=== PATIENT | female | born 1950 | race Caucasian/White ===

== ENCOUNTER 2022-10-09 15:38 | Outpatient (OUT) | payer MEDICARE, OTHER, SELFPAY ==
[2022-10-09 16:06] LABS: Basophils Absolute Auto 0.1 10^3/uL (0.0-0.1); Basophils Percent Auto 1.1 % (0.2-2.0); Eosinophils Absolute Auto 0.2 10^3/uL (0.0-0.7); Eosinophils Percent Auto 3.6 % (0.9-7.0); Hematocrit 36.6 % (36.0-48.0); Hemoglobin 11.9 g/dL (12.0-16.0); Immature Granulocytes Abs Auto 0.01 10^3/uL (0.00-0.03); Immature Granulocytes Pct Auto 0.2 % (0.0-0.5); Lymphocytes Absolute Auto 2.5 10^3/uL (1.2-3.8); Mean Corpuscular HGB Conc 32.5 g/dL (29.9-35.2); Mean Corpuscular Hemoglobin 28.7 pg (26.7-34.0); Mean Corpuscular Volume 88.4 fL (81.0-99.0); Mean Platelet Volume 9.8 fL (9.5-13.5); Monocytes Absolute Auto 0.5 10^3/uL (0.3-0.8); Monocytes Percent Auto 7.5 % (1.7-12.0); Neutrophils Absolute Auto 3.1 10^3/uL (1.4-6.5); Neutrophils Percent Auto 48.6 % (43.0-75.0); Platelet Count 276 10^3/uL (150-450); Red Blood Count 4.14 10^6/uL (4.20-5.40); Red Cell Distribution Width 13.3 % (11.0-15.0); White Blood Count 6.4 10^3/uL (4.0-11.0)
[2022-10-09 16:26] LABS: Alanine Aminotransferase 27 U/L (14-59); Albumin Level 3.9 g/dL (3.4-5.0); Alkaline Phosphatase 78 U/L (46-116); Anion Gap 8.7; Aspartate Amino Transferase 21 U/L (15-37); BUN Creatinine Ratio 21.5; Bilirubin Total 1.1 mg/dL (0.2-1.0); Calcium 9.1 mg/dL (8.5-10.1); Carbon Dioxide 28.7 mmol/L (21.0-32.0); Chloride 102 mmol/L (98-107); Estimated GFR (African America >60 (>=60); Estimated GFR (Non-African Ame >60 (>=60); Globulin 3.8 g/dL; Glucose 86 mg/dL (74-106); Potassium 3.4 mmol/L (3.5-5.1); Sodium 136 mmol/L (136-145); Total Protein 7.7 g/dL (6.4-8.2)
== END 2022-10-09 15:39 | disposition home or self-care (01) ==
LOC: LAB 15:43
PROVIDERS: PCP Nurse Practitioner; Visit Provider Nurse Practitioner
DX: R53.83 Other fatigue (principal)
CPT/HCPCS: 36415; 80053; 85025

== ENCOUNTER 2023-01-04 07:02 | Emergency (ER) | payer MEDICARE, OTHER, SELFPAY ==
[2023-01-04 07:08] VITALS: BP 188/106; PULSE 72; RESP 16; TEMP 36.8; O2SAT 99; BMI 25.8
--- NOTE | 2023-01-04 07:16 | ED_ITS ---
HPI - General Adult General Chief complaint: Headache Stated complaint: HEADACHE Time Seen by Provider: 01/04/23 07:04 Source: patient Mode of arrival: Wheelchair Limitations: no limitations History of Present Illness HPI narrative: patient with long history of migraines presents with occipital headache that began 3 days ago. She typically gets 3-4 headaches per month but lately has been getting them more frequently. She takes maxalt and that usually resolves the episode but in this instance the maxalt hasn't made a difference. She had nasal symptoms about a week ago - none now. She has some nausea, mild p hotophobia and upper neck pain. No injury. No fever or chlls. No cough, chest pain or shortness of breath Related Data Previous Rx's Medication Instructions Recorded ondansetron 4 mg disintegrating 4 mg PO Q6H PRN migraine headache 01/04/23 tablet #20 tabs Allergies Allergy/AdvReac Type Severity Reaction Status Date / Time Penicillins Allergy Unknown Verified 01/04/23 07:08 PFSH PFS Social History Smoking status: Never smoker Exam Narrative Exam Narrative: Nurses notes and vital signs reviewed and patient is not hypoxic. afebrile General: Well-appearing and in no apparent distress. Skin: Warm, dry, no pallor noted. No rash. Head: Normocephalic, atraumatic. Neck: Supple, non-tender. no cervical lymphadenopathy. No meningismus. Eye: Pupils are equal, round and EOMI. No scleral icterus. Cardiovascular: Regular Rate and Rhythm without murmur, gallop or rub. Respiratory: No accessory muscle use or respiratory distress. Lungs are clear to auscultation, no wheezing, rales or rhonchi Musculoskeletal: normal ROM Neurological: A&O x4. No cranial nerve dysfunction observed. No truncal ataxia. Moves all extremities. Sensation intact. Psychiatric: Cooperative and interactive. Normal mood and affect. Constitutional Vital Signs, click to edit/add: Last Vital Signs Temp 98.2 F 01/04/23 07:08 Pulse 72 01/04/23 07:08 Resp 16 01/04/23 07:08 BP 176/93 H 01/04/23 08:29 Pulse Ox 99 01/04/23 07:08 O2 Del Method Room Air 01/04/23 07:08 Course Vital Signs Vital signs: Vital Signs Temperature 98.2 F 01/04/23 07:08 Pulse Rate 72 01/04/23 07:08 Respiratory Rate 16 01/04/23 07:08 Blood Pressure 188/106 H 01/04/23 07:08 Pulse Oximetry 99 01/04/23 07:08 Oxygen Delivery Method Room Air 01/04/23 07:08 Temperature 98.2 F 01/04/23 07:08 Pulse Rate 72 01/04/23 07:08 Respiratory Rate 16 01/04/23 07:08 Blood Pressure 176/93 H 01/04/23 08:29 Pulse Oximetry 99 01/04/23 07:08 Oxygen Delivery Method Room Air 01/04/23 07:08 Medical Decision Making MDM Narrative Medical decision making narrative: patient presents with occipital headache that is typical of her previous migraine with the exception that this one has not resolved with Maxalt use. She has me about meningitis, tumor, other concerning reason for her to have more frequent headaches recently. I reassured her that her exam is not consistent with meningitis nor is her history. I offered to sent for CT scanning of the brain, which she agreed to. Peripheral IV was established. The patient was ordered to receive normal saline IV fluid bolus, IV Toradol, IV Zofran and IV Benadryl. On recheck at 0800, she said that the meds took the edge off but she still rated her pain 8/10. She was ordered to receive IV Phenergan and Solumedrol. Head CT was unremarkable On recheck at 840am the patient's pain was 4/10 and she was able to be discharged home. She was informed of results and given reassurance. Imaging Data CT scan - head: My impression: NAD Radiologist's impression: Patient Name: OLINDA SINGH MRN: [id number] date: 1950 Sex: F Assigned Patient Location: ER Current Patient Location: ER Accession/Order Number: [id number] Exam Date: 01/04/2023 07:51 Report Date: 01/04/2023 08:10 At the request of: MATHEW ORDAZ Procedure: CT head/brain wo con EXAMINATION: CT head/brain wo con HISTORY: headache , nausea, vomiting, diarrhea COMPARISON: No relevant comparison available. TECHNIQUE: Axial CT images were obtained without IV contrast. Dose reduction techniques were achieved by using automated exposure control and/or adjustment of mA and/or kV according to patient size and/or use of iterative reconstruction technique. FINDINGS: BRAIN: No edema, hemorrhage, mass, acute infarction, or inappropriate atrophy. Incidental calcium deposition within the basal ganglia bilaterally. CSF SPACES: No hydrocephalus, subarachnoid hemorrhage, or mass. Appropriate for age. SKULL: No fracture, mass, or other significant visible lesion. SINUSES: No significant mucosal thickening or fluid on the limited views. ORBITS: No appreciable abnormality on the limited views. OTHER: Negative IMPRESSION: 1. No intracranial hemorrhage or appreciable acute abnormality. 2. Age consistent mild chronic changes. Electronically authenticated by: NAOMI FLORENCE Date: 01/04/2023 08:10 Discharge Plan Discharge Chief Complaint: Headache Clinical Impression: Migraine Patient Disposition: Home, Self-Care Time of Disposition Decision: 08:51 Prescriptions / Home Meds: New ondansetron 4 mg tablet,disintegrating 4 mg PO Q6H PRN (Reason: migraine headache) Qty: 20 0RF Instructions: Migraine Headache (ED) Stand Alone Forms: Portal Instructions Referrals: Vesna Geiger NP [Primary Care Provider] - 1 week
[2023-01-04] MEDS: KETOROLAC TROMETHAMINE 30 MG/ML VIAL IVP (07:38)
[2023-01-04] MEDS: DIPHENHYDRAMINE HCL 50 MG/ML (1ML) VIAL 25 MG IV (07:39)
[2023-01-04] MEDS: ONDANSETRON PF 4 MG/2 ML VIAL IV (07:39)
[2023-01-04] MEDS: 0.9 % SODIUM CHLORIDE 1,000 ML 999 ML IV (07:44)
[2023-01-04] MEDS: PROMETHAZINE HCL 25 MG/ML VIAL 12.5 MG IV (08:13)
[2023-01-04] MEDS: METHYLPREDNISOLONE SOD SUCC PF 125 MG/2 ML VIAL IVP (08:13)
[2023-01-04 08:29] VITALS: BP 176/93
== END 2023-01-04 09:00 | disposition home or self-care (01) ==
PROVIDERS: Emergency Provider Emergency Medicine; PCP Nurse Practitioner
DX: G43.909 Migraine, unspecified, not intractable, without status migrainosus (principal); Z79.899 Other long term (current) drug therapy
CPT/HCPCS: 70450; 96374; 96375; 99284; J2930

== ENCOUNTER 2023-01-25 09:13 | Outpatient (OUT) | payer MEDICARE, OTHER, SELFPAY ==
--- NOTE | 2023-01-25 09:18 | MM_ITS ---
Patient Name: OLINDA SINGH MR#: [id number] : 1950 Exam Date: 01/25/2023 Ordering Doctor: KASHIF Geiger CNP RADIOLOGY REPORT PROCEDURE: MM TOMOSYNTHESIS SCREENING BI COMPARISON: MG MAMM SCREEN 3D ESTEPHANIE CAD, 01/19/2021. MG MAMM SCREEN 3D ESTEPHANIE CAD, 01/20/2022. INDICATIONS: Screening Calculator Name NCI Breast Cancer Risk Assessment Tool 5 Year Breast Cancer Risk 2.20% Lifetime Breast Cancer Risk 6.00% Personal Breast Cancer No Personal Ovarian Cancer No Treatments None Family Cancers None LOCATION: [facility] BREAST COMPOSITION: Heterogeneously dense,which may obscure small masses. FINDINGS: DIAGNOSTIC CATEGORY 2--BENIGN FINDING. NO CHANGE FROM COMPARISON. Scattered benign-appearing nodules are present. Scattered benign-appearing calcifications are present. Scattered benign-appearing lymph nodes are present. RIGHT BREAST: No significant suspicious finding. LEFT BREAST: No significant suspicious finding. RECOMMENDATIONS: ROUTINE MAMMOGRAM AND CLINICAL EVALUATION IN 12 MONTHS. PLEASE NOTE: A NORMAL MAMMOGRAM DOES NOT EXCLUDE THE POSSIBILITY OF BREAST CANCER. A CLINICALLY SUSPICIOUS PALPABLE LUMP SHOULD BE BIOPSIED. Dictated by: Thuan Sheldon MD on 01/26/2023 at 08:02 Approved by: Thuan Sheldon MD on 01/26/2023 at 08:04
--- NOTE | 2023-01-25 09:18 | XR_ITS ---
[address] [address] Patient Name: OLINDA SINGH MRN: [id number] date: 1950 Sex: F Assigned Patient Location: [facility] Current Patient Location: [facility] Accession/Order Number: [id number] Exam Date: 01/25/2023 09:38 Report Date: 01/25/2023 11:03 At the request of: KHALIDA ISAACS Procedure: XR DEXA axial skeleton EXAMINATION: XR DEXA axial skeleton, 01/25/2023 9:38 AM EST HISTORY: Post Menopause Z78.0 COMPARISON: None. TECHNIQUE: Dual-energy X-ray absorptiometry (DEXA) bone density study performed for the axial skeleton. HISTORY: Post Menopause Z78.0 FINDINGS: Bone mineral density AP spine L1-L4 measures 1.217 g/sq cm. T score 0.3. WHO classification: Normal. Lowest bone mineral density left femoral neck measures 0.860 g/sq cm. T score -1.3. WHO classification: Osteopenia XR/XR DEXA axial skeleton IMPRESSION: Osteopenia. Moderate fracture risk Electronically authenticated by: LOUISE GALLAGHER Date: 01/25/2023 11:03
== END 2023-01-25 09:14 | disposition home or self-care (01) ==
LOC: MAMMO 09:13
PROVIDERS: PCP Nurse Practitioner; Visit Provider Nurse Practitioner
DX: Z12.31 Encounter for screening mammogram for malignant neoplasm of breast (principal); Z78.0 Asymptomatic menopausal state; M85.80 Other specified disorders of bone density and structure, unspecified site
CPT/HCPCS: 77063; 77067; 77080

== ENCOUNTER 2023-10-11 16:18 | Emergency (ER) | payer MEDICARE, OTHER, SELFPAY ==
[2023-10-11 16:23] VITALS: BP 178/99; PULSE 78; TEMP 36.6; O2SAT 97; BMI 28.2
--- OUTSIDE RECORDS SUMMARY | 2023-10-11 16:35 | XMS_ITS | CCD ---
Author Organization [facility] Care Team Providers Care Pay Per Click Strategist Name Role Phone Unavailable Primary Care Provider Unavailabl VESNA Lucero Referring Unavailable AICHHOLVESNA Barksdale Referring Unavailable AICHHOLZ, TABLET MAKING MACHINE OPERATOR VESNA Primary Care Unavailable NYDIA BOX Admitting Unavailable NYDIA BOX Attending Unavailable ELIAS, DR DAVEY Consulting Unavailable AICHHOLZ, TABLET MAKING MACHINE OPERATOR VESNA Admitting Unavailable AICHHOLZ, TABLET MAKING MACHINE OPERATOR VESNA Attending Unavailable AICHHOLZ, TABLET MAKING MACHINE OPERATOR VESNA Primary Care Unavailable DR LOUISE GALLAGHER V Consulting Unavailable AICHHOLZ, TABLET MAKING MACHINE OPERATOR VESNA Consulting Unavailable AICHHOLZ, TABLET MAKING MACHINE OPERATOR VESNA Primary Care Unavailable FRANCISCO JAVIER LANIER Consulting Unavailable DR LUCAS HOLDEN Admitting Unavailable NAVIN, DR LUCAS Palmer Attending Unavailable PETAR CUMMINGS Consulting Unavailable Allergies Allergy Classification Reported Allergen(s) Allergy Type Date of Onset Reaction(s) Facility (1 source) Gluten Drug allergy (disorder) [facility] Repository (1 source) Penicillin Drug Allergy [facility] (1 source) Sulfamethoxazole / Trimethoprim Drug Allergy [facility] (1 source) Sulfonamides (Antibiotic) Drug allergy (disorder) [facility] Problems Active Problems Problem Classification Problem Date Documented Da te Episodic/Chronic Menopausal disorders (1 source) Menopausal syndrome; Translations: [Menopausal state] Chronic Other screening for suspected conditions (not mental disorders or infectious disease) (4 sources) Encounter for screening mammogram for malignant neoplasm of breast; Translations: [ENC SCR MAMMO MALIG NEOPLASM BREAST] Onset: 01-20-2022 Episodic Unclassified (1 source) Patient encounter status; Translations: [Breast cancer screening by mammogram] Past or Other Problems Problem Classification Problem Date Documented Da te Episodic/Chronic Crushing injury or internal injury (1 source) Crushing injury of left thumb, initial encounter; Translations: [CRUSHING INJURY OF LT THUMB INITIAL] Onset: 06-09-2021 Episodic E Codes: Cut/pierceb (1 source) Contact with other sharp object(s), not elsewhere classified, initial encounter; Translations: [[facility] OTH SHRP OB NOT ELSW CLASS INI] Onset: 08-16-2021 Episodic E Codes: Struck by; against (1 source) Striking against or struck by other objects, initial encounter; Translations: [STRIKING AGNST/STRUCK OTH OBJ INIT] Onset: 06-09-2021 Episodic Open wounds of extremities (4 sources) Laceration without foreign body, right lower leg, initial encounter; Translations: [LACERATION W/O FB RT LOW LEG INIT] Onset: 08-14-2021 Episodic Other connective tissue disease (3 sources) Pain in left finger(s); Translations: [PAIN IN LEFT FINGERS] Onset: 06-08-2021 Episodic Sprains and strains (1 source) Unspecified sprain of left thumb, initial encounter; Translations: [UNSPECIFIED SPRAIN LT THUMB INITIAL] Onset: 06-09-2021 Episodic Results Test Name Value Interpretation Reference Range Facil ity MG MAMM SCREEN 3D ESTEPHANIE CADon 01-20-2022 MG MAMM SCREEN 3D ESTEPHANIE CAD Patient: OLINDA SINGH Exam Date: 01/20/2022 : 1950 Gender:F Ordering : KASHIF [facility] Admission #: [id number] Family : Order #: [id number] CLICK HERE TO VIEW EXAM RADIOLOGY REPORT PROCEDURE: MAMMOGRAM SCREENING 3D BILATERAL CAD COMPARISON: MG MAMM SCREEN ESTEPHANIE W CAD, 09/10/2019. MG MAMM SCREEN 3D ESTEPHANIE CAD, 01/19/2021. INDICATIONS: Screening mammography Calculator Name NCI Breast Cancer Risk Assessment Tool 5 Year Breast Cancer Risk 2.20% Lifetime Breast Cancer Risk 6.30% Personal Breast Cancer No Personal Ovarian Cancer No Treatments None Family Cancers None LOCATION: [facility] BREAST COMPOSITION: Heterogeneously dense,which may obscure small masses. FINDINGS: DIAGNOSTIC CATEGORY 1--NEGATIVE. NO CHANGE FROM COMPARISON ASSESSMENT. Scattered benign-appearing calcifications are present. Scattered benign-appearing lymph nodes are present. RIGHT BREAST: No significant suspicious finding. LEFT BREAST: No significant suspicious finding. RECOMMENDATIONS: ROUTINE MAMMOGRAM AND CLINICAL EVALUATION IN 12 MONTHS. PLEASE NOTE: A NORMAL MAMMOGRAM DOES NOT EXCLUDE THE POSSIBILITY OF BREAST CANCER. A CLINICALLY SUSPICIOUS PALPABLE LUMP SHOULD BE BIOPSIED. Dictated by: Louise Gallagher MD on 01/20/2022 at 11:08 Approved by: Louise Gallagher MD on 01/20/2022 at 11:12 Normal [facility] XR HAND LT MIN 3Von 06-09-19 XR HAND LT MIN 3V EXAM: XR HAND LT MIN 3V COMPARISON: None HISTORY: Pain FINDINGS: No acute or aggressive bony abnormality. Alignment appears normal. Joint spaces are maintained. Mild osteophytic degenerative changes in the first carpometacarpal joint. There is osseous demineralization. Peripheral soft tissues are unremarkable. IMPRESSION: No acute findings. Mild degenerative changes and generalized osseous demineralization.. Electronically authenticated by: PETAR ZOILA Date: 2021-06-08 20:17 Normal [facility] Ambulatory Clinical Summaryo n 01-31-2021 Ambulatory Clinical Summary {[id number] Normal [facility] Patient Educationon 02-01-20 21 Patient Education Obstetrics and Gynecology Urinary Tract Infection, Adult A urinary tract infection (UTI) is an infection of any part of the urinary tract. The urinary tract includes the kidneys, ureters, bladder, and urethra. These organs make, store, and get rid of urine in the body. Your health care provider may use other names to describe the infection. An upper UTI affects the ureters and kidneys (pyelonephritis). A lower UTI affects the bladder (cystitis) and urethra (urethritis). What are the causes? Most urinary tract infections are caused by bacteria in your genital area, around the entrance to your urinary tract (urethra). These bacteria grow and cause inflammation of your urinary tract. What increases the risk? You are more likely to develop this condition if: ? You have a urinary catheter that stays in place (indwelling). ? You are not able to control when you urinate or have a bowel movement (you have incontinence). ? You are female and you: ? Use a spermicide or diaphragm for control. ? Have low estrogen levels. ? Are . ? You have certain genes that increase your risk (genetics). ? You are sexually active. ? You take antibiotic medicines. ? You have a condition that causes your flow of urine to slow down, such as: ? An enlarged prostate, if you are male. ? Blockage in your urethra (stricture). ? A kidney stone. ? A nerve condition that affects your bladder control (neurogenic bladder). ? Not getting enough to drink, or not urinating often. ? You have certain medical conditions, such as: ? Diabetes. ? A weak disease-fighting system (immunesystem). ? Sickle cell disease. ? Gout. ? Spinal cord injury. What are the signs or symptoms? Symptoms of this condition include: ? Needing to urinate right away (urgently). ? Frequent urination or passing small amounts of urine frequently. ? Pain or burning with urination. ? Blood in the urine. ? Urine that smells bad or unusual. ? Trouble urinating. ? Cloudy urine. ? Vaginal discharge, if you are female. ? Pain in the abdomen or the lower back. You may also have: ? Vomiting or a decreased appetite. ? Confusion. ? Irritability or tiredness. ? A fever. ? Diarrhea. The first symptom in older adults may be confusion. In some cases, they may not have any symptoms until the infection has worsened. How is this diagnosed? This condition is diagnosed based on your medical history and a physical exam. You may also have other tests, including: ? Urine tests. ? Blood tests. ? Tests for sexually transmitted infections (STIs). If you have had more than one UTI, a cystoscopy or imaging studies may be done to determine the cause of the infections. How is this treated? Treatment for this condition includes: ? Antibiotic medicine. ? Rmpi-pys-atynafu medicines to treat discomfort. ? Drinking enough water to stay hydrated. If you have frequent infections or have other conditions such as a kidney stone, you may need to see a health care provider who specializes in the urinary tract (urologist). In rare cases, urinary tract infections can cause sepsis. Sepsis is a life-threatening condition that occurs when the body responds to an infection. Sepsis is treated in the hospital with IV antibiotics, fluids, and other medicines. Follow these instructions at home: Medicines ? Take poxb-zgy-qkdhrfu and prescription medicines only as told by your health care provider. ? If you were prescribed an antibiotic medicine, take it as told by your health care provider. Do not stop using the antibiotic even if you start to feel better. General instructions ? Make sure you: ? Empty your bladder often and completely. Do not hold urine for long periods of time. ? Empty your bladder after sex. ? Wipe from front to back after a bowel movement if you are female. Use each tissue one time when you wipe. ? Drink enough fluid to keep your urine pale yellow. ? Keep all follow-up visits as told by your health care provider. This is important. Contact a health care provider if: ? Your symptoms do not get better after 1?2 days. ? Your symptoms go away and then return. Get help right away if you have: ? Severe pain in your back or your lower abdomen. ? A fever. ? Nausea or vomiting. Summary ? A urinary tract infection (UTI) is an infection of any part of the urinary tract, which includes the kidneys, ureters, bladder, and urethra. ? Most urinary tract infections are caused by bacteria in your genital area, around the entrance to your urinary tract (urethra). ? Treatment for this condition often includes antibiotic medicines. ? If you were prescribed an antibiotic medicine, take it as told by your health care provider. Do not stop using the antibiotic even if you start to feel better. ? Keep all follow-up visits as told by your health care provider. This is important. This in (more content not included)... Normal [facility] Urology Office/Clinic Noteon 01-31-2021 Urology Office/Clinic Note Chief Complaint OV HPI Staff Pt is here due to Urethral caruncle returning? S/P Excision of urethral mass and Cysto done 12/12/2018. Pathology was negative for any malignancy. Dr. Vesna Orozco wanted her to get checked out due to a nodule that was seen during her wellness check up. Pt states she cant see anything and she is not having any pain. Urinary fernandez she is not having any issues or concerns at this time. Dysuria: no pain or burning Incomplete bladder emptying: emptying well Hematuria: denies any blood in urine Frequency: normal voiding every 2-3 hours Urgency: mild sx if none Nocturia: 1x if any Stream: strong and steady, no hesitation, no straining Post void dripping: none Wearing pads/ Depends: panty liners for her peace of mind Urge incontinence: none Stress incontinence: yes, this is only if she had a full bladder and she coughed or sneezed Incontinence without Sensory Awareness: none Abdominal pain: no pain or pressure History of Present Illness Reviewed UA and previous op report. There have been no associated fever, chills, flank pain or blood in the urine. Pt. denies any pain/burning with urination at this time. Review of Systems PHQ Score Initial Depression Screen Score: 0 ROS - Provider Constitutional: denies weight loss, denies hot flashes. Eyes: denies eye problems. Gastrointestinal: denies nausea, denies vomiting. Cardiovascular: denies chest pain or angina. Integumentary: no dryness Musculoskeletal: denies musculoskeletal symptoms. ENMT: denies otolaryngeal symptoms. Respiratory: no shortness of breath. Heme/Lymph: denies easy bleeding tendency, denies easy bruising tendency. Psychiatric: no confusion, no anxiety. Genitourinary: See HPI. Physical Exam Vitals & Measurements HR: 65(Peripheral) RR: 18 BP: 148/92 HT: 167 cm HT: 167.0 cm WT: 69 kg WT: 69.0 kg BMI: 24.74 General Appearance: alert , no acute distress, well nourished, well developed female. Genitourinary: bladder nonpalpable, no flank pain. urethra with minor prolapse noted. mod. a.v. Assessment/Plan 1. Urethral prolapse (N36.8: Other specified disorders of urethra) Minimal urethral prolapse from today's exam. Pt. denies having any urinary concerns at this time. UA shows no signs of blood nor infection. Pt. will follow-up prn. All questions/concerns were discussed. Pt. to call the office if sheencounters any issues prior. Pt. acknowledges understanding. 2. Urethral polyp (N36.2: Urethral caruncle) S/p cysto/excision of urethral mass done 12/2018 for benign disease. I have reviewed the previous health record information and history for this pt. from Dr. Nunez. Follow-up With When Contact Information ILAN LANDA, Ede Palmer, URL [address] [place] [address]- [phone] Additional Instructions: prn Patient Education Urinary Tract Infection, Adult I, Rose Mary Huerta , personally scribed for Dr. Nunez on 01/31/2021 14:33:00. . Documentation recorded by the scribe, Rose Mary Huerta, accurately reflects the services(s) I performed and decisions made by me. Authenticated by Dr. Nunez on 01/31/2021 14:34:55. Problem List/Past Medical History Ongoing Gross hematuria Hemorrhoids Microhematuria Urethral polyp Urethral prolapse Historical Hepatitis Migraine Procedure/Surgical History Biopsy of urethra (12/12/2018), Cystoscopy (12/03/2018). Medications Acidophilus Probiotic Blend, Oral, Daily Advil, Oral, q6hr aminocaproic acid, Not taking Maxalt 10 mg Tab, Oral, Daily rizatriptan 10 mg Dis Tab, See Instructions, Not taking Vitamin C, Daily Vitamin D and K oral tablet Allergies Glutens (Headache) Septra (Hives) penicillins (Hives, hives) sulfa drugs (Hives) Social History Alcohol - Low Risk, 10/07/2018 Tobacco Never (less than 100 in lifetime) Tobacco Use:., 01/31/2021 Never (less than 100 in lifetime) Tobacco Use:. Never Smokeless Tobacco Use:., 12/27/2018 Family History Alcoholism: Father. Hypertension: Mother. Liver disease: Father. Normal [facility] Comment on above: Result Comment: Elec tronically Signed By: Ede NUNEZ MD R\.br\Date and Time Signed: 01/31/21 14:34 EST\.br\Electronically Co-Signed By: Rose Mary Huerta MA\.br\Date and Time Co-Signed: 01/31/21 14:33 EST DEXA BONE DENSITY AXIAL [facility] 09-10-2019 DEXA BONE DENSITY AXIAL SKELETON EXAMINATION: OT left hip left wrist lumbar combination DEXA. BONE DENSITOMETRY 09/10/2019 10:47 am TECHNIQUE: DEXA evaluation of the patient's lumbar spin, left wrist e and left hip. COMPARISON: There are no prior studies for comparison. HISTORY: Osteoporosis screening. Postmenopausal patient. FINDINGS: Lumbar spine: Mean BMD measured from L1 through L2 is 1.135 grams/cm2, T-score -0.2, consistent with normal bone mass. Left hip: BMD of the entire left hip is 0.984 grams/cm2, consistent with T-score of -0.2 and representing normal bone mass. BMD of the left femoral neck is 0.885 grams/cm2, with young adult T-score of -1.1representing osteopenia. Left forearm: BMD left forearm distal 33% of radius is 0.790 grams/cm2, consistent with T-score of -1.1 and representing osteopenia. IMPRESSION: 1. The T-score in the lumbar spine is -0.2, consistent with normal bone mass. 2. Lowest T-score in the left hip is -1.1, consistent with osteopenia. 3. The T-score in the left forearm distal 33% of radius is -1.1, consistent with osteopenia. 4. Findings are consistent with osteopenia. 5. Fracture risk/FRAX: Major osteoporotic: 8.9%. Hip: 0.8 %. World Health Organization classification of bone mass: Normal: T-score Greater than -1. Osteopenia (low bone mass ): T-score between -1 and -2.5. Osteoporosis: T-score less than -2.5. FRAX calculator fracture probability submitted validated front treated postmenopausal women ages 40 years to 90 years and in men ages 50 years and older. The FRAX algorithm may overestimate fracture risk in premenopausal women, postmenopausal women less than 40 years of age, and women and men previously treated with FDA approved therapies for osteoporosis. The FRAX algorithm may underestimate the fracture risk in women and men older than the age of 90 years. DEXA scan for this exam: [employer] RECOMMENDATIONS: If not already instituted, suggest therapy to increase bone mass. Follow-up study in 2 years may be considered on a [employer] system. by WHO criteria. Interpreted by: Tiana Adair MD Signed by: Tiana Adair MD 09/10/19 Final result Normal [facility] 1. The T-score in th e lumbar spine is -0.2, consistent with normal bone mass. 2. Lowest T-score in the left hip is -1.1, consistent with osteopenia. 3. The T-score in the left forearm distal 33% of radius is -1.1, consistent with osteopenia. 4. Findings are consistent with osteopenia. 5. Fracture risk/FRAX: Major osteoporotic: 8.9%. Hip: 0.8 %. World Health Organization classification of bone mass: Normal: T-score Greater than -1. Osteopenia (low bone mass ): T-score between -1 and -2.5. Osteoporosis: T-score less than -2.5. FRAX calculator fracture probability submitted validated front treated postmenopausal women ages 40 years to 90 years and in men ages 50 years and older. The FRAX algorithm may overestimate fracture risk in premenopausal women, postmenopausal women less than 40 years of age, and women and men previously treated with FDA approved therapies for osteoporosis. The FRAX algorithm may underestimate the fracture risk in women and men older than the age of 90 years. DEXA scan for this exam: [employer] RECOMMENDATIONS: If not already instituted, suggest therapy to increase bone mass. Follow-up study in 2 years may be considered on a [employer] system. by WHO criteria. [facility] OT left hip left wrist lumbar combination DEXA. BONE DENSITOMETRY 09/10/2019 10:47 am TECHNIQUE: DEXA evaluation of the patient's lumbar spin, left wrist e and left hip. COMPARISON: There are no prior studies for comparison. HISTORY: Osteoporosis screening. Postmenopausal patient. FINDINGS: Lumbar spine: Mean BMD measured from L1 through L2 is 1.135 grams/cm2, T-score -0.2, consistent with normal bone mass. Left hip: BMD of the entire left hip is 0.984 grams/cm2, consistent with T-score of -0.2 and representing normal bone mass. BMD of the left femoral neck is 0.885 grams/cm2, with young adult T-score of -1.1representing osteopenia. Left forearm: BMD left forearm distal 33% of radius is 0.790 grams/cm2, consistent with T-score of -1.1 and representing osteopenia. [facility] Simon, Mhpn Incoming Radiant Results From [employer] - 09/10/2019 4:01 PM EDT EXAMINATION: OT left hip left wrist lumbar combination DEXA. BONE DENSITOMETRY 09/10/2019 10:47 am TECHNIQUE: DEXA evaluation of the patient's lumbar spin, left wrist e and left hip. COMPARISON: There are no prior studies for comparison. HISTORY: Osteoporosis screening. Postmenopausal patient. FINDINGS: Lumbar spine: Mean BMD measured from L1 through L2 is 1.135 grams/cm2, T-score -0.2, consistent with normal bone mass. Left hip: BMD of the entire left hip is 0.984 grams/cm2, consistent with T-score of -0.2 and representing normal bone mass. BMD of the left femoral neck is 0.885 grams/cm2, with young adult T-score of -1.1representing osteopenia. Left forearm: BMD left forearm distal 33% of radius is 0.790 grams/cm2, consistent with T-score of -1.1 and representing osteopenia. IMPRESSION: 1. The T-score in the lumbar spine is -0.2, consistent with normal bone mass. 2. Lowest T-score in the left hip is -1.1, consistent with osteopenia. 3. The T-score in the left forearm distal 33% of radius is -1.1, consistent with osteopenia. 4. Findings are consistent with osteopenia. 5. Fracture risk/FRAX: Major osteoporotic: 8.9%. Hip: 0.8 %. World Health Organization classification of bone mass: Normal: T-score Greater than -1. Osteopenia (low bone mass ): T-score between -1 and -2.5. Osteoporosis: T-score less than -2.5. FRAX calculator fracture probability submitted validated front treated postmenopausal women ages 40 years to 90 years and in men ages 50 years and older. The FRAX algorithm may overestimate fracture risk in premenopausal women, postmenopausal women less than 40 years of age, and women and men previously treated with FDA approved therapies for osteoporosis. The FRAX algorithm may underestimate the fracture risk in women and men older than the age of 90 years. DEXA scan for this exam: [employer] RECOMMENDATIONS: If not already instituted, suggest therapy to increase bone mass. Follow-up study in 2 years may be considered on a [employer] system. by WHO criteria. [facility], [place] LENO DIGITAL SCREEN W OR WO C AD BILATERALon 09-10-2019 LENO DIGITAL SCREEN W OR WO CAD BILATERAL EXAMINATION: SCREENING DIGITAL BILATERAL MAMMOGRAM WITH TOMOSYNTHESIS, 09/10/2019 TECHNIQUE: Screening mammography of the bilateral breasts was performed with tomosynthesis. 2D standard and 3D tomosynthesis combination imaging performed through both breasts in the MLO and CC projection. Computer aided detection was utilized in the interpretation of this exam. COMPARISON: 07/11/2018, 12/12/2016 HISTORY: Screening. FINDINGS: The breast tissue is heterogeneously dense. There is no suspicious mass, suspicious microcalcification, or area of architectural distortion. IMPRESSION: No mammographic evidence of malignancy. BI-RADS 1 BIRADS: BIRADS - CATEGORY 1 Negative, no evidence of malignancy. Normal interval follow-up is recommended in 12 months. OVERALL ASSESSMENT - NEGATIVE A letter of notification will be sent to the patient regarding the results. [employer] recommends annual mammograms for women 40 years and older. Interpreted by: Arnaldo Wadsworth MD Signed by: Arnaldo Wadsworth MD 09/10/19 Final result Normal [facility] No mammographic evidence of malignancy. BI-RADS 1 BIRADS: BIRADS - CATEGORY 1 Negative, no evidence of malignancy. Normal interval follow-up is recommended in 12 months. OVERALL ASSESSMENT - NEGATIVE A letter of notification will be sent to the patient regarding the results. [employer] recommends annual mammograms for women 40 years and older. [facility], [place] EXAMINATION: SCREENI NG DIGITAL BILATERAL MAMMOGRAM WITH TOMOSYNTHESIS, 09/10/2019 TECHNIQUE: Screening mammography of the bilateral breasts was performed with tomosynthesis. 2D standard and 3D tomosynthesis combination imaging performed through both breasts in the MLO and CC projection. Computer aided detection was utilized in the interpretation of this exam. COMPARISON: 07/11/2018, 12/12/2016 HISTORY: Screening. FINDINGS: The breast tissue is heterogeneously dense. There is no suspicious mass, suspicious microcalcification, or area of architectural distortion. [place], [place] Simon, pn Incoming Radiant Results From [employer] - 09/10/2019 12:38 PM EDT EXAMINATION: SCREENING DIGITAL BILATERAL MAMMOGRAM WITH TOMOSYNTHESIS, 09/10/2019 TECHNIQUE: Screening mammography of the bilateral breasts was performed with tomosynthesis. 2D standard and 3D tomosynthesis combination imaging performed through both breasts in the MLO and CC projection. Computer aided detection was utilized in the interpretation of this exam. COMPARISON: 07/11/2018, 12/12/2016 HISTORY: Screening. FINDINGS: The breast tissue is heterogeneously dense. There is no suspicious mass, suspicious microcalcification, or area of architectural distortion. IMPRESSION: No mammographic evidence of malignancy. BI-RADS 1 BIRADS: BIRADS - CATEGORY 1 Negative, no evidence of malignancy. Normal interval follow-up is recommended in 12 months. OVERALL ASSESSMENT - NEGATIVE A letter of notification will be sent to the patient regarding the results. [employer] recommends annual mammograms for women 40 years and older. [place], [place] Encounters Encounter Date Encounter Type Care Provider Facility Start: 01-20-2022 End: 01-21-2022 ambulatory KASHIF GEIGER Facility:[facility] Start: 08-14-2021 End: 08-14-2021 ambulatory KASHIF GEIGRE Facility:[facility] Start: 06-08-2021 End: 06-08-2021 ambulatory KASHIF GEIGER Facility:[facility] Start: 09-10-2019 End: 09-13-2019 Patient encounter procedure VESNA CumminsMinesh GEIGER [facility] Start: 09-10-2019 End: 09-12-2019 Subsequent hospital visit by physician Sandoval Gorman [facility] Mammography Comment on above: Menopausal state Breast cancer screen ing by mammogram Procedures Date Procedure Procedure Detail Performing Clinician Start: 09-10-2019 Screening mammograph y bi 2-view breast inc cad VESNA SHITAL Start: 09-10-2019 Dxa bone density shilpa dy 1/> sites axial skel VESNA SHITAL Start: 09-10-2019 Screening digital br east tomosynthesis bi Vesna CumminsMinesh Geiger Work Phone: Start: 09-10-2019 Dxa bone density shilpa dy 1/> sites axial andresel Vesna Nunez Alexkorinaadalbertohelene Work Phone: Plan of Treatment Date Care Activity Detail Author Start: 09-09-2021 Screening for malign ant neoplasm of breast Breast cancer screen [place], [place] Start: 11-11-2019 Influenza vaccination Flu vaccine (# 1) [place] Start: 09-01-2018 Annual Wellness Visi t (AWV) Annual Wellness Visit (AWV) [place] Start: 06-02-2016 Pneumococcal 65+ yea rs Vaccine (1 of 1 - PPSV23) Pneumococcal 65+ years Vaccine (1 of 1 - PPSV23) [place] Start: 06-02-2001 Screening for malign ant neoplasm of colon Colon cancer screen colonoscopy [place], [place] Start: 06-02-2001 Shingles Vaccine (1 of 2) Shingles V accine (1 of 2) [place] Start: 1991 Lipid panel Lipid screen [place], [place] Start: 06-02-1970 DTaP/Tdap/Td vaccine (1 - Tdap) DTaP/Tdap/Td vaccine (1 - Tdap) [place], [place] Start: 1951 Hepatitis C screening Hepatitis C sc reen [place], [place] Payers Date Payer Category Payer Medicare MEDICARE MEDICAR E PART A AND B xxxxxxxxxxx 2016-Present [phone] [address] [address] [place] [address] xxxxxxxxxxx [id number] 2016 Unknown [employer] MEDICARE SUPP xxxxxxxxxx 2016-Present [phone] [address] [address] [place] [address] xxxxxxxxxx [id number] 1959 Medicare [id number] 1959 Unknown [id number] 1951 Unknown [id number] 1951 Unknown [id number] 1951 Unknown [id number] 1951 Unknown [id number] 1950 Unknown [id number] Social History Date Type Detail Facility Tobacco smoking status NHIS Unknown if ev er smoked [place], [place] Sex Assigned At Not on file [place] Exposure to SARS-CoV-2 (event) Unable to assess [place] Reason for Referral Status Reason Specialty Diagnoses / Procedures Referre d By Contact Referred To Contact [facility] Diagnoses Menopausal state Procedures DEXA BONE DENSITY AXIAL SKELETON Vesna Geiger [address] [place] [address] Status Reason Specialty Diagnoses / Procedures Referred By Contact Referred To Contact Pending Review Radiology Diagnoses Breast cancer screening by mammogram Procedures LENO DIGITAL SCREEN W OR WO CAD BILATERAL Vesna Geiger [address] [place] [address] Assessments Diagnosis Menopausal state Symptomatic menopausal or female climacteric states Diagnosis Breast cancer screening by mammogram Advance Directives No Advanced Directives Records FoundDocuments on File Type Date Recorded 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 Advance Directives and Living Will 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 Summary Purpose Family History No Family History Records FoundNo Family History Records FoundNo Family History Records Found Additional Source Comments Reason for Visit (unrecogniz ed section and content) Status Reason Specialty Diagnoses / Procedures Referre d By Contact Referred To Contact [facility] Diagnoses Asymptomatic menopausal state Procedures HC DEXA AXIAL SKELETON Vesna Geiger [address] [place] [address] [address] Status Reason Specialty Diagnoses / Procedures Referre d By Contact Referred To Contact [facility] Diagnoses Encounter for screening mammogram for malignant neoplasm of breast Procedures HC MAMMOGRAM DIGITAL SCREEN BILAT Vesna Geiger [address] [place] [address] [address] INFORMATION SOURCE (unrecogn ized section and content) DATE CREATED AUTHOR 10/02/2019 Fany Mesa [facility] DATE CREATED AUTHOR AUTHOR'S ORGANIZ ATION 04/24/2021 [facility] DATE CREATED AUTHOR AUTHOR'S ORGANIZ ATION 01/23/2022 [employer] FOR RECORDS PERTAINING TO PATIENTS WHO ARE OR HAVE BEEN ENROLLED IN A CHEMICAL DEPENDENCY/SUBSTANCEABUSE PROGRAM, SOME INFORMATION MAY BE OMITTED. This clinical summary was aggregated from multiple sources. Caution should be exercised in using it in the provision of clinical care. This summary normalizes information from multiple sources, and as a consequence, information in this document may materially change the coding, format and clinical context of patient data. In addition, data may be omitted in some cases. CLINICAL DECISIONS SHOULD BE BASED ON THE PRIMARY CLINICAL RECORDS. [facility] [employer] [facility]. provides no warranty or guarantee of the accuracy or completeness of information in this document.
--- NOTE | 2023-10-11 16:39 | ED_ITS ---
HPI - Skin/Abscess/Foreign Bdy General Chief complaint: Skin/Abscess/Foreign Body Stated complaint: BOIL Time Seen by Provider: 10/11/23 16:22 Source: patient Mode of arrival: walk-in Limitations: no limitations History of Present Illness HPI narrative: Patient is a 73-year-old female who presents to the emergency department for small pimple-like area to her left posterior shoulder that she noticed today. She states she has a history of similar in the past and states that she developed large abscesses that are difficult to control so she wanted to be seen early. She has had no other associated focal medical complaints. No medications taken prior to arrival. Related Data Previous Rx's ?Medication ?Instructions ?Recorded ondansetron 4 mg disintegrating 4 mg PO Q6H PRN migraine headache 01/04/23 tablet #20 tabs clindamycin HCl 300 mg capsule 300 mg PO Q8H 7 days #21 caps 10/11/23 Allergies Allergy/AdvReac Type Severity Reaction Status Date / Time Penicillins Allergy Unknown Hives Verified 10/11/23 16:22 sulfamethoxazole Allergy Hives Verified 10/11/23 16:22 [From ] trimethoprim [From ] Allergy Hives Verified 10/11/23 16:22 Review of Systems ROS Constitutional Denies: fever or chills Ears, nose, mouth, and throat Denies: throat pain Respiratory Denies: shortness of breath Gastrointestinal Denies: nausea or vomiting Integumentary/Breast Denies: rash, skin pain or skin tenderness Hematologic/Lymphatic Denies: easy bruising or easy bleeding PFSH PFSH Social History Smoking status: Never smoker Exam Narrative Exam Narrative: Gen.: Awake, alert, in no distress Head: Normocephalic, atraumatic ENT: Moist mucous membranes Respiratory: No respiratory distress Extremities: Moves extremities equally Psych: Normal mood and affect Neuro: No focal neuro deficit Skin: Warm, dry, intact; 2 mm pustule noted to the left posterior shoulder with minimal surrounding induration. No large areas of abscess, fluctuance or red streaking Constitutional Vital Signs, click to edit/add: Last Vital Signs Temp 98 F 10/11/23 16:23 Pulse 78 10/11/23 16:23 Resp 14 10/11/23 16:23 BP 178/99 H 10/11/23 16:23 Pulse Ox 97 10/11/23 16:23 O2 Del Method Room Air 10/11/23 16:23 Course Vital Signs Vital signs: Vital Signs Temperature 98 F 10/11/23 16:23 Pulse Rate 78 10/11/23 16:23 Respiratory Rate 14 10/11/23 16:23 Blood Pressure 178/99 H 10/11/23 16:23 Pulse Oximetry 97 10/11/23 16:23 Oxygen Delivery Method Room Air 10/11/23 16:23 Temperature 98 F 10/11/23 16:23 Pulse Rate 78 10/11/23 16:23 Respiratory Rate 14 10/11/23 16:23 Blood Pressure 178/99 H 10/11/23 16:23 Pulse Oximetry 97 10/11/23 16:23 Oxygen Delivery Method Room Air 10/11/23 16:23 MDM - Skin/Abscess/Foreign Bdy MDM Narrative Medical decision making narrative: Patient is insistent she has had serious abscesses in the past and is concerned this will progress. Peroxide was applied to the skin and a 21-gauge needle was used to aspirate the white pustule, a small amount of purulent material was expressed and there is no persistent fluctuance or an indication for incision and drainage. Band-Aid applied and she remains neurovascularly intact. She is sent home with a short course of clindamycin as she is allergic to penicillin and Bactrim. Follow-up with PCP and return to the ER if symptoms change or worsen. Warm compresses as needed. SUPERVISED APC VISIT, PHYSICIAN ATTESTATION: Based on the medical record the care appears appropriate. ? Medical Records Attestation: I reviewed the patient's medical records. Discharge Plan Discharge Stand Alone Forms: Portal Instructions Chief Complaint: Skin/Abscess/Foreign Body Clinical Impression: Skin pustule Patient Disposition: Home, Self-Care Time of Disposition Decision: 16:37 Condition: Good Prescriptions / Home Meds: New clindamycin HCl 300 mg capsule 300 mg PO Q8H 7 Days Qty: 21 0RF No Action ondansetron 4 mg tablet,disintegrating 4 mg PO Q6H PRN (Reason: migraine headache) Qty: 20 0RF Print Language: Prydeinig Instructions: Acute Wounds (ED) Referrals: Vesna Geiger NP [Primary Care Provider] - 1 week
== END 2023-10-11 17:00 | disposition home or self-care (01) ==
PROVIDERS: Emergency Provider Student in an Organized Health Care Education/Training Program; PCP Nurse Practitioner
DX: L08.9 Local infection of the skin and subcutaneous tissue, unspecified (principal)
CPT/HCPCS: 10160; 99283

== ENCOUNTER 2024-01-28 11:37 | Outpatient (OUT) | payer MEDICARE, OTHER, SELFPAY ==
--- OUTSIDE RECORDS SUMMARY | 2024-01-28 11:45 | XMS_ITS | CCD ---
Author Organization [facility] Care Team Providers Care Flush Tester Name Role Phone Unavailable Primary Care Provider Unavailabl e VESNA GEIGER Referring Unavailable AICHKATHLEEN VESNA J. Referring Unavailable AICHHOLZ, PHOTOGRAPHER MODEL VESNA Primary Care Unavailable NYDIA BOX Admitting Unavailable NYDIA BOX Attending Unavailable ELIAS, DR DAVEY Consulting Unavailable AICHHOLZ, PHOTOGRAPHER MODEL VESNA Admitting Unavailable AICHHOLZ, PHOTOGRAPHER MODEL VESNA Attending Unavailable AICHHOLZ, PHOTOGRAPHER MODEL VESNA Primary Care Unavailable DR LOUISE GALLAGHER V Consulting Unavailable AICHHOLZ, PHOTOGRAPHER MODEL VESNA Consulting Unavailable AICHHOLZ, PHOTOGRAPHER MODEL VESNA Primary Care Unavailable FRANCISCO JAVIER LANIER Consulting Unavailable NAVIN, DR LUCAS Palmer Admitting Unavailable NAVIN, DR LUCAS Palmer Attending Unavailable PETAR CUMMINGS Consulting Unavailable Aichholz [employer]LE S[employer] CONSULTANT, Vesna Unavailable Nick Lane MD Primary Care Provider LOREN GARCIA Attending Unavailable NICK LANE Referring Unavailable LOREN GARCIA Referring Unavailable LOREN GARCIA Attending Unavailable Allergies Allergy Classification Reported Allergen(s) Allergy Type Date of Onset Reaction(s) Facility (1 source) Gluten Drug allergy (disorder) [facility] Repository (1 source) Penicillin Drug Allergy [facility] Repository (1 source) Sulfamethoxazole / Trimethoprim Drug Allergy [facility] Repository (1 source) Sulfonamides (Antibiotic) Drug allergy (disorder) [facility] Rep[facility] (7 sources) Penicillin G Drug Allergy 4 Hives [facility] Work Phone: (7 sources) Sulfamethoxazole / Trimethoprim [facility] Medications Current Medications Medication Drug Class(es) Dates Sig (Normalized) Sig (Original) rizatriptan 10 mg oral tablet (8 sources) Serotonin-1b and Serotonin-1d Receptor Agonist Start: 01-08-2024 rizatriptan (Maxalt) 10 MG tablet Indications: Migraine with aura and without status migrainosus, not intractable (CMS/HCC) May take 1 at onset of a migraine SZYMANSKI, repeat in 2 hours if needed. No more than 2 pills in 24 hours, no more than twice a week 9 tablet 1 01/08/2024 Active Start: 01-08-2024 rizatriptan (M axalt) 10 MG tablet Indications: Migraine with aura and without status migrainosus, not intractable (CMS/HCC) May take 1 at onset of a migraine SZYMANSKI, repeat in 2 hours if needed. No more than 2 pills in 24 hours, no more than twice a week 9 tablet 1 01/08/2024 Active Start: 01-08-2024 rizatriptan (M axalt) 10 MG tablet Indications: Migraine with aura and without status migrainosus, not intractable (CMS/HCC) May take 1 at onset of a migraine SZYMANSKI, repeat in 2 hours if needed. No more than 2 pills in 24 hours, no more than twice a week 9 tablet 1 01/08/2024 Active Start: 01-08-2024 rizatriptan (M axalt) 10 MG tablet Indications: Migraine with aura and without status migrainosus, not intractable (CMS/HCC) May take 1 at onset of a migraine SZYMANSKI, repeat in 2 hours if needed. No more than 2 pills in 24 hours, no more than twice a week 9 tablet 1 01/08/2024 Active Start: 05-01-2023 End: 01-07-2024 rizatriptan (Maxalt) 10 MG t ablet Indications: Migraine with aura and without status migrainosus, not intractable (CMS/HCC) May take 1 at onset of a migraine SZYMANSKI, repeat in 2 hours if needed. No more than 2 pills in 24 hours, no more than twice a week 9 tablet 1 05/01/2023 01/07/2024 Discontinued (Reorder) Problems Active Problems Problem Classification Problem Date Documented Date Episodic/Chronic Headache; including migraine (8 sources) Migraine with aura; Translations: [Migraine with aura, not intractable, without status migrainosus] Onset: 05-01-2023 05-01-2023 Chronic Menopausal disorders (1 source) Menopausal syndrome; Translations: [Menopausal state] Chronic Other connective tissue disease (4 sources) Plantar fasciitis; Translations: [Plantar fascial fibromatosis] 12-14-2023 Episodic Other connective tissue disease (4 sources) Deformity of lower limb; Translations: [Contracture of muscle, right lower leg] 12-14-2023 Episodic Other connective tissue disease (4 sources) Pain in right heel; Translations: [Pain in right foot] 12-14-2023 Episodic Other nervous system disorders (7 sources) Mortons neuroma of left foot; Translations: [Lesion of plantar nerve, left lower limb] Onset: 05-01-2023 05-01-2023 Chronic Other nervous system disorders (7 sources) Left foot neuritis; Translations: [Unspecified mononeuropathy of left lower limb] Onset: 05-01-2023 05-01-2023 Chronic Other screening for suspected conditions (not [...] object(s), not elsewhere classified, initial encounter; Translations: [CNTC OT SHRP OB NOT ELSW CLASS INI] Onset: 08-16-2021 Episodic E Codes: Struck by; against (1 source) Striking against or struck by other objects, initial encounter; Translations: [STRIKING AGNST/STRUCK OT OBJ INIT] Onset: 06-09-2021 Episodic Open wounds [...] Name Value Interpretation Reference Range Facil ity XR Calcaneus - right 2 Views on 12-14-2023 Imaging Result: Lateral and calcaneal axial views taken of right heel and show no fractures or dislocations. No lytic lesion with os calcis. Small plantar heel spurring present. Mild pes planus foot type, with decrease calcaneal pitch, and increase in talar declination angle. Mild joint space narrowing noted at 1st MTPJ with dorsal hypertrophy of bone at 1st met head. [facility] Sarenzacar e Radiology Study observation (narrative) [facility] IDInteract MG MAMM SCREEN 3D ESTEPHANIE CADon 01-20-2022 MG MAMM SCREEN 3D ESTEPHANIE CAD Patient: SHEILA SINGH Exam Date: 01/20/2022 : 1950 Gender:F Ordering : KASHIF GEIGER [facility] Admission #: [id number] Family : Order #: [id number] CLICK HERE TO VIEW EXAM RADIOLOGY REPORT [...] No Treatments None Family Cancers None LOCATION: [facility] BREAST COMPOSITION: Heterogeneously dense,which may obscure [...] Gallagher MD on 01/20/2022 at 11:12 Normal [facility] XR HAND LT MIN 3Von 06-09-19 [...] generalized osseous demineralization.. Electronically authenticated by: PETAR CUMMINGS Date: 2021-06-08 20:17 Normal [facility] Ambulatory Clinical Summaryo n 01-31-2021 Ambulatory Clinical Summary {[id number] Normal [facility] Patient Educationon 02-01-20 21 Patient Education Obstetrics [...] this condition includes: ? Antibiotic medicine. ? Tbxr-jde-fvmunvu medicines to treat discomfort. ? Drinking enough [...] these instructions at home: Medicines ? Take enoe-was-ocujiho and prescription medicines only as told by [...] This in (more content not included)... Normal [facility] Urology Office/Clinic Noteon 01-31-2021 Urology Office/Clinic Note [...] Information ILAN LANDA, Ede Palmer, URL [address] [place] [address] [place] [address]- [phone] Additional Instructions: prn Patient Education Urinary Tract [...] Father. Hypertension: Mother. Liver disease: Father. Normal [facility] Comment on above: Result Comment: Elec tronically Signed By: Ede NUNEZ MD\.br\Date and Time Signed: 01/31/21 14:34 EST\.br\Electronically Co-Signed By: Rose Mary Huerta MA\.br\Date and Time Co-Signed: 01/31/21 14:33 EST DEXA BONE DENSITY AXIAL SKEL ETONon 09-10-2019 DEXA BONE DENSITY AXIAL SKELETON EXAMINATION: [...] 90 years. DEXA scan for this exam: Calixar RECOMMENDATIONS: If not already instituted, suggest therapy to increase bone mass. Follow-up study in 2 years may be considered on a The Box system. by WHO criteria. Interpreted by: Tiana Adair MD Signed by: Tiana Adair MD 09/10/19 Final result Normal [facility] 1. The T-score in the lumbar spine [...] 90 years. DEXA scan for this exam: Calixar RECOMMENDATIONS: If not already instituted, suggest therapy to increase bone mass. Follow-up study in 2 years may be considered on a The Box system. by WHO criteria. [place], [place] EXAMINATION: OT left hip left wrist lumbar [...] with T-score of -1.1 and representing osteopenia. [place], [place] Simon, [facility] Incoming Radiant Results From KeyEffx/Datto - 09/10/2019 4:01 PM EDT EXAMINATION: OT [...] 90 years. DEXA scan for this exam: Calixar RECOMMENDATIONS: If not already instituted, suggest therapy to increase bone mass. Follow-up study in 2 years may be considered on a The Box system. by WHO criteria. [facility], [place] LENO DIGITAL SCREEN W OR WO C AD BILATERALon 09-10-2019 [facility] DIGITAL SCREEN W OR WO CAD BILATERAL [...] to the patient regarding the results. [employer] recommends annual mammograms for women 40 years and older. Interpreted by: Arnaldo Wadsworth MD Signed by: Arnaldo Wadsworth MD 09/10/19 Final result Normal [facility] No mammographic evidence of malignancy. BI-RADS 1 BIRADS: BIRADS - CATEGORY 1 Negative, no evidence of malignancy. Normal interval follow-up is recommended in 12 months. OVERALL ASSESSMENT - NEGATIVE A letter of notification will be sent to the patient regarding the results. [employer] recommends annual mammograms for women 40 years and older. [place] EXAMINATION: SCREENING DIGITAL BILATERAL MAMMOGRAM WITH TOMOSYNTHESIS, [...] suspicious microcalcification, or area of architectural distortion. [place], [place] Simon, [facility] Incoming Radiant Results From KeyEffx/BISciences - 09/10/2019 12:38 PM EDT EXAMINATION: SCREENING [...] to the patient regarding the results. [employer] recommends annual mammograms for women 40 years and older. [place], [place] Vital Signs Date Time Vital Sign Value Performing Clinician Faci lity 01-08-2024 [id number] Body height 167.6 cm Loren Garcia DPM Work Phone: [facility] 01-08-2024 11:04-0400 Body mass index (BMI) [Ratio] 29.7 kg/m2 Loren Garcia DPM Work Phone: [facility] 01-08-2024 11:04-0400 Body weight 83.46 kg Loren Garcia DPM Work Phone: [facility] 12-14-2023 08:47-0400 Body height 167.6 cm Loren Garcia DPM Work Phone: [facility] 12-14-2023 08:47-0400 Body mass index (BMI) [Ratio] 27.44 kg/m2 Loren Garcia DPM Work Phone: [facility] 12-14-2023 08:47-0400 Body weight 77.11 kg Loren Garcia DPM Work Phone: [facility] Healthcare Encounters Encounter Date Encounter Type Care Provider Facility Start: 01-08-2024 End: 01-08-2024 Bamboo flowsheet Loren Garcia DPM Work Phone: [facility] Start: 01-08-2024 End: 01-08-2024 Bamboo flowsheet Loren Garcia DPM Work Phone: [facility] Start: 01-08-2024 End: 01-08-2024 ambulatory LOREN GARCIA Not Available Start: 01-08-2024 End: 01-08-2024 Office outpatient visit 15 minutes Loren Garcia DPM Work Phone: [facility] Comment on above: Plantar fasciitis (P rimary Dx); Gastrocnemius equinus of right lower extremity; Pain of right heel Start: 01-07-2024 End: 01-08-2024 Refill Vesna Geiger ORACLE SCM CONSULTANT Work Phone: [facility] Comment on above: Migraine with aura a nd without status migrainosus, not intractable ([facility]) Start: 12-14-2023 End: 12-14-2023 Bamboo flowsheet Loren Garcia DPM Work Phone: [facility] Start: 12-14-2023 End: 12-14-2023 Bamboo flowsheet Loren Garcia DPM Work Phone: [facility] Start: 12-14-2023 End: 12-14-2023 Office outpatient new 30 minutes Loren Garcia DPM Work Phone: [facility] Comment on above: Plantar fasciitis (P rimary Dx); Gastrocnemius equinus of right lower extremity; Pain of right heel Start: 12-14-2023 End: 12-14-2023 ambulatory LOREN GARCIA Not Available Start: 01-20-2022 End: 01-21-2022 ambulatory [facility] VESNA SHITAL Facility:H1 Start: 08-14-2021 End: 08-14-2021 ambulatory [facility] VESNA SHITAL Facility:H1 Start: 06-08-2021 End: 06-08-2021 ambulatory [facility] VESNA SHITAL Facility:H1 Start: 09-10-2019 End: 09-13-2019 Patient encounter procedure VESNA GEIGER [facility] Start: 09-10-2019 End: 09-12-2019 Subsequent hospital visit by physician [facility] Comment on above: Menopausal state Breast cancer screen ing by mammogram Procedures Date Procedure Procedure Detail Performing Clinician Start: 12-14-2023 Radex calcaneus mini mum 2 views Loren Garcia DPM Work Phone: Start: 01-26-2023 Mammography Loren collado DPM Work Phone: Start: 09-10-2019 Screening mammograph y bi 2-view breast inc cad VESNA GEIGER Start: 09-10-2019 Dxa bone density shilpa dy 1/> sites axial skel VESNA GEIGER Start: 09-10-2019 Screening digital br east tomosynthesis bi Vesna JMinesh Geiger Work Phone: Start: 09-10-2019 Dxa bone density shilpa dy 1/> sites axial skel Vesna JMinesh Geiger Work Phone: Plan of Treatment Date Care Activity Detail Author Start: 12-19-2024 Screening for malign ant neoplasm of colon [facility] Start: 02-19-2024 End: 02-19-2024 Patient encounter procedure 02/19/2024 10:45 AM EST Office Visit [facility] [address] [facility] [phone] Loren Garcia, ALBARO [address] [place] [address] [facility] Start: 01-28-2024 End: 01-28-2024 Patient encounter procedure 01/28/2024 10:30 AM EST Procedure Visit [facility] [address] [address] Vesna Geiger, ORACLE SCM CONSULTANT [address] [place] [address] [facility] Start: 01-27-2024 Screening for malign ant neoplasm of breast Mammogram [facility] Start: 01-08-2024 End: 01-08-2024 Patient encounter procedure 01/08/2024 11:00 AM EDT Office Visit [facility] [address] [facility] [phone] Loren Garcia, DPM [address] [place], [place] [id number] [facility] Start: 12-14-2023 End: 12-14-2023 Patient encounter procedure 12/14/2023 9:00 AM EDT Office Visit [facility] [address] [place] [address] Loren Lynn, DPM [address] [place] [address] Arrived [facility] Comment on above: Arrived Start: 11-11-2023 Influenza vaccination Influenza Vacc ine (#1) [facility] Healthcare Start: 09-09-2021 Screening for malign ant neoplasm of breast Breast cancer screen [place], [place] Start: 11-11-2019 Influenza vaccination Flu vaccine (# 1) [place] Start: 09-01-2018 Annual Wellness Visi t (AWV) Annual Wellness Visit (AWV) [place] Start: 06-02-2016 Pneumococcal 65+ yea rs Vaccine (1 of 1 - PPSV23) Pneumococcal 65+ years Vaccine (1 of 1 - PPSV23) [place] Start: 06-02-2001 Screening for malign ant neoplasm of colon Colon cancer screen colonoscopy [place] Start: 06-02-2001 Shingles Vaccine (1 of 2) Shingles Vaccine (1 of 2) [place] Start: 1991 Lipid panel Lipid screen [place], [place] Start: 06-02-1970 DTaP/Tdap/Td vaccine (1 - Tdap) DTaP/Tdap/Td vaccine (1 - Tdap) [place] Start: 1950 Hepatitis C screening Hepatitis C sc reen [place] Start: 1950 Medicare Annual Wellness (AWV) Medicare Annual Wellness (AWV) [facility] Start: 1950 Screening for malign ant neoplasm of colon [facility] Immunizations Immunization Date Immunization Notes Care Provider Fa [facility] 12-29-2019 influenza virus vacc ine, unspecified formulation Loren Garcia DPM Work Phone: [facility] Healthcare Payers Date Payer Category Payer Private Health Insurance [id number] 2016 Medicare MEDICARE MEDICAR E PART A AND B xxxxxxxxxxx 2016-Present [phone] [address] [address] [place] [address] xxxxxxxxxxx [id number] 2016 Medicare [id number] 2016 Unknown [employer] MEDICARE SUPP xxxxxxxxxx 2016-Present [phone] [address] [address] [place] [address] xxxxxxxxxx [id number] 1959 Medicare [id number] 1959 Unknown [id number] 1950 Unknown [id number] 1950 Unknown [id number] 1950 Unknown [id number] 1950 Unknown [id number] 1950 Unknown [id number] 1950 Unknown [id number] .[id number] 1950 Unknown [id number] 1950 Unknown [id number] Social History Date Type Detail Facility [facility] [place] Start: 1950 Sex Assigned At Not on file M [place], [place] Exposure to SARS-CoV -2 (event) Unable to assess [facility] [place], [place] Start: 12-14-2023 Tobacco smoking stat [facility] Never smoked tobacco [facility] Start: 12-14-2023 Tobacco use and exposure Smokeless tobacco non-user [facility] Start: 12-14-2023 End: 01-08-2024 Alcoholic beverage intake Current drinker of alcohol (finding) [facility] Start: 12-14-2023 History of Social function [facility] Start: 12-14-2023 Tobacco use panel [facility] Start: 12-14-2023 Alcohol Comment rare [facility] Tobacco smoking stat [facility] Tobacco smoking consumption unknown [facility] History of Present illness Narrative 01-08-2024 Loren Garcia DPM - 01/08/2024 11:00 AM EDT Note Date & Type Note Facility 01-08-2024 History of Presen t illness Narrative Images from the original note were not included. Subjective Patient ID: Sheila Singh is a 73 y.o. female who presents for Follow-up (Pt returns today for FUV Plantar fasciitis Rt foot, she states still very sore by the end of the day. She is stretching and it does help a little, she purchased new shoes at [employer] /SS: 9.5W ). HPI Patient presents for follow up of right plantar fasciitis. She states since her last visit she has been wearing supportive shoe gear, power step inserts, stretching multiple times a day, icing in the evenings, continues to take Advil. She states she has noticed minor improvements. She states the pain is present less often. After long hours on her feet the pain becomes worse. She is still exercising daily and walking for exercise. She was also doing a significant amount of yard work. Review of Systems Medications Current Outpatient Medications: rizatriptan (Maxalt) 10 MG tablet, May take 1 at onset of a migraine SZYMANSKI, repeat in 2 hours if needed. No more than 2 pills in 24 hours, no more than twice a week, Disp: 9 tablet, Rfl: 1 Allergies Penicillin g and Sulfamethoxazole-trimethoprim Past Surgical History Past Surgical History: Procedure Laterality Date BUNIONECTOMY Bilateral Dr. Hendricks or Dr. Case Garcia Family History Family History Problem Relation Name Age of Onset Hypertension Mother Objective Physical Exam Constitutional: General: She is not in acute distress. HENT: Head: Atraumatic. Cardiovascular: Comments: Pedal pulses: DP pulses are 2/4, PT pulses are 2/4 Skin temp is warm to warm. Varicosities: present Hair growth: present Pulmonary: Effort: Pulmonary effort is normal. No respiratory distress. Musculoskeletal: Comments: ROM: AJ dorsiflexion is limited with knee extended and improves with knee flexed. STJ ROM WNL. MUSCLE STRENGTH: 5/5 for all quadrants without tenderness. PAIN: RIGHT: Pain at the insertion of the plantar fascia into the calcaneus. Mild discomfort with palpation of the weight bearing surface of the calcaneus. No pain with medial to lateral compression of the heel. No pain in the peroneals, Achilles or Posterior tibial tendon. DEFORMITIES: 1st met head is prominent medially with lateral deviation of the hallux on the right. Skin: General: Skin is warm. Capillary Refill: Capillary refill takes less than 2 seconds. Findings: No bruising or erythema. Comments: SKIN FINDINGS: Webspaces are clean and dry. Skin turgor and texture normal HYPERKERATOSIS: none Neurological: Mental Status: She is alert. Comments: No loss of protective sensation, gross sensation intact. Psychiatric: Mood and Affect: Mood normal. Behavior: Behavior normal. Assessment/Plan ICD-10-CM 1. Plantar fasciitis M72.2 2. Gastrocnemius equinus of right lower extremity M62.461 3. Pain of right heel M79.671 I reiterated the importance of wearing supportive shoe gear, avoiding bare feet, power step inserts, stretching, icing, NSAID. I gave adjunct treatment options of oral steroid versus steroid injection versus immobilization in the cam walker. Patient states she would like to avoid these options if possible. Therefore, I recommended she significantly modify her activity, discontinue walking for exercise while continuing to diligently adhere to the previously discussed conservative care measures. She will try this for a month and return here for follow up. This note was created with the assistance of a speech recognition program. While intending to generate a timely document that accurately reflects the content of the visit, no guarantee can be provided that every grammatical or spelling mistake has been or will be identified or corrected. Thank you for your understanding. Loren Garcia DPM documented in this encounter [facility] History of Present illness Narrative 12-14-2023 Loren Garcia DPM - 12/14/2023 9:00 AM EDT Note Date & Type Note Facility 12-14-2023 History of Presen t illness Narrative Images from the original note were not included. Subjective Patient ID: Sheila Singh is a 73 y.o. female who presents for Heel Pain (Pt prsentd today with Rt heel pain, has been painful for about 1mo, NKI. Feels like a nail stabbing. Most painful for her when she is up on her feet. Most bothersome first thing in the morning. /SS: 9.5Wide). HPI Presents complaining of right heel pain that has been present for 1 month. Denies injury. She describes the pain as sharp. It is worse 1st thing in the morning after long hours on her feet. It is also painful when standing after periods of rest. She states she is unable to wear her custom-molded orthotics as it feels to hard on her heel. She has tried Advil and changing shoes. She typically wears tennis shoes she has from [employer] Review of Systems Medications Current Outpatient Medications: rizatriptan (Maxalt) 10 MG tablet, May take 1 at onset of a migraine SZYMANSKI, repeat in 2 hours if needed. No more than 2 pills in 24 hours, no more than twice a week, Disp: 9 tablet, Rfl: 1 Allergies Penicillin g and Sulfamethoxazole-trimethoprim Past Surgical History Past Surgical History: Procedure Laterality Date BUNIONECTOMY Bilateral Dr. Hendricks or Dr. Case Garcia Family History Family History Problem Relation Name Age of Onset Hypertension Mother Objective Physical Exam Constitutional: General: She is not in acute distress. HENT: Head: Atraumatic. Cardiovascular: Comments: Pedal pulses: DP pulses are 2/4, PT pulses are 2/4 Skin temp is warm to warm. Varicosities: present Hair growth: present Pulmonary: Effort: Pulmonary effort is normal. No respiratory distress. Musculoskeletal: Comments: ROM: AJ dorsiflexion is limited with knee extended and improves with knee flexed. STJ ROM WNL. MUSCLE STRENGTH: 5/5 for all quadrants without tenderness. PAIN: RIGHT: Pain at the insertion of the plantar fascia into the calcaneus. Mild discomfort with palpation of the weight bearing surface of the calcaneus. No pain with medial to lateral compression of the heel. No pain in the peroneals, Achilles or Posterior tibial tendon. DEFORMITIES: 1st met head is prominent medially with lateral deviation of the hallux on the right. Skin: General: Skin is warm. Capillary Refill: Capillary refill takes less than 2 seconds. Findings: No bruising or erythema. Comments: SKIN FINDINGS: Webspaces are clean and dry. Skin turgor and texture normal HYPERKERATOSIS: none Neurological: Mental Status: She is alert. Comments: No loss of protective sensation, gross sensation intact. Psychiatric: Mood and Affect: Mood normal. Behavior: Behavior normal. Assessment/Plan ICD-10-CM 1. Plantar fasciitis M72.2 XR calcaneus 2 views right 2. Gastrocnemius equinus of right lower extremity M62.461 3. Pain of right heel M79.671 Patient was examined and evaluated. Radiographic and clinical findings discussed with the patient. Discuss with patient the stress/inflammation/ pain cycle of plantar fasciitis. Stress the importance of good supportive tie shoes. Advise no flip flops, slippers nor bare feet. Explain the anatomy of the plantar fascia, equinus, and heel spurs. Demonstrate stretching exercises and give handout for the same. Also advise icing therapy. Patient tried Powerstep orthotics and will take them; they felt comfortable. Reviewed break in period. Offered Rx of NSAID versus oral steroid taper. Patient states she would like to start with OTC Advil regularly for 2 weeks to see how she progresses along with the rest of the conservative measures mentioned above. Activity discussed and to minimize irritation to the heel area. RTO 3-4 weeks. This note was created with the assistance of a speech recognition program. While intending to generate a timely document that accurately reflects the content of the visit, no guarantee can be provided that every grammatical or spelling mistake has been or will be identified or corrected. Thank you for your understanding. Loren Garcia DPM documented in this encounter [facility] Evaluation note Note Date & Type Note Facility Evaluation note Diagnosis Plantar fasciitis- Primary Plantar fascial fibromatosis Gastrocnemius equinus of right lower extremity Pain of right heel documented in this encounter [facility] Evaluation note Note Date & Type Note Facility Evaluation note Diagnosis Migraine with aura and without status migrainosus, not intractable (CMS/HCC) documented in this encounter [facility] Reason for Referral Status Reason Specialty Diagnoses / Procedures Referre d By Contact Referred To Contact Open Radiology Diagnoses Menopausal state Procedures DEXA BONE DENSITY AXIAL SKELETON Vesna Geiger [address] [place] [address] Status Reason Specialty Diagnoses / Procedures Referred By Contact Referred To Contact Pending Review Radiology Diagnoses Breast cancer screening by mammogram Procedures LENO DIGITAL SCREEN W OR WO CAD BILATERAL Vesna Geiger [address] [place] [address] Assessments Diagnosis Menopausal state Symptomatic menopausal or female climacteric states Diagnosis Breast cancer screening by mammogram Advance Directives No Advanced Directives Records FoundDocuments on File Type Date Recorded 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 Advance Directives and Living Will 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 Summary Purpose Family History No Family History Records FoundNo Family History Records FoundNo Family History Records FoundNo Family History Records Found Additional Source Comments Reason for Visit (unrecogniz ed section and content) Status Reason Specialty Diagnoses / Procedures Referre d By Contact Referred To Contact Open Radiology Diagnoses Asymptomatic menopausal state Procedures HC DEXA AXIAL SKELETON Vesna Geiger [address] [place] [address] [address] Status Reason Specialty Diagnoses / Procedures Referre d By Contact Referred To Contact Open Radiology Diagnoses Encounter for screening mammogram for malignant neoplasm of breast Procedures HC MAMMOGRAM DIGITAL SCREEN BILAT Vesna Geiger [address] [facility] [place] [address] [address] Reason Comments Heel Pain Pt prsentd today wit h Rt heel pain, has been painful for about 1mo, NKI. Feels like a nail stabbing. Most painful for her when she is up on her feet. Most bothersome first thing in the morning. SS: 9.5Wide Reason Onset Date Comments Med Refill 01/07/2024 Reason Comments Follow-up Pt returns today for FUV Plantar fasciitis Rt foot, she states still very sore by the end of the day. She is stretching and it does help a little, she purchased new shoes at [employer] SS: 9.5W INFORMATION SOURCE (unrecogn ized section and content) DATE CREATED AUTHOR 10/02/2019 [facility] DATE CREATED AUTHOR AUTHOR'S ORGANIZ ATION 04/24/2021 [facility] DATE CREATED AUTHOR AUTHOR'S ORGANIZ ATION 01/23/2022 [facility] DATE CREATED AUTHOR AUTHOR'S ORGANIZ ATION 01/09/2024 [facility] PSYCHIATRIC Care Teams (unrecognized sec tion and content) Flush Tester Relationship Specialty Start Date End Date Nick Lane MD [address] [place] [address] PCP - General Family Medicine 12/14/23 Vesna Geiger NP [address] [place] [address] Referring Physician Nurse Practitioner 10/06/22 Flush Tester Relationship Specialty Start Date End Date Nick Lane MD [address] [place] [address] PCP - General Family Medicine 12/14/23 Vesna Geiger NP [address] [place] [address] Referring Physician Nurse Practitioner 10/06/22 Flush Tester Relationship Specialty Start Date End Date Nick Lane MD [address] [place] [address] PCP - General Family Medicine 12/14/23 Vesna Geiger NP [address] [place] [address] Referring Physician Nurse Practitioner 10/06/22 FOR RECORDS PERTAINING TO PATIENTS WHO ARE [...] BE BASED ON THE PRIMARY CLINICAL RECORDS. [facility]. provides no warranty or guarantee of the accuracy or completeness of information in this document.
[2024-01-28 12:00] LABS: Basophils Absolute Auto 0.1 10^3/uL (0.0-0.1); Basophils Percent Auto 0.9 % (0.2-2.0); Eosinophils Absolute Auto 0.2 10^3/uL (0.0-0.7); Eosinophils Percent Auto 3.3 % (0.9-7.0); Hemoglobin 12.1 g/dL (12.0-16.0); Immature Granulocytes Abs Auto 0.01 10^3/uL (0.00-0.03); Immature Granulocytes Pct Auto 0.2 % (0.0-0.5); Lymphocytes Absolute Auto 2.2 10^3/uL (1.2-3.8); Lymphocytes Percent Auto 37.7 % (20.5-60.0); Mean Corpuscular HGB Conc 32.7 g/dL (29.9-35.2); Mean Corpuscular Hemoglobin 29.2 pg (26.7-34.0); Mean Corpuscular Volume 89.4 fL (81.0-99.0); Mean Platelet Volume 9.8 fL (9.5-13.5); Monocytes Absolute Auto 0.4 10^3/uL (0.3-0.8); Monocytes Percent Auto 7.4 % (1.7-12.0); Neutrophils Percent Auto 50.5 % (43.0-75.0); Platelet Count 266 10^3/uL (150-450); Red Blood Count 4.14 10^6/uL (4.20-5.40); Red Cell Distribution Width 13.2 % (11.0-15.0); White Blood Count 5.8 10^3/uL (4.0-11.0)
[2024-01-28 12:23] LABS: Bilirubin Urine NEGATIVE (NEGATIVE); Blood Urine NEGATIVE (NEGATIVE); Clarity Urine CLEAR (CLEAR); Color Urine LT. YELLOW (YELLOW); Glucose Urine UA NEGATIVE (NEGATIVE); Ketones Urine NEGATIVE (NEGATIVE); Leukocyte Esterase Urine NEGATIVE (NEGATIVE); Nitrite Urine NEGATIVE (NEGATIVE); Protein Urine NEGATIVE (NEG/TRACE); Urobilinogen Urine 0.2 EU/dL (0.2-1.0)
[2024-01-28 12:30] LABS: Urine Microscopic Indicated NO
[2024-01-28 12:49] LABS: Alanine Aminotransferase 29 U/L (14-59); Albumin Globulin Ratio 1.1; Albumin Level 3.8 g/dL (3.4-5.0); Alkaline Phosphatase 78 U/L (46-116); Anion Gap 10.8; Aspartate Amino Transferase 25 U/L (15-37); BUN Creatinine Ratio 18.3; Calcium 9.1 mg/dL (8.5-10.1); Carbon Dioxide 29.9 mmol/L (21.0-32.0); Chloride 105 mmol/L (98-107); Estimated GFR (African America >60 (>=60 mL/min/1.73m^2); Estimated GFR (Non-African Ame >60 (>=60 mL/min/1.73m^2); Globulin 3.5 g/dL; Glucose 86 mg/dL (74-106); Potassium 3.7 mmol/L (3.5-5.1); Sodium 142 mmol/L (136-145); Total Protein 7.3 g/dL (6.4-8.2)
== END 2024-01-28 11:38 | disposition home or self-care (01) ==
LOC: LAB 11:39
PROVIDERS: PCP Nurse Practitioner; Visit Provider Nurse Practitioner
DX: K58.0 Irritable bowel syndrome with diarrhea (principal)
CPT/HCPCS: 36415; 80053; 81003; 85025

== ENCOUNTER 2024-02-05 13:51 | Outpatient (OUT) | payer MEDICARE, OTHER, SELFPAY ==
--- NOTE | 2024-02-05 13:53 | MM_ITS ---
Patient Name: OLINDA SINGH MR#: [id number] : 1950 Exam Date: 02/05/2024 Ordering Doctor: KASHIF Geiger CNP RADIOLOGY REPORT PROCEDURE: MM TOMOSYNTHESIS SCREENING BI COMPARISON: MM TOMOSYNTHESIS SCREENING BI, 01/25/2023. MG MAMM SCREEN 3D ESTEPHANIE CAD, 01/20/2022. MG MAMM SCREEN 3D ESTEPHANIE CAD, 01/19/2021. MG MAMM SCREEN ESTEPHANIE W CAD, 07/11/2018. INDICATIONS: Screening Calculator Name NCI Breast Cancer Risk Assessment Tool 5 Year Breast Cancer Risk 2.20% Lifetime Breast Cancer Risk 5.70% Personal Breast Cancer No Personal Ovarian Cancer No Treatments None Family Cancers None LOCATION: [facility] BREAST COMPOSITION: The breasts are heterogeneously dense,which may obscure small masses. FINDINGS: DIAGNOSTIC CATEGORY 1--NEGATIVE. RIGHT BREAST: No significant suspicious finding. No significant change has occurred. LEFT BREAST: No significant suspicious finding. No significant change has occurred. RECOMMENDATIONS: ROUTINE MAMMOGRAM AND CLINICAL EVALUATION IN 12 MONTHS. PLEASE NOTE: A NORMAL MAMMOGRAM DOES NOT EXCLUDE THE POSSIBILITY OF BREAST CANCER. A CLINICALLY SUSPICIOUS PALPABLE LUMP SHOULD BE BIOPSIED. Dictated by: Behzad Castle M.D. on 02/05/2024 at 15:35 Approved by: Behzad Castle M.D. on 02/05/2024 at 15:37
== END 2024-02-05 13:52 | disposition home or self-care (01) ==
LOC: MAMMO 13:52
PROVIDERS: PCP Nurse Practitioner; Visit Provider Nurse Practitioner
DX: Z12.31 Encounter for screening mammogram for malignant neoplasm of breast (principal)
CPT/HCPCS: 77063; 77067

== ENCOUNTER 2024-07-13 19:47 | Emergency (ER) | payer MEDICARE, OTHER, SELFPAY ==
[2024-07-13 19:54] VITALS: BP 183/88; PULSE 68; TEMP 36.5; O2SAT 98; BMI 28.2
--- NOTE | 2024-07-13 20:01 | PC.NURSE ---
right flank pain with nausea
[2024-07-13 20:37] LABS: Bilirubin Urine NEGATIVE (NEGATIVE); Blood Urine NEGATIVE (NEGATIVE); Clarity Urine CLEAR (CLEAR); Color Urine YELLOW (YELLOW); Glucose Urine UA NEGATIVE (NEGATIVE); Ketones Urine NEGATIVE (NEGATIVE); Leukocyte Esterase Urine TRACE (NEGATIVE); Nitrite Urine NEGATIVE (NEGATIVE); Protein Urine NEGATIVE (NEG/TRACE); Urobilinogen Urine 0.2 EU/dL (0.2-1.0)
[2024-07-13 20:46] LABS: Bacteria Urine NONE SEEN #/HPF (NONE SEEN); Mucus Urine NONE SEEN (NONE SEEN); RBC Urine NONE SEEN #/HPF (0-2); WBC Urine 0-2 #/HPF (NONE SEEN)
[2024-07-13 20:47] LABS: Cast Seen? NONE SEEN #/LPF (NONE SEEN); Crystals Seen? None Seen #/HPF (None Seen); Squamous Epithelial Cell Urine NONE SEEN #/LPF (NONE/RARE); Urine Culture Indicated NO
--- NOTE | 2024-07-13 20:53 | ED.BACK1 ---
HPI HPI - Back Pain/Injury General Chief Complaint: Back Pain/Injury Stated Complaint: KIDNEY PAIN, NAUSEA Time Seen by Provider: 07/13/24 20:47 Source: patient Mode of arrival: walk-in Limitations: no limitations History of Present Illness HPI Narrative: Patient is a 74-year-old female presenting to the emergency department with right sided flank pain. Pain began last night. Patient stated that it progressed into today. Pain is an 8 out of 10. Is dull and achy like in sensation. It begins in the right lumbar area and radiates around to her right mid axillary area. Nothing in particular makes it worse. Nothing makes it better. She has not taken anything for the pain. Pain was an 8 out of 10 at home. It is currently a 7 out of 10 without any treatment. Patient denies any loss of bowel or bladder. No urinary retention. No pain or weakness in her legs. Patient states that she is very nauseated but has not had any episodes of vomiting. 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 She denies any history of renal calculi. She denies any dysuria, hematuria, urgency or frequency. Related Data Previous Rx's ?Medication ?Instructions ?Recorded hydrocodone 5 mg-acetaminophen 325 1 tab PO Q6H PRN pain #14 tabs 07/13/24 mg tablet Allergies Allergy/AdvReac Type Severity Reaction Status Date / Time Penicillins Allergy Unknown Hives Verified 07/13/24 19:53 sulfamethoxazole (From Allergy Hives Verified 07/13/24 19:53 Septra) trimethoprim (From ) Allergy Hives Verified 07/13/24 19:53 Opioid HPI Opioid Management Most Recent Opioid Data: Last Pain Scale 2 07/13/24, 22:41 Last ED Pain Assessment 07/13/24, 22:41 Review of Systems ROS Status of ROS 10 or more systems reviewed and unremarkable except as noted in history and below PFSH PFSH Social History Smoking status: Never smoker Little interest or pleasure in doing things: not at all Feeling down, depressed, or hopeless: not at all Exam Narrative Exam Narrative: Prior to examining the patient, I have washed with hospital approved and provided Antiseptic Hand Right Of Way Agent and have also applied gloves.? Prior to touching the patient, I asked for consent to examine the patient.? General: Alert and oriented, well nourished, mild distress. Eye: PERRL, EOMI, normal conjunctiva. HENT: Normocephalic, normal hearing, moist oral mucosa, no scleral icterus, Lungs: Clear to auscultation and percussion, non-labored respiration. Heart: Normal rate, regular rhythm, no murmur, gallop or edema. Abdomen: Soft, non-tender, non-distended, normal bowel sounds, no masses. Musculoskeletal: Normal range of motion and strength, no swelling. No CVA tenderness. With the patient does have low lumbar tenderness that radiates to the mid axillary line. Skin: Skin is warm, dry and pink, no rashes or lesions. Neurologic: Awake, alert, and oriented X3, CN II-XII intact. Psychiatric: Cooperative, appropriate mood and affect.? Following the conclusion of the examination, I have washed my hands thoroughly after removing examination gloves. Constitutional Vital Signs, click to edit/add: Last Vital Signs Temp 98.6 F 07/13/24 22:40 Pulse 59 L 07/13/24 22:40 Resp 19 07/13/24 22:40 BP 135/83 07/13/24 22:40 Pulse Ox 98 07/13/24 22:40 O2 Del Method Room Air 07/13/24 19:54 Course Course Hospital Course: Patient is a 74-year-old female presenting to the emergency department with right flank/right lumbar pain. She is concerned that she has a kidney infection. This felt the same way as her previous kidney infection. Patient denies any dysuria, hematuria, urgency or frequency. Patient does not have a known history of kidney stones. Reevaluation(s) Reevaluation #1: Returned and indicated to the patient that her urine analysis was negative. Her CT scan revealed that she had nephrolithiasis on the left side with that was not causing her discomfort. Patient did have some findings on her CT scan that did need follow-up with give her copy of the the so that she could follow through with the. None of them being emergent but perhaps patient would need an RI in the future. As a dental the patient reports marked improvement in her pain from analgesic medication provided. Vital Signs Vital signs: Vital Signs Temperature 97.7 F 07/13/24 19:54 Pulse Rate 68 07/13/24 19:54 Respiratory Rate 18 07/13/24 19:54 Blood Pressure 183/88 H 07/13/24 19:54 Pulse Oximetry 98 07/13/24 19:54 Oxygen Delivery Method Room Air 07/13/24 19:54 Temperature 98.6 F 07/13/24 22:40 Pulse Rate 59 L 07/13/24 22:40 Respiratory Rate 19 07/13/24 22:40 Blood Pressure 135/83 07/13/24 22:40 Pulse Oximetry 98 07/13/24 22:40 Oxygen Delivery Method Room Air 07/13/24 19:54 MDM - Back Pain/Injury Differential Diagnosis Differential diagnosis: Likely lumbar radiculopathy, sciatica, strain of lumbar region, renal colic, pyelonephritis, thoracic back pain and AAA Medical Records Attestation: I reviewed the patient's medical records. Lab Data Attestation: I reviewed the patient's lab results. Labs: Lab Results 07/13/24 Range/Units 19:55 Urine Color Yellow (YELLOW) Urine Clarity Clear (CLEAR) Urine pH 6.0 (5.0-9.0) Ur Specific [place] 1.020 (1.005-1.025) Urine Protein Negative (NEG/TRACE) mg/dL Urine Glucose (UA) Negative (NEGATIVE) mg/dL Urine Ketones Negative (NEGATIVE) mg/dL Urine Occult Blood Negative (NEGATIVE) Urine Nitrite Negative (NEGATIVE) Urine Bilirubin Negative (NEGATIVE) Urine Urobilinogen 0.2 (0.2-1.0) EU/dL Ur Leukocyte Esterase Trace A (NEGATIVE) Urine RBC None seen (0-2) #/HPF Urine WBC 0-2 A (NONE SEEN) #/HPF Ur Squamous Epith Cells None seen (NONE/RARE) #/LPF Urine Crystals None seen (None Seen) #/HPF Urine Bacteria None seen (NONE SEEN) #/HPF Urine Casts None seen (NONE SEEN) #/LPF Urine Mucus None seen (NONE SEEN) Ur Culture Indicated? No Discharge Plan Discharge Chief Complaint: Back Pain/Injury Clinical Impression: Acute right flank pain, Abnormal CT of the abdomen Patient Disposition: Home, Self-Care Time of Disposition Decision: 23:45 Condition: Good Mode of Transportation: Private Vehicle Prescriptions / Home Meds: New hydrocodone-acetaminophen 5-325 mg tablet 1 tab PO Q6H PRN (Reason: pain) Qty: 14 0RF Print Language: Arabic Instructions: Flank Pain (ED), CT (Computed Tomography) Scan (ED) Additional Instructions: Thank you for trusting me with the care and treatment of your back today. I would love for you to take your CT report with you to your primary care doctor for further discussion. There is nothing in the scan that needs emergent intervention today but these are things that need to be addressed such as perhaps having a upper cutter out or general surgeon look at your bowel. You may need a colonoscopy or a small bowel follow-through study. In addition, you may need an MRI of your lumbar spine. These can be coordinated by your primary care physician. Please lay off the gardening for a few days. Take the pain medications as needed. Please do not drive or operate heavy machinery if you have to take the pain medication. Return if your symptoms worsen or change in quality or characteristic. Referrals: Vesna Geiger NP [Primary Care Provider, Family Practice] - 1 week Discharge Date/Time: 07/14/24 00:08
[2024-07-13] MEDS: ONDANSETRON 4 MG RAPDIS TABLET SL (21:07)
[2024-07-13] MEDS: KETOROLAC TROMETHAMINE 30 MG/ML VIAL 15 MG IM (21:08)
[2024-07-13] MEDS: ORPHENADRINE 60 MG/2 ML VIAL IM (21:08)
[2024-07-13 22:06] VITALS: BP 148/83; PULSE 54; O2SAT 98
[2024-07-13 22:40] VITALS: BP 135/83; PULSE 59; TEMP 37; O2SAT 98
--- NOTE | 2024-07-14 00:07 | PC.NURSE ---
i gave this patient verbal and written discharge orders along with 1 e-script and this patient voices yes to understanding these. at time of discharge this patient voices no concerns and shows no signs of distress
== END 2024-07-14 00:08 | disposition home or self-care (01) ==
PROVIDERS: Emergency Provider Emergency Medicine; PCP Nurse Practitioner
DX: R10.9 Unspecified abdominal pain (principal); R93.5 Abnormal findings on diagnostic imaging of other abdominal regions, including retroperitoneum
CPT/HCPCS: 74176; 81001; 96372; 99285; J1885; J2360; Q0162

== ENCOUNTER 2024-11-18 13:51 | Outpatient (OUT) | payer MEDICARE, OTHER, SELFPAY ==
--- OUTSIDE RECORDS SUMMARY | 2024-11-18 13:56 | XMS_ITS | Encounter Summary ---
Author Organization [facility] Address [address] [place] [address] Care Team Providers Care Improvement Analyst Name Role Phone Vesna Geiger DEMOLITION HAMMER OPERATOR Unavailable [phone] Nick Davison MD Primary Care Provider [phone] Vesna Geiger DEMOLITION HAMMER OPERATOR Unavailable [phone] Encounter Details Date Type Department Care Team (Late st Contact Info) Description 07/14/2024 Abstract [facility] [address] [place] [address] Vesna Geiger NP [address] [place] [address] Social History Tobacco Use Types Packs/Day Years Used Date Smoking Tobacco: Never Smokeless Tobacco: Never Alcohol Use Standard Drinks/Week Comments Yes 0 (1 standard drink = 0.6 oz pur e alcohol) rare PHQ-2 Answer Date Recorded Patient Health Questionnaire-2 Score 1 01/28/2024 Comments Unknown Sex and Gender Information Value Date Recorded Sex Assigned at Not on file Legal Sex Female 8:00 PM EDT Gender Identity Not on file Sexual Orientation Not on file documented as of this encounter Plan of Treatment Upcoming Encounters Date Type Department Care Team (Late st Contact Info) Description 07/09/2025 2:05 PM EDT Office Visit [facility] [place] [facility] [address] [place] [phone] Nanci Mendoza, PREPARER-MOUNTAIN BIKE GUIDE [address] [place] [address] documented as of this encounter Visit Diagnoses Not on filedocumented in this encounter Additional Health Concerns Assessment Noted Time PHQ-9 Depression Total Score: 4 01/28/20 24 10:35 AM EST documented as of this encounter Care Teams Improvement Analyst Relationship Specialty Start Date End Date Nick Davison MD PCP - General Family Medicine 12/14/23 Vesna Geiger NP [address] [place] [address] PCP - ACO Reach 04/18/24 11/12/24 Vesna Geiger NP Referring Physician Nurse Practitioner 10/06/22 documented as of this encounter
--- OUTSIDE RECORDS SUMMARY | 2024-11-18 13:56 | XMS_ITS | Encounter Summary ---
Author Organization [facility] Address [address] [place] [address] Care Team Providers Care Derrick Hand Name Role Phone Vesna Geiger JANITORIAL TECH Unavailable [phone] Nick Davison MD Primary Care Provider [phone] Vesna Geiger JANITORIAL TECH Unavailable [phone] Encounter Details Date Type Department Care Team (Late st Contact Info) Description 08/25/2024 External Result Encounter [facility] External Department Unsolicited Vesna Geiger, DIRK [address] [place] [address] Social History Tobacco Use Types Packs/Day Years [...] Description 07/09/2025 2:05 PM EDT Office Visit [facility] [address] [place] [address] Nanci Mendoza, DUST MILL OPERATOR-CAN CLEANER [address] [facility] [address] [place] [address] documented as of this encounter Procedures Procedure Name Priority Date/Time Associated Diagnosis Comments NM HEPATOBILIARY W CHOLECYSTOKININ 08/25/2024 10:28 AM EDT documented in this encounter Results * NM hepatobiliary w cholecystokinin (08/25/2024 10:28 AM EDT) Anatomical Region Laterality Modality Body Nuclear Medicine 08/25/2024 10:2 8 AM EDT Impressions 08/25/2024 10:31 AM EDT ABNORMAL GALLBLADDER EJECTION FRACTION SUSPICIOUS FOR BILIARY DYSKINESIA. Impression dictated by: Brian Ibarra Jr., D.O. 08/25/2024 10:29 AM Dictation Location: [place] [address] Transcribed By: [facility] 08/25/24 1029 Dictated By: Brian Ibarra Jr, DO 08/25/24 1028 Signed By: <Electronically signed by Brian Ibarra Jr, DO in OV> 08/25/24 1029 Narrative 08/25/2024 10:31 AM EDT [facility] [address] Nuclear Medicine Report Signed Patient: Sheila Spring MR#: [id number] : 1950 Acct:[id number] Age/Sex: 74 / F ADM Date: 08/25/24 Loc: [place] Room: Type: [facility] Attending Dr: Vesna Geiger Copies to: Brian Ibarra Jr, DO Lisa J Aichholz, NP-C Ordering Provider: DK Stafford Date of Service: 08/25/24 NM/NM hepatobiliary w pharm: RUQ PAIN HIDA SCAN WITH CCK CLINICAL HISTORY: Right upper quadrant pain for 2 years COMPARISON: Gallbladder ultrasound 07/18/2024 TECHNIQUE:Following the intravenous administration of 6 mCi of technetium 99m labeled Mebrofenin, anterior imaging of the abdomen was performed out to 60 minutes.The patient was subsequently infused with 1.6 mcg of CCK and imaging was performed an additional 30 minutes. FINDINGS: There is uniform distribution of radionuclide within the liver. Normal gallbladder activity is seen within the first 60 minutes. The gallbladder ejection fraction is 16%. Normal is greater than 40%. [place] hepatobiliary w pharm Procedure Note Brian Ibarra Jr., DO - 09/18/2024 [facility] [place] [address] Nuclear Medicine Report Signed Patient: Alba SpringR#: [id number] : 2Acct:[id number] Age/Sex: 74 / FADM Date: 08/25/24 Loc: [place] Room:Type: [facility] Attending Dr: Vesna Geiger Copies to: Brian Ibarra Jr, DO Lisa J Aichholz, NP-C Ordering Provider: DK Stafford Date of Service: 08/25/24 WA/WA hepatobiliary w pharm: RUQ PAIN HIDA SCAN WITH CCK CLINICAL HISTORY: Right upper quadrant pain for 2 years COMPARISON: Gallbladder ultrasound 07/18/2024 TECHNIQUE:Following the intravenous administration of 6 mCi of obkuxjwydj21t labeled Mebrofenin, anterior imaging of the abdomen was performed out to 60 minutes.Thepatient was subsequently infused with 1.6 mcg of CCK and imaging was performed an additional 30 minutes. FINDINGS: There is uniform distribution of radionuclide within the liver.Normal gallbladder activity is seen within the first 60 minutes. The gallbladder ejection fraction is 16%. Normal is greater than 40%. WA/WA hepatobiliary w pharm IMPRESSION: ABNORMAL GALLBLADDER EJECTION FRACTION SUSPICIOUS FOR BILIARY DYSKINESIA. Impression dictated by: Brian Ibarra Jr., D.OMinesh 08/25/2024 10:29 AM Dictation Location: [place] [address] Transcribed By: [facility] 08/25/24 1029 Dictated By: Brian Ibarra Jr, DO 08/25/24 1028 Signed By: <Electronically signed by Brian Ibarra Jr, DO inOV> 08/25/24 1029 Vesna Geiger NP [facility] PROCEDURES Edited Result - Final documented in this encounter Visit Diagnoses Not on filedocumented in this encounter Additional Health Concerns Assessment Noted Time PHQ-9 Depression Total Score: 4 01/28/20 24 10:35 AM EST documented as of this encounter Care Teams Derrick Hand Relationship Specialty Start Date End Date Nick Davison MD PCP - General Family Medicine 12/14/23 Vesna Geiger NP [address] [place] [address] PCP - ACO Reach 04/18/24 11/12/24 Vesna Geiger NP Referring Physician Nurse Practitioner 10/06/22 documented as of this encounter
--- OUTSIDE RECORDS SUMMARY | 2024-11-18 13:56 | XMS_ITS | Clinical Summary ---
Author Organization [facility] Address [address], [address] [place] [address] Care Team Providers Care Cupola Operator Name Role Phone Unavailable Primary Care Provider Unavailabl e Social History Tobacco Use Types Packs/Day Years Used Date Smoking Tobacco: Never Assessed Comments Unknown Sex and Gender Information Value Date Recorded Sex Assigned at Not on file Legal Sex Female 10:39 AM EDT Gender Identity Not on file Sexual Orientation Not on file Plan of Treatment Not on file Insurance [address] [place] [address] MEDICARE Member Subscriber Plan / Payer (Ef fective 2016-Present) Name:Amy Springn Relation to Subscriber:Self Name:Sheila Spring Payer ID:Not on file Group ID:Not on file Type:Not on file Address: [address]
--- OUTSIDE RECORDS SUMMARY | 2024-11-18 13:56 | XMS_ITS | Encounter Summary ---
Author Organization [facility] Address [address] [facility] [place] [address] Care Team Providers Care Precinct Captain Name Role Phone Vesna Geiger TELEMARKETING AGENT Unavailable [phone] Nick Davison MD Primary Care Provider Vesna Geiger TELEMARKETING AGENT Unavailable [phone] Encounter Details Date Type Department Care Team (Late st Contact Info) Description 08/07/2024 Orders Only [facility] [address] [facility] [place] [address] Vesna Geiger NP [address] [place] [address] Social History Tobacco Use Types Packs/Day Years [...] Description 07/09/2025 2:05 PM EDT [facility] [address] [place] [id number] Nanci Mendoza, SERVICE ATTENDANT-TRAVEL ASSISTANT [address] [place] [address] documented as of this encounter Procedures Procedure Name Priority Date/Time Associated Diagnosis Comments US GALLBLADDER Routine 08/07/2024 9:38 AM EDT documented in this encounter Results * US gallbladder (08/07/2024 9:38 AM EDT) Anatomical Region Laterality Modality Gall bladder Ultrasound us Vesna Geiger TELEMARKETING AGENT IMG US PROCEDURES Final Result documented in this encounter Visit Diagnoses Not on filedocumented in this encounter Additional Health Concerns Assessment Noted Time PHQ-9 Depression Total Score: 4 01/28/20 24 10:35 AM EST documented as of this encounter Care Teams Precinct Captain Relationship Specialty Start Date End Date Nick Davison MD PCP - General Family Medicine 12/14/23 Vesna Geiger NP [address] [place] [address] PCP - ACO Reach 04/18/24 11/12/24 Vesna Geiger NP Referring Physician Nurse Practitioner 10/06/22 documented as of this encounter
--- OUTSIDE RECORDS SUMMARY | 2024-11-18 13:56 | XMS_ITS | Encounter Summary ---
Author Organization [facility] Address [address] [place] [address] Care Team Providers Care Breakfast Bar Attendant Name Role Phone Vesna Geiger WHIP SAWYER Unavailable [phone] Nick Davison MD Primary Care Provider Vesna Geiger WHIP SAWYER Unavailable [phone] Encounter Details Date Type Department Care Team (Late st Contact Info) Description 08/07/2024 External Result Encounter [facility] External Department Unsolicited Vesna Geiger, DIRK [address] [place] [address] Social History Tobacco Use Types Packs/Day Years [...] Office Visit [facility] [address] [place] [address] Nanci Mendoza, FRUIT SPRAYER-ROCK CLIMBING TEAM MEMBER [address] [facility] [address] [place] [address] documented as of this encounter Procedures Procedure Name Priority Date/Time Associated Diagnosis Comments FL SMALL BOWEL SERIES 08/07/2024 10:35 AM EDT documented in this encounter Results * FL small bowel series (08/07/2024 10:35 AM EDT) Anatomical Region Laterality Modality Body Radiographic Lashawn ging 08/07/2024 10:3 5 AM EDT Impressions 08/07/2024 10:41 AM EDT No evidence of bowel obstruction or mucosal thickening. There is a normal appendix in the right lower quadrant. Oral contrast transit the small bowel reaching the cecum by 15 minutes. Impression dictated by: José Luis Moon M.D. 08/07/2024 10:38 AM Dictation Location: [place] [address] Transcribed By: [facility] 08/07/24 1038 Dictated By: José Luis Moon II, MD 08/07/24 1035 Signed By: <Electronically signed by José Luis Moon II, MD in OV> 08/07/24 1038 Narrative 08/07/2024 10:41 AM EDT [facility] [place] [address] [place] [address] Fluoroscopy Report Signed Patient: Sheila Spring MR#: [id number] : 1950 Acct:[id number] Age/Sex: 74 / F ADM Date: 08/07/24 Loc: Room: Type: [facility] Attending Dr: Vesna Geiger Copies to: DK Stafford Ordering Provider: DK Stafford Date of Service: 08/07/24 FL/FL small bowel follow through: K63.9 FL small bowel follow through 08/07/2024 7:47 AM SIGNS AND SYMPTOMS: Epigastric pain, possible internal hernia on recent abdomen pelvis CT. PROTOCOL: [employer] Repairer radiographs of the abdomen and pelvis were obtained. Radiographs of the abdomen and pelvis were obtained after oral barium based contrast administration. Images were obtained for 45 minutes. Fluoroscopic spot compressed images of the 4 quadrants of the abdomen were obtained. COMPARISON: Outside CT from 07/17/2024 FINDINGS: There is a nonobstructive bowel gas pattern. No radiographic evidence of free air. There is a moderate amount stool within the colon. Vascular calcifications are present in the pelvis. Oral contrast transit the small bowel reaching the colon by 15 minutes without evidence of bowel obstruction. No mucosal thickening. A normal appendix is identified with contrast in the lumen on fluoroscopy. The terminal ileum is within normal limits. Cumulative Air Kerma in mGy: 36.95 mGy FL/FL small bowel follow through Procedure Note José Luis Moon MD - 08/07/2024 [facility] [place] [address] [place] [address] Fluoroscopy Report Signed Patient: Stefanie Spring#: [id number] : 2Acct:[id number] Age/Sex: 74 / FADM Date: 08/07/24 Loc: Room:Type: [facility] Attending Dr: Vesna Geiger Copies to: DK Stafford Ordering Provider: DK Stafford Date of Service: 08/07/24 FL/FL small bowel follow through: K63.9 FL small bowel follow through 08/07/2024 7:47 AM SIGNS AND SYMPTOMS: Epigastric pain, possible internal hernia on recentabdomen pelvis CT. PROTOCOL: [employer] Repairer radiographs of the abdomen and pelvis were obtained.Radiographs of the abdomen and pelvis were obtained after oral barium based contrast administration.Images were obtained for 45 minutes. Fluoroscopic spot compressed images of the 4 quadrants of theabdomen were obtained. COMPARISON: Outside CT from 07/17/2024 FINDINGS: There is a nonobstructive bowel gas pattern. No radiographic evidence offree air. There is a moderate amount stool within the colon. Vascular calcifications arepresent in the pelvis. Oral contrast transit the small bowel reaching the colon by 15 minuteswithout evidence of bowel obstruction. No mucosal thickening. A normal appendix is identified withcontrast in the lumen on fluoroscopy. The terminal ileum is within normal limits. Cumulative Air Kerma in mGy: 36.95 mGy FL/FL small bowel follow through IMPRESSION: No evidence of bowel obstruction or mucosal thickening. There is a normal appendix in the right lower quadrant. Oral contrast transit the small bowel reaching the cecum by 15 minutes. Impression dictated by: José Luis Moon M.D. 08/07/2024 10:38 AM Dictation Location: [place] [address] Transcribed By: [facility] 08/07/24 1038 Dictated By: José Luis Moon II, MD 08/07/24 1035 Signed By: <Electronically signed by José Luis Moon II, MD inOV> 08/07/24 1038 us Vesna Geiger NP IMG FLUOROSCOPY PROCEDURES Harini l Result documented in this encounter Visit Diagnoses Not on filedocumented in this encounter Additional Health Concerns Assessment Noted Time PHQ-9 Depression Total Score: 4 01/28/20 24 10:35 AM EST documented as of this encounter Care Teams Breakfast Bar Attendant Relationship Specialty Start Date End Date Nick Davison MD PCP - General Family Medicine 12/14/23 Vesna Geiger NP [address] [place] [address] PCP - ACO Reach 04/18/24 11/12/24 Vesna Geiger NP Referring Physician Nurse Practitioner 10/06/22 documented as of this encounter
--- OUTSIDE RECORDS SUMMARY | 2024-11-18 13:56 | XMS_ITS | Encounter Summary ---
Author Organization [facility] Address [address] [place] [address] Care Team Providers Care Home Theater Specialist Name Role Phone Vesna Geiger PETROPHYSICIST Unavailable [phone] Nick Davison MD Primary Care Provider [phone] Vesna Geiger PETROPHYSICIST Unavailable [phone] Encounter Details Date Type Department Care Team (Late st Contact Info) Description 08/07/2024 External Result Encounter [facility] External Department Unsolicited Vesna Geiger, DIRK [address] [place] [address] Social History Tobacco Use Types Packs/Day Years [...] Office Visit [facility] [address] [place] [address] Nanci Mendoza, CONSTRUCTION DRIVER-REGISTRAR MUSEUM [address] [facility] [address] [place] [address] documented as of this encounter Procedures Procedure Name Priority Date/Time Associated Diagnosis Comments XR LUMBAR SPINE 4+ VIEWS WITH FLEXION EXTENSION 08/07/2024 10:03 AM EDT documented in this encounter Results * XR lumbar spine 4+ views w flexion extension (08/07/2024 10:03 AM EDT) Anatomical Region Laterality Modality Spine, L-spine Radiographic Lashawn ging 08/07/2024 10:0 3 AM EDT Impressions 08/07/2024 10:28 AM EDT DEGENERATIVE CHANGES LOWER LUMBAR SPONDYLOLISTHESIS, DESCRIBED. Impression dictated by: Loraine Rawls M.D. 08/07/2024 10:26 AM Dictation Location: [place] [address] Transcribed By: [facility] 08/07/24 1026 Dictated By: Loraine Rawls MD 08/07/24 1003 Signed By: <Electronically signed by MD Loraine Rawls in OV> 08/07/24 1026 Narrative 08/07/2024 10:28 AM EDT [facility] Main [place] [address] [place] [address] XRay Report Signed Patient: Sheila Spring MR#: [id number] : 1950 Acct:[id number] Age/Sex: 74 / F ADM Date: 08/07/24 Loc: Room: Type: [facility] Attending Dr: Vesna Geiger Copies to: DK Stafford Ordering Provider: DK Stafford Date of Service: 08/07/24 XR/XR lumbar spine AP/LAT/FLX/EXT: M43.16 LUMBAR SPINE WITH FLEXION-EXTENSION VIEWS - 4 views COMPARISON: None CLINICAL DATA: Bilateral hip pain, greater on the left AP as well as lateral views in neutral, flexion and extension were obtained. Assuming there are 12 sets of normal size ribs, there is anterolisthesis of L5 on S1 of approximately 13 mm. This does not change significantly with flexion or extension. No other displacement is identified. No acute fractures are seen. There is mild disc space narrowing from L3 - 4 down, greatest at the lumbosacral junction. There is minor endplate spurring. There is lower lumbar facet disease. The SI joints are intact. No paraspinal soft tissue abnormalities are noted. XR/XR lumbar spine AP/LAT/FLX/EXT Procedure Note Radiology, Radiologist, - 08/07/2024 [facility] Main [place] [address] [place] [address] XRay Report Signed Patient: Stefanie Spring#: [id number] : 2Acct:[id number] Age/Sex: 74 / FADM Date: 08/07/24 Loc: Room:Type: [facility] Attending Dr: Vesna Geiger Copies to: DK Stafford Ordering Provider: DK Stafford Date of Service: 08/07/24 XR/XR lumbar spine AP/LAT/FLX/EXT: M43.16 LUMBAR SPINE WITH FLEXION-EXTENSION VIEWS - 4 views COMPARISON: None CLINICAL DATA: Bilateral hip pain, greater on the left AP as well as lateral views in neutral, flexion and extension wereobtained. Assuming there are 12 sets of normal size ribs, there is anterolisthesis of L5 on S1 ofapproximately 13 mm. This does not change significantly with flexion or extension. No other displacementis identified. No acute fractures are seen. There is mild disc space narrowing from L3 - 4 down,greatest at the lumbosacral junction. There is minor endplate spurring. There is lowerlumbar facet disease. The SI joints are intact. No paraspinal soft tissue abnormalities are noted. XR/XR lumbar spine AP/LAT/FLX/EXT IMPRESSION: DEGENERATIVE CHANGES LOWER LUMBAR SPONDYLOLISTHESIS, DESCRIBED. Impression dictated by: Loraine Rawls M.D. 08/07/2024 10:26 AM Dictation Location: [place] [address] Transcribed By: [facility] 08/07/24 1026 Dictated By: Loraine Rawls MD 08/07/24 1003 Signed By: <Electronically signed by MD Loraine Rawls in OV> 08/07/24 1026 us Vesna Geiger PETROPHYSICIST IMG XR PROCEDURES Final Result documented in this encounter Visit Diagnoses Not on filedocumented in this encounter Additional Health Concerns Assessment Noted Time PHQ-9 Depression Total Score: 4 01/28/20 24 10:35 AM EST documented as of this encounter Care Teams Home Theater Specialist Relationship Specialty Start Date End Date Nick Davison MD PCP - General Family Medicine 12/14/23 Vesna Geiger NP [address] [place] [address] PCP - ACO Reach 04/18/24 11/12/24 Vesna Geiger NP Referring Physician Nurse Practitioner 10/06/22 documented as of this encounter
--- OUTSIDE RECORDS SUMMARY | 2024-11-18 13:56 | XMS_ITS | Clinical Summary ---
Author Organization [facility] Address [id number] [address] [place] [address] Care Team Providers Care Factory Representative Name Role Phone Lisa Jania Primary Care Provider Unavailabl e Allergies Active Allergy Reactions Criticality Noted Date Comments Penicillins 04/09/2020 Sulfa (Sulfonamide Antibiotics) 03/13 Medications rizatriptan (MAXALT) 5 mg tablet Take 5 mg by mouth once as needed for migraine. May repeat in 2 hours if unresolved. Do not exceed 30 mg in 24 hours. Active Immunizations Immunization Administration Dates Next Due Tdap 04/09/2020 Social History Tobacco Use Types Packs/Day Years Used Date Smoking Tobacco: Never Smokeless Tobacco: Never Alcohol Use Standard Drinks/Week Comments Yes 0 (1 standard drink = 0.6 oz pur e alcohol) Childcare Answer Date Recorded Childcare Unknown 04/09/2020 Employment Answer Date Recorded Employment Unknown 04/09/2020 Purpose - Life Answer Date Recorded Purpose and direction in life Unknown Comments Unknown Sex and Gender Information Value Date Recorded Sex Assigned at Not on file Legal Sex Female 11:26 AM EDT Gender Identity Not on file Sexual Orientation Not on file Last Filed Vital Signs Vital Sign Reading Time Taken Comments Blood Pressure 168/92 04/09/2020 9:58 AM EST Pulse 78 04/09/2020 9:58 AM EST Temperature 36.9 C (98.5 F) 04/09/2020 9:58 AM EST Respiratory Rate 20 04/09/2020 9:58 AM EST Oxygen Saturation 99% 04/09/2020 9:58 AM EST Inhaled Oxygen Concentration - - Weight 70.3 kg (155 lb) 04/09/2020 9:58 AM EST Height 167.6 cm (5' 6 ) 04/09/2020 9:58 AM EST Body Mass Index 25.02 04/09/2020 9:58 AM EST Plan of Treatment Health Maintenance Due Date Last Done Comments Depression Screening 1962 Tobacco Screening 1962 Adult BMI Screening 06/02/1969 Fall Risk Screening 06/02/2016 Influenza Vaccine 11/10/2024 12/29/2019 DTaP,Tdap and Td Vaccines (2 - Td or Tdap) 04/09/2030 04/09/2020 Zoster (Shingles) Vaccine Completed 03/08/2020, Medical Devices Not on file Insurance MEDICARE [id number] Care Teams Factory Representative Relationship Specialty Start Date End Date Jania Gonzalez PCP - General Physical Therapy 04/09/20
--- OUTSIDE RECORDS SUMMARY | 2024-11-18 13:56 | XMS_ITS | Encounter Summary ---
Author Organization [facility] Address [address] [facility] [place] [address] Care Team Providers Care Master Electrician Name Role Phone Vesna Geiger ALODIZE MACHINE OPERATOR Unavailable [phone] Nick Davison MD Primary Care Provider Vesna Geiger ALODIZE MACHINE OPERATOR Unavailable [phone] Encounter Details Date Type Department Care Team (Late st Contact Info) Description 10/07/2024 Orders Only [facility] [address] [facility] [place] [address] Vesna Geiger NP [address] [facility] [place] [address] Social History Tobacco Use Types Packs/Day Years [...] Office Visit [facility] [address] [facility] [address] [place] [address] Nanci Mendoza, SEARCH CONSULTANT-SAMPLE FINISHER [address] [place] [address] documented as of this encounter Procedures Procedure Name Priority Date/Time Associated Diagnosis Comments CT ABDOMEN PELVIS WO IV CONTRAST Routine 10/07/2024 8:02 AM EDT documented in this encounter Results * CT abdomen pelvis wo IV contrast (10/07/2024 8:02 AM EDT) Anatomical Region Laterality Modality Body, Pelvis, Abdomen Computed T omography us Vesna Geiger NP IMG CT PROCEDURES Final Result documented in this encounter Visit Diagnoses Not on filedocumented in this encounter Additional Health Concerns Assessment Noted Time PHQ-9 Depression Total Score: 4 01/28/20 24 10:35 AM EST documented as of this encounter Care Teams Master Electrician Relationship Specialty Start Date End Date Nick Davison MD PCP - General Family Medicine 12/14/23 Vesna Geiger NP [address] [place] [address] PCP - ACO Reach 04/18/24 11/12/24 Vesna Geiger NP Referring Physician Nurse Practitioner 10/06/22 documented as of this encounter
--- OUTSIDE RECORDS SUMMARY | 2024-11-18 13:56 | XMS_ITS | Encounter Summary ---
Author Organization [facility] Address [address] [place] [address] Care Team Providers Care Epic Analyst Name Role Phone Vesna Geiger SURFACE PLATE FINISHER Unavailable [phone] Nick Davison MD Primary Care Provider Vesna Geiger SURFACE PLATE FINISHER Unavailable [phone] Encounter Details Date Type Department Care Team (Late st Contact Info) Description 08/07/2024 External Result Encounter [facility] External Department Unsolicited Vesna Geiger, DIRK [address] [place] [address] Social History Tobacco Use Types Packs/Day Years [...] Office Visit [facility] [address] [place] [address] Nanci Mendoza, SAWMILL TALLY CLERK-PROJECT CONSTRUCTION MANAGER [address] [facility] [address] [place] [address] documented as of this encounter Procedures Procedure Name Priority Date/Time Associated Diagnosis Comments US GALLBLADDER 08/07/2024 8:59 AM EDT documented in this encounter Results * US gallbladder (08/07/2024 8:59 AM EDT) Anatomical Region Laterality Modality Gall bladder Ultrasound 08/07/2024 8:59 AM EDT Impressions 08/07/2024 9:02 AM EDT Mild hepatic steatosis. Unremarkable gallbladder Impression dictated by: Chava Soni M.D. 08/07/2024 9:00 AM Dictation Location: [place] [address] Tech: Tawanamalick Murillo Transcribed By: [facility] 08/07/24 09 Dictated By: Chava Soni DO 08/07/24 0859 Signed By: <Electronically signed by Chava Soni DO in OV> 08/07/24 09 Narrative 08/07/2024 9:02 AM EDT [facility] Main [place] [address] [place] [address] Ultrasound Report Signed Patient: Sheila Spring MR#: [id number] : 1950 Acct:[id number] Age/Sex: 74 / F ADM Date: 08/07/24 Loc: Room: Type: [facility] Attending Dr: Vesna Geiger Ordering Provider: DK Stafford Date of Service: 08/07/24 US/US gall bladder: R10.11 Copies to: DK Stafford Gallbladder ultrasound HISTORY: Right upper quadrant pain after eating COMPARISON: None Negative ultrasound James's sign reported. COMMON BILE DUCT: Normal caliber. No intraluminal abnormality. LIVER CONTOUR: Normal. LIVER PARENCHYMA: Hepatic steatosis HEPATIC LESION: A tiny hepatic cyst INTRAHEPATIC BILIARY DUCTAL DILATATION No ductal dilatation identified. GALLSTONES: No shadowing gallstones. GALLBLADDER SLUDGE: No gallbladder sludge. GALLBLADDER WALL: Normal thickness PERICHOLECYSTIC FLUID: None Pancreas: Visualized portions unremarkable. PORTAL VEIN: Normal blood flow. Liver size: Normal No RIGHT hydronephrosis identified. US/US gall bladder Procedure Note Radiology, Radiologist, - 08/07/2024 [facility] Main [place] [address] [place] [address] Ultrasound Report Signed Patient: Stefanie Spring#: [id number] : 2Acct:[id number] Age/Sex: 74 / FADM Date: 08/07/24 Loc: Room:Type: [facility] Attending Dr: Vesna Geiger Ordering Provider: DK Stafford Date of Service: 08/07/24 US/US gall bladder: R10.11 Copies to: DK Stafford Gallbladder ultrasound HISTORY: Right upper quadrant pain after eating COMPARISON: None Negative ultrasound James's sign reported. COMMON BILE DUCT: Normal caliber. No intraluminal abnormality. LIVER CONTOUR: Normal. LIVER PARENCHYMA: Hepatic steatosis HEPATIC LESION: A tiny hepatic cyst INTRAHEPATIC BILIARY DUCTAL DILATATION No ductal dilatation identified. GALLSTONES: No shadowing gallstones. GALLBLADDER SLUDGE: No gallbladder sludge. GALLBLADDER WALL: Normal thickness PERICHOLECYSTIC FLUID: None Pancreas: Visualized portions unremarkable. PORTAL VEIN: Normal blood flow. Liver size: Normal No RIGHT hydronephrosis identified. US/US gall bladder IMPRESSION: Mild hepatic steatosis. Unremarkable gallbladder Impression dictated by: Chava Soni M.D. 08/07/2024 9:00 AM Dictation Location: [place] [address] Tech: Tawana Murillo Transcribed By: [facility] 08/07/24 09 Dictated By: Chava Soni DO 08/07/24 0859 Signed By: <Electronically signed by Chava Soni DO in OV> 08/07/24 09 us Vesna Geiger NP IMG US PROCEDURES Final Result documented in this encounter Visit Diagnoses Not on filedocumented in this encounter Additional Health Concerns Assessment Noted Time PHQ-9 Depression Total Score: 4 01/28/20 24 10:35 AM EST documented as of this encounter Care Teams Epic Analyst Relationship Specialty Start Date End Date Nick Davison MD PCP - General Family Medicine 12/14/23 Vesna Geiger NP [address] [place] [address] PCP - ACO Reach 04/18/24 11/12/24 Vesna Geiger NP Referring Physician Nurse Practitioner 10/06/22 documented as of this encounter
--- OUTSIDE RECORDS SUMMARY | 2024-11-18 13:56 | XMS_ITS | Encounter Summary ---
Author Organization [facility] Address [address] [place] [address] Care Team Providers Care Experimental Assembler Name Role Phone Vesna Geiger EDGE STITCHER Unavailable [phone] Nick Davison MD Primary Care Provider Vesna Geiger EDGE STITCHER Unavailable [phone] Encounter Details Date Type Department Care Team (Late st Contact Info) Description 02/05/2024 Clinisync Result Encounter [facility] External Department Unsolicited Vesna Geiger, DIRK [address] [place] [id number] Social History Tobacco Use Types Packs/Day Years [...] Office Visit [facility] [address] [facility] [address] [address] [place] [phone] Nanci Mendoza, KNEE BOLTER-BLOW DOWN OPERATOR [address] [facility] [address] [place] [address] documented as of this encounter Procedures Procedure Name Priority Date/Time Associated Diagnosis Comments MM TOMOSYNTHESIS SCREENING BI 02/05/2024 3:37 PM EST documented in this encounter Results * MM TOMOSYNTHESIS SCREENING BI (02/05/2024 3:37 PM EST) Anatomical Region Laterality Modality Other 02/05/2024 3:37 PM EST Narrative 02/05/2024 3:38 [place] [address] Mammography Report Signed Patient: OLINDA SPRING MR#: [id number] : 1950 Acct:[id number] Age/Sex: 73 / F ADM Date: 02/05/24 Loc: MAMMO Attending Dr: Vesna Geiger NP Ordering Physician: Vesna Geiger NP Results: Date of Service: 02/05/24 Follow Up: Procedure(s): MM tomosynthesis screening BI Accession Number(s): [id number] cc: Vesna Geiger NP Patient Name: OLINDA SPRING MR#: [id number] : 1950 Exam Date: 02/05/2024 Ordering Doctor: KASHIF Geiger CNP RADIOLOGY REPORT PROCEDURE: MM TOMOSYNTHESIS SCREENING BI COMPARISON: MM TOMOSYNTHESIS SCREENING BI, 01/25/2023. MG MAMM SCREEN 3D ESTEPHANIE CAD, 01/20/2022. MG MAMM SCREEN 3D ESTEPHANIE CAD, 01/19/2021. MG MAMM SCREEN ESTEPHANIE W CAD, 07/11/2018. INDICATIONS: Screening Calculator Name NCI Breast Cancer Risk Assessment Tool 5 Year Breast Cancer Risk 2.20% Lifetime Breast Cancer Risk 5.70% Personal Breast Cancer No Personal Ovarian Cancer No Treatments None Family Cancers None LOCATION: [facility] BREAST COMPOSITION: The breasts are heterogeneously dense,which may obscure small masses. FINDINGS: DIAGNOSTIC CATEGORY 1--NEGATIVE. RIGHT BREAST: No significant suspicious finding. No significant change has occurred. LEFT BREAST: No significant suspicious finding. No significant change has occurred. RECOMMENDATIONS: ROUTINE MAMMOGRAM AND CLINICAL EVALUATION IN 12 MONTHS. PLEASE NOTE: A NORMAL MAMMOGRAM DOES NOT EXCLUDE THE POSSIBILITY OF BREAST CANCER. A CLINICALLY SUSPICIOUS PALPABLE LUMP SHOULD BE BIOPSIED. Dictated by: Behzad Castle M.D. on 02/05/2024 at 15:35 Approved by: Behzad Castle M.D. on 02/05/2024 at 15:37 Dictated By: Bhezad Castle M.D. Signed By: 02/05/24 1538 DD/ 1537 TD/TT: Violin Tutor: Procedure Note Radiology, Radiologist, MD - 02/05/2024 [place] [address] Mammography Report Signed Patient: OLINDA SPRING MMR#: [id number] : 1950cct:[id number] Age/Sex: 73 / FADM Date: 02/05/24 Loc: MAMMO Attending Dr: Vesna Geiger NP Ordering Physician: Vesna Geiger NPResults: Date of Service: 02/05/24Follow Up: Procedure(s): MM tomosynthesis screening BI Accession Number(s): [id number] cc: Vesna Geiger NP Patient Name: OLINDA SPRING MR#: [id number] : 1950 Exam Date: 02/05/2024 Ordering Doctor: KASHIF Geiger CNP RADIOLOGY REPORT PROCEDURE: MM TOMOSYNTHESIS SCREENING BI COMPARISON: MM TOMOSYNTHESIS SCREENING BI, 01/25/2023. MG MAMM [id number] ESTEPHANIE CAD, 01/20/2022. MG MAMM SCREEN 3D ESTEPHANIE CAD, 01/19/2021. MG MAMMSCREEN ESTEPHANIE W CAD, 07/11/2018. INDICATIONS: Screening Calculator Name NCI Breast Cancer Risk Assessment Tool 5 Year Breast Cancer Risk 2.20% Lifetime Breast Cancer Risk 5.70% Personal Breast Cancer No Personal Ovarian Cancer No Treatments None Family Cancers None LOCATION: [facility] BREAST COMPOSITION: The breasts are heterogeneously dense,which may obscure small masses. FINDINGS: DIAGNOSTIC CATEGORY 1--NEGATIVE. RIGHT BREAST: No significant suspicious finding. No significant changehas occurred. LEFT BREAST: No significant suspicious finding. No significant changehas occurred. RECOMMENDATIONS: ROUTINE MAMMOGRAM AND CLINICAL EVALUATION IN 12 MONTHS. PLEASE NOTE: A NORMAL MAMMOGRAM DOES NOT EXCLUDE THE POSSIBILITY OFBREAST CANCER. A CLINICALLY SUSPICIOUS PALPABLE LUMP SHOULD BE BIOPSIED. Dictated by: Behzad Castle M.D. on 02/05/2024 at 15:35 Approved by: Behzad Castle M.D. on 02/05/2024 at 15:37 Dictated By: Behzad Castle M.D. Signed By:02/05/24 1538 DD/ 1537 TD/TT: Violin Tutor: us Vesna Geiger NP [facility] Final Result documented in this encounter Visit Diagnoses Not on filedocumented in this encounter Additional Health Concerns Assessment Noted Time PHQ-9 Depression Total Score: 4 01/28/20 24 10:35 AM EST documented as of this encounter Care Teams Experimental Assembler Relationship Specialty Start Date End Date Nick Davison MD PCP - General Family Medicine 12/14/23 Vesna Gieger NP [address] [place] [address] PCP - ACO Reach 04/18/24 11/12/24 Vesna Geiger NP Referring Physician Nurse Practitioner 10/06/22 documented as of this encounter
--- OUTSIDE RECORDS SUMMARY | 2024-11-18 13:56 | XMS_ITS | Clinical Summary ---
Author Organization [facility] Address [address] [place] [address] Care Team Providers Care Zinc Chloride Operator Name Role Phone Vesna Geiger NP Unavailable [phone] Nick Davison MD Primary Care Provider [phone] Allergies Active Allergy Reactions Criticality Noted Date Comments Penicillin G Hives 05/01/2023 Sulfamethoxazole-Trimethoprim Hives 2023 Medications rizatriptan (Maxalt) 10 MG tabletIndication s:Migraine with aura and without status migrainosus, not intractable May take 1 at onset of a migraine SZYMANSKI, repeat in 2 hours if needed. No more than 2 pills in 24 hours, no more than twice a week 9 tablet 1 4 Active Additional Information Patient taking differently: 5 mg Once as needed, migraine, May take 1 at onset of a migraine SZYMANSKI, repeat in 2 hours if needed. No more than 2 pills in 24 hours, no more than twice a week, Reported on 01/28/2024 FLUoxetine (PROzac) 10 MG capsuleIndicatio ns:KI (generalized anxiety disorder),Curren t mild episode of major depressive disorder without prior episode Take 1 capsule (10 mg) by mouth Daily 30 capsule 1 5 Active Active Problems Problem Noted Date Diagnosed Date Current mild episode of charles r depressive disorder without prior episode 09/02/2024 Assessment & Plan (09/02/2024 3:31 PM EDT): Trial fluoxetine at 10mg daily Take medication only as directed. This medication will take approximately 4-6 weeks to become effective. If any suicidal thoughts, thoughts of hurting others, or hallucinations contact the office or proceed to the Emergency Room for mental health evaluation. Medication may cause dry mouth, dizziness, and in some cases worsening in depression symptoms. Please contact the office if these occur. Postprandial RUQ pain 07/28/2024 Assessment & Plan (09/02/2024 3:30 PM EDT): No stones on US HIDA EF 16% (6/25) Offered Gen Surgeon evaluation, pt declined at this time Will re visit in fall Recommend freq small meals, avoid spicy/fatty/greasy foods Assessment & Plan (07/28/2024 4:15 PM EDT): Will check US Spinal stenosis of lumbar re gion without neurogenic claudication 07/28/2024 Assessment & Plan (07/28/2024 4:16 PM EDT): Consider MRI lumbar spine Check lumbar spine xray Spondylolisthesis of lumbar region 07/28/2024 Assessment & Plan (09/02/2024 3:31 PM EDT): Noted on plain film xray 09/03 Reviewed plain films Will likely need neurosurgeon Wants to wait until fall Advised of red flag sxs to monitor for Assessment & Plan (07/28/2024 4:17 PM EDT): Check xray flex/ext Small bowel lesion 07/28/2024 Assessment & Plan (09/02/2024 6:50 AM EDT): See CT report from 07/13/24 Fu xray WNL Assessment & Plan (07/28/2024 4:45 PM EDT): See CT report from 07/13/24 Elevated blood pressure reading 06/24/2024 Assessment & Plan (09/02/2024 6:49 AM EDT): Home reads reviewed, average 130/80's Read today in office w home device accurate At this point I will hold on any meds May have some degree of elevation in office setting only Continue checking home reads Assessment & Plan (07/28/2024 4:15 PM EDT): Home reads reviewed, average 130/80's Read today in office w home device accurate At this point I will hold on any meds May have some degree of elevation in office setting only Continue checking home reads Assessment & Plan (06/24/2024 10:41 AM EDT): Please check blood pressure daily and record DASH diet Limit caffeine, NSAIDS and decongestants Fu in 4-6 weeks with log of BP and bring machine Has gained 15 pounds in last 6 months Neoplasm, uncertain whether benign or malignant 06/24/2024 Assessment & Plan (06/24/2024 10:41 AM EDT): Will refer to dermatology for evaluation Overweight (BMI 25.0-29.9) 06/24/2024 Assessment & Plan (06/24/2024 10:42 AM EDT): Has gained 15 pounds in the last 6 months Was working out, now not, and is eating salty foods Encounter for subsequent [facility] wellness visit (AWV) in Medicare patient 01/28/2024 Assessment & Plan (01/28/2024 6:54 AM EST): Reviewed Ht/Wt/BMI Recommend eye exam yearly Recommend dental exams twice a year Balance work/leisure activities Exercises is recommended most days of the week (appropriate as chronic conditions allow) Follow up yearly and prn Encounter for screening mamm ogram for malignant neoplasm of breast 01/28/2024 Assessment & Plan (01/28/2024 11:15 AM EST): Check mammogram wants TBH KI (generalized anxiety disorder) 01/28/2024 Assessment & Plan (09/02/2024 3:31 PM EDT): Will start fluoxetine Assessment & Plan (01/28/2024 11:15 AM EST): Feels she is doing better since is now placed in [facility] for Lewey Body Dementia Menopause 01/28/2024 Assessment & Plan (01/28/2024 11:16 AM EST): Check dexa Irritable bowel syndrome with diarrhea Assessment & Plan (01/28/2024 11:15 AM EST): Hoping with less stressors she will have improvement in her symptoms Does require a refill for hydrocortisone cream for when she has rectal irritation when she has flare ups of diarrhea Deep dyspareunia in female 01/28/2024 Vaginal polyp 01/28/2024 Migraine with aura and witho ut status migrainosus, not intractable 05/01/2023 Assessment & Plan (01/28/2024 11:16 AM EST): Cont triptan prn 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 05/01/2023 Peripheral neuritis of left foot 05/01/2023 Resolved Problems Problem Noted Date Diagnosed Date Resolved Date Irritable bowel syndrome wit h both constipation and diarrhea 01/28/2024 01/28/2024 Encounters Date Type Department Care Team Description 10/07/2024 Orders Only [facility] [address] [place] [address] Vesna Geiger NP 09/02/2024 1:40 PM EDT Office Visit [facility] [address] [place] [address] Vesna Geiger NP Current mild episode of major depressive disorder without prior episode (Primary Dx); Postprandial RUQ pain; Small bowel lesion; Spondylolisthesis of lumbar region; KI (generalized anxiety disorder) 09/02/2024 Bamboo flowsheet [facility] [address] [place] [address] Vesna Geiger NP 08/25/2024 External Result Encounter [facility] External Department Unsolicited Vesna Geiger NP from Last 3 Months Immunizations Immunization Administration Dates Next Due Influenza, injectable, quadrivalent, preservativ e free 12/29/2019 Tdap 04/09/2020 Zoster, Recombinant 03/08/2020,12/29/2019 Family History Medical History Relation Name Comments Hypertension Mother Relation Name Status Comments Mother Social History Tobacco Use Types Packs/Day Years Used Date Smoking Tobacco: Never Smokeless Tobacco: Never Tobacco Cessation:Counseling Given: Not Answered Alcohol Use Standard Drinks/Week Comments Yes 0 [...] Sign Reading Time Taken Comments Blood Pressure 132/88 09/02/2024 1:42 PM EDT Pulse 71 09/02/2024 1:42 PM EDT Temperature 36.7 C (98.1 F) 09/02/2024 1:42 PM EDT Respiratory Rate 18 09/02/2024 1:42 PM EDT Oxygen Saturation 98% 09/02/2024 1:42 PM EDT Inhaled Oxygen Concentration - - Weight 78.4 kg (172 lb 12.8 oz) 09/02/2024 1:42 PM EDT Height 167.6 cm (5' 6 ) 06/24/2024 10:1 9 AM EDT Body Mass Index 27.89 06/24/2024 10:19 AM EDT Plan of Treatment Upcoming Encounters Date Type Department Care Team (Late st Contact Info) Description 07/09/2025 2:05 PM EDT Office Visit [facility] [address] [place] [phone] Nanci Mendoza APRN-CYCLE COUNTER [address] [place] [address] Health Maintenance Due Date Last Done Comments CT Colonography 1950 Colonoscopy 1950 FIT 1950 FOBT 1950 Sigmoidoscopy 1950 Influenza Vaccine (#1) 2024 12/29/2019 Colorectal Cancer Screening 12/19/2024 FIT-DNA 12/19/2024 12/19/2021, 12/10, 02/25/2018, Additional history exists Medicare Annual Wellness (AWV) 01/27/2025 1 03/29/2023, 01/28/2024, 10/09/2022 Mammogram 02/05/2025 02/06/2024, 01/11, 01/26/2023, Additional history exists Pneumococcal Vaccine: 65+ Years Completed 7 Procedures Procedure Name Priority Date/Time Associated Diagnosis Comments CT ABDOMEN PELVIS WO IV CONTRAST Routine 10/07/2024 8:02 AM EDT NM HEPATOBILIARY W CHOLECYSTOKININ 08/25/2024 10:28 AM EDT BI MAMMOGRAM SCREENING TOMOSYNTHESIS BILATERAL Routine 02/06/2024 7:43 AM EST LAB COLOGUARD COLON CANCER SCREEN Routine 02/25/2018 from Last 3 Months or Most Recently Relevant to Health Maintenance Results * CT abdomen pelvis wo IV contrast (10/07/2024 8:02 AM EDT) Anatomical Region Laterality Modality Body, Pelvis, Abdomen Computed T omography us Vesna Geiger NP IMG CT PROCEDURES Final Result * NM hepatobiliary w cholecystokinin (08/25/2024 10:28 AM EDT) Anatomical Region Laterality Modality Body Nuclear Medicine 08/25/2024 10:2 8 AM EDT Impressions 08/25/2024 10:31 AM EDT ABNORMAL GALLBLADDER EJECTION FRACTION SUSPICIOUS FOR BILIARY DYSKINESIA. Impression dictated by: Brian Ibarra Jr., D.O. 08/25/2024 10:29 AM Dictation Location: [facility] Transcribed By: PWS 08/25/24 1029 Dictated By: Brian Ibarra Jr, DO 08/25/24 1028 Signed By: <Electronically signed by Brian Ibarra Jr, DO in OV> 08/25/24 1029 Narrative 08/25/2024 10:31 AM EDT [place] [id number] Nuclear Medicine Report Signed Patient: Sheila Spring MR#: [id number] : 1950 Acct:[id number] Age/Sex: 74 / F ADM Date: 08/25/24 Loc: NC Room: Type: [facility] Attending Dr: Vesna Geiger Copies to: Brian Ibarra Jr, DK Lin Ordering Provider: DK Stafford Date of Service: [...] is 16%. Normal is greater than 40%. NC/NC hepatobiliary w pharm Procedure Note Brian Ibarra Jr., - 09/18/2024 [place] [id number] Nuclear Medicine Report Signed Patient: Alba SpringR#: [id number] : 2Acct:[id number] Age/Sex: 74 / FADM Date: 08/25/24 Loc: NC Room:Type: [facility] Attending Dr: Vesna Geiger Copies to: Brian Ibarra Jr, DK Lin Ordering Provider: DK Stafford Date of Service: 08/25/24 NM/NM hepatobiliary w pharm: RUQ PAIN HIDA SCAN WITH CCK CLINICAL HISTORY: Right upper quadrant pain for 2 years COMPARISON: Gallbladder ultrasound 07/18/2024 TECHNIQUE:Following the intravenous administration of 6 mCi of [id number] labeled Mebrofenin, anterior imaging of the abdomen was performed out to 60 minutes.Thepatient was subsequently infused with 1.6 mcg of CCK and imaging was performed an additional 30 minutes. FINDINGS: There is uniform distribution of radionuclide within the liver.Normal gallbladder activity is seen within the first 60 minutes. The gallbladder ejection fraction is 16%. Normal is greater than 40%. NM/NC hepatobiliary w pharm IMPRESSION: ABNORMAL GALLBLADDER EJECTION FRACTION SUSPICIOUS FOR BILIARY DYSKINESIA. Impression dictated by: Brian Ibarra Jr., D.OMinesh 08/25/2024 10:29 AM Dictation Location: [facility]23 Transcribed By: [facility] 08/25/24 1029 Dictated By: Brian Ibarra Jr, DO 08/25/24 1028 Signed By: <Electronically signed by Brian Ibarra Jr, DO inOV> 08/25/24 1029 Vesna Geiger NP [facility] NM PROCEDURES Edited Result - Final * Bilateral screening mammogram with tomosynthesis (02/06/2024 7:43 AM EST) Anatomical Region Laterality Modality Breast Bilateral Mammography us Vesna Geiger NP [facility] BI PROCEDURES Final Result * Cologuard?? colon cancer screening (02/25/2018) COLOGUARD RESULT REPORTABLE Negative Not Applicable [facility] Comment: A negative result indicates a low likelihood that a colorectal cancer (CRC) or an advanced adenoma (adenomatous polyps with more advanced pre-malignant features) is present. The chance that a person with a negative Cologuard test has a colorectal cancer is less than 1 in 1500 (negative predictive value >99.9%) or has an advanced adenoma is less than 5.3% (negative predictive value 94.7%). These data are based on a prospective cross-sectional screening study of 10,000 individuals at average risk for colorectal cancer who were screened with both Cologuard and colonoscopy. (Sharon Barclay al, N Engl J Med 2014;370(14):5518-9420) COLOGUARD RE-SCREENING RECOMMENDATION: Periodic routine colorectal cancer screening is an important part of preventive healthcare for asymptomatic persons at average risk for colorectal cancer. Following a negative Cologuard result, the [place] Cancer Society and U.S. Multi-Society Task Force screening guidelines recommend a Cologuard re-screening interval of 3 years. References: [place] Cancer Society (ACS). Colorectal cancer prevention and early detection. [place], [place]: [place] Cancer Society; [updated 2015Jul 03]. https://www.cancer.org/cancer/qdddl-zavtzr-wgbjbq/gnizcbdds-mitfmayoi-nbdwgsw/ac s-rec ommendations.html. Accessed November 09, 2017; Ck DK, Elle CR, Christina CumminsK, Colorectal Cancer Screening: Recommendations for Physicians and Patients from the U.S. Multi-Society Task Force on Colorectal Cancer Screening, Am J Gastroenterology 2017; 112:8468-2265. Test Type: Composite algorithmic analysis of stool DNA-biomarkers with hemoglobin immunoassay. Quantitative values of individual biomarkers are not reportable and are not associated with individual biomarker result reference ranges. Precautions and Limitations: Cologuard is intended for colorectal cancer screening of adults of either sex, 50 years or older, who are at typical average-risk for colorectal cancer. A negative Cologuard test result does not guarantee the absence of colorectal cancer or advanced adenoma (pre-cancer). Patients with a negative Cologuard test result should be advised to continue participating in a colorectal cancer screening program. Cologuard may produce a positive result, even though a colonoscopy may not find colorectal cancer or precancerous polyps. The performance of Cologuard has been established in a cross sectional study (i.e., single point in time). Performance has not been evaluated in adults who have been previously tested with Cologuard or in patients less than 50 years of age. Cologuard has been approved for use by the U.S. FDA. Cologuard performance data in a 10,000 patient pivotal study using colonoscopy as the reference method can be accessed at the following location: www.[employer]/results. Additional description of the Cologuard test process, warnings and precautions can be found at www.cologuardtest.com. Rx Only. 02/25/2018 Jossy Melgoza MD LAB MOLECULAR DIAGNOSTICS OR DERABLES Final Result [facility] from Last 3 Months or Most Recently Relevant to Health Maintenance Insurance [employer] [id number] MEDICARE [facility] Care Teams Zinc Chloride Operator Relationship Specialty Start Date End Date Nick Davison MD PCP - General Family Medicine 12/14/23 Vesna Geiger NP Referring Physician Nurse Practitioner 10/06/22
--- OUTSIDE RECORDS SUMMARY | 2024-11-18 14:19 | XMS_ITS | CCD ---
Author Organization [facility] Care Team Providers Care Band Director Name Role Phone Unavailable Primary Care Provider Unavailabl e VESNA GEIGER J. Referring Unavailable AICHHOLZ, VESNA J. Referring Unavailable AICHHOLZ, RESIDENTIAL FEE APPRAISER VESNA Primary Care Unavailable NYDIA BOX Admitting Unavailable NYDIA BOX Attending Unavailable DR PETAR GRIFFIN Consulting Unavailable AICHHOLZ, RESIDENTIAL FEE APPRAISER VESNA Admitting Unavailable AICHHOLZ, RESIDENTIAL FEE APPRAISER VESNA Attending Unavailable AICHHOLZ, RESIDENTIAL FEE APPRAISER VESNA Primary Care Unavailable DR LOUISE GALLAGHER V Consulting Unavailable AICHHOLZ, RESIDENTIAL FEE APPRAISER VESNA Consulting Unavailable AICHHOLZ, RESIDENTIAL FEE APPRAISER VESNA Primary Care Unavailable FRANCISCO JAVIER LANIER Consulting Unavailable DR LUCAS HOLDEN Admitting Unavailable NAVIN, DR LUCAS Palmer Attending Unavailable PETAR CUMMINGS Consulting Unavailable Aichholz OYSTERMAN, Vesna Unavailable Nick Lane MD Primary Care Provider [phone] Aichlourdes OYSTERMAN, Vesna Unavailable Juanjo Vesna Maria G Primary Care Provider Vesna Geiger Attending Provider [phone] JUANJO VESNA Attending Unavailable DEREK MENDOZA Attending Unavailable AICHHOLZ, VESNA Referring Unavailable COBY GARCIA Attending Unavailable NICK LANE Referring Unavailable COBY GARCIA Referring Unavailable AICHHOLZ, VESNA Attending Unavailable ALEXHADALBERTOZ, VESNA Attending Unavailable COBY GARCIA Attending Unavailable AICHHOLZ, VESNA Attending Unavailable Alexhadalbertoz, Vesna J Attending Unavailable Alexhadalbertoz, Vesna J Admitting Unavailable Aichadalbertoz, Vesna J Primary Care Unavailable Juanjo, Vesna J Attending Unavailable Aichholz, Vesna J Admitting Unavailable Vesna Geiger Primary Care Unavailable Allergies Allergy Classification Reported Allergen(s) Allergy Type Date of Onset Reaction(s) Facility (1 source) Gluten Drug allergy (disorder) [facility] Repository (1 source) Penicillin Drug Allergy [facility] Repository (1 source) Sulfamethoxazole / Trimethoprim Drug Allergy [facility] Repository (1 source) Sulfonamides (Antibiotic) Drug allergy (disorder) [facility] Repository (20 sources) Penicillin G Drug Allergy 4 [facility] Work Phone: (20 sources) Sulfamethoxazole / Trimethoprim Drug Allergy 4 [facility] (1 source) Penicillin Drug Allergy 5 [facility] Repository (1 source) Sulfamethoxazole Drug Allergy 5 [facility] Repository (1 source) Trimethoprim Drug Allergy [address] [place] [address] Repository Medications Current Medications Medication Drug Class(es) Dates Sig (Normalized) Sig (Original) FLUoxetine 10 mg oral capsule (2 sources) Serotonin Reuptake Inhibitor Start: 09-02-2024 End: 10-02-2024 take 1 capsule by mouth once daily FLUoxetine (PROzac) 10 MG capsule Indications: KI (generalized anxiety disorder) , Current mild episode of major depressive disorder without prior episode Take 1 capsule (10 mg) by mouth Daily 30 capsule 1 09/02/2024 10/02/2024 Active hydrocortisone 25 mg/ml topical cream (5 sources) Corticosteroid Start: 01-28-2024 End: 02-11-2024 hydrocortisone 2.5 % cream Indications: Irritable bowel syndrome with diarrhea Apply 1 application topically 2 (two) times a day as needed for irritation for up to 14 days 30 g 01/28/2024 02/11/2024 Active rizatriptan 10 mg oral tablet (20 sources) Serotonin-1b and Serotonin-1d Receptor Agonist Start: 05-01-2023 End: 01-07-2024 rizatriptan (Maxalt) 10 MG tablet Indications: Migraine with aura and without status migrainosus, not intractable May take 1 at onset of a migraine SZYMANSKI, repeat in 2 hours if needed. No more than 2 pills in 24 hours, no more than twice a week 9 tablet 1 01/08/2024 Active Problems Active Problems Problem Classification Problem Date Documented Da te Episodic/Chronic Abdominal pain (13 sources) Right upper quadrant pain; Translations: [Right upper quadrant pain] Onset: 07-28-2024 07-28-2024 Episodic Anxiety disorders (20 sources) Generalized anxiety disorder; Translations: [Generalized anxiety disorder] Onset: 01-28-2024 01-28-2024 Chronic Headache; including migraine (20 sources) Migraine with aura; Translations: [Migraine with aura, not intractable, without status migrainosus] Onset: 05-01-2023 05-01-2023 Chronic Menopausal disorders (1 source) Menopausal syndrome; Translations: [Menopausal state] Chronic Mood disorders (4 sources) Mild major depression, single episode; Translations: [Major depressive disorder, single episode, mild] Onset: 09-02-2024 09-02-2024 Chronic Neoplasms of unspecified nature or uncertain behavior (16 sources) Neoplastic disease of uncertain behavior; Translations: [Neoplasm of uncertain behavior, unspecified] Onset: 06-24-2024 06-24-2024 Episodic Other acquired deformities (10 sources) Lumbar spondylolisthesis; Translations: [Spondylolisthesis, lumbar region] Onset: 07-28-2024 07-28-2024 Episodic Other and unspecified benign neoplasm (2 sources) Melanocytic nevus of trunk; Translations: [Melanocytic nevi of trunk] 07-08-2024 Episodic Other circulatory disease (16 sources) Elevated blood pressure; Translations: [Elevated blood-pressure reading, without diagnosis of hypertension] Onset: 06-24-2024 06-24-2024 Episodic Other connective tissue disease (4 sources) Plantar fasciitis; Translations: [Plantar fascial fibromatosis] 12-14-2023 Episodic Other connective tissue disease (4 sources) Deformity of lower limb; Translations: [Contracture of muscle, right lower leg] 12-14-2023 Episodic Other connective tissue disease (4 sources) Pain in right heel; Translations: [Pain in right foot] 12-14-2023 Episodic Other diseases of veins and lymphatics (2 sources) Disorder of vein of lower extremity; Translations: [Venous insufficiency (chronic) (peripheral)] 07-08-2024 Episodic Other female genital disorders (16 sources) Female deep pain on intercourse; Translations: [Deep dyspareunia] Onset: 01-28-2024 01-28-2024 Chronic Other gastrointestinal disorders (20 sources) Irritable bowel syndrome with diarrhea; Translations: [Irritable bowel syndrome with diarrhea] Onset: 01-28-2024 01-28-2024 Chronic Other gastrointestinal disorders (10 sources) Disorder of small intestine; Translations: [Disease of intestine, unspecified] Onset: 07-28-2024 07-28-2024 Episodic Other nervous system disorders (20 sources) Mortons neuroma of left foot; Translations: [Lesion of plantar nerve, left lower limb] Onset: 05-01-2023 05-01-2023 Chronic Other nervous system disorders (20 sources) Left foot neuritis; Translations: [Unspecified mononeuropathy of left lower limb] Onset: 05-01-2023 05-01-2023 Chronic Other nutritional; endocrine; and metabolic disorders (16 sources) Body mass index 25-29 - overweight; Translations: [Overweight] Onset: 06-24-2024 06-24-2024 Episodic Other skin disorders (2 sources) Seborrheic keratosis; Translations: [Other seborrheic keratosis] 07-08-2024 Episodic Spondylosis; intervertebral disc disorders; other back problems (8 sources) Spinal stenosis of lumbar region; Translations: [Spinal stenosis, lumbar region without neurogenic claudication] Onset: 07-28-2024 07-28-2024 Episodic Unclassified (1 source) Patient encounter status; Translations: [Breast cancer screening by mammogram] Viral infection (2 sources) Herpesviral vesicular dermatitis; Translations: [Herpesviral vesicular dermatitis] 07-08-2024 Episodic Past or Other Problems Problem Classification Problem Date Documented Da te Episodic/Chronic Crushing injury or internal injury (1 source) Crushing injury of left thumb, initial encounter; Translations: [CRUSHING INJURY OF LT THUMB INITIAL] Onset: 06-09-2021 Episodic E Codes: Cut/pierceb (1 source) Contact with other sharp object(s), not elsewhere classified, initial encounter; Translations: [[facility] SHRP OB NOT ELSW CLASS INI] Onset: 08-16-2021 Episodic E Codes: Struck by; against (1 source) Striking against or struck by other objects, initial encounter; Translations: [STRIKING AGN[facility] OBJ INIT] Onset: 06-09-2021 Episodic Mood disorders (16 sources) Mood disorders Onset: 01-28-2024 01-28-2024 Open wounds of extremities (4 sources) Laceration without foreign body, right lower leg, initial encounter; Translations: [LACERATION W/O FB RT LOW LEG INIT] Onset: 08-14-2021 Episodic Other connective tissue disease (3 sources) Pain in left finger(s); Translations: [PAIN IN LEFT FINGERS] Onset: 06-08-2021 Episodic Other female genital disorders (16 sources) Polyp of vagina; Translations: [Polyp of vagina] Onset: 01-28-2024 01-28-2024 Episodic Other gastrointestinal disorders (16 sources) Irritable bowel syndrome; Translations: [Mixed irritable bowel syndrome] Onset: 01-28-2024 Resolved: 01-28-2024 01-28-2024 Chronic Other screening for suspected conditions (not mental disorders or infectious disease) (20 sources) Encounter for screening mammogram for malignant neoplasm of breast; Translations: [Patient encounter status] Onset: 01-20-2022 Episodic Residual codes; unclassified (18 sources) Menopause present; Translations: [Asymptomatic menopausal state] Onset: 01-28-2024 01-28-2024 Episodic Sprains and strains (1 source) Unspecified sprain of left thumb, initial encounter; Translations: [UNSPECIFIED SPRAIN LT THUMB INITIAL] Onset: 06-09-2021 Episodic Results Test Name Value Interpretation Reference Range Facility NM hepatobiliary w pharmon 0 08-25-2024 HI hepatobiliary w pharm [facility] [place] [address] Nuclear Medicine Report Signed Patient: Olinda Singh MR#: [id number] : 1950 Acct:[id number] Age/Sex: 74 / F ADM Date: 08/25/24 Loc: NM Room: Type: [facility] Attending Dr: Vesna Geiger Copies to: [...] is 16%. Normal is greater than 40%. NM/NM hepatobiliary w pharm IMPRESSION: ABNORMAL GALLBLADDER EJECTION FRACTION SUSPICIOUS FOR BILIARY DYSKINESIA. Impression dictated by: Brian Ibarra Jr., D.OMinesh 08/25/2024 10:29 AM Dictation Location: [place] [address] Transcribed By: PREMA 08/25/24 1029 Dictated By: Brian Ibarar Jr, DO 08/25/24 1028 Signed By: 08/25/24 1029 Normal [facility] [place] small bowel follow [facility] 08-07-2024 [place] small bowel follow through [facility] [place] [address] Fluoroscopy Report Signed Patient: Olinda Singh MR#: [id number] : 1950 Acct:[id number] Age/Sex: 74 / F ADM Date: 08/07/24 Loc: Room: Type: [facility] Attending Dr: Vesna Geiger Copies to: DK Stafford Ordering Provider: KD Stafford Date of Service: 08/07/24 FL/FL small bowel follow through: K63.9 [place] small bowel follow through 08/07/2024 7:47 AM SIGNS AND SYMPTOMS: Epigastric pain, possible internal hernia on recent abdomen pelvis CT. PROTOCOL: Sheet Metal Insulator radiographs of the abdomen and pelvis were [...] cecum by 15 minutes. Impression dictated by: Lucas Moon M.D. 08/07/2024 10:38 AM Dictation Location: [place] [address] Transcribed By: [facility] 08/07/24 1038 Dictated By: Lucas Moon II, MD 08/07/24 1035 Signed By: 08/07/24 1038 Normal [facility] Fluoroscopy reportOrdered By : Lucas Moon on 08-07-2024 RF Unspecified body region Views [facility] [place] [address] Fluoroscopy Report Signed Patient: Olinda Singh MR#: [id number] 05 : 1950 Acct:[id number] Age/Sex: 74 / F ADM Date: 5 Loc: Room: Type: [facility] Attending Dr: Vesna Geiger Copies to: DK Stafford~ Ordering Provider: DK Stafford Date of Service: 08/07/24 FL/FL small bowel follow through: K63.9 [place] small bowel follow through 08/07/2024 7:47 AM SIGNS AND SYMPTOMS: Epigastric pain, possible internal hernia on recent abdomen pelvis CT. PROTOCOL: Sheet Metal Insulator radiographs of the abdomen and pelvis were [...] cecum by 15 minutes. Impression dictated by: Lucas Moon M.D. 08/07/2024 10:38 AM Dictation Location: [place] [address] Transcribed By: [facility] 08/07/24 1038 Dictated By: Lucas Moon II, MD 08/07/24 1035 Signed By: 08/07/24 1038 [facility] Work Phone: US gall bladderon 08-07-2024 US gall bladder [facility] [address] [place] [address] Ultrasound Report Signed Patient: Olinda Singh MR#: [id number] : 1950 Acct:[id number] Age/Sex: 74 / F ADM Date: 08/07/24 Loc: Room: Type: [facility] Attending Dr: Vesna Geiger Ordering Provider: [...] Soni M.D. 08/07/2024 9:00 AM Dictation Location: [place] [address] Tech: Tawana Murillo Transcribed By: PREMA 08/07/24 0900 Dictated By: Chava Soni DO 08/07/24 0859 Signed By: 08/07/24 09 Normal [facility] X-ray reportOrdered By: Gregoria Rawls on 08-07-2024 Study report [facility] [address] [place] [address] XRay Report Signed Patient: Olinda Singh MR#: [id number] 05 : 1950 Acct:[id number] Age/Sex: 74 / F ADM Date: 5 Loc: Room: Type: [facility] Attending Dr: Vesna Geiger Copies to: DK Stafford~ Ordering Provider: DK Stafford Date of Service: [...] Rawls M.D. 08/07/2024 10:26 AM Dictation Location: [place] [address] Transcribed By: [facility] 08/07/24 1026 Dictated By: Loraine Rawls MD 08/07/24 1003 Signed By: 08/07/24 1026 [facility] Work Phone: XR lumbar spine AP/LAT/FLX/E XTon 08-07-2024 XR lumbar spine AP/LAT/FLX/EXT [facility] [address] [place] [address] XRay Report Signed Patient: Olinda Singh MR#: [id number] : 1950 Acct:[id number] Age/Sex: 74 / F ADM Date: 08/07/24 Loc: Room: Type: [facility] Attending Dr: Vesna Geiger Copies to: DK [...] Rawls M.D. 08/07/2024 10:26 AM Dictation Location: [place] [address] Transcribed By: [facility] 08/07/24 1026 Dictated By: Loraine Rawls MD 08/07/24 1003 Signed By: 08/07/24 1026 Normal [facility] ALL CBC WITH AUTO DIFFon BASOPHILS ABSOLUTE AUTO 0.1 [facility] Basophils/100 WBC (Bld) 0.9 % 0.2 - 2.0 % [facility] Eosinophils/100 WBC (Bld) 3.3 % 0.9 - 7.0 % [facility] Erythrocyte distribution width (RBC) [Ratio] 13.2 % 11.0 - 15.0 % [facility] Hematocrit (Bld) [Volume fraction] 37 % 36.0 - 48.0 % [facility] Hemoglobin (Bld) [Mass/Vol] 12.1 g/dL 12.0 - 16.0 g/dL [facility] IMMATURE GRANULOCYTES ABS AUTO 0.01 [facility] Immature granulocytes/100 WBC (Bld) 0.2 % 0.0 - 0.5 % [facility] Interpretation and review of laboratory results Abnormal [facility] LYMPHOCYTES ABSOLUTE AUTO 2.2 [facility] Lymphocytes/100 WBC (Bld) 37.7 % 20.5 - 60.0 % [facility] MCH (RBC) [Entitic mass] 29.2 pg 26.7 - 34.0 pg [facility] MCHC (RBC) [Mass/Vol] 32.7 g/dL 29.9 - 35.2 g/dL [facility] MCV (RBC) [Entitic vol] 89.4 fL 81.0 - 99.0 fL [facility] MONOCYTES ABSOLUTE AUTO 0.4 [facility] Monocytes/100 WBC (Bld) 7.4 % 1.7 - 12.0 % [facility] NEUTROPHILS ABSOLUTE AUTO 3 [facility] Neutrophils/100 WBC (Bld) 50.5 % 43.0 - 75.0 % [facility] Platelet mean volume (Bld) [Entitic vol] 9.8 fL 9.5 - 13.5 fL [facility] # 0.2 [facility] TB PLT 266 [facility] TB RBC 4.14 Low [facility] TB WBC 5.8 [facility] CMP (CMP) (FOR REMOTE FH C USE)on 01-28-2024 Albumin [Mass/Vol] 3.8 g/dL 3.4 - 5.0 g/dL [facility] ALBUMIN GLOBULIN RATIO 1.1 [facility] ALP [Catalytic activity/Vol] 78 U/L 46 - 116 U/L [facility] ALT [Catalytic activity/Vol] 29 U/L 14 - 59 U/L [facility] Anion gap [Moles/Vol] 10.8 mmol/L [facility] AST [Catalytic activity/Vol] 25 U/L 15 - 37 U/L [facility] Bilirubin [Mass/Vol] 1 mg/dL 0.2 - 1 .0 mg/dL [facility] Calcium [Mass/Vol] 9.1 mg/dL 8.5 - 10. 1 mg/dL [facility] Chloride [Moles/Vol] 105 mmol/L 98 - 10 7 mmol/L [facility] CO2 [Moles/Vol] 29.9 mmol/L 21.0 - 32.0 mmol/L [facility] Creatinine [Mass/Vol] 0.82 mg/dL 0.55 - 1.02 mg/dL [facility] GFR/1.73 sq M.predicted CKD-EPI (S/P/Bld) [Vol rate/Area] >60 >=60 mL/min/1.73m 2 [facility] Globulin (S) [Mass/Vol] 3.5 g/dL [facility] Glucose [Mass/Vol] 86 mg/dL 74 - 106 mg/dL NO [facility] Potassium [Moles/Vol] 3.7 mmol/L 3.5 - 5.1 mmol/L [facility] Protein [Mass/Vol] 7.3 g/dL 6.4 - 8.2 g/dL NO [facility] Sodium [Moles/Vol] 142 mmol/L 136 - 145 mmol/L [facility] EGFR-NON AF [place] >60 >=60 mL/min/1.73m 2 [facility] Urea nitrogen [Mass/Vol] 15 mg/dL 7.0 - 18.0 mg/dL [facility] Urea nitrogen/Creatinine [Mass ratio] 18.3 mg/mg [facility] UA (CLEAN/CATCH) FIELD CLERK/IVELISSE RO IF IND.on 01-28-2024 BILIRUBIN URINE Negative NEGATIVE [facility] BLOOD URINE Negative NEGATIVE [facility] Clarity (U) CLEAR CLEAR [facility] Color (U) LT. YELLOW YELLOW [facility] GLUCOSE URINE UA Negative NEGATIVE mg/dL [facility] Ketones Ql (U) Negative NEGATIVE mg/dL [facility] Leukocyte esterase Test strip Ql (U) Negative NEGATIVE [facility] NITRITE URINE Negative NEGATIVE [facility] pH (U) 7.0 [pH] 5.0 - 9.0 [facility] PROTEIN URINE Negative NEG/TRACE mg/dL [facility] SPECIFIC GRAVITY URINE 1.010 1.005 - 1.025 [facility] URINE MICROSCOPIC INDICATED NO [facility] UROBILINOGEN URINE 0.2 EU/dL 0.2 - 1.0 EU/dL [facility] [employer] [facility] XR Calcaneus - right 2 Views on [...] hypertrophy of bone at 1st met head. [facility] Radiology Study observation (narrative) [facility] MG MAMM SCREEN 3D ESTEPHANIE CADon 01-20-2022 MG MAMM SCREEN 3D ESTEPHANIE CAD Patient: OLINDA SINGH Exam Date: 01/20/2022 : 1950 Gender:F Ordering : KASHIF GEIGER [facility] Admission #: [id number] Family : Order #: [id number] CLICK HERE TO VIEW EXAM RADIOLOGY REPORT [...] Treatments None Family Cancers None LOCATION: [facility] BREAST COMPOSITION: Heterogeneously dense,which may obscure [...] MD on 01/20/2022 at 11:12 Normal [facility] XR HAND LT MIN 3Von 06-09-19 [...] by: PETAR CUMMINGS Date: 2021-06-08 20:17 Normal [facility] Ambulatory Clinical Summaryo n 01-31-2021 Ambulatory Clinical Summary {[id number] Normal [facility] Patient Educationon 02-01-20 21 Patient Education Obstetrics [...] this condition includes: ? Antibiotic medicine. ? Quws-ust-mocaqxw medicines to treat discomfort. ? Drinking enough [...] these instructions at home: Medicines ? Take ixuv-xwp-sjsymja and prescription medicines only as told by [...] This in (more content not included)... Normal [facility] Urology Office/Clinic Noteon 01-31-2021 Urology Office/Clinic Note [...] Palmer, URL [address] [place] [address] [place] [address]- [phone] Additional Instructions: prn Patient Education Urinary Tract [...] Father. Hypertension: Mother. Liver disease: Father. Normal [facility] Comment on above: Result Comment: Elec tronically [...] 89 years. DEXA scan for this exam: Active-Semi RECOMMENDATIONS: If not already instituted, suggest therapy to increase bone mass. Follow-up study in 2 years may be considered on a [employer] system. by WHO criteria. Interpreted by: Tiana Adair MD Signed by: Tiana Adair MD 09/10/19 Final result Normal [facility] 1. The T-score in th e lumbar [...] 89 years. DEXA scan for this exam: Active-Semi RECOMMENDATIONS: If not already instituted, suggest therapy to increase bone mass. Follow-up study in 2 years may be considered on a [employer] system. by WHO criteria. [place] EXAMINATION: OT left hip left wrist [...] with T-score of -1.1 and representing osteopenia. [place], [place] Simon, pn Incoming Radiant Results From [facility] - 09/10/2019 4:01 PM EDT EXAMINATION: OT [...] 89 years. DEXA scan for this exam: Active-Semi RECOMMENDATIONS: If not already instituted, suggest therapy to increase bone mass. Follow-up study in 2 years may be considered on a [employer] system. by WHO criteria. [facility], [place] DIGITAL SCREEN W OR WO C AD BILATERALon 09-10-2019 [facility] DIGITAL SCREEN W OR WO [...] to the patient regarding the results. The [employer] recommends annual mammograms for women 40 years and older. Interpreted by: Arnaldo Wadsworth MD Signed by: Arnaldo Wadsworth MD 09/10/19 Final result Normal [facility] No mammographic evidence of malignancy. BI-RADS 1 BIRADS: BIRADS - CATEGORY 1 Negative, no evidence of malignancy. Normal interval follow-up is recommended in 12 months. OVERALL ASSESSMENT - NEGATIVE A letter of notification will be sent to the patient regarding the results. [employer] recommends annual mammograms for women 40 years and older. [facility] [place] EXAMINATION: SCREENING DIGITAL BILATERAL MAMMOGRAM WITH [...] suspicious microcalcification, or area of architectural distortion. [place], [place] Simon, pn Incoming Radiant Results From [facility] - 09/10/2019 12:38 PM EDT EXAMINATION: SCREENING [...] to the patient regarding the results. [employer] recommends annual mammograms for women 40 years and older. [facility] [place] Vital Signs Date Time Vital Sign Value Performing Clinician Lars lo 09-02-2024 13:42-0400 Body mass index (BMI) [Ratio] 27.89 kg/m2 Vesna Johnsonjesus OYSTERMAN Work Phone: [facility] 09-02-2024 13:42-0400 Body temperature 98.1 [degF] Vesna Johsnonjesus OYSTERMAN Work Phone: [facility] 09-02-2024 13:42-0400 Body weight 78.38 kg Vesna Castroz OYSTERMAN Work Phone: [facility] 09-02-2024 13:42-0400 Diastolic blood pressure 88 mm[Hg] Vesna Gloriaz OYSTERMAN Work Phone: [facility] 09-02-2024 13:42-0400 Heart rate 71 /min Vesna Gloriaz OYSTERMAN Work Phone: [facility] 09-02-2024 13:42-0400 Respiratory rate 18 /min Vesna Harrisadalbertoz OYSTERMAN Work Phone: [facility] 09-02-2024 13:42-0400 SaO2% (BldA) [Mass fraction] 98 % Vesna Harrisadalbertoz OYSTERMAN Work Phone: [facility] 09-02-2024 13:42-0400 Systolic blood pressure 132 mm[Hg] Vesna Juanjo OYSTERMAN Work Phone: [facility] 07-28-2024 13:03-0400 Body mass index (BMI) [Ratio] 28.54 kg/m2 Vesna Johnsonlatashaz OYSTERMAN Work Phone: [facility] 07-28-2024 13:03-0400 Body temperature 97.81 [degF] Vesna Gloriaz OYSTERMAN Work Phone: [facility] 07-28-2024 13:03-0400 Body weight 80.2 kg Vesna Gloriaz OYSTERMAN Work Phone: [facility] 07-28-2024 13:03-0400 Diastolic blood pressure 96 mm[Hg] Vesna Aichholz OYSTERMAN Work Phone: [facility] 07-28-2024 13:03-0400 Heart rate 70 /min Vesna Aichholz OYSTERMAN Work Phone: [facility] 07-28-2024 13:03-0400 Respiratory rate 20 /min Vesna Aichholz OYSTERMAN Work Phone: [facility] 07-28-2024 13:03-0400 SaO2% (BldA) [Mass fraction] 96 % Vesna Aichholz OYSTERMAN Work Phone: [facility] 07-28-2024 13:03-0400 Systolic blood pressure 152 mm[Hg] Vesna Aichholz OYSTERMAN Work Phone: [facility] 06-24-2024 10:19-0400 Body height 167.6 cm Vesna Aichholz OYSTERMAN Work Phone: [facility] 06-24-2024 10:19-0400 Body mass index (BMI) [Ratio] 29.86 kg/m2 Vesna Aichholz OYSTERMAN Work Phone: [facility] 06-24-2024 10:19-0400 Body temperature 97.81 [degF] Vesna Aichholz OYSTERMAN Work Phone: [facility] 06-24-2024 10:19-0400 Body weight 83.92 kg Vesna Aichholz OYSTERMAN Work Phone: [facility] 06-24-2024 10:19-0400 Diastolic blood pressure 90 mm[Hg] Vesna Aichholz OYSTERMAN Work Phone: [facility] 06-24-2024 10:19-0400 Heart rate 72 /min Vesna Aichholz OYSTERMAN Work Phone: [facility] 06-24-2024 10:19-0400 Respiratory rate 16 /min Vesna Aichholz OYSTERMAN Work Phone: [facility] 06-24-2024 10:19-0400 SaO2% (BldA) [Mass fraction] 96 % Vesna Kimberlyholz OYSTERMAN Work Phone: [facility] 06-24-2024 10:19-0400 Systolic blood pressure 154 mm[Hg] Vesna Aichholz OYSTERMAN Work Phone: [facility] 01-28-2024 10:31-0500 Body height 167.6 cm Vesna Aichholz OYSTERMAN Work Phone: [facility] 01-28-2024 10:31-0500 Body mass index (BMI) [Ratio] 29.28 kg/m2 Vesna Aichholz OYSTERMAN Work Phone: [facility] 01-28-2024 10:31-0500 Body temperature 97.81 [degF] Vesna Alexhholz OYSTERMAN Work Phone: [facility] 01-28-2024 10:31-0500 Body weight 82.28 kg Vesna Alexhholz OYSTERMAN Work Phone: [facility] 01-28-2024 10:31-0500 Diastolic blood pressure 82 mm[Hg] Vesna Aichholz OYSTERMAN Work Phone: [facility] 01-28-2024 10:31-0500 Heart rate 67 /min Vesna Aichholz OYSTERMAN Work Phone: [facility] 01-28-2024 10:31-0500 Respiratory rate 19 /min Vesna Aichholz OYSTERMAN Work Phone: [facility] 01-28-2024 10:31-0500 SaO2% (BldA) [Mass fraction] 99 % Vesna Aichholz OYSTERMAN Work Phone: [facility] 01-28-2024 10:31-0500 Systolic blood pressure 122 mm[Hg] Vesna Aichholz OYSTERMAN Work Phone: [facility] 01-08-2024 11:04-0400 Body height 167.6 cm Coby Garcia DPM Work Phone: [facility] 01-08-2024 11:04-0400 Body mass index (BMI) [Ratio] 29.7 kg/m2 Coby Garcia DPM Work Phone: [facility] 01-08-2024 11:04-0400 Body weight 83.46 kg Coby Garcia DPM Work Phone: [facility] 12-14-2023 08:47-0400 Body height 167.6 cm Coby Garcia DPM Work Phone: [facility] 12-14-2023 08:47-0400 Body mass index (BMI) [Ratio] 27.44 kg/m2 Coby Garcia DPM Work Phone: [facility] 12-14-2023 08:47-0400 Body weight 77.11 kg Coby Garcia DPM [facility] Phone: [facility] Encounters Encounter Date Encounter Type Care Provider Facility Start: 09-02-2024 End: 09-02-2024 Bamboo flowsheet Vesna Geiger OYSTERMAN Work Phone: [facility] Start: 09-02-2024 End: 09-02-2024 Bamboo flowsheet Vesna Geiger OYSTERMAN Work Phone: [facility] Start: 09-02-2024 End: 09-02-2024 Office outpatient visit 25 minutes Vesna Geiger OYSTERMAN Work Phone: [facility] Comment on above: Current mild episode of major depressive disorder without prior episode (Primary Dx); Postprandial RUQ pain; Small bowel lesion; Spondylolisthesis of lumbar region; KI (generalized anxiety disorder) Start: 09-02-2024 End: 09-02-2024 ambulatory VESNA GEIGER Not Available Start: 08-25-2024 End: 08-25-2024 ambulatory Vesna Geiger Facility:[facility] Start: 08-07-2024 End: 08-07-2024 Patient encounter procedure Vesna Geiger Work Phone: [facility] Work Phone: Start: 08-07-2024 End: 08-07-2024 Orders Only Vesna Juanjo OYSTERMAN Work Phone: [facility] Comment on above: Postprandial RUQ mary jo n (Primary Dx) Start: 07-28-2024 End: 07-28-2024 Bamboo flowsheet Vesna Juanjo OYSTERMAN Work Phone: [facility] Start: 07-28-2024 End: 07-28-2024 Bamboo flowsheet Evsna Juanoj OYSTERMAN Work Phone: [facility] Start: 07-28-2024 End: 07-28-2024 ambulatory VESNA JUANJO Not Available Start: 07-28-2024 End: 07-28-2024 Office outpatient visit 25 minutes Vesna Juanjo OYSTERMAN Work Phone: [facility] Comment on above: Postprandial RUQ mary jo n (Primary Dx); Elevated blood pressure reading; Overweight (BMI 25.0-29.9); Spinal stenosis of lumbar region without neurogenic claudication; Spondylolisthesis of lumbar region; Small bowel lesion Start: 07-08-2024 End: 07-08-2024 Office outpatient new 30 minutes Derek A Felter SNOUT PULLER-RESIDENTIAL FEE APPRAISER Work Phone: [facility] Comment on above: Seborrheic keratosis ; Melanocytic nevus of trunk; Stasis dermatitis of both legs; Herpesviral vesicular dermatitis Start: 07-08-2024 End: 07-08-2024 ambulatory DEREK A FELTER Not Available Start: 07-08-2024 End: 07-08-2024 Bamboo flowsheet Derek A Felter SNOUT PULLER-RESIDENTIAL FEE APPRAISER Work Phone: [facility] Start: 07-08-2024 End: 07-08-2024 Bamboo flowsheet Derek A Felter SNOUT PULLER-RESIDENTIAL FEE APPRAISER Work Phone: [facility] Start: 06-24-2024 End: 06-24-2024 Bamboo flowsheet Vesna Juanjo OYSTERMAN Work Phone: [facility] Start: 06-24-2024 End: 06-24-2024 Bamboo flowsheet Vesna Juanjo OYSTERMAN Work Phone: [facility] Start: 06-24-2024 End: 06-24-2024 Office outpatient visit 25 minutes Vesna Geiger OYSTERMAN Work Phone: [facility] Comment on above: Neoplasm, uncertain whether benign or malignant (Primary Dx); Elevated blood pressure reading; Overweight (BMI 25.0-29.9) Start: 06-24-2024 End: 06-24-2024 ambulatory VESNA JUANJO Not Available Start: 01-28-2024 End: 01-28-2024 Clinisync Result Encounter Vesna Juanjo OYSTERMAN Work Phone: [facility] External Department Unsolicited Start: 01-28-2024 End: 01-28-2024 Clinisync Result Encounter Vesna Juanjo OYSTERMAN Work Phone: [facility] External Department Unsolicited Start: 01-28-2024 End: 01-28-2024 Patient encounter procedure Vesna Juanjo OYSTERMAN Work Phone: [facility] Comment on above: Encounter for subseq uent annual wellness visit (AWV) in Medicare patient (Primary Dx); Migraine with aura and without status migrainosus, not intractable ([facility]); Encounter for screening mammogram for malignant neoplasm of breast; KI (generalized anxiety disorder) ([facility]); Menopause; Irritable bowel syndrome with diarrhea Start: 01-28-2024 End: 01-28-2024 ambulatory VESNA KIMBERLYHOLZ Not Available Start: 01-08-2024 End: 01-08-2024 Bamboo flowsheet Coby Garcia DPM Work Phone: [facility] Start: 01-08-2024 End: 01-08-2024 Bamboo flowsheet Coby Garcia DPM Work Phone: [facility] Start: 01-08-2024 End: 01-08-2024 ambulatory COBY GARCIA Not Available Start: 01-08-2024 End: 01-08-2024 Office outpatient visit 15 minutes Coby Garcia DPM Work Phone: [facility] Comment on above: Plantar fasciitis (P rimary Dx); Gastrocnemius equinus of right lower extremity; Pain of right heel Start: 01-07-2024 End: 01-08-2024 Refill Vesna Geiger OYSTERMAN Work Phone: [facility] Comment on above: Migraine with aura a nd without status migrainosus, not intractable ([facility]) Start: 12-14-2023 End: 12-14-2023 Bamboo flowsheet Coby Garcia DPM Work Phone: [facility] Start: 12-14-2023 End: 12-14-2023 Bamboo flowsheet Coby Garcia DPM Work Phone: [facility] Start: 12-14-2023 End: 12-14-2023 Office outpatient new 30 minutes Coby Garcia DPM Work Phone: [facility] Comment on above: Plantar fasciitis (P rimary Dx); Gastrocnemius equinus of right lower extremity; Pain of right heel Start: 12-14-2023 End: 12-14-2023 ambulatory COBY GARCIA Not Available Start: 01-20-2022 End: 01-21-2022 ambulatory KASHIF GAXIOLA JUANJO Facility:[facility] Start: 08-14-2021 End: 08-14-2021 ambulatory KASHIF GAXIOLA JUANJO Facility:[facility] Start: 06-08-2021 End: 06-08-2021 ambulatory KASHIF GAXIOLA JUANJO Facility:[facility] Start: 09-10-2019 End: 09-13-2019 Patient encounter procedure VESNA GEIGER [facility] Start: 09-10-2019 End: 09-12-2019 Subsequent hospital visit by physician Sandoval K[facility] Comment on above: Menopausal state Breast cancer screen ing by mammogram Procedures Date Procedure Procedure Detail Performing Clinician Start: 08-07-2024 US scan of gallbladder Vesna Harrislourdes Work Phone: Start: 08-07-2024 X-ray of lumbar spin e, four views Vesna Alexkorinalourdes Work Phone: Start: 02-06-2024 Mammography Vesna downinghelene OYSTERMAN Work Phone: Start: 01-28-2024 ALL CBC WITH AUTO DIFF Vesna Harrislourdes OYSTERMAN Work Phone: Start: 01-28-2024 [facility] CMP (CMP) (FOR [facility] USE) Vesna Alexkorinalourdes OYSTERMAN Work Phone: Start: 01-28-2024 [facility] UA (CLEAN/CATCH) FIELD CLERK/MICRO IF IND. Vesna Alexkorinalourdes OYSTERMAN Work Phone: Start: 12-14-2023 Radex calcaneus mini mum 2 views Coby Garcia DPM Work Phone: Start: 01-26-2023 Mammography Coby collado DPM Work Phone: Start: 09-10-2019 Screening mammograph y bi 2-view breast inc cad VESNA JUANJO Start: 09-10-2019 Dxa bone density shilpa dy 1/> sites axial skel VESNA GEIGER Start: 09-10-2019 Screening digital br east tomosynthesis bi Vesna Geiger Work Phone: Start: 09-10-2019 Dxa bone density shilpa dy 1/> sites axial skel Vesna CumminsMinesh Geiger Work Phone: Plan of Treatment Date Care Activity Detail Author Start: 07-09-2025 End: 07-09-2025 Patient encounter procedure 07/09/2025 2:05 PM EDT Office Visit [facility] [address] [place] [id number] Derek Mendoza, SNOUT PULLER-RESIDENTIAL FEE APPRAISER [address] [place] [address] [facility] Start: 02-05-2025 Screening for malignant neoplasm of breast Mammogram [facility] Start: 01-29-2025 End: 01-29-2025 Patient encounter procedure 01/29/2025 1:00 PM EST [facility] [address] [place] [phone] Vesna Geiger NP [address] [place] [phone] [facility] Start: 01-27-2025 Medicare Annual Wellness (AWV) Medicare Annual Wellness (AWV) [facility] Start: 12-19-2024 Screening for malignant neoplasm of colon [facility] Start: 11-10-2024 Influenza vaccination Influenza Vaccine (Season Ended) [facility] Start: 10-21-2024 End: 10-21-2024 Patient encounter procedure 10/21/2024 1:20 PM EDT Office Visit [facility] [address] [place] [address] Vesna Geiger NP [address] [place] [phone] [facility] Start: 09-02-2024 End: 09-02-2024 Patient encounter procedure [facility] Comment on above: Postprandial RUQ pain (Primary Dx); Small bowel lesion; Spondylolisthesis of lumbar region Start: 08-07-2024 End: 08-07-2025 NM Gallbladder Views W cholecystokinin and W radionuclide IV NM hepatobiliary w cholecystokinin Imaging Routine Postprandial RUQ pain Expected: 08/07/2024 (Approximate), Expires: 08/07/2025 [facility] Work Phone: Comment on above: Expected: 08/07/2024 (Approximate), Expi res: 08/07/2025 Start: 07-28-2024 End: 07-28-2025 RF Small bowel Views W contrast PO FL small bowel series Imaging Routine Small bowel lesion Expected: 07/28/2024, Expires: 07/28/2025 [facility] Comment on above: Expected: 07/28/2024, Expires: Start: 07-28-2024 End: 07-28-2025 US Gallbladder US gallbladder Imaging Routine Postprandial RUQ pain Expected: 07/28/2024, Expires: 07/28/2025 [facility] Comment on above: Expected: 07/28/2024, Expires: Start: 07-28-2024 End: 07-28-2025 XR Lumbar spine Views W flexion and W extension XR lumbar spine 4+ views w flexion extension Imaging Routine Spinal stenosis of lumbar region without neurogenic claudication Spondylolisthesis of lumbar region Expected: 07/28/2024 (Approximate), Expires: 07/28/2025 [facility] Work Phone: Comment on above: Expected: 07/28/2024 (Approximate), Expi res: 07/28/2025 Start: 07-28-2024 End: 07-28-2024 Patient encounter procedure 07/28/2024 1:00 PM EDT Office Visit [facility] [address] [place] [address] Vesna Geiger NP [address] [place] [address] [facility] Start: 07-08-2024 End: 07-08-2024 Patient encounter procedure 07/08/2024 3:35 PM EDT Office Visit [facility] [address] [place] [phone] Derek Mendoza, SNOUT PULLER-RESIDENTIAL FEE APPRAISER [address] [place] [address] Neoplasm, uncertain whether benign or malignant [facility] Comment on above: Neoplasm, uncertain whether benign or ma lignant Start: 06-24-2024 End: 06-24-2024 Patient encounter procedure 06/24/2024 10:30 AM EDT Office Visit [facility] [address] [place] [address] Vesna Geiger, OYSTERMAN [address] [place] [address] Arrived [facility] Comment on above: Arrived Start: 03-24-2024 Influenza vaccination Influenza Vaccine (#1) [facility] Comment on above: Postponed from 11/11/2023 (Patient Refus ed) Start: 02-28-2024 End: 02-28-2024 Patient encounter procedure 02/28/2024 4:15 PM EST Office Visit [facility] [address] [place] [phone] Coby Garcia, DPM [address] [place], [place] [phone] [facility] Start: 02-19-2024 End: 02-19-2024 Patient encounter procedure 02/19/2024 10:45 AM EST Office Visit [facility] [address] [place] [phone] Coby Garcia, DPM [address] [place] [address] [facility] Start: 01-28-2024 End: 01-27-2025 CBC W Auto Differential panel - Blood CBC and differential Lab Routine Irritable bowel syndrome with diarrhea Expected: 01/28/2024 (Approximate), Expires: 01/27/2025 [facility] Comment on above: Expected: 01/28/2024 (Approximate), Expi res: 01/27/2025 Start: 01-28-2024 End: 01-27-2025 Comprehensive metabolic 2000 panel - Serum or Plasma Comprehensive metabolic panel Lab Routine Irritable bowel syndrome with diarrhea Expected: 01/28/2024 (Approximate), Expires: 01/27/2025 [facility] Comment on above: Expected: 01/28/2024 (Approximate), Expi res: 01/27/2025 Start: 01-28-2024 End: 01-27-2025 DXA Skeletal system Views for bone density DEXA bone density Imaging Routine Menopause Expected: 01/28/2024 (Approximate), Expires: 01/27/2025 [facility] Comment on above: Expected: 01/28/2024 (Approximate), Expi res: 01/27/2025 Start: 01-28-2024 End: 03-29-2025 MG Breast - bilateral Screening Bilateral screening mammogram Imaging Routine Encounter for screening mammogram for malignant neoplasm of breast Expected: 01/28/2024 (Approximate), Expires: 03/29/2025 [facility] Work Phone: Comment on above: Expected: 01/28/2024 (Approximate), Expi res: 03/29/2025 Start: 01-28-2024 End: 01-27-2025 Urinalysis complete panel - Urine Urinalysis with reflex microscopic (clean catch) Lab Routine Irritable bowel syndrome with diarrhea Expected: 01/28/2024 (Approximate), Expires: 01/27/2025 [facility] Comment on above: Expected: 01/28/2024 (Approximate), Expi res: 01/27/2025 Start: 01-28-2024 End: 01-28-2024 Patient encounter procedure 01/28/2024 10:30 AM EST Procedure Visit [facility] [address] [place] [address] Vesna Geiger, DIRK [address] [place] [address] [facility] Start: 01-27-2024 Screening for malignant neoplasm of breast Mammogram [facility] Start: 01-08-2024 End: 01-08-2024 Patient encounter procedure 01/08/2024 11:00 AM EDT Office Visit [facility] [address] [place] [phone] Coby Garcia, DPM [address] [place], [place] [phone] [facility] Start: 12-14-2023 End: 12-14-2023 Patient encounter procedure 12/14/2023 9:00 AM EDT Office Visit [facility] [address] [place] [phone] Coby Garcia, DPM [address] [place], [place] [phone] Arrived [facility] Comment on above: Arrived Start: 11-11-2023 Influenza vaccination Influenza Vaccine (#1) [facility] Start: 09-09-2021 Screening for malignant neoplasm of breast Breast cancer screen [place], [place] Start: 11-11-2019 Influenza vaccination Flu vaccine (#1) [place] Start: 09-01-2018 Annual Wellness Visit (AWV) Annual Wellness Visit (AWV) [place] Start: 06-02-2016 Pneumococcal 65+ years Vaccine (1 of 1 - PPSV23) Pneumococcal 65+ years Vaccine (1 of 1 - PPSV23) [place] Start: 06-02-2001 Screening for malignant neoplasm of colon Colon cancer screen colonoscopy [place], [place] Start: 06-02-2001 Shingles Vaccine (1 of 2) Shingles Vaccine (1 of 2) [place], [place] Start: 1991 Lipid panel Lipid screen [place], [place] Start: 06-02-1970 DTaP/Tdap/Td vaccine (1 - Tdap) DTaP/Tdap/Td vaccine (1 - Tdap) [place], [place] Start: 1950 Hepatitis C screening Hepatitis C screen [place], [place] Start: 1950 Medicare Annual Wellness (AWV) Medicare Annual Wellness (AWV) [facility] Start: 1950 Screening for malignant neoplasm of colon [facility] Immunizations Immunization Date Immunization Notes Care Provider Fa cility 04-09-2020 tetanus toxoid, redu mark diphtheria toxoid, and acellular pertussis vaccine, adsorbed Vesna Geiger NP Work Phone: [facility] 03-08-2020 zoster vaccine recombinant Vesna Aichholz OYSTERMAN Work Phone: [facility] 12-29-2019 influenza, injectabl e, quadrivalent, preservative free Vesna Aichholz OYSTERMAN Work Phone: [facility] 12-29-2019 zoster vaccine recombinant Vesna Aichholz OYSTERMAN Work Phone: [facility] 12-29-2019 influenza virus vacc ine, unspecified formulation Coby Garcia DPM Work Phone: [facility] Payers Date Payer Category Payer Self-pay 2016 Medicaid [employer] MEDICARE A DVANTAGE [id number] 2016 Medicare MEDICARE MEDICAR E PART A AND B xxxxxxxxxxx 2016-Present [phone] [address] [address] [place] [address] xxxxxxxxxxx [id number] 2016 Medicare [id number] 2016 Private Health Insurance [id number] 2016 Unknown [facility] [employer] [employer] CIGNA MEDICARE SUPP xxxxxxxxxx 2016-Present [phone] [address] [address] [place] [address] xxxxxxxxxx [id number] 2016 Medicare [id number] 1959 Medicare [id number] 1959 Unknown [id number] 1951 Unknown [id number] .173 1951 Unknown [id number] [id number] .173 1951 Unknown [id number] [id number] .593 1951 Unknown [id number] 2.16.840.1.249449.3.579.2 .593 1951 Unknown [id number] 2.16.840.1.257683.3.579.2 .593 1951 Unknown [id number] 2.16.840.1.618766.3.579.2 .1259 1951 Unknown [id number] 2.16.840.1.059283.3.579.2 .1259 1951 Unknown [id number] 2.16.840.1.495762.3.579.2 .1259 1951 Unknown [id number] 2.16.840.1.374634.3.579.2 .1259 1951 Unknown [id number] 2.16.840.1.985765.3.579.2 .1259 1951 Unknown [id number] 2.16.840.1.893155.3.579.2 .1259 1951 Unknown [id number] 2.16.840.1.790791.3.579.2 .1259 1951 Unknown [id number] 2.16.840.1.788460.3.579.2 .1259 Medicare Medicare [id number] Unknown [id number] [id number] .531 Unknown [id number] [id number] .531 Social History Date Type Detail [facility] Start: 1950 Sex Assigned At Not on file [place] Exposure to SARS-CoV -2 (event) [facility] Start: 12-14-2023 [facility] Start: 12-14-2023 Tobacco use and exposure Smokeless tobacco non-user [facility] Start: 12-14-2023 End: 09-02-2024 Alcoholic beverage intake Current drinker of alcohol (finding) [facility] Start: 12-14-2023 End: 01-28-2024 History of Social function [facility] Start: 12-14-2023 End: 01-28-2024 Tobacco use panel [facility] Start: 12-14-2023 Alcohol Comment rare [facility] Start: 08-08-2024 Sex Female (finding) [facility] Start: 1950 Sex Assigned At Female F [facility] Clinical Notes 12-14-2023 to 09-02-2024 Vesna Geiger NP - 09/02/2024 3:31 PM Sallie Geiger NP - 09/02/2024 3:31 PM Sallie Geiger NP - 09/02/2024 1:40 PM Sallie Geiger NP - 09/02/2024 6:51 AM EDTPatient Instructions Note Date & Type Note Facility 09-02-2024 History of Present illness Narrative Associated Problem(s): KI (generalized anxiety disorder) Will start fluoxetine Associated Problem(s): Current mild episode of major depressive disorder without prior episode Trial fluoxetine at 10mg daily Take medication [...] Please contact the office if these occur. Images from the original note were not included. Olinda Singh is a 74 y.o. female presents with chief complaint of Follow-up HPI: Here to review lumbar xray as well as GBUS/HIDA Would also like to talk about depression : no SI/HI/hallucinations. in care home with dementia. Feels lonely, lack of interest or excitement in things. Would like to maybe take a low dose of something to help with her mood SUBJECTIVE: MEDICATIONS: Current Outpatient Medications Medication Instructions rizatriptan (Maxalt) 10 MG tablet May take 1 at onset of a migraine SZYMANSKI, repeat in 2 hours if needed. No more than 2 pills in 24 hours, no more than twice a week ALLERGIES: Allergies Allergen Reactions Penicillin G Hives Sulfamethoxazole-Trimethoprim Hives REVIEW OF SYMPTOMS: Review of Systems Constitutional: Negative for appetite change, chills and fever. HENT: Negative for congestion, ear pain and sore throat. Eyes: Negative for pain, discharge, redness and visual disturbance. Respiratory: Negative for cough, shortness of breath and wheezing. Cardiovascular: Negative for chest pain, palpitations and leg swelling. Gastrointestinal: Negative for abdominal pain, blood in stool, constipation, diarrhea, nausea and vomiting. Genitourinary: Negative for difficulty urinating, dysuria and frequency. Musculoskeletal: Positive for arthralgias. Negative for back pain, joint swelling and myalgias. Skin: Negative for rash and wound. Neurological: Negative for dizziness, tremors, seizures, syncope and headaches. Psychiatric/Behavioral: Negative for behavioral problems, self-injury and suicidal ideas. The patient is not nervous/anxious. Depression Hematological: Does not bruise/bleed easily. Endocrine: Negative for polydipsia, polyphagia and polyuria. Allergic/Immunologic: Negative for environmental allergies and food allergies. PAST MEDICAL HISTORY Past Medical History: Diagnosis Date Migraine Past Surgical History: Procedure Laterality Date BUNIONECTOMY Bilateral Dr. Hendricks or Dr. Case Garcia family history includes Hypertension in her mother. OBJECTIVE: Visit Vitals BP 132/88 (BP Location: Left arm, Patient Position: Sitting, BP Cuff Size: Adult long) Pulse 71 Temp 98.1 F (Temporal) Resp 18 Wt 172 lb 12.8 oz SpO2 98% BMI 27.89 kg/m Smoking Status Never BSA 1.91 m Physical Exam Vitals and nursing note reviewed. Constitutional: General: She is not in acute distress. Appearance: Normal appearance. HENT: Head: Normocephalic and atraumatic. Right Ear: External ear normal. Left Ear: External ear normal. Nose: Nose normal. Mouth/Throat: Mouth: Mucous membranes are moist. Eyes: Extraocular Movements: Extraocular movements intact. Conjunctiva/sclera: Conjunctivae normal. Pulmonary: Effort: Pulmonary effort is normal. Musculoskeletal: Cervical back: Normal range of motion and neck supple. Skin: General: Skin is warm and dry. Capillary Refill: Capillary refill takes 2 to 3 seconds. Findings: No rash. Neurological: General: No focal deficit present. Mental Status: She is alert and oriented to person, place, and time. Psychiatric: Mood and Affect: Mood normal. Behavior: Behavior normal. Thought Content: Thought content normal. Judgment: Judgment normal. ASSESSMENT AND PLAN: No follow-ups on file. Problem List Items Addressed This Visit KI (generalized anxiety disorder) Will start fluoxetine Relevant Medications FLUoxetine (PROzac) 10 MG capsule Postprandial RUQ pain No stones on US HIDA EF 16% (09/03) Offered Gen Surgeon evaluation, pt declined at this time Will re visit in fall Recommend freq small meals, avoid spicy/fatty/greasy foods Spondylolisthesis of lumbar region Noted on plain film xray 09/03 Reviewed plain films Will likely need neurosurgeon Wants to wait until fall Advised of red flag sxs to monitor for Small bowel lesion See CT report from 07/13/24 Fu xray WNL Current mild episode of major depressive disorder without prior episode - Primary Trial fluoxetine at 10mg daily Take medication [...] Please contact the office if these occur. Relevant Medications FLUoxetine (PROzac) 10 MG capsule Associated Problem(s): Spondylolisthesis of lumbar region Noted on plain film xray 09/03 Reviewed plain films Will likely need neurosurgeon Wants to wait until fall Advised of red flag sxs to monitor for Associated Problem(s): Small bowel lesion See CT report from 07/13/24 Fu xray WNL Associated Problem(s): Elevated blood pressure reading Home reads reviewed, average 130/80's Read today in office w home device accurate At this point I will hold on any meds May have some degree of elevation in office setting only Continue checking home reads Associated Problem(s): Postprandial RUQ pain No stones on US HIDA EF 16% (6/) Offered Gen Surgeon evaluation, pt declined at this time Will re visit in fall Recommend freq small meals, avoid spicy/fatty/greasy foods documented in this encounter [facility] 09-02-2024 Instructions Vesna Geiger NP - 09/02/2024 1:40 PM EDT Take medication only as directed. This medication will take approximately 4-6 weeks to become effective. If any suicidal thoughts, thoughts of hurting others, or hallucinations contact the office or proceed to the Emergency Room for mental health evaluation. Medication may cause dry mouth, dizziness, and in some cases worsening in depression symptoms. Please contact the office if these occur. documented in this encounter [facility] 08-07-2024 Radiology Diagnostic study note [facility] [place] [place] [address] Ultrasound Report Signed Patient: Olinda Singh MR#: [id number] 05 : 1950 Acct:[id number] Age/Sex: 74 / F ADM Date: 5 Loc: Room: Type: [facility] Attending Dr: Vesna Geiger Ordering Provider: DK Stafford Date of Service: 08/07/24 US/US gall bladder: R10.11 Copies to: DK Stafford~ Gallbladder ultrasound HISTORY: Right upper quadrant pain [...] Soni M.D. 08/07/2024 9:00 AM Dictation Location: [place] [address] Tech: Tawana Murillo Transcribed By: [facility] 08/07/24899 Dictated By: Chava Soni DO 08/07/24 0859 Signed By: 08/07/24 0900 [facility] 07-28-2024 History of Present illness Narrative Associated Problem(s): Small bowel lesion See CT report from 07/13/24 Associated Problem(s): Spondylolisthesis of lumbar region Check xray flex/ext Associated Problem(s): Spinal stenosis of lumbar region without neurogenic claudication Consider MRI lumbar spine Check lumbar spine xray Associated Problem(s): Postprandial RUQ pain Will check US Associated Problem(s): Elevated blood pressure reading Home reads reviewed, average 130/80's Read today in office w home device accurate At this point I will hold on any meds May have some degree of elevation in office setting only Continue checking home reads Pt brought in BP cuff device: Left arm 154/96 70 Images from the original note were not included. Olinda Singh is a 74 y.o. female presents with chief complaint of No chief complaint on file. HPI: Here for ER fu: seen at [facility] er on 07/13/24 for right flank pain see HPI from this visit CT scan : left non obstructing stone : no blood in urine Mass like apperance in left hemipelvis recommended small bowel follow through She does also report upper epigastric/RUQ pain after eating, feels bloated, hx of gallstone in the past that she passed No bloody stools no dysruia Blood pressure reads: see list [id number] SUBJECTIVE: MEDICATIONS: Current Outpatient Medications Medication Instructions rizatriptan (Maxalt) 10 MG tablet May take 1 at onset of a migraine SZYMANSKI, repeat in 2 hours if needed. No more than 2 pills in 24 hours, no more than twice a week ALLERGIES: Allergies Allergen Reactions Penicillin G Hives Sulfamethoxazole-Trimethoprim Hives REVIEW OF SYMPTOMS: Review of Systems Constitutional: Negative for appetite change, chills and fever. HENT: Negative for congestion, ear pain and sore throat. Eyes: Negative for pain, discharge, redness and visual disturbance. Respiratory: Negative for cough, shortness of breath and wheezing. Cardiovascular: Negative for chest pain, palpitations and leg swelling. Gastrointestinal: Positive for abdominal pain. Negative for blood in stool, constipation, diarrhea, nausea and vomiting. Genitourinary: Negative for difficulty urinating, dysuria and frequency. Musculoskeletal: Negative for arthralgias, back pain, joint swelling and myalgias. Skin: Negative for rash and wound. Neurological: Negative for dizziness, tremors, seizures, syncope and headaches. Psychiatric/Behavioral: Negative for behavioral problems, self-injury and suicidal ideas. The patient is not nervous/anxious. Hematological: Does not bruise/bleed easily. Endocrine: Negative for polydipsia, polyphagia and polyuria. Allergic/Immunologic: Negative for environmental allergies and food allergies. PAST MEDICAL HISTORY Past Medical History: Diagnosis Date Migraine Past Surgical History: Procedure Laterality Date BUNIONECTOMY Bilateral Dr. Hendricks or Dr. Case Garcia family history includes Hypertension in her mother. OBJECTIVE: Visit Vitals BP (!) 152/96 (BP Location: Left arm, Patient Position: Sitting, BP Cuff Size: Adult long) Pulse 70 Temp 97.8 F (Temporal) Resp 20 Wt 176 lb 12.8 oz SpO2 96% BMI 28.54 kg/m Smoking Status Never BSA 1.93 m Physical Exam Vitals and nursing note reviewed. Constitutional: General: She is not in acute distress. Appearance: Normal appearance. HENT: Head: Normocephalic and atraumatic. Right Ear: External ear normal. Left Ear: External ear normal. Nose: Nose normal. Mouth/Throat: Mouth: Mucous membranes are moist. Eyes: Extraocular Movements: Extraocular movements intact. Conjunctiva/sclera: Conjunctivae normal. Neck: Vascular: No carotid bruit. Cardiovascular: Rate and Rhythm: Normal rate and regular rhythm. Pulses: Normal pulses. Heart sounds: Normal heart sounds. Pulmonary: Effort: Pulmonary effort is normal. Breath sounds: Normal breath sounds. No wheezing or rhonchi. Abdominal: General: Bowel sounds are normal. There is no distension. Palpations: Abdomen is soft. There is no mass. Tenderness: There is no abdominal tenderness (mild epigastric/RUQ pain). Musculoskeletal: Cervical back: Normal range of motion and neck supple. Right lower leg: No edema. Left lower leg: No edema. Comments: No point tenderness lumbar -SLR X2, DTR's 2+ bilat patellar/achilles MMT 5/5 bilat LE Skin: General: Skin is warm and dry. Capillary Refill: Capillary refill takes 2 to 3 seconds. Findings: No rash. Neurological: General: No focal deficit present. Mental Status: She is alert and oriented to person, place, and time. Psychiatric: Mood and Affect: Mood normal. Behavior: Behavior normal. Thought Content: Thought content normal. Judgment: Judgment normal. ASSESSMENT AND PLAN: No follow-ups on file. Problem List Items Addressed This Visit Elevated blood pressure reading - Primary Home reads reviewed, average 130/80's Read today in office w home device accurate At this point I will hold on any meds May have some degree of elevation in office setting only Continue checking home reads Overweight (BMI 25.0-29.9) Postprandial RUQ pain Will check US Relevant Orders US gallbladder Spinal stenosis of lumbar region without neurogenic claudication Consider MRI lumbar spine Check lumbar spine xray Relevant Orders XR lumbar spine 4+ views w flexion extension Spondylolisthesis of lumbar region Check xray flex/ext Relevant Orders XR lumbar spine 4+ views w flexion extension Small bowel lesion See CT report from 07/13/24 Relevant Orders FL small bowel series documented in this encounter [facility] 07-28-2024 Instructions Vesna Geiger NP - 07/28/2024 1:00 PM EDT Back: will order the flexion/extension xray Then we will work on MRI lumbar spine Abd: we will order the xray to follow up from CT scan Gallbladder: will check US first, if that is normal will order HIDA scan to see how it is functioning Recommend freq small meals, avoid high fat meals documented in this encounter [facility] 07-08-2024 History of Present illness Narrative Skin Check Location: Patient requests a full body skin examination Dermatologic history: no history of skin cancer, no history of atypical moles Last visit: first skin check here Lesions: Location: Left posterior shoulder Duration: over 2 weeks Quality: itchy Modifying factors: rubs on clothing Associated symptoms: dried up Treatments: none Other Problem: Shingles Location: Gluteal crease Duration: years Current treatment: Helichrysum oil, helps shorten the duration of the outbreak All pertinent medical history, medications, and allergies were reviewed. General Exam: alert, oriented to person, place, and time, normal affect, well appearing Unaccompanied Scalp, Examined , exam limited by hair Right leg Examined Head, Face Examined exam limited by make up Left leg Examined Neck Examined Right foot Examined Chest Left foot Examined Back Examined Buttocks Examined Abdomen Examined Digits,nails: Examined Right arm Examined Left arm Examined Lymphatics: Not examined Hands Examined Skin Exam 1. SEBORRHEIC KERATOSIS Left Upper Back Stuck on verrucous, variably pigmented papule Patient was counseled regarding these benign growths. Removal is normally not necessary, but they may be removed if they are symptomatic or for cosmetic reasons. Literature provided. Related Procedures Ambulatory referral to Dermatology 2. MELANOCYTIC NEVUS OF TRUNK Generalized Scattered benign appearing, regular brown to light brown melanocytic papules and macules with similar morphology Counseled regarding these benign growths. Rarely, a nevus can develop into malignant melanoma, so any changing nevi should be promptly re-evaluated. Discussed ABCD's of melanoma, literature provided. 3. STASIS DERMATITIS OF BOTH LEGS Left Lower Leg - Anterior, Right Lower Leg - Anterior Berino patches in areas of edema The patient was informed that stasis dermatitis is a chronic rash on the lower legs due to swelling often caused by poor circulation. The patient was instructed to keep the legs elevated when seated, avoid standing for long periods of time, and to wear compression stockings. Literature provided. 4. HERPESVIRAL VESICULAR DERMATITIS Mid Back History of grouped vesicles and erosions on an erythematous base It was explained to the patient that herpes simplex is a common viral infection of the skin. It is contagious and can be easily spread by contact. It was explained that the infection is not curable and recurrence is common. The patient was informed that treatment with an anti-viral medication taken at the first sign of an outbreak can shorten the outbreak and relieve symptoms. If occurrences are frequent, an anti-viral medication taken daily may be beneficial. Patient declines oral treatment today Next Visit: 1 year documented in this encounter [facility] 06-24-2024 History of Present illness Narrative Associated Problem(s): Overweight (BMI 25.0-29.9) Has gained 15 pounds in the last 6 months Was working out, now not, and is eating salty foods Associated Problem(s): Neoplasm, uncertain whether benign or malignant Will refer to dermatology for evaluation Associated Problem(s): Elevated blood pressure reading Please check blood pressure daily and record DASH diet Limit caffeine, NSAIDS and decongestants Fu in 4-6 weeks with log of BP and bring machine Has gained 15 pounds in last 6 months Images from the original note were not included. Olinda Singh is a 74 y.o. female presents with chief complaint of No chief complaint on file. HPI: Mole: left shoulder blade, level of bra line, feels like it is growing in size, no personal hx of skin cancer, or family hx of, +sl itchy, no bleeding SUBJECTIVE: MEDICATIONS: Current Outpatient Medications Medication Instructions rizatriptan (Maxalt) 10 MG tablet May take 1 at onset of a migraine SZYMANSKI, repeat in 2 hours if needed. No more than 2 pills in 24 hours, no more than twice a week ALLERGIES: Allergies Allergen Reactions Penicillin G Hives Sulfamethoxazole-Trimethoprim Hives REVIEW OF SYMPTOMS: Review of Systems Constitutional: Negative for appetite change, chills and fever. HENT: Negative for congestion, ear pain and sore throat. Eyes: Negative for pain, discharge, redness and visual disturbance. Respiratory: Negative for cough, shortness of breath and wheezing. Cardiovascular: Negative for chest pain, palpitations and leg swelling. Gastrointestinal: Negative for abdominal pain, blood in stool, constipation, diarrhea, nausea and vomiting. Genitourinary: Negative for difficulty urinating, dysuria and frequency. Musculoskeletal: Negative for arthralgias, back pain, joint swelling and myalgias. Skin: Positive for color change. Negative for rash and wound. Neurological: Negative for dizziness, tremors, seizures, syncope and headaches. Psychiatric/Behavioral: Negative for behavioral problems, self-injury and suicidal ideas. The patient is not nervous/anxious. Hematological: Does not bruise/bleed easily. Endocrine: Negative for polydipsia, polyphagia and polyuria. Allergic/Immunologic: Negative for environmental allergies and food allergies. PAST MEDICAL HISTORY Past Medical History: Diagnosis Date Migraine Past Surgical History: Procedure Laterality Date BUNIONECTOMY Bilateral Dr. Hendricks or Dr. Case Garcia family history includes Hypertension in her mother. OBJECTIVE: Visit Vitals BP 154/90 Pulse 72 Temp 97.8 F Resp 16 Ht 5' 6 Wt 185 lb SpO2 96% BMI 29.86 kg/m Smoking Status Never BSA 1.98 m Physical Exam Vitals and nursing note reviewed. Constitutional: General: She is not in acute distress. Appearance: Normal appearance. She is not ill-appearing. HENT: Head: Normocephalic and atraumatic. Right Ear: Tympanic membrane, ear canal and external ear normal. Left Ear: Tympanic membrane, ear canal and external ear normal. Nose: Nose normal. No congestion or rhinorrhea. Mouth/Throat: Mouth: Mucous membranes are moist. Pharynx: No oropharyngeal exudate or posterior oropharyngeal erythema. Eyes: Extraocular Movements: Extraocular movements intact. Conjunctiva/sclera: Conjunctivae normal. Neck: Vascular: No carotid bruit. Cardiovascular: Rate and Rhythm: Normal rate and regular rhythm. Pulses: Normal pulses. Heart sounds: Normal heart sounds. No murmur heard. Pulmonary: Effort: Pulmonary effort is normal. Breath sounds: Normal breath sounds. No wheezing or rhonchi. Abdominal: General: Bowel sounds are normal. There is no distension. Palpations: Abdomen is soft. There is no mass. Tenderness: There is no abdominal tenderness. Musculoskeletal: General: Normal range of motion. Cervical back: Normal range of motion and neck supple. Right lower leg: No edema. Left lower leg: No edema. Lymphadenopathy: Cervical: No cervical adenopathy. Skin: General: Skin is warm and dry. Capillary Refill: Capillary refill takes 2 to 3 seconds. Findings: Lesion (lesion just below left shoulder blade, 4mm diameter, various brown colors, no ulcerations noted) present. No rash. Neurological: General: No focal deficit present. Mental Status: She is alert and oriented to person, place, and time. Psychiatric: Mood and Affect: Mood normal. Behavior: Behavior normal. Thought Content: Thought content normal. Judgment: Judgment normal. ASSESSMENT AND PLAN: Follow up in about 6 weeks (around 08/05/2024) for Recheck. Problem List Items Addressed This Visit Elevated blood pressure reading Please check blood pressure daily and record DASH diet Limit caffeine, NSAIDS and decongestants Fu in 4-6 weeks with log of BP and bring machine Has gained 15 pounds in last 6 months Neoplasm, uncertain whether benign or malignant - Primary Will refer to dermatology for evaluation Relevant Orders Ambulatory referral to Dermatology Overweight (BMI 25.0-29.9) Has gained 15 pounds in the last 6 months Was working out, now not, and is eating salty foods documented in this encounter [facility] 06-24-2024 Instructions Vesna Geiger NP - 06/24/2024 10:30 AM EDT Check blood pressures once a day and record DASH diet documented in this encounter [facility] 01-28-2024 History of Present illness Narrative Associated Problem(s): Migraine with aura and without status migrainosus, not intractable (CMS/HCC) Cont triptan prn Associated Problem(s): Menopause Check dexa Associated Problem(s): KI (generalized anxiety disorder) (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 Associated Problem(s): Encounter for screening mammogram for malignant neoplasm of breast Check mammogram wants [facility] Associated Problem(s): Irritable bowel syndrome with diarrhea Hoping with less stressors she will have improvement in her symptoms Does require a refill for hydrocortisone cream for when she has rectal irritation when she has flare ups of diarrhea Images from the original note were not included. Olinda Singh is a 73 y.o. female presents with chief complaint of No chief complaint on file. HPI: Diet: variety, dairy Activity: exercises 6 days per week Mental Health Concerns: doing well Falls in the last year: yes, clumsy Still driving: yes Do you pay your bills: yes Any hearing problems: no Any Vision problems: glasses, 1 year ago last eye exam Any Hospitalizations in the last year: no Specialist: Andrés Mart, dentist: dr Floyd, and sees a skin diver, Ortho Dr Trujillo if Kj HCPOA/Living Will: Yes Concerns: bilat hip pain, thinks that exercise and weight loss SUBJECTIVE: MEDICATIONS: Current Outpatient Medications Medication Instructions rizatriptan (Maxalt) 10 MG tablet May take 1 at onset of a migraine SZYMANSKI, repeat in 2 hours if needed. No more than 2 pills in 24 hours, no more than twice a week ALLERGIES: Allergies Allergen Reactions Penicillin G Hives Sulfamethoxazole-Trimethoprim Hives REVIEW OF SYMPTOMS: Review of Systems Constitutional: Negative for appetite change, chills and fever. HENT: Negative for congestion, ear pain and sore throat. Eyes: Negative for pain, discharge, redness and visual disturbance. Respiratory: Negative for cough, shortness of breath and wheezing. Cardiovascular: Negative for chest pain, palpitations and leg swelling. Gastrointestinal: Positive for diarrhea. Negative for abdominal pain, blood in stool, constipation, nausea and vomiting. Genitourinary: Negative for difficulty urinating, dysuria and frequency. Musculoskeletal: Negative for arthralgias, back pain, joint swelling and myalgias. Skin: Negative for rash and wound. Neurological: Positive for headaches. Negative for dizziness, tremors, seizures and syncope. Psychiatric/Behavioral: Negative for behavioral problems, self-injury and suicidal ideas. The patient is not nervous/anxious. Hematological: Does not bruise/bleed easily. Endocrine: Negative for polydipsia, polyphagia and polyuria. Allergic/Immunologic: Negative for environmental allergies and food allergies. PAST MEDICAL HISTORY Past Medical History: Diagnosis Date Migraine ([facility]) Past Surgical History: Procedure Laterality Date BUNIONECTOMY Bilateral Dr. Hendricks or Dr. Case Garcia family history includes Hypertension in her mother. OBJECTIVE: Visit Vitals Wt 181 lb 6.4 oz BMI 29.28 kg/m Smoking Status Never BSA 1.96 m Physical Exam Vitals and nursing note reviewed. Constitutional: General: She is not in acute distress. Appearance: Normal appearance. HENT: Head: Normocephalic and atraumatic. Right Ear: External ear normal. Left Ear: External ear normal. Nose: Nose normal. Mouth/Throat: Mouth: Mucous membranes are moist. Eyes: Extraocular Movements: Extraocular movements intact. Conjunctiva/sclera: Conjunctivae normal. Neck: Vascular: No carotid bruit. Cardiovascular: Rate and Rhythm: Normal rate and regular rhythm. Pulses: Normal pulses. Heart sounds: Gallop present. Pulmonary: Effort: Pulmonary effort is normal. No respiratory distress. Breath sounds: Normal breath sounds. No wheezing or rales. Abdominal: General: Bowel sounds are normal. There is no distension. Palpations: Abdomen is soft. There is no mass. Tenderness: There is no abdominal tenderness. Musculoskeletal: General: Normal range of motion. Cervical back: Normal range of motion and neck supple. Right lower leg: No edema. Left lower leg: No edema. Lymphadenopathy: Cervical: No cervical adenopathy. Skin: General: Skin is warm and dry. Capillary Refill: Capillary refill takes 2 to 3 seconds. Findings: No rash. Neurological: General: No focal deficit present. Mental Status: She is alert and oriented to person, place, and time. Psychiatric: Mood and Affect: Mood normal. Behavior: Behavior normal. Thought Content: Thought content normal. Judgment: Judgment normal. ASSESSMENT AND PLAN: No follow-ups on file. Problem List Items Addressed This Visit Migraine with aura and without status migrainosus, not intractable ([facility]) Cont triptan prn Encounter for subsequent annual wellness visit (AWV) in Medicare patient - Primary Reviewed Ht/Wt/BMI Recommend eye exam yearly Recommend dental exams twice a year Balance work/leisure activities Exercises is recommended most days of the week (appropriate as chronic conditions allow) Follow up yearly and prn Encounter for screening mammogram for malignant neoplasm of breast Check mammogram wants [facility] Relevant Orders Bilateral screening mammogram KI (generalized anxiety disorder) (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 Menopause Check dexa Relevant Orders DEXA bone density Irritable bowel syndrome with diarrhea Hoping with less stressors she will have improvement in her symptoms Does require a refill for hydrocortisone cream for when she has rectal irritation when she has flare ups of diarrhea Relevant Medications hydrocortisone 2.5 % cream Other Relevant Orders Comprehensive metabolic panel CBC and differential Urinalysis with reflex microscopic (clean catch) Associated Problem(s): Encounter for subsequent annual wellness visit (AWV) in Medicare patient Reviewed Ht/Wt/BMI Recommend eye exam yearly Recommend dental exams twice a year Balance work/leisure activities Exercises is recommended most days of the week (appropriate as chronic conditions allow) Follow up yearly and prn documented in this encounter [facility] 01-08-2024 History of Present illness Narrative Images from the original note were not included. Subjective Patient ID: Olinda Singh is a 73 y.o. female who presents for Follow-up (Pt returns today for FUV Plantar fasciitis Rt foot, she states still very sore by the end of the day. She is stretching and it does help a little, she purchased new shoes at [employer] /SS: 9.5W ). HPI Patient presents for [...] or corrected. Thank you for your understanding. Coby Garcia DPM documented in this encounter [facility] 12-14-2023 History of Present illness Narrative Images from the original note were not included. Subjective Patient ID: Olinda Singh is a 73 y.o. female who [...] typically wears tennis shoes she has from [employer] Review of Systems Medications Current Outpatient Medications: [...] or corrected. Thank you for your understanding. Coby Garcia DPM documented in this encounter [facility] Evaluation note Diagnosis Plantar fasciitis- Primary Plantar fascial fibromatosis Gastrocnemius equinus of right lower extremity Pain of right heel documented in this encounter [facility] Diagnosis Migraine with aura and without status migrainosus, not intractable ([facility]) documented [facility]* Diagnosis Encounter for subsequent annual wellness visit (AWV) in Medicare patient- Primary Migraine with aura and without status migrainosus, not intractable ([facility]) Encounter for screening mammogram for malignant neoplasm of breast KI (generalized anxiety disorder) ([facility]) Generalized anxiety disorder Menopause Symptomatic menopausal or female climacteric states Irritable bowel syndrome with diarrhea Irritable bowel syndrome documented in this encounter [facility]* Diagnosis Encounter for subsequent annual wellness visit (AWV) in Medicare patient- Primary Migraine with aura and without status migrainosus, not intractable ([facility]) Encounter for screening mammogram for malignant neoplasm of breast KI (generalized anxiety disorder) ([facility]) Generalized anxiety disorder Menopause Symptomatic menopausal or female climacteric states Irritable bowel syndrome with diarrhea Irritable bowel syndrome Neoplasm, uncertain whether benign or malignant- Primary Elevated blood pressure reading Elevated blood pressure reading without diagnosis of hypertension Overweight (BMI 25.0-29.9) Overweight [facility]* Diagnosis Encounter for subsequent annual wellness visit (AWV) in Medicare patient- Primary Migraine with aura and without status migrainosus, not intractable ([facility]) Encounter for screening mammogram for malignant neoplasm of breast KI (generalized anxiety disorder) ([facility]) Generalized anxiety disorder Menopause Symptomatic menopausal or female climacteric states Irritable bowel syndrome with diarrhea Irritable bowel syndrome Neoplasm, uncertain whether benign or malignant- Primary Elevated blood pressure reading Elevated blood pressure reading without diagnosis of hypertension Overweight (BMI 25.0-29.9) Overweight Seborrheic keratosis Melanocytic nevus of trunk Benign neoplasm of skin of trunk, except scrotum Stasis dermatitis of both legs Herpesviral vesicular dermatitis Dermatitis herpetiformis documented in this encounter [facility]* Diagnosis Encounter for subsequent annual wellness visit (AWV) in Medicare patient- Primary Migraine with aura and without status migrainosus, not intractable ([facility]) Encounter for screening mammogram for malignant neoplasm of breast KI (generalized anxiety disorder) ([facility]) Generalized anxiety disorder Menopause Symptomatic menopausal or female climacteric states Irritable bowel syndrome with diarrhea Irritable bowel syndrome Neoplasm, uncertain whether benign or malignant- Primary Elevated blood pressure reading Elevated blood pressure reading without diagnosis of hypertension Overweight (BMI 25.0-29.9) Overweight Postprandial RUQ pain- Primary Elevated blood pressure reading Elevated blood pressure reading without diagnosis of hypertension Overweight (BMI 25.0-29.9) Overweight Spinal stenosis of lumbar region without neurogenic claudication Spondylolisthesis of lumbar region Small bowel lesion documented in this encounter [facility]* Diagnosis Encounter for subsequent annual wellness visit (AWV) in Medicare patient- Primary Migraine with aura and without status migrainosus, not intractable ([facility]) Encounter for screening mammogram for malignant neoplasm of breast KI (generalized anxiety disorder) ([facility]) Generalized anxiety disorder Menopause Symptomatic menopausal or female climacteric states Irritable bowel syndrome with diarrhea Irritable bowel syndrome Neoplasm, uncertain whether benign or malignant- Primary Elevated blood pressure reading Elevated blood pressure reading without diagnosis of hypertension Overweight (BMI 25.0-29.9) Overweight Postprandial RUQ pain- Primary Elevated blood pressure reading Elevated blood pressure reading without diagnosis of hypertension Overweight (BMI 25.0-29.9) Overweight Spinal stenosis of lumbar region without neurogenic claudication Spondylolisthesis of lumbar region Small bowel lesion Postprandial RUQ pain- Primary documented in this encounter [facility] noteNo assessment information available[facility] Work Phone: Evaluation note* Diagnosis Encounter for subsequent annual wellness visit (AWV) in Medicare patient- Primary Migraine with aura and without status migrainosus, not intractable Encounter for screening mammogram for malignant neoplasm of breast KI (generalized anxiety disorder) Generalized anxiety disorder Menopause Symptomatic menopausal or female climacteric states Irritable bowel syndrome with diarrhea Irritable bowel syndrome Neoplasm, uncertain whether benign or malignant- Primary Elevated blood pressure reading Elevated blood pressure reading without diagnosis of hypertension Overweight (BMI 25.0-29.9) Overweight Postprandial RUQ pain- Primary Elevated blood pressure reading Elevated blood pressure reading without diagnosis of hypertension Overweight (BMI 25.0-29.9) Overweight Spinal stenosis of lumbar region without neurogenic claudication Spondylolisthesis of lumbar region Small bowel lesion Current mild episode of major depressive disorder without prior episode- Primary Postprandial RUQ pain Small bowel lesion Spondylolisthesis of lumbar region KI (generalized anxiety disorder) Generalized anxiety disorder documented in this encounter [facility] Reason for Referral Status Reason Specialty Diagnoses / Procedures Referre d By Contact Referred To Contact Open Radiology Diagnoses Menopausal state Procedures DEXA BONE DENSITY AXIAL SKELETON Vesna Geiger [address] [place] [address] Status Reason Specialty Diagnoses / Procedures Referred By Contact Referred To Contact Pending Review Radiology Diagnoses Breast cancer screening by mammogram Procedures LENO DIGITAL SCREEN W OR WO CAD BILATERAL Vesna Geiger [address] [place] [address] Assessments Diagnosis Menopausal state Symptomatic menopausal or female climacteric states Diagnosis Breast cancer screening by mammogram Advance Directives No Advanced Directives Records FoundDocuments on File Type Date Recorded 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 Advance Directives and Living Will Power of Soldering Inspector Summary Purpose Family History No Family History Records FoundNo Family History Records FoundNo Family History Records FoundNo Family History Records FoundNo Family History Records Found Chief Complaint and Reason for Visit Chief Complaint Admit Date K63.9 R10.11 M48.061 M43.16 August 07 7:37am Additional Source Comments Reason for Visit (unrecogniz ed section and content) Status Reason Specialty Diagnoses / Procedures Referre d By Contact Referred To Contact Open Radiology Diagnoses Asymptomatic menopausal state Procedures HC DEXA AXIAL SKELETON Vesna Geiger [address] [place] [address] [place] [address] Status Reason Specialty Diagnoses / Procedures Referre d By Contact Referred To Contact Open Radiology Diagnoses Encounter for screening mammogram for malignant neoplasm of breast Procedures HC MAMMOGRAM DIGITAL SCREEN BILAT Vesna Geiger [address] [facility] [place] [address] [place] [address] Reason Comments Heel Pain Pt prsentd today [...] a little, she purchased new shoes at [employer] SS: 9.5W Reason Comments Medicare Annual Wellness Visit Initial Reason Comments Skin Check Suspicious Skin Lesion Specialty Diagnoses / Procedures Referred By Elana jain Referred To Contact Dermatology Diagnoses Neoplasm, uncertain whether benign or malignant Procedures NM OFFICE/OUTPATIENT NEW HIGH MDM 60 MINUTES Vesna Geiger, DIRK [address] [place] [address] Phone: tel: fax: Deerk Mendoza, SNOUT PULLER-RESIDENTIAL FEE APPRAISER [address] [place] [address] Phone: tel: fax: Referral ID Status Reason Start Date Expiration Date V isits Requested Visits Authorized [id number] Closed Specialty Services Required 06/24/2024 12/21/2024 1 1 Reason Comments Follow-up INFORMATION SOURCE (unrecogn ized section and content) DATE CREATED AUTHOR 10/02/2019 [facility] DATE CREATED AUTHOR AUTHOR'S ORGANIZ ATION 04/24/[address] [facility] DATE CREATED AUTHOR AUTHOR'S ORGANIZ ATION 01/23/2022 [facility] DATE CREATED AUTHOR AUTHOR'S ORGANIZ ATION 09/03/2024 [facility] EPIC DATE CREATED AUTHOR AUTHOR'S ORGANIZ ATION 09/22/2024 [facility] y[facility] Group Care Teams (unrecognized sec tion and content) Band Director Relationship Specialty Start Date End Date Nick Lane MD [address] [place] [phone] PCP - General Family Medicine 12/14/23 Vesna Geiger NP [address] [place] [address] Referring Physician Nurse Practitioner 10/06/22 Band Director Relationship Specialty Start Date End Date Ncik Lane MD [address] [place] [address] PCP - General Family Medicine 12/14/23 Vesna Geiger NP [address] [place] [address] Referring Physician Nurse Practitioner 10/06/22 Band Director Relationship Specialty Start Date End Date Nick Lane MD [address] [place] [address] PCP - General Family Medicine 12/14/23 Vesna Geiger NP [address] [place] [address] Referring Physician Nurse Practitioner 10/06/22 Band Director Relationship Specialty Start Date End Date Nick Lane MD [address] [place] [address] PCP - General Family Medicine 12/14/23 Vesna Geiger NP [address] [place] [address] Referring Physician Nurse Practitioner 10/06/22 Band Director Relationship Specialty Start Date End Date Nick Lane MD [address] [place] [address] PCP - General Family Medicine 12/14/23 Vesna Geiger NP [address] [place] [address] Referring Physician Nurse Practitioner 10/06/22 Band Director Relationship Specialty Start Date End Date Nick Lane MD [address] [place] [address] PCP - General Family Medicine 12/14/23 Vesna Geiger NP [address] [place] [address] PCP - ACO Reach 04/18/24 Vesna Geiger NP [address] [place] [address] Referring Physician Nurse Practitioner 10/06/22 Band Director Relationship Specialty Start Date End Date Nick Lane MD [address] [place] [address] PCP - General Family Medicine 12/14/23 Vesna Geiger NP [address] [place] [address] PCP - ACO Reach 04/18/24 Vesna Geiger NP [address] [place] [address] Referring Physician Nurse Practitioner 10/06/22 Band Director Relationship Specialty Start Date End Date Nick Lane MD [address] [place] [address] PCP - General Family Medicine 12/14/23 Vesna Geiger NP [address] [place] [address] PCP - ACO Reach 04/18/24 Vesna Geiger NP [address] [place] [address] Referring Physician Nurse Practitioner 10/06/22 Band Director Relationship Specialty Start Date End Date Nick Lane MD [address] [place] [address] PCP - General Family Medicine 12/14/23 Vesna Geiger NP [address] [place] [address] PCP - ACO Reach 04/18/24 Vsena Geiger NP [address] [place] [address] Referring Physician Nurse Practitioner 10/06/22 Band Director Relationship Specialty Start Date End Date Nick Lane MD [address] [place] [address] PCP - General Family Medicine 12/14/23 Vesna Geiger NP [address] [place] [address] PCP - ACO Reach 04/18/24 Vesna Geiger NP [address] [place] [address] Referring Physician Nurse Practitioner 10/06/22 Band Director Relationship Specialty Start Date End Date Nick Lane MD [address] [place] [address] PCP - General Family Medicine 12/14/23 Vesna Geiger NP [address] [place] [address] PCP - ACO Reach 04/18/24 Vesna Geiger NP [address] [place] [address] Referring Physician Nurse Practitioner 10/06/22 Band Director Relationship Specialty Start Date End Date Nick Lane MD [address] [place] [address] PCP - General Family Medicine 12/14/23 Vesna Geiger NP [address] [place] [address] PCP - ACO Reach 04/18/24 Vesna Geiger NP [address] [place] [address] Referring Physician Nurse Practitioner 10/06/22 Team Status: Active Member Role Status Dates Vesna Geiger Primary Care Provider Active Team Status: Inactive Member Role Status Dates Vesna Geiger Primary Care Provide r, Attending Provider Active Start: August 07, 2024 End: August 07, 2024 Band Director Relationship Specialty Start Date End Date Nick Lane MD [address] [place] [address] PCP - General Family Medicine 12/14/23 Vesna Geiger NP [address] [place] [address] PCP - ACO Reach 04/18/24 Vesna Geiger NP [address] [place] [address] Referring Physician Nurse Practitioner 10/06/22 Band Director Relationship Specialty Start Date End Date Nick Lane MD [address] [place] [address] PCP - General Family Medicine 12/14/23 Vesna Geiger NP [address] [place] [address] PCP - ACO Reach 04/18/24 Vesna Geiger NP [address] [place] [address] Referring Physician Nurse Practitioner 10/06/22 Goals (unrecognized section and content) Goals may be documented in a n alternate section FOR RECORDS PERTAINING TO PATIENTS WHO ARE [...] BE BASED ON THE PRIMARY CLINICAL RECORDS. [employer] provides no warranty or guarantee of the accuracy or completeness of information in this document.
[2024-11-18 14:21] LABS: Hematocrit 35.6 % (36.0-48.0); Hemoglobin 11.7 g/dL (12.0-16.0); Immature Granulocytes Abs Auto 0.01 10^3/uL (0.00-0.03); Immature Granulocytes Pct Auto 0.2 % (0.0-0.5); Lymphocytes Absolute Auto 2.4 10^3/uL (1.2-3.8); Mean Corpuscular HGB Conc 32.9 g/dL (29.9-35.2); Mean Corpuscular Hemoglobin 29.3 pg (26.7-34.0); Mean Corpuscular Volume 89.0 fL (81.0-99.0); Platelet Count 297 10^3/uL (150-450); Red Blood Count 4.00 10^6/uL (4.20-5.40); White Blood Count 6.7 10^3/uL (4.0-11.0)
[2024-11-18 14:41] LABS: Alanine Aminotransferase 35 U/L (14-59); Albumin Globulin Ratio 1.0; Albumin Level 3.8 g/dL (3.4-5.0); Alkaline Phosphatase 70 U/L (46-116); Anion Gap 11.9; Aspartate Amino Transferase 24 U/L (15-37); Blood Urea Nitrogen 14.0 mg/dL (7.0-18.0); Calcium 8.9 mg/dL (8.5-10.1); Carbon Dioxide 26.6 mmol/L (21.0-32.0); Chloride 106 mmol/L (98-107); Estimated GFR (African America >60 (>=60 mL/min/1.73m^2); Estimated GFR (Non-African Ame >60 (>=60 mL/min/1.73m^2); Globulin 3.8 g/dL; Glucose 81 mg/dL (74-106); Potassium 3.5 mmol/L (3.5-5.1); Sodium 141 mmol/L (136-145); Total Protein 7.6 g/dL (6.4-8.2)
== END 2024-11-18 13:52 | disposition home or self-care (01) ==
LOC: LAB 13:53
PROVIDERS: PCP Nurse Practitioner; Visit Provider Nurse Practitioner
DX: G43.109 Migraine with aura, not intractable, without status migrainosus (principal); K58.0 Irritable bowel syndrome with diarrhea; F41.1 Generalized anxiety disorder; F32.0 Major depressive disorder, single episode, mild
CPT/HCPCS: 36415; 80053; 85025

== ENCOUNTER 2024-11-26 11:46 | Outpatient (OUT) | payer MEDICARE, OTHER, SELFPAY ==
--- OUTSIDE RECORDS SUMMARY | 2024-11-26 12:06 | XMS_ITS | CCD ---
Author Organization [facility] Care Team Providers Care Poultry Service Technician Name Role Phone Unavailable Primary Care Provider Unavailabl e JUANJO VESNA J. Referring Unavailable AICHHOLZ, VESNA J. Referring Unavailable AICHHOLZ, DISTRICT WIRE CHIEF VESNA Primary Care Unavailable NYDIA BOX Admitting Unavailable NYDIA BOX Attending Unavailable ELIAS, DR DAVEY Consulting Unavailable AICHHOLZ, DISTRICT WIRE CHIEF VESNA Admitting Unavailable AICHHOLZ, DISTRICT WIRE CHIEF VESNA Attending Unavailable AICHHOLZ, DISTRICT WIRE CHIEF VESNA Primary Care Unavailable DR LOUISE GALLAGHER V Consulting Unavailable AICHHOLZ, DISTRICT WIRE CHIEF VESNA Consulting Unavailable AICHHOLZ, DISTRICT WIRE CHIEF VESNA Primary Care Unavailable FRANCISCO JAVIER LANIER Consulting Unavailable DR LUCAS HOLDEN Admitting Unavailable NAVIN, DR LUCAS Palmer Attending Unavailable PETAR CUMMINGS Consulting Unavailable Aichholz LABORATORY CUREMAN, Vesna Unavailable Nick Lane MD Primary Care Provider Aichlourdes LABORATORY CUREMAN, Vesna Unavailable Juanjo Vesna Maria G Primary Care Provider Vesna Geiger Attending Provider [phone] JUANJO VESNA Attending Unavailable DEREK MENDOZA Attending Unavailable AICHHOLZ, VESNA Referring Unavailable COBY GARCIA Attending Unavailable NICK LANE Referring Unavailable COBY GARCIA Referring Unavailable AICHHOLZ, VESNA Attending Unavailable ALEXHADALBERTOZ, VESNA Attending Unavailable COBY GARCIA Attending Unavailable ALEXHHOLZ, VESNA Attending Unavailable Aichholz, Vesna J Attending Unavailable Aichholz, Vesna J Admitting Unavailable Aichholz, Vesna J Primary Care Unavailable Aicjesus, Vesna J Attending Unavailable Alexhadalbertoz, Vesna J Admitting Unavailable Aichholz, Vesna J Primary Care Unavailable Aichholz, Vesna J Primary Care Provider [phone] Vesna Geiger Attending Provider Allergies Allergy Classification Reported Allergen(s) Allergy Type Date of Onset Reaction(s) Facility (1 source) Gluten Drug allergy (disorder) [facility] Repository (1 source) Penicillin Drug Allergy [facility] (1 source) Sulfamethoxazole / Trimethoprim Drug Allergy [facility] (1 source) Sulfonamides (Antibiotic) Drug allergy (disorder) [facility] Rep[facility] (20 sources) Penicillin G Drug Allergy 4 [facility] Work Phone: (20 sources) Sulfamethoxazole / Trimethoprim Drug Allergy 4 [facility] (1 source) Penicillin Drug Allergy 5 [facility] Repository (2 sources) Sulfamethoxazole Drug Allergy 5 [facility] Repository (2 sources) Trimethoprim Drug Allergy 5 [facility] Repository Medications Current Medications Medication Drug Class(es) Dates Sig (Normalized) Sig (Original) FLUoxetine 10 mg oral capsule (3 sources) Serotonin Reuptake Inhibitor Start: 11-18-2024 take 1 capsule by mouth once daily Fluoxetine 10 mg capsule Active 10 MG PO Daily November 18, 2024 12:00am Complies with drug therapy Start: 09-02-2024 End: 10-02-2024 take 1 capsule [...] sources) Serotonin-1b and Serotonin-1d Receptor Agonist Start: 11-18-2024 Rizatriptan 10 mg tablet Active 10 MG PO Every 2 hours as needed November 18, 2024 12:00am take 1 at onset of migraine SZYMANSKI, may repeat in 2 hours if needed. no more than 2 pills in 24 hours, no more than twice a week Complies with drug therapy Start: 05-01-2023 End: 01-07-2024 rizatriptan (Maxalt) 10 [...] Date Documented Da te Episodic/Chronic Abdominal pain (14 sources) Right upper quadrant pain; Translations: [Right upper quadrant pain] Onset: 07-28-2024 07-28-2024 Episodic Anxiety disorders (20 sources) Generalized anxiety disorder; Translations: [Generalized anxiety disorder] Onset: 01-28-2024 01-28-2024 Chronic Headache; including migraine (20 sources) Migraine with aura; Translations: [Migraine with aura, not intractable, without status migrainosus] Onset: 05-01-2023 05-01-2023 Chronic Menopausal disorders (1 source) Menopausal syndrome; Translations: [Menopausal state] Chronic Mood disorders (6 sources) Mild major depression, single episode; Translations: [Major depressive disorder, single episode, mild] Onset: 09-02-2024 09-02-2024 Chronic Neoplasms of unspecified nature or uncertain behavior (16 sources) Neoplastic disease of uncertain behavior; Translations: [Neoplasm of uncertain behavior, unspecified] Onset: 06-24-2024 06-24-2024 Episodic Other acquired deformities (11 sources) Lumbar spondylolisthesis; Translations: [Spondylolisthesis, lumbar region] [...] [Deep dyspareunia] Onset: 01-28-2024 01-28-2024 Chronic Other female genital disorders (1 source) Pain in female genitalia on intercourse; Translations: [Unspecified dyspareunia] 11-18-2024 Chronic Other female genital disorders (17 sources) Polyp of vagina; Translations: [Polyp of vagina] Onset: 01-28-2024 01-28-2024 Episodic Other gastrointestinal disorders (20 sources) Irritable bowel syndrome with diarrhea; Translations: [Irritable bowel syndrome with diarrhea] Onset: 01-28-2024 01-28-2024 Chronic Other gastrointestinal disorders (11 sources) Disorder of small intestine; Translations: [Disease [...] Translations: [Overweight] Onset: 06-24-2024 06-24-2024 Episodic Other screening for suspected conditions (not mental disorders or infectious disease) (20 sources) Encounter for screening mammogram for malignant neoplasm of breast; Translations: [Patient encounter status] Onset: 01-20-2022 Episodic Other skin disorders (2 sources) Seborrheic keratosis; Translations: [Other seborrheic keratosis] 07-08-2024 Episodic Residual codes; unclassified (19 sources) Menopause present; Translations: [Asymptomatic menopausal state] Onset: 01-28-2024 01-28-2024 Episodic Spondylosis; intervertebral disc disorders; other back problems (9 sources) Spinal stenosis of lumbar region; Translations: [...] object(s), not elsewhere classified, initial encounter; Translations: [COX BRANSON OT SHRP OB NOT ELSW CLASS INI] Onset: 08-16-2021 Episodic E Codes: Struck by; against (1 source) Striking against or struck by other objects, initial encounter; Translations: [STRIKING AGNST/STRUCK OT OBJ INIT] Onset: 06-09-2021 Episodic Mood disorders (16 sources) Mood disorders Onset: 01-28-2024 01-28-2024 Open wounds of extremities (4 sources) Laceration without foreign body, right lower leg, initial encounter; Translations: [LACERATION W/O FB RT LOW LEG INIT] Onset: 08-14-2021 Episodic Other connective tissue disease (3 sources) Pain in left finger(s); Translations: [PAIN IN LEFT FINGERS] Onset: 06-08-2021 Episodic Other gastrointestinal disorders (16 sources) Irritable bowel syndrome; Translations: [Mixed irritable bowel syndrome] Onset: 01-28-2024 Resolved: 01-28-2024 01-28-2024 Chronic Sprains and strains (1 source) Unspecified sprain of left thumb, initial encounter; Translations: [UNSPECIFIED SPRAIN LT THUMB INITIAL] Onset: 06-09-2021 Episodic Results Test Name Value Interpretation Reference Range Facility [place] hepatobiliary w pharmon 0 08-25-2024 [place] hepatobiliary w pharm [facility] Main [place] [id number] Nuclear Medicine Report Signed Patient: Olinda Singh MR#: [id number] : 1950 Acct:[id number] Age/Sex: 74 / F ADM Date: 08/25/24 Loc: NM Room: [facility]: [facility] Attending Dr: Vesna Geiger Copies to: Brian [...] is 16%. Normal is greater than 40%. [place] hepatobiliary w pharm IMPRESSION: ABNORMAL GALLBLADDER EJECTION FRACTION SUSPICIOUS FOR BILIARY DYSKINESIA. Impression dictated by: Brian Ibarra Jr., Janey 08/25/2024 10:29 AM Dictation Location: [place] [address] Transcribed By: [facility] 08/25/24 1029 Dictated By: Brian Ibarra Jr, DO 08/25/24 1028 Signed By: 08/25/24 1029 Normal [facility] [place] small bowel follow [facility] 08-07-2024 [place] small bowel follow through [facility] Main [place] [id number] Fluoroscopy Report Signed Patient: Olinda Singh MR#: [id number] : 1950 Acct:[id number] Age/Sex: 74 / F ADM Date: 08/07/24 Loc: Room: Type: [facility] CLI Attending Dr: Vesna Geiger Copies to: DK Stafford Ordering Provider: DK Stafford Date of Service: 08/07/24 FL/FL small bowel follow through: K63.9 [place] small bowel follow through 08/07/2024 7:47 AM SIGNS AND SYMPTOMS: Epigastric pain, possible internal hernia on recent abdomen pelvis CT. PROTOCOL: Strike Operations Officer radiographs of the abdomen and pelvis were [...] Moon M.D. 08/07/2024 10:38 AM Dictation Location: [place] [address] Transcribed By: [facility] 08/07/24 1038 Dictated By: Lucas Moon II, MD 08/07/24 1035 Signed By: 08/07/24 1038 Normal [facility] Fluoroscopy reportOrdered By : Lucas Moon on 08-07-2024 RF Unspecified body region Views [facility] [place] [address] Fluoroscopy Report Signed Patient: Olinda Singh MR#: [id number] 05 : 1950 Acct:[id number] Age/Sex: 74 / F ADM Date: 5 Loc: Room: Type: [facility] Attending Dr: Vesna Geiger Copies to: DK Stafford~ Ordering Provider: DK Stafford Date of Service: 08/07/24 FL/FL small bowel follow through: K63.9 [place] small bowel follow through 08/07/2024 7:47 AM SIGNS AND SYMPTOMS: Epigastric pain, possible internal hernia on recent abdomen pelvis CT. PROTOCOL: Strike Operations Officer radiographs of the abdomen and pelvis were [...] Moon M.D. 08/07/2024 10:38 AM Dictation Location: [place] [address] Transcribed By: [facility] 08/07/24 1038 Dictated By: Lucas Moon II, MD 08/07/24 1035 Signed By: 08/07/[address] [place] [address] Work Phone: gall bladderon 08-07-2024 US gall bladder [facility] [place] [address] Ultrasound Report Signed Patient: Olinda Singh MR#: [id number] : 1950 Acct:[id number] Age/Sex: 74 / F ADM Date: 08/07/24 Loc: Room: Type: [facility] Attending Dr: Vesna Geiger Ordering Provider: [...] Soni M.D. 08/07/2024 9:00 AM Dictation Location: [place] [address] Tech: Tawana Murillo Transcribed By: [facility] 08/07/24 0900 Dictated By: Chava Soni DO 08/07/24 0859 Signed By: 08/07/24 0900 Normal [facility] X-ray reportOrdered By: Gregoria Rawls on 08-07-2024 Study report [facility] [place] [address] [place] [address] XRay Report Signed Patient: Olinda Singh MR#: [id number] 05 : 1950 Acct:[id number] Age/Sex: 74 / F ADM Date: 5 Loc: Room: Type: [facility] Attending Dr: Vesna Geiger Copies to: [...] Rawls M.D. 08/07/2024 10:26 AM Dictation Location: [place] [address] Transcribed By: [facility] 08/07/24 102 Dictated By: Loraine Rawls MD 08/07/24 1003 Signed By: 08/07/24 [facility] Work Phone: XR lumbar spine AP/LAT/FLX/E XTon 08-07-2024 XR lumbar spine AP/LAT/FLX/EXT [facility] [place] [address] XRay Report Signed Patient: Olinda Singh MR#: [id number] : 1950 Acct:[id number] Age/Sex: 74 / F ADM Date: 08/07/24 Loc: Room: Type: [facility] Attending Dr: Vesna Geiger Copies to: [...] Rawls M.D. 08/07/2024 10:26 AM Dictation Location: [place] [address] Transcribed By: [facility] 08/07/24 1026 Dictated By: Loraine Rawls MD 08/07/24 1003 Signed By: 08/07/24 1026 Normal [facility] ALL CBC WITH AUTO DIFFon BASOPHILS ABSOLUTE AUTO 0.1 [facility] Basophils/100 WBC (Bld) 0.9 % 0.2 - 2.0 % [facility] Eosinophils/100 WBC (Bld) 3.3 % 0.9 - 7.0 % [facility] Erythrocyte distribution width (RBC) [Ratio] 13.2 % 11.0 - 15.0 % [facility] Hematocrit (Bld) [Volume fraction] 37 % 36.0 - 48.0 % [facility] Hemoglobin (Bld) [Mass/Vol] 12.1 g/dL 12.0 - 16.0 g/dL [facility] IMMATURE GRANULOCYTES ABS AUTO 0.01 [facility] Immature granulocytes/100 WBC (Bld) 0.2 % 0.0 - 0.5 % [facility] Interpretation and review of laboratory results Abnormal [facility] LYMPHOCYTES ABSOLUTE AUTO 2.2 [facility] Lymphocytes/100 WBC (Bld) 37.7 % 20.5 - 60.0 % [facility] MCH (RBC) [Entitic mass] 29.2 pg 26.7 - 34.0 pg [facility] MCHC (RBC) [Mass/Vol] 32.7 g/dL 29.9 - 35.2 g/dL [facility] MCV (RBC) [Entitic vol] 89.4 fL 81.0 - 99.0 fL [facility] MONOCYTES ABSOLUTE AUTO 0.4 [facility] Monocytes/100 WBC (Bld) 7.4 % 1.7 - 12.0 % [facility] NEUTROPHILS ABSOLUTE AUTO 3 [facility] Neutrophils/100 WBC (Bld) 50.5 % 43.0 - 75.0 % [facility] Platelet mean volume (Bld) [Entitic vol] 9.8 fL 9.5 - 13.5 fL [facility] EO # 0.2 [facility] PLT 266 [facility] RBC 4.14 Low [facility] WBC 5.8 [facility] CMP (CMP) (FOR REMOTE FH C USE)on 01-28-2024 Albumin [Mass/Vol] 3.8 g/dL 3.4 - 5.0 g/dL NO [facility] ALBUMIN GLOBULIN RATIO 1.1 [facility] ALP [Catalytic activity/Vol] 78 U/L 46 - 116 U/L [facility] ALT [Catalytic activity/Vol] 29 U/L 14 - 59 U/L [facility] Anion gap [Moles/Vol] 10.8 mmol/L [facility] AST [Catalytic activity/Vol] 25 U/L 15 - 37 U/L [facility] Bilirubin [Mass/Vol] 1 mg/dL 0.2 - 1 .0 mg/dL [facility] Calcium [Mass/Vol] 9.1 mg/dL 8.5 - 10. 1 mg/dL [facility] Chloride [Moles/Vol] 105 mmol/L 98 - 10 7 mmol/L [facility] CO2 [Moles/Vol] 29.9 mmol/L 21.0 - 32.0 mmol/L [facility] Creatinine [Mass/Vol] 0.82 mg/dL 0.55 - 1.02 mg/dL [facility] GFR/1.73 sq M.predicted CKD-EPI (S/P/Bld) [Vol rate/Area] >60 >=60 mL/min/1.73m 2 [facility] Globulin (S) [Mass/Vol] 3.5 g/dL [facility] Glucose [Mass/Vol] 86 mg/dL 74 - 106 mg/dL NO [facility] Potassium [Moles/Vol] 3.7 mmol/L 3.5 - 5.1 mmol/L [facility] Protein [Mass/Vol] 7.3 g/dL 6.4 - 8.2 g/dL NO [facility] Sodium [Moles/Vol] 142 mmol/L 136 - 145 mmol/L [facility] TB EGFR-NON AF HUNGARIAN >60 >=60 mL/min/1.73m 2 [facility] Urea nitrogen [Mass/Vol] 15 mg/dL 7.0 - 18.0 mg/dL [facility] Urea nitrogen/Creatinine [Mass ratio] 18.3 mg/mg [facility] Healthcar e TBH UA (CLEAN/CATCH) 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 YELLOW YELLOW [facility] Healthcar e GLUCOSE URINE UA Negative NEGATIVE mg/dL [facility] Ketones Ql (U) Negative NEGATIVE mg/dL [facility] ealthcare Leukocyte esterase Test strip Ql (U) Negative NEGATIVE [facility] Healthcar e NITRITE URINE Negative NEGATIVE [facility] care pH (U) 7.0 [pH] 5.0 - 9.0 [facility] e PROTEIN URINE Negative NEG/TRACE mg/dL [facility] SPECIFIC GRAVITY URINE 1.010 1.005 - 1.025 [facility] URINE MICROSCOPIC INDICATED NO [facility] UROBILINOGEN URINE 0.2 EU/dL 0.2 - 1.0 EU/dL [facility] Health[facility] e XR Calcaneus - right 2 Views [...] hypertrophy of bone at 1st met head. [facility] Study observation (narrative) [facility] MG MAMM SCREEN 3D ESTEPHANIE CADon 01-20-2022 MG MAMM SCREEN 3D ESTEPHANIE CAD Patient: OLINDA SINGH Exam Date: 01/20/2022 : 1950 Gender:F Ordering : KASHIF GEIGER CNP Admission #: [id number] Family : Order #: [id number] CLICK HERE TO VIEW EXAM RADIOLOGY REPORT [...] No Treatments None Family Cancers None LOCATION: [facility] BREAST COMPOSITION: Heterogeneously dense,which may obscure small [...] Gallagher MD on 01/20/2022 at 11:12 Normal [facility] XR HAND LT MIN 3Von 06-09-19 XR [...] by: PETAR CUMMINGS Date: 2021-06-08 20:17 Normal [facility] Ambulatory Clinical Summaryo n 01-31-2021 Ambulatory Clinical Summary {[id number] Normal [facility] Patient Educationon 02-01-20 21 Patient Education [...] this condition includes: ? Antibiotic medicine. ? Rnye-ltr-lkubfoz medicines to treat discomfort. ? Drinking enough [...] these instructions at home: Medicines ? Take sfin-rqf-swwbnjw and prescription medicines only as told by [...] (more content not included)... Normal [facility] Urology Office/Clinic Noteon 01-31-2021 Urology Office/Clinic [...] Dr. Nunez. Follow-up With When Contact Information Ede NUNEZ MD, URL [address] [place] [address] [place] [address] [phone] Additional Instructions: prn Patient Education Urinary Tract [...] Mother. Liver disease: Father. Normal [facility] Comment on above: Result Comment: Elec [...] 89 years. DEXA scan for this exam: [place] RECOMMENDATIONS: If not already instituted, suggest therapy to increase bone mass. Follow-up study in 2 years may be considered on a [facility] system. by WHO criteria. Interpreted by: Tiana Adair MD Signed by: Tiana Adair MD 09/10/19 Final result Normal [facility] 1. The T-score in th [...] 90 years. DEXA scan for this exam: [place] RECOMMENDATIONS: If not already instituted, suggest therapy to increase bone mass. Follow-up study in 2 years may be considered on a [facility]. by WHO criteria. [facility] OT left hip left wrist lumbar [...] with T-score of -1.1 and representing osteopenia. [facility] Simon, Mhpn Incoming Radiant Results From [facility] - 09/10/2019 4:01 PM EDT EXAMINATION: OT [...] 89 years. DEXA scan for this exam: [place] RECOMMENDATIONS: If not already instituted, suggest therapy to increase bone mass. Follow-up study in 2 years may be considered on a [employer] system. by WHO criteria. [facility] DIGITAL SCREEN W OR WO C AD [...] to the patient regarding the results. [employer] recommends annual mammograms for women 40 years and older. Interpreted by: Arnaldo Wadsworth MD Signed by: Arnaldo Wadsworth MD 09/10/19 Final result Normal [facility] No mammographic evidence of malignancy. BI-RADS 1 BIRADS: BIRADS - CATEGORY 1 Negative, no evidence of malignancy. Normal interval follow-up is recommended in 12 months. OVERALL ASSESSMENT - NEGATIVE A letter of notification will be sent to the patient regarding the results. [employer] recommends annual mammograms for women 40 years and older. [place], [place] EXAMINATION: SCREENING DIGITAL BILATERAL MAMMOGRAM WITH [...] suspicious microcalcification, or area of architectural distortion. [place], [place] Simon, Mhpn Incoming Radiant Results From [facility] - 09/10/2019 12:38 PM EDT EXAMINATION: SCREENING [...] to the patient regarding the results. [employer] recommends annual mammograms for women 40 years and older. [place] Vital Signs Date Time Vital Sign Value Performing Clinician Facility 11-18-2024 13:120400 Body height 167.64 cm Vesna [employer] Work Phone: [facility] 11-18-2024 13:12-0400 Body mass index (BMI) [Ratio] 28.1 kg/m2 Vesna [employer] Work Phone: [facility] 11-18-2024 13:12-0400 Body temperature 98.1 [degF] Vesna [employer] Work Phone: [facility] 11-18-2024 13:12-0400 Body weight 79.03 kg Vesna [employer] Work Phone: [facility] 11-18-2024 13:12-0400 Diastolic blood pressure 90 mm[Hg] Vesna [employer] Work Phone: [facility] 11-18-2024 13:12-0400 Heart rate 70 /min Vesna [employer] Work Phone: [facility] 11-18-2024 13:12-0400 Respiratory rate 18 /min Vesna [employer] Work Phone: [facility] 11-18-2024 13:12-0400 SaO2% (BldA) [Mass fraction] 97 % Vesna Alexhholz Work Phone: [facility] 11-18-2024 13:12-0400 Systolic blood pressure 146 mm[Hg] Vesna Aichholz Work Phone: [facility] 09-02-2024 13:42-0400 Body mass index (BMI) [Ratio] 27.89 kg/m2 Vesna Aichholz LABORATORY CUREMAN Work Phone: [facility] 09-02-2024 13:42-0400 Body temperature 98.1 [degF] Vesna Aichholz LABORATORY CUREMAN Work Phone: [facility] 09-02-2024 13:42-0400 Body weight 78.38 kg Vesna Alexhholz LABORATORY CUREMAN Work Phone: [facility] 09-02-2024 13:42-0400 Diastolic blood pressure 88 mm[Hg] Vesna Aichholz LABORATORY CUREMAN Work Phone: [facility] 09-02-2024 13:42-0400 Heart rate 71 /min Vesna Aichholz LABORATORY CUREMAN Work Phone: [facility] 09-02-2024 13:42-0400 Respiratory rate 18 /min Vesna Aichholz LABORATORY CUREMAN Work Phone: [facility] 09-02-2024 13:42-0400 SaO2% (BldA) [Mass fraction] 98 % Vesna Aichholz LABORATORY CUREMAN Work Phone: [facility] 09-02-2024 13:42-0400 Systolic blood pressure 132 mm[Hg] Vesna Aichholz LABORATORY CUREMAN Work Phone: [facility] 08-25-2024 07:53-0400 Body height 167.64 cm Vesna Aichholz Work Phone: [facility] 08-25-2024 07:53-0400 Body weight 79.83 kg Vesna Alexhholz Work Phone: [facility] 07-28-2024 13:03-0400 Body mass index (BMI) [Ratio] 28.54 kg/m2 Vesna Castroz LABORATORY CUREMAN Work Phone: [facility] 07-28-2024 13:03-0400 Body temperature 97.81 [degF] Vesna Johnsonlatashaz LABORATORY CUREMAN Work Phone: [facility] 07-28-2024 13:03-0400 Body weight 80.2 kg Vesnacaleb Harrisholz LABORATORY CUREMAN Work Phone: [facility] 07-28-2024 13:03-0400 Diastolic blood pressure 96 mm[Hg] Vesna Alexkorinaholz LABORATORY CUREMAN Work Phone: [facility] 07-28-2024 13:03-0400 Heart rate 70 /min Vesna Johnsonlatashaz LABORATORY CUREMAN Work Phone: [facility] 07-28-2024 13:03-0400 Respiratory rate 20 /min Vesna Kimberlyadalbertoz LABORATORY CUREMAN Work Phone: [facility] 07-28-2024 13:03-0400 SaO2% (BldA) [Mass fraction] 96 % Vesna Alexlatashaz LABORATORY CUREMAN Work Phone: [facility] 07-28-2024 13:03-0400 Systolic blood pressure 152 mm[Hg] Vesna Harrisadalbertoz LABORATORY CUREMAN Work Phone: [facility] 06-24-2024 10:19-0400 Body height 167.6 cm Vesnacaleb Johnsonlatashaz LABORATORY CUREMAN Work Phone: [facility] 06-24-2024 10:19-0400 Body mass index (BMI) [Ratio] 29.86 kg/m2 Vesna Alexkorinaholz LABORATORY CUREMAN Work Phone: [facility] 06-24-2024 10:19-0400 Body temperature 97.81 [degF] Vesna Johnsonlatashaz LABORATORY CUREMAN Work Phone: [facility] 06-24-2024 10:19-0400 Body weight 83.92 kg Vesna Alexkorinaholz LABORATORY CUREMAN Work Phone: [facility] 06-24-2024 10:19-0400 Diastolic blood pressure 90 mm[Hg] Vensa Aichholz LABORATORY CUREMAN Work Phone: [facility] 06-24-2024 10:19-0400 Heart rate 72 /min Vesna Aichholz LABORATORY CUREMAN Work Phone: [facility] 06-24-2024 10:19-0400 Respiratory rate 16 /min Vesna Aichholz LABORATORY CUREMAN Work Phone: [facility] 06-24-2024 10:19-0400 SaO2% (BldA) [Mass fraction] 96 % Vesna Aichholz LABORATORY CUREMAN Work Phone: [facility] 06-24-2024 10:19-0400 Systolic blood pressure 154 mm[Hg] Vesna Aichholz LABORATORY CUREMAN Work Phone: [facility] 01-28-2024 10:31-0500 Body height 167.6 cm Vesna Aichholz LABORATORY CUREMAN Work Phone: [facility] 01-28-2024 10:31-0500 Body mass index (BMI) [Ratio] 29.28 kg/m2 Vesna Aichholz LABORATORY CUREMAN Work Phone: [facility] 01-28-2024 10:31-0500 Body temperature 97.81 [degF] Vesna Aichholz LABORATORY CUREMAN Work Phone: [facility] 01-28-2024 10:31-0500 Body weight 82.28 kg Vesna Aichholz LABORATORY CUREMAN Work Phone: [facility] 01-28-2024 10:31-0500 Diastolic blood pressure 82 mm[Hg] Vesna Aichholz LABORATORY CUREMAN Work Phone: [facility] 01-28-2024 10:31-0500 Heart rate 67 /min Vesna Aichholz LABORATORY CUREMAN Work Phone: [facility] 01-28-2024 10:31-0500 Respiratory rate 19 /min Vesna Aichholz LABORATORY CUREMAN Work Phone: [facility] 01-28-2024 10:31-0500 SaO2% (BldA) [Mass fraction] 99 % Vesna Geiger LABORATORY CUREMAN Work Phone: [facility] 01-28-2024 10:31-0500 Systolic blood pressure 122 mm[Hg] Vesna Geiger LABORATORY CUREMAN Work Phone: [facility] 01-08-2024 11:04-0400 Body height 167.6 cm Coby Garcia DPM Work Phone: [facility] 01-08-2024 11:04-0400 Body mass index (BMI) [Ratio] 29.7 kg/m2 Coby Garcia DPM Work Phone: [facility] 01-08-2024 11:04-0400 Body weight 83.46 kg Coby Garcia DPM Work Phone: [facility] 12-14-2023 08:47-0400 Body height 167.6 cm Coby Garcia DPM Work Phone: [facility] 12-14-2023 08:47-0400 Body mass index (BMI) [Ratio] 27.44 kg/m2 Coby Garcia DPM Work Phone: [facility] 12-14-2023 08:47-0400 Body weight 77.11 kg Coby Garcia DPM Work Phone: [facility] Encounters Encounter Date Encounter Type Care Provider Facility Start: 11-18-2024 End: 11-18-2024 ambulatory Vesna Geiger Work Phone: [facility] Work Phone: Start: 11-18-2024 End: 11-18-2024 Patient encounter procedure Vesna Geiger LABORATORY CUREMAN-C -[facility] Work Phone: Start: 11-18-2024 Patient encounter procedure Vesna Geiger Work Phone: [facility] Start: 09-02-2024 End: 09-02-2024 Bamboo flowsheet Vesna Geiger LABORATORY CUREMAN Work Phone: [facility] Start: 09-02-2024 End: 09-02-2024 Bamboo flowsheet Vesna Geiger LABORATORY CUREMAN Work Phone: [facility] Start: 09-02-2024 End: 09-02-2024 Office outpatient visit 25 minutes Vesna Geiger LABORATORY CUREMAN Work Phone: [facility] Comment on above: Current mild episode of major depressive disorder without prior episode (Primary Dx); Postprandial RUQ pain; Small bowel lesion; Spondylolisthesis of lumbar region; KI (generalized anxiety disorder) Start: 09-02-2024 End: 09-02-2024 ambulatory VESNA GEIGER Not Available Start: 08-25-2024 End: 08-25-2024 Patient encounter procedure Vesna Geiger LABORATORY CUREMAN-C -[facility] [place] Work Phone: Start: 08-25-2024 End: 08-25-2024 ambulatory Vesna Geiger Facility:[facility] Start: 08-07-2024 End: 08-07-2024 Patient encounter procedure Vesna Geiger Work Phone: [facility] [place] Work Phone: Start: 08-07-2024 End: 08-07-2024 Orders Only Vesna Geiger LABORATORY CUREMAN Work Phone: [facility] Comment on above: Postprandial RUQ mary jo n (Primary Dx) Start: 07-28-2024 End: 07-28-2024 Bamboo flowsheet Vesna Geiger LABORATORY CUREMAN Work Phone: [facility] Start: 07-28-2024 End: 07-28-2024 Bamboo flowsheet Vesna Geiger LABORATORY CUREMAN Work Phone: [facility] Start: 07-28-2024 End: 07-28-2024 ambulatory VESNA GEIGER Not Available Start: 07-28-2024 End: 07-28-2024 Office outpatient visit 25 minutes Vesna Geiger LABORATORY CUREMAN Work Phone: [facility] Comment on above: Postprandial RUQ mary jo n (Primary Dx); Elevated blood pressure reading; Overweight (BMI 25.0-29.9); Spinal stenosis of lumbar region without neurogenic claudication; Spondylolisthesis of lumbar region; Small bowel lesion Start: 07-08-2024 End: 07-08-2024 Office outpatient new 30 minutes Derek Ruiz Felter C[employer] RUNNER-[employer]RICT W[employer] CHIEF Work Phone: [facility] Comment on above: Seborrheic keratosis ; Melanocytic nevus of trunk; Stasis dermatitis of both legs; Herpesviral vesicular dermatitis Start: 07-08-2024 End: 07-08-2024 ambulatory DEREK BLOCKER Not Available Start: 07-08-2024 End: 07-08-2024 Bamboo flowsheet Derek Ruiz Felter [employer] CHIEF Work Phone: [facility] Start: 07-08-2024 End: 07-08-2024 Bamboo flowsheet Derek A Felter [employer]NER[employer] CHIEF Work Phone: [facility] Start: 06-24-2024 End: 06-24-2024 Bamboo flowsheet Vesna Geiger LABORATORY CUREMAN Work Phone: [facility] Start: 06-24-2024 End: 06-24-2024 Bamboo flowsheet Vesna Geiger LABORATORY CUREMAN Work Phone: [facility] Start: 06-24-2024 End: 06-24-2024 Office outpatient visit 25 minutes Vesna Geiger LABORATORY CUREMAN Work Phone: [facility] Comment on above: Neoplasm, uncertain whether benign or malignant (Primary Dx); Elevated blood pressure reading; Overweight (BMI 25.0-29.9) Start: 06-24-2024 End: 06-24-2024 ambulatory VESNA GEIGER Not Available Start: 01-28-2024 End: 01-28-2024 Clinisync Result Encounter Vesna Geiger LABORATORY CUREMAN Work Phone: [facility] External Department Unsolicited Start: 01-28-2024 End: 01-28-2024 Clinisync Result Encounter Vesna Harrislourdes LABORATORY CUREMAN Work Phone: [facility] External Department Unsolicited Start: 01-28-2024 End: 01-28-2024 Patient encounter procedure Vesna Juanjo CAVAZOS Work Phone: [facility] Comment on above: Encounter for subseq uent annual wellness visit (AWV) in Medicare patient (Primary Dx); Migraine with aura and without status migrainosus, not intractable (CMS/HCC); Encounter for screening mammogram for malignant neoplasm of breast; KI (generalized anxiety disorder) ([facility]); Menopause; Irritable bowel syndrome with diarrhea Start: 01-28-2024 End: 01-28-2024 ambulatory VESNA JUANJO Not Available Start: 01-08-2024 End: 01-08-2024 Bamboo flowsheet Coby Garcia DPM Work Phone: [facility] Start: 01-08-2024 End: 01-08-2024 Bamboo flowsheet Coby Garcia DPM Work Phone: [facility] Start: 01-08-2024 End: 01-08-2024 ambulatory COBY GARCIA Not Available Start: 01-08-2024 End: 01-08-2024 Office outpatient visit 15 minutes Coby Garcia DPM Work Phone: [facility] Comment on above: Plantar fasciitis (P rimary Dx); Gastrocnemius equinus of right lower extremity; Pain of right heel Start: 01-07-2024 End: 01-08-2024 Refill Vesna Geiger LABORATORY CUREMAN Work Phone: [facility] Comment on above: Migraine with aura a nd without status migrainosus, not intractable (CMS/HCC) Start: 12-14-2023 End: 12-14-2023 Bamboo flowsheet Coby Garcia DPM Work Phone: [facility] Start: 12-14-2023 End: 12-14-2023 Bamboo flowsheet Coby Garcia DPM Work Phone: [facility] Start: 12-14-2023 End: 12-14-2023 Office outpatient new 30 minutes Coby Garcia DPM Work Phone: [facility] Comment on above: Plantar fasciitis (P rimary Dx); Gastrocnemius equinus of right lower extremity; Pain of right heel Start: 12-14-2023 End: 12-14-2023 ambulatory COBY GARCIA Not Available Start: 01-20-2022 End: 01-21-2022 ambulatory KASHIF GEIGER Facility:[facility] Start: 08-14-2021 End: 08-14-2021 ambulatory KASHIF GEIGER Facility:[facility] Start: 06-08-2021 End: 06-08-2021 ambulatory KASHIF GEIGER Facility:[facility] Start: 09-10-2019 End: 09-13-2019 Patient encounter procedure VESNA GEIGER [facility] Start: 09-10-2019 End: 09-12-2019 Subsequent hospital visit by physician Sandoval Kern [facility] M[facility] Comment on above: Menopausal state Breast cancer screen ing by mammogram Procedures Date Procedure Procedure Detail Performing Clinician Start: 08-25-2024 Radionuclide study o f abdomen Vesna Geiger Work Phone: Start: 08-07-2024 US scan of gallbladder Vesna Geiger Work Phone: Start: 08-07-2024 X-ray of lumbar spin e, four views Vesna Geiger Work Phone: Start: 02-06-2024 Mammography Vensa staley LABORATORY CUREMAN Work Phone: Start: 01-28-2024 ALL CBC WITH AUTO DIFF Vesna Geiger LABORATORY CUREMAN Work Phone: Start: 01-28-2024 [facility] CMP (CMP) (FOR R [facility] USE) Vesan Geiger LABORATORY CUREMAN Work Phone: Start: 01-28-2024 TBH UA (CLEAN/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 Vesna Geiger LABORATORY CUREMAN Work Phone: Start: 12-14-2023 Radex calcaneus mini mum 2 views Coby Nik Grimese DPM Work Phone: Start: 01-26-2023 Mammography Coby Evans lucíajarred DPM Work Phone: Start: 09-10-2019 Screening mammograph y bi 2-view breast inc cad VESNA GEIGER Start: 09-10-2019 Dxa bone density shilpa dy 1/> sites axial skel VESNA GEIGER Start: 09-10-2019 Screening digital br east tomosynthesis bi Vesna Geiger Work Phone: Start: 09-10-2019 Dxa bone density shilpa dy 1/> sites axial skel Vesna Geiger Work Phone: Plan of Treatment Date Care Activity Detail Author Start: 07-09-2025 End: 07-09-2025 Patient encounter procedure 07/09/2025 2:05 PM EDT Office Visit [facility] [address] [place] [address] Derek Mendoza, C[employer]NER[employer] CHIEF [address] [place] [address] [facility] Start: 02-05-2025 Screening for malignant neoplasm of breast Mammogram [facility] Start: 01-29-2025 End: 01-29-2025 Patient encounter procedure 01/29/2025 1:00 PM EST Office Visit [facility] [address] [place] [address] Vesna Geiger NP [address] [place] [address] [facility] Start: 01-27-2025 Medicare Annual Wellness (AWV) Medicare Annual Wellness (AWV) [facility] Start: 12-19-2024 Screening for malignant neoplasm of colon [facility] Start: 11-10-2024 Influenza vaccination Influenza Vaccine (Season Ended) [facility] Start: 10-21-2024 End: 10-21-2024 Patient encounter procedure 10/21/2024 1:20 PM EDT Office Visit [facility] [address] [place] [address] Vesna Geiger, LABORATORY CUREMAN [address] [place] [address] [facility] Start: 09-02-2024 End: 09-02-[address] [facility] Comment on above: Postprandial RUQ pain (Primary Dx); Small bowel lesion; Spondylolisthesis of lumbar region Start: 08-07-2024 End: 08-07-2025 NM Gallbladder Views W cholecystokinin and W radionuclide IV NM hepatobiliary w cholecystokinin Imaging Routine Postprandial RUQ pain Expected: 08/07/2024 (Approximate), Expires: 08/07/2025 [facility] Work Phone: Comment on above: Expected: 08/07/2024 (Approximate), Expi res: 08/07/2025 Start: 07-28-2024 End: 07-28-2025 RF Small bowel Views W contrast PO FL small bowel series Imaging Routine Small bowel lesion Expected: 07/28/2024, Expires: 07/28/2025 [facility] Comment on above: Expected: 07/28/2024, Expires: Start: 07-28-2024 End: 07-28-2025 US Gallbladder US gallbladder Imaging Routine Postprandial RUQ pain Expected: 07/28/2024, Expires: 07/28/2025 [facility] Comment on above: Expected: 07/28/2024, Expires: Start: 07-28-2024 End: 07-28-2025 XR Lumbar spine Views W flexion and W extension XR lumbar spine 4+ views w flexion extension Imaging Routine Spinal stenosis of lumbar region without neurogenic claudication Spondylolisthesis of lumbar region Expected: 07/28/2024 (Approximate), Expires: 07/28/2025 [facility] Work Phone: Comment on above: Expected: 07/28/2024 (Approximate), Expi res: 07/28/2025 Start: 07-28-2024 End: 07-28-2024 Patient encounter procedure 07/28/2024 1:00 PM EDT Office Visit [facility] [address] [place] [address] Vesna Geiger, DIRK [address] [place] [phone] [facility] [facility] Start: 07-08-2024 End: 07-08-2024 Patient encounter procedure 07/08/2024 3:35 PM EDT Office Visit [facility] [address] [place] [phone] Derek Mendoza, C[employer]NER[employer] W[employer] CHIEF [address] [place], [place] [id number] Neoplasm, uncertain whether benign or malignant [facility] Comment on above: Neoplasm, uncertain whether benign or ma lignant Start: 06-24-2024 End: 06-24-2024 Patient encounter procedure 06/24/2024 10:30 AM EDT Office Visit [facility] [address] [place] [phone] Vesna Geiger, LABORATORY CUREMAN [address] [place] [phone] [facility] Comment on above: Arrived Start: 03-24-2024 Influenza vaccination Influenza Vaccine (#1) [facility] Comment on above: Postponed from 11/11/2023 (Patient Refus ed) Start: 02-28-2024 End: 02-28-2024 Patient encounter procedure 02/28/2024 4:15 PM EST Office Visit [facility] [address] [place] [phone] Coby Garcia, DPM [address] [place], [place] [phone] [facility] Start: 02-19-2024 End: 02-19-2024 Patient encounter procedure 02/19/2024 10:45 AM EST Office Visit [facility] [address] [place] [phone] Coby Garcia, DPM [address] [place], [place] [phone] [facility] Start: 01-28-2024 End: 01-27-2025 CBC W Auto Differential panel - Blood CBC and differential Lab Routine Irritable bowel syndrome with diarrhea Expected: 01/28/2024 (Approximate), Expires: 01/27/2025 [facility] Comment on above: Expected: 01/28/2024 (Approximate), Expi res: 01/27/2025 Start: 01-28-2024 End: 01-27-2025 Comprehensive metabolic 2000 panel - Serum or Plasma Comprehensive metabolic panel Lab Routine Irritable bowel syndrome with diarrhea Expected: 01/28/2024 (Approximate), Expires: 01/27/2025 [facility] Comment on above: Expected: 01/28/2024 (Approximate), Expi res: 01/27/2025 Start: 01-28-2024 End: 01-27-2025 DXA Skeletal system Views for bone density DEXA bone density Imaging Routine Menopause Expected: 01/28/2024 (Approximate), Expires: 01/27/2025 [facility] Comment on above: Expected: 01/28/2024 (Approximate), Expi res: 01/27/2025 Start: 01-28-2024 End: 03-29-2025 MG Breast - bilateral Screening Bilateral screening mammogram Imaging Routine Encounter for screening mammogram for malignant neoplasm of breast Expected: 01/28/2024 (Approximate), Expires: 03/29/2025 [facility] Work Phone: Comment on above: Expected: 01/28/2024 (Approximate), Expi res: 03/29/2025 Start: 01-28-2024 End: 01-27-2025 Urinalysis complete panel - Urine Urinalysis with reflex microscopic (clean catch) Lab Routine Irritable bowel syndrome with diarrhea Expected: 01/28/2024 (Approximate), Expires: 01/27/2025 [facility] Comment on above: Expected: 01/28/2024 (Approximate), Expi res: 01/27/2025 Start: 01-28-2024 End: 01-28-2024 Patient encounter procedure 01/28/2024 10:30 AM EST Procedure Visit [facility] [address] [place] [phone] Vesna Geiger, LABORATORY CUREMAN [address] [place] [address] [facility] Start: 01-27-2024 Screening for malignant neoplasm of breast Mammogram [facility] Start: 01-08-2024 End: 01-08-2024 Patient encounter procedure 01/08/2024 11:00 AM EDT Office Visit [facility] [address] [place] [address] Coby Garcia, DPM [address] [place] [address] [facility] Start: 12-14-2023 End: 12-14-2023 Patient encounter procedure 12/14/2023 9:00 AM EDT Office Visit [facility] [address] [place] [phone] Coby Garcia, DPM [address], [place] [phone] Arrived [facility] Comment on above: Arrived Start: 11-11-2023 Influenza vaccination Influenza Vaccine (#1) [facility] Start: 09-09-2021 Screening for malignant neoplasm of breast Breast cancer screen [place], [place] Start: 11-11-2019 Influenza vaccination Flu vaccine (#1) [place] Start: 09-01-2018 Annual Wellness Visit (AWV) Annual Wellness Visit (AWV) [place] Start: 06-02-2016 Pneumococcal 65+ years Vaccine (1 of 1 - PPSV23) Pneumococcal 65+ years Vaccine (1 of 1 - PPSV23) [place] Start: 06-02-2001 Screening for malignant neoplasm of colon Colon cancer screen colonoscopy [place] Start: 06-02-2001 Shingles Vaccine (1 of 2) Shingles Vaccine (1 of 2) [place] Start: 1991 Lipid panel Lipid screen [place] Start: 06-02-1970 DTaP/Tdap/Td vaccine (1 - Tdap) DTaP/Tdap/Td vaccine (1 - Tdap) [place] Start: 1950 Hepatitis C screening Hepatitis C screen [place], [place] Start: 1950 Medicare Annual Wellness (AWV) Medicare Annual Wellness (AWV) [facility] Start: 1950 Screening for malignant neoplasm of colon [facility] Comprehensive metabo lic 2000 panel - Serum or Plasma [facility] Immunizations Immunization Date Immunization Notes Care Provider Fa cility 04-09-2020 tetanus toxoid, redu mark diphtheria toxoid, and acellular pertussis vaccine, adsorbed Vesna Aichholz LABORATORY CUREMAN Work Phone: [facility] 03-08-2020 zoster vaccine recombinant Vesna Aichholz LABORATORY CUREMAN Work Phone: [facility] 12-29-2019 influenza, injectabl e, quadrivalent, preservative free Vesna Aichholz LABORATORY CUREMAN Work Phone: [facility] 12-29-2019 zoster vaccine recombinant Vesna Aichholz LABORATORY CUREMAN Work Phone: [facility] 12-29-2019 influenza virus vacc ine, unspecified formulation Coby Garcia DPM Work Phone: [facility] Payers Date Payer Category Payer Self-pay 2016 Medicaid [employer] MEDICARE A DVANTAGE [id number] 2016 Medicare MEDICARE MEDICAR E PART A AND B xxxxxxxxxxx 2016-Present [phone] [address] [address] [place] [address] xxxxxxxxxxx [id number] 2016 Medicare [id number] 2016 Private Health Insurance [id number] 2016 Unknown [employer] CIGNA MEDICARE SUPP xxxxxxxxxx 2016-Present [phone] [address] [address] [place] [address] xxxxxxxxxx [id number] 2016 Medicare [id number] 1959 Medicare [id number] 1959 Unknown [id number] 1951 Unknown [id number] [id number] .173 1951 Unknown [id number] 2.16.840.1.959845.3.579.2 .173 1951 Unknown [id number] 2.16.840.1.788950.3.579.2 .593 1951 Unknown [id number] 2.16.840.1.996791.3.579.2 .593 1951 Unknown [id number] 2.16.840.1.819833.3.579.2 .593 1951 Unknown [id number] 2.16.840.1.336643.3.579.2 .1259 1951 Unknown [id number] 2.16.840.1.860603.3.579.2 .1259 1951 Unknown [id number] 2.16840.1.853391.3.579.2 .1259 1951 Unknown [id number] 2.16840.1.367116.3.579.2 .1259 1951 Unknown [id number] 2.16840.1.136529.3.579.2 .1259 1951 Unknown [id number] 2.16.840.1.285010.3.579.2 .1259 1951 Unknown [id number] 2.16840.1.185566.3.579.2 .1259 1951 Unknown [id number] 2.16840.1.690056.3.579.2 .1259 Medicare Medicare [id number] Unknown [id number] [id number] .531 Unknown [id number] [id number] .531 Social History Date Type Detail Facility Tobacco smoking stat [facility] Unknown if ever smoked [place] Start: 1950 [facility] to SARS-CoV -2 (event) Unable to assess [facility] Start: 12-14-2023 Tobacco smoking stat RUSTIS Never smoked tobacco [facility] Start: 12-14-2023 Tobacco use and exposure Smokeless tobacco non-user [facility] Start: 12-14-2023 End: 09-02-2024 Alcoholic beverage intake Current drinker of alcohol (finding) [facility] Start: 12-14-2023 End: 01-28-2024 History of Social function [facility] Start: 12-14-2023 End: 01-28-2024 Tobacco use panel [facility] Start: 12-14-2023 Alcohol Comment rare [facility] Tobacco smoking stat [facility] Tobacco smoking consumption unknown [facility] Start: 08-08-2024 Sex Female (finding) [facility] Start: 1950 Sex Assigned At Female F [facility] Clinical Notes 12-14-2023 to 09-02-2024 Vesna [...] talk about depression : no SI/HI/hallucinations. in skilled nursing with dementia. Feels lonely, lack of interest [...] No stones on US HIDA EF 16% (/) Offered Gen Surgeon evaluation, pt declined at this time Will re visit in fall Recommend freq small meals, avoid spicy/fatty/greasy foods documented in this encounter [facility] 09-02-2024 Instructions Vesna Geiger NP - [...] if these occur. documented in this encounter [facility] 08-07-2024 Radiology Diagnostic study note [facility] [place] [address] [place] [address] Ultrasound Report Signed Patient: Olinda Singh MR#: [id number] 05 : 1950 Acct:[id number] Age/Sex: 74 / F ADM Date: 5 Loc: Room: Type: [facility] Attending Dr: Vesna Geiger Ordering Provider: [...] Soni M.D. 08/07/2024 9:00 AM Dictation Location: [place] [address] Tech: Tawana Murillo Transcribed By: PREMA 08/07/24 0900 Dictated By: Chava Soni DO 08/07/24 0859 Signed By: 08/07/24 0900 [facility] 07-28-2024 History of Present illness Narrative Associated [...] HPI: Here for ER fu: seen at [facility] er on 07/13/24 for right flank pain [...] no dysruia Blood pressure reads: see list [id number] SUBJECTIVE: MEDICATIONS: Current Outpatient Medications Medication Instructions [...] small bowel series documented in this encounter [facility] 07-28-2024 Instructions Vesna Geiger NP - [...] high fat meals documented in this encounter [facility] 07-08-2024 History of Present illness Narrative [...] - Anterior, Right Lower Leg - Anterior [place] patches in areas of edema The patient [...] Visit: 1 year documented in this encounter [facility] 06-24-2024 History of Present illness Narrative [...] eating salty foods documented in this encounter [facility] 06-24-2024 Instructions Vesna Geiger NP - 06/24/2024 10:30 AM EDT Check blood pressures once a day and record DASH diet documented in this encounter [facility] 01-28-2024 History of Present illness Narrative Associated Problem(s): Migraine with aura and without status migrainosus, not intractable (CMS/HCC) Cont triptan prn Associated Problem(s): Menopause Check dexa Associated Problem(s): KI (generalized anxiety disorder) ([facility]) Feels she is doing better since is now placed in skilled nursing for [facility] Dementia Associated Problem(s): Encounter [...] in the last year: no Specialist: Andrés aMrt, dentist: dr Floyd, and sees a set up mechanic, Ortho Dr Trujillo if [place] HCPOA/Living Will: Yes Concerns: bilat hip pain, [...] HISTORY Past Medical History: Diagnosis Date Migraine (CMS/HCC) Past Surgical History: Procedure Laterality Date BUNIONECTOMY [...] aura and without status migrainosus, not intractable ([facility]) Cont triptan prn Encounter for subsequent annual wellness visit (AWV) in Medicare patient - Primary Reviewed Ht/Wt/BMI Recommend eye exam yearly Recommend dental exams twice a year Balance work/leisure activities Exercises is recommended most days of the week (appropriate as chronic conditions allow) Follow up yearly and prn Encounter for screening mammogram for malignant neoplasm of breast Check mammogram wants [facility] Relevant Orders Bilateral screening mammogram KI (generalized anxiety disorder) ([facility]) Feels she is doing better since is now placed in skilled nursing for Lewey Body Dementia Menopause Check dexa [...] yearly and prn documented in this encounter [facility] 01-08-2024 History of Present illness Narrative [...] Coby Garcia DPM documented in this encounter [facility] 12-14-2023 History of Present illness Narrative [...] typically wears tennis shoes she has from [employer] running Review of Systems Medications Current Outpatient Medications: [...] Coby Garcia DPM documented in this encounter [facility] Evaluation note Diagnosis Plantar fasciitis- Primary Plantar fascial fibromatosis Gastrocnemius equinus of right lower extremity Pain of right heel documented in this encounter [facility] Diagnosis Migraine with aura and without status migrainosus, not intractable ([facility]) documented in [facility] encounter [facility] Diagnosis Encounter for subsequent annual wellness visit (AWV) in Medicare patient- Primary Migraine with aura and without status migrainosus, not intractable ([facility]) Encounter for screening mammogram for malignant neoplasm of breast KI (generalized anxiety disorder) ([facility]) Generalized anxiety disorder Menopause Symptomatic menopausal or female climacteric states Irritable bowel syndrome with diarrhea Irritable bowel syndrome documented in [facility] Diagnosis Encounter for subsequent annual wellness visit (AWV) in Medicare patient- Primary Migraine with aura and without status migrainosus, not intractable ([facility]) Encounter for screening mammogram for malignant neoplasm of breast KI (generalized anxiety disorder) ([facility]) Generalized anxiety disorder Menopause Symptomatic menopausal or female climacteric states Irritable bowel syndrome with diarrhea Irritable bowel syndrome Neoplasm, uncertain whether benign or malignant- Primary Elevated blood pressure reading Elevated blood pressure reading without diagnosis of hypertension Overweight (BMI 25.0-29.9) Overweight [facility] in [facility] encounter [facility] Diagnosis Encounter for subsequent annual wellness visit (AWV) in Medicare patient- Primary Migraine with aura and without status migrainosus, not intractable ([facility]) Encounter for screening mammogram for malignant neoplasm of breast KI (generalized anxiety disorder) ([facility]) Generalized anxiety disorder Menopause Symptomatic menopausal or [...] dermatitis Dermatitis herpetiformis documented in this encounter [facility] HealthcareEvaluation note* Diagnosis Encounter for subsequent annual wellness visit (AWV) in Medicare patient- Primary Migraine with aura and without status migrainosus, not intractable ([facility]) Encounter for screening mammogram for malignant neoplasm of breast KI (generalized anxiety disorder) ([facility]) Generalized anxiety disorder Menopause Symptomatic [...] Small bowel lesion documented in this encounter [facility] HealthcareEvaluation note* Diagnosis Encounter for subsequent annual wellness visit (AWV) in Medicare patient- Primary Migraine with aura and without status migrainosus, not intractable ([facility]) Encounter for screening mammogram for malignant neoplasm of breast IK (generalized anxiety disorder) ([facility]) Generalized anxiety disorder Menopause Symptomatic [...] RUQ pain- Primary documented in this encounter [facility] HealthcareEvaluation noteNo assessment information availableL[facility] Work Phone: Evaluation note* Diagnosis Encounter for [...] anxiety disorder documented in this encounter [facility]* Diagnosis Onset Date Resolution Status Admit Date Colon cancer screening acute Se pt2024 1:02pm Current mild episode of charles r depressive disorder acute November 1:02pm KI (generalized anxiety disorder) acute November 18 1:02pm Migraine with aura and without status migrainosus, not intractable acute November 18 1:02pm [facility] Work Phone: Reason for referral (narrative)No reason for referral information availableUk [facility] Work Phone: Reason for Referral Status Reason Specialty Diagnoses / Procedures Referre d By Contact Referred To Contact Open Radiology Diagnoses Menopausal state Procedures DEXA BONE DENSITY AXIAL SKELETON Vesna Geiger [address] [place] [address] Status Reason Specialty Diagnoses / Procedures Referred By Contact Referred To Contact Pending Review Radiology Diagnoses Breast cancer screening by mammogram Procedures LENO DIGITAL SCREEN W OR WO CAD BILATERAL Vesna Geiger [address] [place] [address] Assessments Diagnosis Menopausal state Symptomatic menopausal or female climacteric states Diagnosis Breast cancer screening by mammogram Advance Directives Documents on File Type Date Recorded 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 Advance Directives and Living Will Power of Continuous Miner Advance Directive Response Recorded Date/ Time Advance Directives u August 19 10:50am Summary Purpose Family History No Family History Records FoundNo Family History Records FoundNo Family History Records FoundNo Family History Records FoundNo Family History Records Found Chief Complaint and Reason for Visit Chief Complaint Admit Date K63.9 R10.11 M48.061 M43.16 August 07 7:37am Chief Complaint Admit Date R10.11 August 25, 2024 6:54 am ESTABLISHED PATIENT November 18, 2024 1:02pm Reason for Visit Admit Date Colon cancer screening November 18 1:02pm Current mild episode of major depressive disorder November 18, 2024 1:02pm KI (generalized anxiety disorder) Tamiko zurita 2024 1:02pm Migraine with aura and witho ut status migrainosus, not intractable November 18, 2024 1:02pm Additional Source Comments Reason for Visit (unrecogniz ed section and content) Status Reason Specialty Diagnoses / Procedures Referre d By Contact Referred To Contact Open Radiology Diagnoses Asymptomatic menopausal state Procedures HC DEXA AXIAL SKELETON Vesna Geiger [address] [place] [address] [place] [address] Status Reason Specialty Diagnoses / Procedures Referre d By Contact Referred To Contact Open Radiology Diagnoses Encounter for screening mammogram for malignant neoplasm of breast Procedures HC MAMMOGRAM DIGITAL SCREEN BILAT Vesna Geiger [address] [place] [address] [place] [address] Reason Comments Heel Pain Pt prsentd today [...] little, she purchased new shoes at [employer] SS: 9.5W Reason Comments Medicare Annual Wellness Visit Initial Reason Comments Skin Check Suspicious Skin Lesion Specialty Diagnoses / Procedures Referred By Elana jain Referred To Contact Dermatology Diagnoses Neoplasm, uncertain whether benign or malignant Procedures UT OFFICE/OUTPATIENT NEW HIGH MDM 60 MINUTES Vesna Geiger, DIRK [address] [place] [address] Phone: tel: fax: Derek Mendoza, CARD RUNNER-DISTRICT WIRE CHIEF [address] [place] [address] Phone: tel: fax: Referral ID Status Reason Start Date Expiration Date V isits Requested Visits Authorized [id number] Closed Specialty Services Required 06/24/2024 12/21/2024 1 1 Reason Comments Follow-up INFORMATION SOURCE (unrecogn ized section and content) DATE CREATED AUTHOR 10/02/2019 [facility] DATE CREATED AUTHOR AUTHOR'S ORGANIZ ATION 04/24/2021 [facility] DATE CREATED AUTHOR AUTHOR'S ORGANIZ ATION 01/23/2022 [facility] DATE CREATED AUTHOR AUTHOR'S ORGANIZ ATION 09/03/2024 [facility] DATE CREATED AUTHOR AUTHOR'S ORGANIZ ATION 09/22/2024 [facility] ysician Group Care Teams (unrecognized sec tion and content) Poultry Service Technician Relationship Specialty Start Date End Date Nick Lane MD [address] [place] [address] PCP - General Family Medicine 12/14/23 Vesna Geiger NP [address] [place] [address] Referring Physician Nurse Practitioner 10/06/22 Poultry Service Technician Relationship Specialty Start Date End Date Nick Lane MD [address] [place] [address] PCP - General Family Medicine 12/14/23 Vesna Geiger NP [address] [place] [address] Referring Physician Nurse Practitioner 10/06/22 Poultry Service Technician Relationship Specialty Start Date End Date Nick Lane MD [address] [place] [address] PCP - General Family Medicine 12/14/23 Vesna Geiger NP [address] [place] [address] Referring Physician Nurse Practitioner 10/06/22 Poultry Service Technician Relationship Specialty Start Date End Date Nick Lane MD [address] [place] [address] PCP - General Family Medicine 12/14/23 Vesna Geiger NP [address] [place] [address] Referring Physician Nurse Practitioner 10/06/22 Poultry Service Technician Relationship Specialty Start Date End Date Nick Lane MD [address] [place] [address] PCP - General Family Medicine 12/14/23 Vesna Geiger NP [address] [place] [address] Referring Physician Nurse Practitioner 10/06/22 Poultry Service Technician Relationship Specialty Start Date End Date Nick Lane MD [address] [place] [address] PCP - General Family Medicine 12/14/23 Vesna Geiger NP [address] [place] [address] PCP - ACO Reach 04/18/24 Vesna Geiger NP [address] [place] [address] Referring Physician Nurse Practitioner 10/06/22 Poultry Service Technician Relationship Specialty Start Date End Date Nick Lane MD [address] [place] [address] PCP - General Family Medicine 12/14/23 Vesna Geiger NP [address] [place] [address] PCP - ACO Reach 04/18/24 Vesna Geiger NP [address] [place] [address] Referring Physician Nurse Practitioner 10/06/22 Poultry Service Technician Relationship Specialty Start Date End Date Nick Lane MD [address] [place] [address] PCP - General Family Medicine 12/14/23 Vesna Geiger NP [address] [place] [address] PCP - ACO Reach 04/18/24 Vesna Geiger NP [address] [place] [address] Referring Physician Nurse Practitioner 10/06/22 Poultry Service Technician Relationship Specialty Start Date End Date Nick Lane MD [address] [place] [address] PCP - General Family Medicine 12/14/23 Vesna Geiger NP [address] [place] [address] PCP - ACO Reach 04/18/24 Vesna Geiger NP [address] [place] [address] Referring Physician Nurse Practitioner 10/06/22 Poultry Service Technician Relationship Specialty Start Date End Date Nick Lane MD [address] [place] [address] PCP - General Family Medicine 12/14/23 Vesna Geiger NP [address] [place] [address] PCP - ACO Reach 04/18/24 Vesna Geiger NP [address] [place] [address] Referring Physician Nurse Practitioner 10/06/22 Poultry Service Technician Relationship Specialty Start Date End Date Nick Lane MD [address] [place] [address] PCP - General Family Medicine 12/14/23 Vesna Geiger NP [address] [place] [address] PCP - ACO Reach 04/18/24 Vesna Geiger NP [address] [place] [address] Referring Physician Nurse Practitioner 10/06/22 Poultry Service Technician Relationship Specialty Start Date End Date Nick Lane MD [address] [place] [address] PCP - General Family Medicine 12/14/23 Vsena Geiger NP [address] [place] [address] PCP - ACO Reach 04/18/24 Vesna Geiger NP [address] [place] [address] Referring Physician Nurse Practitioner 10/06/22 Team Status: Active Member Role Status Dates Vesna Geiger Primary Care Provider Active Team Status: Inactive Member Role Status Dates Vesna Geiger Primary Care Provide r, Attending Provider Active Start: August 07, 2024 End: August 07, 2024 Poultry Service Technician Relationship Specialty Start Date End Date Nick Lane MD [address] [place] [address] PCP - General Family Medicine 12/14/23 Vesna Geiger NP [address] [place] [address] PCP - ACO Reach 04/18/24 Vesna Geiger NP [address] [place] [address] Referring Physician Nurse Practitioner 10/06/22 Poultry Service Technician Relationship Specialty Start Date End Date Nick Lane MD [address] [place] [address] PCP - General Family Medicine 12/14/23 Vesna Geiger NP [address] [place] [address] PCP - ACO Reach 04/18/24 Vesna Geiger NP [address] [place] [address] Referring Physician Nurse Practitioner 10/06/22 Team Status: Inactive Member Role Status Dates Vesna Geiger Primary Care Provider Active Sta rt: August 25, 2024 End: August 25, 2024 Vesna Geiegr Attending Provider Active Start: August 25, 2024 End: August 25, 2024 Team Status: Inactive Member Role Status Dates Vesna Geiger Primary Care Provider Active Sta rt: November 18, 2024 End: November 18, 2024 Vesna Geiger Attending Provider Active Start: November 18, 2024 End: November 18, 2024 Goals (unrecognized section and content) Goals may be documented in a n alternate sectionGoals may be documented in an alternate section FOR RECORDS PERTAINING TO PATIENTS [...] BE BASED ON THE PRIMARY CLINICAL RECORDS. [facility]. provides no warranty or guarantee of the accuracy or completeness of information in this document.
[2024-11-26 12:16] LABS: Hematocrit 37.0 % (36.0-48.0); Hemoglobin 12.2 g/dL (12.0-16.0); Immature Granulocytes Abs Auto 0.07 10^3/uL (0.00-0.03); Immature Granulocytes Pct Auto 1.1 % (0.0-0.5); Lymphocytes Absolute Auto 1.8 10^3/uL (1.2-3.8); Mean Corpuscular HGB Conc 33.0 g/dL (29.9-35.2); Mean Corpuscular Hemoglobin 29.3 pg (26.7-34.0); Mean Corpuscular Volume 88.9 fL (81.0-99.0); Platelet Count 292 10^3/uL (150-450); Red Blood Count 4.16 10^6/uL (4.20-5.40); White Blood Count 6.6 10^3/uL (4.0-11.0)
[2024-11-26 12:58] LABS: Iron 71.0 ug/dL (50.0-170.0); Percent Iron Saturation 21.0 %; Total Iron Binding Capacity 338.0 ug/dL (250.0-450.0)
[2024-11-26 13:21] LABS: Ferritin 60.0 ng/mL (8.0-252.0)
[2024-11-27 04:07] LABS: Vitamin B12 666 pg/mL (232-1245)
[2024-11-27 21:04] LABS: Transferrin 287 mg/dL (192-364)
== END 2024-11-26 11:47 | disposition home or self-care (01) ==
LOC: LAB 11:48
PROVIDERS: PCP Nurse Practitioner; Visit Provider Nurse Practitioner
DX: D50.9 Iron deficiency anemia, unspecified (principal)
CPT/HCPCS: 36415; 82607; 82728; 83540; 83550; 84466; 85025

== ENCOUNTER 2025-02-19 13:21 | Outpatient (OUT) | payer MEDICARE, OTHER, SELFPAY ==
--- OUTSIDE RECORDS SUMMARY | 2025-02-19 13:26 | XMS_ITS | CCD ---
Author Organization [facility] Care Team Providers Care Cms Expert Name Role Phone Unavailable Primary Care Provider Unavailabl e JUANJO VESNA J. Referring Unavailable AICHHOLZ, VESNA J. Referring Unavailable AICHHOLZ, LABEL PINKER VESNA Primary Care Unavailable NYDIA BOX Admitting Unavailable NYDIA BOX Attending Unavailable ELIAS, DR DAVEY Consulting Unavailable AICHHOLZ, LABEL PINKER VESNA Admitting Unavailable AICHHOLZ, LABEL PINKER VESNA Attending Unavailable AICHHOLZ, LABEL PINKER VESNA Primary Care Unavailable DR LOUISE GALLAGHER V Consulting Unavailable AICHHOLZ, LABEL PINKER VESNA Consulting Unavailable AICHHOLZ, LABEL PINKER VESNA Primary Care Unavailable FRANCISCO JAVIER LANIER Consulting Unavailable DR LUCAS HOLDEN Admitting Unavailable NAVIN, DR LUCAS Palmer Attending Unavailable PETAR CUMMINGS Consulting Unavailable Aichholz SPORTS INFORMATION DIRECTOR, Vesna Unavailable Nick Lane MD Primary Care Provider Aichkathleen SPORTS INFORMATION DIRECTOR, Vesna Unavailable Juanjo Vesna Maria G Primary Care Provider Vesna Geiger Attending Provider [phone] JUANJO VESNA Attending Unavailable DEREK MENDOZA Attending Unavailable AICHHOLZ, VESNA Referring Unavailable COBY GARCIA Attending Unavailable NICK LANE Referring Unavailable COBY GARCIA Referring Unavailable AICHHOLZ, VESNA Attending Unavailable GLORAIZ, VESNA Attending Unavailable COBY GARCIA Attending Unavailable ALEXHHOLZ, VESNA Attending Unavailable Aichholz, Vesna J Attending Unavailable Aichholz, Vesna J Admitting Unavailable Aichholz, Vesna J Primary Care Unavailable Aicjesus, Vesna J Attending Unavailable Alexhadalbertoz, Vesna J Admitting Unavailable Aichholz, Vesna J Primary Care Unavailable Aichholz, Vesna J Primary Care Provider [phone] Vesna Geiger Attending Provider Juanjo CAVAZOS, Vesna Unavailable Nick Lane MD Primary Care Provider Juanjo CAVAZOS, Vesna Unavailable Allergies Allergy ClassificationReported Allergen(s)Allergy TypeDate of OnsetReaction(s) Facility (1 source)GlutenDrug allergy (disorder)[facility] Repository (1 source)PenicillinDrug AllergyThe [facility]ository (1 source)Sulfamethoxazole / TrimethoprimDrug AllergyThe [facility] (1 source)Sulfonamides (Antibiotic)Drug allergy (disorder)[facility] Repository (20 sources)Penicillin GDrug Ybbxlif51-22-0013TonzlCUFE Healthcare Work Phone: (20 sources)Sulfamethoxazole / TrimethoprimDrug Wscvipa78-59-9060YmzmaGVAT Healthcare (1 source)PenicillinDrug Ydaeuuc17-73-3763PynoqkjwtOhiohealth Van [facility]ert Hospital Repository (2 sources)SulfamethoxazoleDrug Mjiigma03-93-9541BoqzuOchcdfmggWhite Hospital Repository (2 sources)TrimethoprimDrug Wvkcfic27-80-8776NexzaWceueedpaWhite Hospital Repository Medications Current Medications MedicationDrug Class(es)DatesSig (Normalized)Sig (Original)FLUoxetine 10 mg oral capsule (3 sources)Serotonin Reuptake InhibitorStart: 88-99-5854lyek 1 capsule by mouth once dailyFluoxetine 10 mg capsule Active 10 MG PO Daily November 18, 2024 12:00am Complies with drug therapyStart: 09-02-2024 End: 14-38-6922qnpn 1 capsule by mouth once dailyFLUoxetine (PROzac) 10 MG capsule Indications: KI (generalized anxiety disorder) , Current mild episode of major depressive disorder without prior episode Take 1 capsule (10 mg) by mouth Daily 30 capsule 1 09/02/2024 10/02/2024 Activehydrocortisone 25 mg/ml topical cream (5 sources)CorticosteroidStart: 01-28-2024 End: 83-79-1444zccidkhyvtbhoy 2.5 % cream Indications: Irritable bowel syndrome with diarrhea Apply 1 application topically 2 (two) times a day as needed for irritation for up to 14 days 30 g 01/28/2024 02/11/2024 Activerizatriptan 10 mg oral tablet (20 sources)Serotonin-1b and Serotonin-1d Receptor AgonistStart: 05-01-2023 End: 53-41-9862Sqkdwcaxpsw 10 mg tablet Active 10 MG PO Every 2 hours as needed November 18, 2024 12:00am take 1at onset of migraine SZYMANSKI, may repeat in 2 hours if needed. no more than 2 pills in 24 hours, no morethan twice a week Complies with drug therapy Problems Active Problems Problem ClassificationProblemDateDocumented DateEpisodic/ChronicAnxiety disorders (20 sources)Generalized anxiety disorder; Translations: [Generalized anxiety disorder]Onset: 918755-19-0726SswofmmJscngpce; including migraine (20 sources)Migraine with aura; Translations: [Migraine with aura, not intractable, without status migrainosus]Onset: 018765-50-5943Hepqguh Menopausal disorders (1 source)Menopausal syndrome; Translations: [Menopausal state]ChronicMood disorders (7 sources)Mild major depression, single episode; Translations: [Major depressive disorder, single episode, mild]Onset: hronic Other and unspecified benign neoplasm (2 sources)Melanocytic nevus of trunk; Translations: [Melanocytic nevi of trunk] 57-59-7682NzotgclzJaaoq connective tissue disease (4 sources)Plantar fasciitis; Translations: [Plantar fascial fibromatosis] 25-52-7222MvhwiijwWytff connective tissue disease (4 sources)Deformity of lower limb; Translations: [Contracture of muscle, right lower leg]02-02-5217HhqubnszAqbzl connective tissue disease (4 sources)Pain in right heel; Translations: [Pain in right foot]12-14-2023 EpisodicOther diseases of veins and lymphatics (2 sources)Disorder of vein of lower extremity; Translations: [Venous insufficiency (chronic) (peripheral)]17-14-6049HclcsdjiIluum female genital disorders (17 sources)Female deep pain on intercourse; Translations: [Deep dyspareunia] Onset: 547521-47-1847BexndtuTmyhr female genital disorders (1 source)Pain in female genitalia on intercourse; Translations: [Unspecified dyspareunia]89-81-0550JyhpmazPptdu gastrointestinal disorders (20 sources)Irritable bowel syndrome with diarrhea; Translations: [Irritable bowel syndrome with diarrhea]Onset: 337091-78-3286FnyzaebRyhyw nervous system disorders (20 sources)Mortons neuroma of left foot; Translations: [Lesion of plantar nerve, left lower limb]Onset: 525984-05-8629KdxdtsaVctxw nervous system disorders (20 sources)Left foot neuritis; Translations: [Unspecified mononeuropathy of left lower limb]Onset: 286717-89-6124SnxjahtYfaoj skin disorders (2 sources)Seborrheic keratosis; Translations: [Other seborrheic keratosis] 66-65-1537RqegkevxAnyhtikccpkq (1 source)Patient encounter status; Translations: [Breast cancer screening by mammogram]Viral infection (2 sources)Herpesviral vesicular dermatitis; Translations: [Herpesviral vesicular dermatitis]86-97-5712Nxppigsz Past or Other Problems Problem ClassificationProblemDateDocumented DateEpisodic/ChronicAbdominal pain (15 sources)Right upper quadrant pain; Translations: [Right upper quadrant pain] Onset: 477636-48-8591VppmjlexRqrjkqgu injury or internal injury (1 source)Crushing injury of left thumb, initial encounter; Translations: [CRUSHING INJURY OF LT THUMB INITIAL]Onset: 20-57-5788GieqzbogX Codes: Cut/pierceb (1 source)Contact with other sharp object(s), not elsewhere classified, initial encounter; Translations: [[facility] OT SHRP OB NOT ELSW CLASS INI]Onset: 08-16-2021 EpisodicE Codes: Struck by; against (1 source)Striking against or struck by other objects, initial encounter; Translations: [STRIKING AGNST/STRUCK OT OBJ INIT]Onset: 94-20-0859LtswkyepBjni disorders (17 sources)Mood disordersOnset: 863568-14-8969Pkatilezo of unspecified nature or uncertain behavior (17 sources)Neoplastic disease of uncertain behavior; Translations: [Neoplasm of uncertain behavior, unspecified]Onset: 281984-26-7205OxfxziipMtne wounds of extremities (4 sources)Laceration without foreign body, right lower leg, initial encounter; Translations: [LACERATION W/O FB RT LOW LEG INIT]Onset: 15-74-5625WoagwrfuPlucu acquired deformities (12 sources)Lumbar spondylolisthesis; Translations: [Spondylolisthesis, lumbar region]Onset: 513983-46-0514WzyvmtwuHgdsj circulatory disease (17 sources)Elevated blood pressure; Translations: [Elevated blood-pressure reading, without diagnosis of hypertension]Onset: 793681-45-7620Jpjpdqwp Other connective tissue disease (3 sources)Pain in left finger(s); Translations: [PAIN IN LEFT FINGERS]Onset: 71-54-3038SnaodclrAvnqg female genital disorders (18 sources)Polyp of vagina; Translations: [Polyp of vagina]Onset: 01-28-2024 30-59-6390YzmgvjlyVvyor gastrointestinal disorders (17 sources)Irritable bowel syndrome; Translations: [Mixed irritable bowel syndrome]Onset: 01-28-2024 Resolved: 423449-35-5654LrsdtqqDiosl gastrointestinal disorders (12 sources)Disorder of small intestine; Translations: [Disease of intestine, unspecified]Onset: 128921-60-3040GjfcfmesYswlt nutritional; endocrine; and metabolic disorders (17 sources)Body mass index 25-29 - overweight; Translations: [Overweight]Onset: 064101-73-8440XcixgpotDsrkk screening for suspected conditions (not mental disorders or infectious disease) (20 sources)Encounter for screening mammogram for malignant neoplasm of breast; Translations: [Patient encounter status]Onset: 59-40-0816EuimiduyUrvupjfr codes; unclassified (20 sources)Menopause present; Translations: [Asymptomatic menopausal state] Onset: 136596-69-4086CwotyqmdQhjsyzqubpk; intervertebral disc disorders; other back problems (10 sources)Spinal stenosis of lumbar region; Translations: [Spinal stenosis, lumbar region without neurogenic claudication]Onset: EpisodicSprains and strains (1 source)Unspecified sprain of left thumb, initial encounter; Translations: [UNSPECIFIED SPRAIN LT THUMB INITIAL]Onset: 48-92-8421Bnvvnqkh Results Test NameValueInterpretationReference RangeFacilityKS hepatobiliary w pharmon 31-94-5808RC hepatobiliary w pharmOHIO VALLEY [place] [address] Nuclear Medicine Report Signed Patient: Olinda Singh MR#: [id number] : 1950 Acct:[id number] Age/Sex: 74 / F ADM Date: 08/25/24 Loc: [place] Room: Type: [facility] Attending Dr: Vesna Geiger Copies to: Brian Ibarra Jr, DO Lisa J Aichholz, NP-C Ordering Provider: DK Stafford Date of Service: 08/25/24 KS/KS hepatobiliary w pharm: RUQ PAIN HIDA SCAN [...] is 16%. Normal is greater than 40%. KS/KS hepatobiliary w pharm IMPRESSION: ABNORMAL GALLBLADDER EJECTION FRACTION SUSPICIOUS FOR BILIARY DYSKINESIA. Impression dictated by: Brian Ibarra Jr., D.O. 08/25/2024 10:29 AM Dictation Location: [place] [address] Transcribed By: [facility] 08/25/24 1029 Dictated By: Brian Ibarra Jr, DO 08/25/24 1028 Signed By: 08/25/24 1029[facility] CenterFL small bowel follow throughon 35-27-9915MO small bowel follow throughOH[facility] Main [place] [address] [place] [address] Fluoroscopy Report Signed Patient: Olinda Singh MR#: [id number] : 1950 Acct:[id number] Age/Sex: 74 / F ADM Date: 08/07/24 Loc: Room: Type: [facility] Attending Dr: Vesna Geiger Copies to: DK Stafford Ordering Provider: DK Stafford Date of Service: 08/07/24 FL/FL small bowel follow through: K63.9 [place] small bowel follow through 08/07/2024 7:47 AM SIGNS AND SYMPTOMS: Epigastric pain, possible internal hernia on recent abdomen pelvis CT. PROTOCOL: Process Safety Engineering Technologist radiographs of the abdomen and pelvis were [...] Moon M.D. 08/07/2024 10:38 AM Dictation Location: [place] [address] Transcribed By: [facility] 08/07/24 1038 Dictated By: Lucas Moon II, MD 08/07/24 1035 Signed By: 08/07/24 1038[facility] Physician GroupFluoroscopy reportOrdered By: Lucas Moon on 25-32-7181QA Unspecified body region [facility] Main [address] [address] Fluoroscopy Report Signed Patient: Olinda Singh MR#: [id number] 05 : 1950 Acct:[id number] Age/Sex: 74 / F ADM Date: Loc: Room: Type: [facility] Attending Dr: Vesna Geiger Copies to: DK Stafford~ Ordering Provider: DK Stafford Date of Service: 08/07/24 FL/FL small bowel follow through: K63.9 [place] small bowel follow through 08/07/2024 7:47 AM SIGNS AND SYMPTOMS: Epigastric pain, possible internal hernia on recent abdomen pelvis CT. PROTOCOL: Process Safety Engineering Technologist radiographs of the abdomen and pelvis were obtained. Radiographs of the abdomen andpelvis were obtained after oral barium based contrast [...] Moon M.D. 08/07/2024 10:38 AM Dictation Location: [place] [address] Transcribed By: [facility] 08/07/24 1038 Dictated By: Lucas Moon II, MD 08/07/24 1035 Signed By: 08/07/24 1038 [facility] Work Phone: us gall bladderon 56-81-2526OS gall bladderOHIO VALLEY SURGICAL [facility]OSPITAL Main [address] [address] Ultrasound Report Signed Patient: Olinda Singh MR#: [id number] : 1950 Acct:[id number] Age/Sex: 74 / F ADM Date: 08/07/24 Loc: UL Room: Type: [facility] CLI Attending Dr: Vesna Geiger Ordering Provider: DK [...] Soni M.D. 08/07/2024 9:00 AM Dictation Location: [place] [address] Tech: Tawana Murillo Transcribed By: PREMA 08/07/24 0900 Dictated By: Chava Soni DO 08/07/24 0859 Signed By: 08/07/24 0900[facility] Physician GroupX-ray reportOrdered By: Loraine Rawls on 15-54-0880Cspzg reportOHIO VALLEY SURGICAL HOSPITAL Main [place] [address] [place] [address] XRay Report Signed Patient: Olinda Singh MR#: [id number] 05 : 1950 Acct:[id number] Age/Sex: 74 / F ADM Date: 5 Loc: Room: Type: [facility] CLI Attending Dr: Vesna Geiger Copies to: [...] S1 of approximately 13 mm. This does notchange significantly with flexion or extension. No other [...] LUMBAR SPONDYLOLISTHESIS, DESCRIBED. Impression dictated by: Loraine Rawsl M.D. 08/07/2024 10:26 AM Dictation Location: [place] [address] Transcribed By: [facility] 08/07/24 1026 Dictated By: Loraine Rawls MD 08/07/24 1003 Signed By: 08/07/24 [facility]6 [facility] Work Phone: XR lumbar spine AP/LAT/FLX/EXTon 01-07-2267YV lumbar spine AP/LAT/FLX/EXTOHIO VALLEY [place] [address] XRay Report Signed Patient: Olinda Singh MR#: [id number] : 1950 Acct:[id number] Age/Sex: 74 / F ADM Date: 08/07/24 Loc: Room: Type: [facility] Attending Dr: Vesna Geiger Copies to: DK [...] Rawls M.D. 08/07/2024 10:26 AM Dictation Location: [place] [address] Transcribed By: [facility] 08/07/24 1026 Dictated By: Loraine Rawls MD 08/07/24 1003 Signed By: 08/07/24 [facility] TOMOSYNTHESIS SCREENING [facility] [id number], [place] [address] Mammography Report Signed Patient: OLINDA SINGH MR#: [id number] : 1950 Acct:[id number] Age/Sex: 73 / F ADM Date: 02/05/24 Loc: MAMMO Attending Dr: Vesna Geiger NP Ordering Physician: Vesna Geiger NP Results: Date of Service: 02/05/24 Follow Up: Procedure(s): MM tomosynthesis screening BI Accession Number(s): [id number] cc: Vesna Geiger NP Patient Name: OLINDA SINGH MR#: [id number] : 1950 Exam Date: 02/05/2024 Ordering Doctor: KASHIF Geiger CNP RADIOLOGY REPORT PROCEDURE: MM TOMOSYNTHESIS SCREENING BI COMPARISON: MM TOMOSYNTHESIS SCREENING BI, 01/25/2023. MG MAMM SCREEN 3D ERICK CAD, 01/20/2022. MG MAMM SCREEN 3D ERICK CAD, 01/19/2021. MG MAMM SCREEN ERICK W CAD, 07/11/2018. INDICATIONS: Screening Calculator Name NCI Breast Cancer Risk Assessment Tool 5 Year Breast Cancer Risk 2.20% Lifetime Breast Cancer Risk 5.70% Personal Breast Cancer No Personal Ovarian Cancer No Treatments None Family Cancers None LOCATION: [facility] BREAST COMPOSITION: The breasts are heterogeneously dense,which [...] 15:37 Dictated By: Behzad Castle M.D. Signed By: 02/05/24 1538 DD/ 1537 TD/TT: Land Leases And Rentals Manager:TBHRadiology, Radiologist, MD - 02/05/2024 [place] [address] Mammography Report Signed Patient: OLINDA SINGH MR#: [id number] : 1950 Acct:[id number] Age/Sex: 73 / F ADM Date: 02/05/24 Loc: MAMMO Attending Dr: Vesna Geiger NP Ordering Physician: Vesna Geiger NP Results: Date of Service: 02/05/24 Follow Up: Procedure(s): MM tomosynthesis screening BI Accession Number(s): [id number] cc: Vesna Geiger NP Patient Name: OLINDA SINGH MR#: [id number] : 1950 Exam Date: 02/05/2024 Ordering Doctor: KASHIF Geiger CNP RADIOLOGY REPORT PROCEDURE: MM TOMOSYNTHESIS SCREENING BI COMPARISON: MM TOMOSYNTHESIS SCREENING BI, 01/25/2023. MG MAMM SCREEN 3D ERICK CAD, 01/20/2022. MG MAMM SCREEN 3D ERICK CAD, 01/19/2021. MG MAMM SCREEN ERICK W CAD, 07/11/2018. INDICATIONS: Screening Calculator Name NCI Breast Cancer Risk Assessment Tool 5 Year Breast Cancer Risk 2.20% Lifetime Breast Cancer Risk 5.70% Personal Breast Cancer No Personal Ovarian Cancer No Treatments None Family Cancers None LOCATION: [facility] BREAST COMPOSITION: The breasts are heterogeneously dense,which [...] 15:37 Dictated By: Behzad Castle M.D. Signed By: 02/05/24 1538 DD/ 1537 TD/TT: Land Leases And Rentals Manager: [facility] RoadRadiology Study observation (narrative)[facility] TOMOSYNTHESIS SCREENING BIOrdered By: Radiologist Radiology on 28-32-6125GQWESaint Luke's [facility]ry [facility] Work Phone: aLL CBC WITH AUTO DIFFon 93-75-7085TIPLJJLAP ABSOLUTE AUTO0.1NOMS HealthcareBasophils/100 WBC (Bld)0.9 %0.2 - 2.0 %[facility] Eosinophils/100 WBC (Bld)3.3 %0.9 - 7.0 %[facility] RoadErythrocyte distribution width (RBC) [Ratio]13.2 %11.0 - 15.0 %[facility] RoadHematocrit (Bld) [Volume fraction]37 %36.0 - 48.0 %[facility] RoadHemoglobin (Bld) [Mass/Vol]12.1 g/dL 12.0 - 16.0 g/dLSaint Luke's North Hospital–Barry RoadIMMATURE GRANULOCYTES ABS AUTO0.01NOChildren's [facility] Hospital Immature granulocytes/100 WBC (Bld)0.2 %0.0 - 0.5 %[facility]Barry RoadInterpretation and review of laboratory resultsAbnormalNOChildren's Mercy HospitalLYMPHOCYTES ABSOLUTE AUTO2.2NOMS HealthcareLymphocytes/100 WBC (Bld)37.7 %20.5 - 60.0 %[facility] CenterH (RBC) [Entitic mass]29.2 pg26.7 - 34.0 pgNOChildren's Mercy HospitalMCHC (RBC) [Mass/Vol]32.7 g/dL29.9 - 35.2 g/dLNOChildren's Mercy HospitalMCV (RBC) [Entitic vol]89.4 fL 81.0 - 99.0 fLNOChildren's Mercy HospitalMONOCYTES ABSOLUTE AUTO0.4NOChildren[facility] Hospital Monocytes/100 WBC (Bld)7.4 %1.7 - 12.0 %NOMGolden Valley Memorial HospitalNEUTROPHILS ABSOLUTE AUTO 3NOMS [facility] Citizens HospitalNeutrophils/100 WBC (Bld)50.5 %43.0 - 75.0 %[facility] Platelet mean volume (Bld) [Entitic vol]9.8 fL9.5 - 13.5 fLSaint Luke's North Hospital–Barry RoadTB EO #0.2NOMS [facility] HospitalTB [id number]'s Mercy HospitalTB RBC4.14LowNOChildren's Mercy HospitalTB WBC 5.8NOChildren's Mercy HospitalCLINISYNCNMadison Medical CenterCCF CMP (CMP) (FOR REMOTE [facility] USE)on 53-73-3035Ncxwpag [Mass/Vol]3.8 g/dL3.4 - 5.0 g/dLSaint Luke's North Hospital–Barry RoadALBUMIN GLOBULIN RATIO1.1NOMS HealthcareALP [Catalytic activity/Vol]78 U/L46 - 116 U/L [facility] HealthcareALT [Catalytic activity/Vol]29 U/L14 - 59 U/LNOMS HealthcareAnion gap [Moles/Vol]10.8 mmol/LNOMS HealthcareAST [Catalytic activity/Vol]25 U/L15 - 37 U/LNOMS HealthcareBilirubin [Mass/Vol]1 mg/dL0.2 - 1.0 mg/dLNOChildren's [facility]cy Hospital Calcium [Mass/Vol]9.1 mg/dL8.5 - 10.1 mg/dLNOSC HealthcareChloride [Moles/Vol] 105 mmol/L98 - 107 mmol/LNOMS HealthcareCO2 [Moles/Vol]29.9 mmol/L21.0 - 32.0 mmol/LNOMS HealthcareCreatinine [Mass/Vol]0.82 mg/dL0.55 - 1.02 mg/dLNOMS HealthcareGFR/1.73 sq M.predicted CKD-EPI (S/P/Bld) [Vol rate/Area]>60>=60 mL/min/1.73m 2NOMS HealthcareGlobulin (S) [Mass/Vol]3.5 g/dLNOMS Healthcare Glucose [Mass/Vol]86 mg/dL74 - 106 mg/dLNOMS HealthcarePotassium [Moles/Vol]3.7 mmol/L3.5 - 5.1 mmol/LNOMS HealthcareProtein [Mass/Vol]7.3 g/dL6.4 - 8.2 g/dL NOMS HealthcareSodium [Moles/Vol]142 mmol/L136 - 145 mmol/LNOMS HealthcareTBH EGFR-NON AF URUGUAYAN>60>=60 mL/min/1.73m 2NOMS HealthcareUrea nitrogen [Mass/Vol]15 mg/dL7.0 - 18.0 mg/dLNOSC HealthcareUrea nitrogen/Creatinine [Mass ratio]18.3 mg/mgNOSC HealthcareCLINISYNMUSC Health Columbia Medical Center DowntownTB UA (CLEAN/CATCH) TEACHER COUNSELOR/MICRO IF IND.on 54-65-0368YFOELPJIH URINENegativeNEGATIVENOChildren's Mercy Hospital BLOOD URINENegativeNEGATIVENOSC HealthcareClarity (U)CLEARCLEARNOMS Healthcare Color (U)LT. YELLOWYELLOWNOSC HealthcareGLUCOSE URINE UANegativeNEGATIVE mg/dL [facility] HealthcareKetones Ql (U)NegativeNEGATIVE mg/dLNOSC HealthcareLeukocyte esterase Test strip Ql (U)NegativeNEGATIVENOSC HealthcareNITRITE URINENegative NEGATIVENOSC HealthcarepH (U)7.0 [pH]5.0 - 9.0NOSC HealthcarePROTEIN URINE NegativeNEG/TRACE mg/dLNOSC HealthcareSPECIFIC GRAVITY URINE1.0101.005 - 1.025 [facility] HealthcareURINE MICROSCOPIC INDICATEDNONOMS HealthcareUROBILINOGEN URINE0.2 EU/dL0.2 - 1.0 EU/dLNOSC HealthcareCLINISYNCNMadison Medical CenterXR Calcaneus - right 2 Viewson 44-12-9680Jcspang Result: Lateral and calcaneal axial views taken of right heel and show no fractures or dislocations. No lytic lesion with os calcis. Small plantar heel spurring present. Mild pes planus foot type, with decrease calcaneal pitch, and increase in talar declination angle. Mild joint space narrowing noted at 1st MTPJ with dorsal hypertrophy of bone at 1st met head.[facility] Medical CenterRadiology Study observation (narrative)[facility] MG MAMM SCREEN 3D ERICK CADon [id number] MAMM SCREEN 3D ERICK CADPatient: OLINDA SINGH Exam Date: 01/20/2022 : 1950 Gender:F Ordering : KASHIF VESNA GEIGER [facility] Admission #: [id number] Family : Order #: [id number] CLICK HERE TO VIEW EXAM RADIOLOGY REPORT PROCEDURE: MAMMOGRAM SCREENING 3D BILATERAL CAD COMPARISON: MG MAMM SCREEN ERICK W CAD, 09/10/2019. MG MAMM SCREEN 3D ERICK CAD, 01/19/2021. INDICATIONS: Screening mammography Calculator Name NCI Breast Cancer Risk Assessment Tool 5 Year Breast Cancer Risk 2.20% Lifetime Breast Cancer Risk 6.30% Personal Breast Cancer No Personal Ovarian Cancer No Treatments None Family Cancers None LOCATION: [facility] BREAST COMPOSITION: Heterogeneously dense,which may [...] by: Louise Gallagher MD on 01/20/2022 at 11:12[facility] CampusXR HAND LT MIN 3Von 33-97-1152HD HAND LT MIN 3VEXAM: XR HAND LT MIN 3V COMPARISON: None HISTORY: Pain FINDINGS: No acute or aggressive bony abnormality. Alignment appears normal. Joint spaces are maintained. Mild osteophytic degenerative changes in the first carpometacarpal joint. There is osseous demineralization. Peripheral soft tissues are unremarkable. IMPRESSION: No acute findings. Mild degenerative changes and generalized osseous demineralization.. Electronically authenticated by: PETAR CUMMINGS Date: 2021-06-08 20:17[facility] CampusAmbulatory Clinical Summaryon 58-16-9156Tdydlighte Clinical Summary{5h-tc-15-1f-02-7w-17-2p-9a-6k-6a-a4-37-80-60-2d}CD:[id number] [facility] Educationon 74-88-0500Ysjrcvo EducationObstetrics and Gynecology Urinary Tract Infection, Adult A urinary tract infection (UTI) is an infection of any part of the urinary tract. The urinary tractincludes the kidneys, ureters, bladder, and urethra. These organs make, store, and get rid of urinein the body. Your health care provider may [...] this condition includes: ? Antibiotic medicine. ? Wskq-smp-rfavsdp medicines to treat discomfort. ? Drinking enough water to stay hydrated. If you have frequent infections or have other conditions such as a kidney stone, you may need to see a health care provider who specializes in the urinary tract (urologist). In rare cases, urinary tract infections can cause sepsis. Sepsis is a life- threatening condition that occurs when the body responds to an infection. Sepsis is treated in the hospital with IV antibiotics, fluids, and other medicines. Follow these instructions at home: Medicines ? Take qdcx-oao-pjrjgdc and prescription medicines only as told by [...] in your genital area, around the entrance toyour urinary tract (urethra). ? Treatment for this condition often includes antibiotic medicines. ? If you were prescribed an antibiotic medicine, take it as told by your health care provider. Do not stop using the antibiotic even if you start to feel better. ? Keep all follow-up visits as told by your health care provider. This is important. This in (more content not included)...[facility]on 09-18-1135Cncmsuw Office/Clinic NoteChief Complaint OV HPI Staff Pt is here due to Urethral caruncle returning? S/P Excision of urethral mass and Cysto done 12/12/2018. Pathology was negative for any malignancy. Dr. Vesna Orozco wanted her to get checked out due toa nodule that was seen during her wellness check up. Pt states she cant see anything and she is nothaving any pain. Urinary fernandez she is not [...] Ede Palmer, URL [address] [place] [phone] Additional Instructions: prn Patient Education Urinary Tract Infection, Adult I, Rose Mary Huerta , personally scribed for Dr. Nunez on 01/31/2021 14:33:00. Electronically signedby scribe Rose Mary Huerta on 01/31/2021 14:33:00. Documentation recorded by the scribe, Rose Mary [...] History Alcoholism: Father. Hypertension: Mother. Liver disease: Father.[facility] HospitalComment on above:Result Comment: Electronically Signed By: Eed NUNEZ MD R\.br\Date and Time Signed: 01/31/21 14:34 EST\.br\Electronically Co-Signed By: Rose Mary Huerta MA\.br\Date and Time Co-Signed: 01/31/2114:33 ESTDEXA BONE DENSITY AXIAL SKELETON on 10-02-4434DYYT BONE DENSITY AXIAL SKELETONEXAMINATION: OT left hip left wrist lumbar combination [...] 89 years. DEXA scan for this exam: Settle RECOMMENDATIONS: If not already instituted, suggest therapy to increase bone mass. Follow-up study in 2 years may be considered on a Veoh system. by WHO criteria. Interpreted by: Tiana Adair MD Signed by: Tiana Adair MD 09/10/19 Final resultNoOhioHealth Southeastern Medical Center1. The T-score in the lumbar spine is - 0.2, consistent with normal bone mass. 2. Lowest T-score in the left hip is - 1.1, consistent with osteopenia. 3. The T-score in the left forearm distal 33% of radius is -1.1, consistent with osteopenia. 4. Findings are consistent with osteopenia. 5. Fracture risk/FRAX: Major osteoporotic: 8.9%. Hip: 0.8 %. World Health Organization classification of bone mass: Normal: T-score Greater than - 1. Osteopenia (low bone mass ): T-score between -1 and -2.5. Osteoporosis: T- score less than -2.5. FRAX calculator fracture probability [...] 89 years. DEXA scan for this exam: Guestmobar RECOMMENDATIONS: If not already instituted, suggest therapy to increasebone mass. Follow-up study in 2 years may be considered on a Veoh system. by WHO criteria.[facility], KYEXAMINATION: OT left hip left wrist lumbar combination DEXA. BONE DENSITOMETRY 09/10/2019 10:47 am TECHNIQUE: DEXA evaluation of the patient's lumbar spin, left wrist e and left hip. COMPARISON: There are no prior studies for comparison. HISTORY: Osteoporosis screening. Postmenopausal patient. FINDING S: Lumbar spine: Mean BMD measured from L1 through L2 is 1.135 grams/cm2, T- score -0.2, consistent with normal bone mass. Left hip: BMD of the entire left hip is 0.984 grams/cm2, consistent with T-score of -0.2 and representing normal bone mass. BMD of the left femoral neck is 0.885 grams/cm2, withyoung adult T- score of -1.1representing osteopenia. Left forearm: BMD left forearm distal 33% of radius is 0.790 grams/cm2, consistent with T-score of -1.1 and representing osteopenia.[facility]- [place], Aiden, Kristan Incoming Radiant Results From [employer] - 09/10/2019 4:01 PM EDT EXAMINATION: OT [...] 89 years. DEXA scan for this exam: Settle RECOMMENDATIONS: If not already instituted, suggest therapy to increase bone mass. Follow-up study in 2 years may be considered on a Veoh system. by WHO criteria. [facility], [facility] DIGITAL SCREEN W OR WO CAD BILATERALon 68-68-5293AWD DIGITAL SCREEN W OR WO CAD BILATERALEXAMINATION: SCREENING DIGITAL BILATERAL MAMMOGRAM WITH TOMOSYNTHESIS, 09/10/2019 [...] to the patient regarding the results. [employer] recommends annual mammograms for women 40 years and older. Interpreted by: Arnaldo Wadsworth MD Signed by: Arnaldo Wadsworth MD 09/10/19 Final resultNormalMercy Greenwich Hospital mammographic evidence of malignancy. BI-RADS 1 BIRADS: BIRADS - CATEGORY 1 Negative, no evidenceof malignancy. Normal interval follow-up is recommended in 12 months. OVERALL ASSESSMENT - NEGATIVEA letter of notification will be sent to the patient regarding the results. [employer] recommends annual mammograms for women 40 years and older.[facility] HospitalVINIEXAMINATION: SCREENING DIGITAL BILATERAL MAMMOGRAM WITH TOMOSYNTHESIS, 09/10/2019 [...] mass, suspicious microcalcification, or area of architectural distortion.[facility] HospitalAiden Mhpn Incoming Radiant Results From [employer] - 09/10/2019 12:38 PM EDT EXAMINATION: SCREENING [...] to the patient regarding the results. [employer] recommends annual mammograms for women 40 years and older. [facility] VINI Vital Signs Date TimeVital SignValuePerforming YntaqrngpVolarlnv87-62-0470 13:12-0400Body nkhnvi320.64 Jemal Johnsonemauniversity hospitals lake west medical centerhelene Work Phone: [facility]09-09-2025 13:12-0400 Body mass index (BMI) [Ratio]28.1 kg/m2Vesna Johnsonkathleen Work Phone: [facility]09-09-2025 13:12-0400 Body ykwvqldhlfy70.1 [degF]Vesna Aichholz Work Phone: [phone] [place], [place] 4272209-09-2025 13:12-0400 Body nqayvn44.03 kgLisa Aichholz Work Phone: 1([phone])713-[address] [place], [place] 4272209-09-2025 13:12-0400 Diastolic blood uxgnilol33 mm[Hg]Vesna Aichholz Work Phone: 1(595)509-[address] [place], [place] 4272209-09-2025 13:12-0400 Heart rate70 /minLisa Aichholz Work Phone: [phone]09-09-2025 13:12-0400 Respiratory rate18 /minLisa Aichholz Work Phone: [phone] [address]09-09-2025 13:12-0400 SaO2% (BldA) [Mass fraction]97 %Vesna Aichholz Work Phone: [phone]09-09-2025 13:12-0400 Systolic blood nimhpybp050 mm[Hg]Vesna Aichholz Work Phone: [phone] [address]06-24-2025 13:42-0400 Body mass index (BMI) [Ratio]27.89 kg/m2Lisa Aichholz SPORTS INFORMATION DIRECTOR Work Phone: [facility] RoadFoyrgllypb92-58-2394 13:42-0400Body temperature 98.1 [degF]Vesna Aichholz SPORTS INFORMATION DIRECTOR Work Phone: [facility] RoadNjozlnyuqx38-10-1116 13:42-0400Body tiwykt92.38 kgLisa Aichholz SPORTS INFORMATION DIRECTOR Work Phone: [facility] RoadVzfhsdmfpg32-95-3445 13:42-0400Diastolic blood aknkllgl69 mm[Hg]Vesna Aichholz SPORTS INFORMATION DIRECTOR Work Phone: [facility] RoadXwdywbtkrz11-37-4989 13:42-0400Heart rate71 /min Vesna Aichholz SPORTS INFORMATION DIRECTOR Work Phone: [facility] RoadJmvllsdcjs24-60-9404 13:42-0400Respiratory rate18 /minVesna Geiger SPORTS INFORMATION DIRECTOR Work Phone: [facility] RoadXsdoxuqzxy09-20-5956 13:42-8799OuO7% (BldA) [Mass fraction]98 %Vesna Geiger SPORTS INFORMATION DIRECTOR Work Phone: [facility] RoadVlvkxncvhn03-08-4123 13:42-0400Systolic blood aoqmizct758 mm[Hg]Vesna Geiger SPORTS INFORMATION DIRECTOR Work Phone: [phone] [place], [place] [address]Lhjvajkore38-46-8004 07:53-0400Body vhvevd523.64 Jemal Villedaz Work Phone: [phone])[address]06-16-2025 07:53-0400 Body ficezy45.83 kgDomoniquesa Gloriaz Work Phone: 1([phone])[address]05-19-2025 13:03-0400 Body mass index (BMI) [Ratio]28.54 kg/m2Vesna Geiger SPORTS INFORMATION DIRECTOR Work Phone: 1(172)652-[address] [place], [place] [address]Jfwxquaied38-85-9593 13:03-0400Body temperature 97.81 [degF]Vesna Geiger SPORTS INFORMATION DIRECTOR Work Phone: [facility] RoadEoezffocfs23-43-9600 13:03-0400Body .2 kg Vesna Geiger SPORTS INFORMATION DIRECTOR Work Phone: 1(171)488-[address] [place], [place] [address]Dsbccthkme65-70-0107 13:03-0400Diastolic blood rupsnqrb45 mm[Hg]Vesna Villedahelene SPORTS INFORMATION DIRECTOR Work Phone: [phone] [place], [place] [address]Kimaegkkqz28-52-2017 13:03-0400Heart rate70 /min Vesnacaleb Villedahelene SPORTS INFORMATION DIRECTOR Work Phone: [facility] RoadOljqvydker69-65-8477 13:03-0400Respiratory rate20 /minLisa Villedahelene SPORTS INFORMATION DIRECTOR Work Phone: [facility] RoadCwsmoizdvi70-96-2828 13:03-7649WjR5% (BldA) [Mass fraction]96 %Vesna Kimberlyholz SPORTS INFORMATION DIRECTOR Work Phone: [facility] RoadOajqpowbzi47-08-2780 13:03-0400Systolic blood rlemagdn195 mm[Hg]Vesna Alexhholz SPORTS INFORMATION DIRECTOR Work Phone: [facility] RoadSsxxhureca80-31-7791 10:19-0400Body ozumjh253.6 Priscillaisa Kimberlyholz SPORTS INFORMATION DIRECTOR Work Phone: [facility] RoadZeriusgbyy62-73-1698 10:19-0400Body mass index (BMI) [Ratio]29.86 kg/m2Lisa Kimberlyholz SPORTS INFORMATION DIRECTOR Work Phone: [place] [address]Kodpextowz19-46-0384 10:190400Body temperature 97.81 [degF]Vesna Kimberlyholz SPORTS INFORMATION DIRECTOR Work Phone: [facility] RoadKdzmyeuozh29-34-6052 10:040Body ecqfac71.92 kgLisa Kimberlyholz SPORTS INFORMATION DIRECTOR Work Phone: [facility] RoadHtxldysijj30-56-2714 10:19-0400Diastolic blood mm[Hg]Vesna Kimberlyholz SPORTS INFORMATION DIRECTOR Work Phone: 1(575)699-[address] [place], [place] [address]Aifgojstvo36-70-2854 10:19-0400Heart rate72 /min Vesna Kimberlyholz SPORTS INFORMATION DIRECTOR Work Phone: [facility] RoadCfrmtxqceo81-53-0531 10:0400Respiratory rate16 /minLisa Kimberlyholz SPORTS INFORMATION DIRECTOR Work Phone: [facility] RoadSpziodilhx19-90-9026 10:19-8298OsJ9% (BldA) [Mass fraction]96 %Vesna Alexhholz SPORTS INFORMATION DIRECTOR Work Phone: [place] [address]Pivmuxxxvo40-76-2872 10:19-0400Systolic blood ltpgoiot317 mm[Hg]Vsena Alexhholz SPORTS INFORMATION DIRECTOR Work Phone: [facility] RoadQdrbrzzddt68-57-8437 10:31-0500Body yihtye977.6 Priscillaisa Alexhholz SPORTS INFORMATION DIRECTOR Work Phone: 1(106)855-[address] [place], [place] [address]Udclijricj14-08-7826 10:31-0500Body mass index (BMI) [Ratio]29.28 kg/m2Vesna Geiger SPORTS INFORMATION DIRECTOR Work Phone: 1(814)004-[address] [place], [place] [address]Auauezqfei59-57-3336 10:31-0500Body temperature 97.81 [degF]Vesna Geiger SPORTS INFORMATION DIRECTOR Work Phone: 1(886)161-[address] [place], [place] [address]Zhaccfujyw07-49-6712 10:31-0500Body zyqvok17.28 kgVesna Geiger SPORTS INFORMATION DIRECTOR Work Phone: 1(806)745-[address] [place], [place] [address]Gioblfoimz46-19-9737 10:31-0500Diastolic blood oxqdzsdw26 mm[Hg]Vesna Villedaz SPORTS INFORMATION DIRECTOR Work Phone: 1(680)056-[address] [place], [place] [address]Kckouvvmlg30-71-5693 10:31-0500Heart rate67 /min Vesna Geiger SPORTS INFORMATION DIRECTOR Work Phone: 1(875)039-[address] [place], [place] [address]Ycyvvzohmj78-19-4323 10:31-0500Respiratory rate19 /minLisa Geiger SPORTS INFORMATION DIRECTOR Work Phone: 1([phone] [place], [place] [address]Jvcrxhzrsq47-01-7584 10:31-3312XrP5% (BldA) [Mass fraction]99 %Vesna Geiger SPORTS INFORMATION DIRECTOR Work Phone: [place] [address]Heqtzncbyy00-94-1068 10:31-0500Systolic blood fxcabjky345 mm[Hg]Vesna Geiger SPORTS INFORMATION DIRECTOR Work Phone: [place] [address]Imqyhhiqqw78-36-3925 11:04-0400Body agzect219.6 cmCoby Garcia DPM Work Phone: [place] [address]Rlvlkbyjaj97-98-2271 11:04-0400Body mass index (BMI) [Ratio]29.7 kg/n5CsgdtorCoby Gracia DPM Work Phone: [place] [address]Pjfsysahyb96-94-0854 11:04-0400Body kieovl77.46 kgCoby Grimese DPM Work Phone: [place] [address]Dxhpclsljo24-79-5250 08:47-0400Body zwrpoz012.6 cmCoby Garcia DPM Work Phone: [facility] HospitalKmyhvvzmsn72-25-9707 08:47-0400Body mass index (BMI) [Ratio]27.44 kg/j6PqeyegpCoby Garcia DPM Work Phone: NOChildren[facility] HospitalFfwiqqqsjs67-77-7550 08:47-0400Body uetlzx65.11 kgCoby Garcia DPM Work Phone: noMS Healthcare Encounters Encounter DateEncounter TypeCare ProviderFacilityStart: 11-18-2024 End: 15-46-8220xcoaryraovHouw J Aichholz Work Phone: [facility] Work Phone: Start: 11-18-2024 End: 42-69-7559Jbqrcdn encounter procedureVesna Geiger SPORTS INFORMATION DIRECTOR-C-FPG [facility] Work Phone: Start: 77-33-1061Kcwhdsj encounter procedureLisa Geiger Work Phone: [facility]: 09-02-2024 End: 64-80-1766Dvpcde flowsheetVesna Villedaz SPORTS INFORMATION DIRECTOR Work Phone: noms CWM FMStart: 09-02-2024 End: 27-21-6425Qdsfzv flowsheetLisa Geiger SPORTS INFORMATION DIRECTOR Work Phone: noms CWM FMStart: 09-02-2024 End: 97-50-4886Frofui outpatient visit 25 minutesLisa Juanjo SPORTS INFORMATION DIRECTOR Work Phone: noms CWM FMComment on above:Current mild episode of major depressive disorder without prior episode (Primary Dx); Postprandial RUQ pain; Small bowel lesion; Spondylolisthesis of lumbar region; KI (generalized anxiety disorder)Start: 09-02-2024 End: 82-85-6219dtibmzsgwtZWDW AICHHOLZNot AvailableStart: 08-25-2024 End: 54-38-4501Gblelde encounter procedureVesna Geiger SPORTS INFORMATION DIRECTOR-C-[facility] [place] Work Phone: Start: 08-25-2024 End: 52-21-3790cmkjvjvqrsFlcg J AichholzFacility:[facility] Hospitaltart: 08-07-2024 End: 50-63-1164Eglgwgr encounter procedureVesna Harriskathleen Work Phone: [facility] [place] Work Phone: Start: 08-07-2024 End: 26-88-9175Rihbpg OnlyVesna Geiger SPORTS INFORMATION DIRECTOR Work Phone: noms CWM FMComment on above:Postprandial RUQ pain (Primary Dx)Start: 07-28-2024 End: 76-42-0559Zcilfw flowsLoulou Harriskathleen SPORTS INFORMATION DIRECTOR Work Phone: noms CWM FMStart: 07-28-2024 End: 01-97-5927Jsmvfg flowsLoulou Villedahelene SPORTS INFORMATION DIRECTOR Work Phone: noms CWM FMStart: 07-28-2024 End: 24-07-1428yxyokdedxzPOAR ALEXEmaLARISAot AvailableStart: 07-28-2024 End: 30-77-3786Mhuqyj outpatient visit 25 minutesVesna Harriskathleen SPORTS INFORMATION DIRECTOR Work Phone: noms CWM FMComment on above:Postprandial RUQ pain (Primary Dx); Elevated blood pressure reading; Overweight (BMI 25.0-29.9); Spinal stenosis of lumbar region without neurogenic claudication; Spondylolisthesis of lumbar region; Small bowel lesionStart: 07-08-2024 End: 55-14-1978Zkbufn outpatient new 30 minutesNatalie A Felter PRINT DECORATOR-LABEL PINKER Work Phone: NOWD SWS DERMComment on above:Seborrheic keratosis; Melanocytic nevus of trunk; Stasis dermatitis of both legs; Herpesviral vesicular dermatitisStart: 07-08-2024 End: 47-04-8691aaothutptxBZHLGTZ A FELTERNot AvailableStart: 07-08-2024 End: 87-06-7470Ccosjx flowsheetNatalie A Felter PRINT DECORATOR-LABEL PINKER Work Phone: noms SWS DERMStart: 07-08-2024 End: 01-01-3380Nelohs flowsheetNatalie A Felter PRINT DECORATOR-LABEL PINKER Work Phone: noms SWS DERMStart: 06-24-2024 End: 04-09-7599Gxibsv flowsheetLisa Aichholz SPORTS INFORMATION DIRECTOR Work Phone: NOGC CWM FMStart: 06-24-2024 End: 55-86-9351Aalwnf flowsheetLisa Aichholz SPORTS INFORMATION DIRECTOR Work Phone: NOLG CWM FMStart: 06-24-2024 End: 95-83-0554Bpsdzm outpatient visit 25 minutesLisa Aichholz SPORTS INFORMATION DIRECTOR Work Phone: noms CWM FMComment on above:Neoplasm, uncertain whether benign or malignant (Primary Dx); Elevated blood pressure reading; Overweight (BMI 25.0-29.9)Start: 06-24-2024 End: 63-79-2134ugumsbcytaGHLV AICHHOLZNot AvailableStart: 02-05-2024 End: 79-77-5259Tylohbvzz Result EncounterLisa Aichholz SPORTS INFORMATION DIRECTOR Work Phone: noms External Department UnsolicitedStart: 02-05-2024 End: 05-40-8913Kvksndcmd Result EncounterLisa Aichholz SPORTS INFORMATION DIRECTOR Work Phone: noms External Department UnsolicitedStart: 01-28-2024 End: 09-26-9225Wxvkobhev Result EncounterLisa Aichholz SPORTS INFORMATION DIRECTOR Work Phone: noms External Department UnsolicitedStart: 01-28-2024 End: 02-63-4290Xfuiacimd Result EncounterLisa Aichholz SPORTS INFORMATION DIRECTOR Work Phone: noms External Department UnsolicitedStart: 01-28-2024 End: 48-38-5300Bcotrgx encounter procedureLisa Aichholz SPORTS INFORMATION DIRECTOR Work Phone: NOMS CWM FMComment on above:Encounter for subsequent annual wellness visit (AWV) in Medicare patient (Primary Dx); Migraine with aura and without status migrainosus, not intractable ([facility]); Encounter for screening mammogram for malignant neoplasm of breast; KI (generalized anxiety disorder) ([facility]); Menopause; Irritable bowel syndrome with diarrheaStart: 01-28-2024 End: 12-65-2222ankpyyqbrqJXGT [facility] HOSPITALAMANDAot AvailableStart: 01-08-2024 End: 85-56-7048Bazrzz flowsVenu Garcia DPM Work Phone: NOLC PODIATRYStart: 01-08-2024 End: 91-43-7949Bjzwjb flowsheetCoby Garcia DPM Work Phone: NODN PODIATRYStart: 01-08-2024 End: 27-56-0932ekpdepvcobUVHESGR W CLARKENot AvailableStart: 01-08-2024 End: 02-39-4192Xvxeou outpatient visit 15 minutesCoby Garcia DPM Work Phone: noms PODIATRYComment on above:Plantar fasciitis (Primary Dx); Gastrocnemius equinus of right lower extremity; Pain of right heelStart: 01-07-2024 End: 16-30-5267CioiijNgbl Alexkathleen SPORTS INFORMATION DIRECTOR Work Phone: NOHF CWM FMComment on above:Migraine with aura and without status migrainosus, not intractable ([facility])Start: 12-14-2023 End: 41-52-0239Nujhhz flowsVenu Garcia DPM Work Phone: NOKC PODIATRYStart: 12-14-2023 End: 82-85-6818Fbgjsi flowsheetJessvipul Garcia DPM Work Phone: NOMS PODIATRYStart: 12-14-2023 End: 16-03-6184Fuhsdo outpatient new 30 minutesSherifssvpiul Garcia DPM Work Phone: NOMS PODIATRYComment on above:Plantar fasciitis (Primary Dx); Gastrocnemius equinus of right lower extremity; Pain of right heelStart: 12-14-2023 End: 92-69-2614xayycecoglNSDNIZC Nik Jang AvailableStart: 01-20-2022 End: 34-16-3085tthdtypmngMMU VESNA GEIGERFacility:Q8Mavrt: 08-14-2021 End: 69-90-9346rxipbvnpkzYHM VESNA JUANJOFacility:Y0Padbs: 06-08-2021 End: 86-70-6161wghvkxyzkoNLY VESNA JUANJOFacility:Z4Usyvw: 09-10-2019 End: 47-75-0248Nkcshgx [facility] Start: 09-10-2019 End: 53-08-0250Mzjkhnvkqj hospital visit by physicianC[facility] MammographyComment on above:Menopausal stateBreast cancer screening by mammogram Procedures DateProcedureProcedure DetailPerforming ClinicianStart: 94-20-8374Bigjwpnhcsxw study of abdomenLisa Geiger Work Phone: Start: 66-60-4073BF scan of gallbladderLisa Juanjo Work Phone: Start: 42-44-9164K-ray of lumbar spine, four viewsVesna Geiger Work Phone: Start: 11-13-5954VzrlrvmzswxUaeg Juanjo SPORTS INFORMATION DIRECTOR Work Phone: Start: 60-83-6683BV TOMOSYNTHESIS SCREENING BILisa Juanjo SPORTS INFORMATION DIRECTOR Work Phone: Start: 04-73-6019QPH CBC WITH AUTO DIFFLisa Juanjo SPORTS INFORMATION DIRECTOR Work Phone: Start: 30-08-5268YPX CMP (CMP) (FOR REMOTE [facility] USE) Vesna Geiger SPORTS INFORMATION DIRECTOR Work Phone: Start: 82-27-4661CRW UA (CLEAN/CATCH) TEACHER COUNSELOR/MICRO IF IND.Vesna Geiger NP Work Phone: Start: 07-39-5109Dyrfo calcaneus minimum 2 views Coby Garcia DPM Work Phone: Start: 41-82-8410HpisvzwjljxPajjclr Clarke DPM Work Phone: Start: 91-39-8216Ticuybqfb mammography bi 2-view breast inc cadLISA ELMIRA PSYCHIATRIC CENTERKATHLEENStart: 23-14-5711Mam bone density study 1/> sites axial skelLISA ELMIRA PSYCHIATRIC CENTERKATHLEENStart: 53-35-2066Vbjptjnmx digital breast tomosynthesis Erickxavi CumminsMinesh Geiger Work Phone: Start: 08-54-6263Jkn bone density study 1/> sites axial Josie Nunez Juanjo Work Phone: Plan of Treatment DateCare ActivityDetailAuthorStart: 07-09-2025 End: 78-19-2769Chqyoib encounter procedureNOMS SWS DERMStart: 03-16-2025 End: 08-99-6749Qwugdvo encounter tusyibhsl66/05/2026 1:40 PM EST [facility] [address] [place] [phone] Derek Mendoza, ELIE-LABEL PINKER [address] [place] [address] [facility]ermatologyStart: 26-61-3122Ngnvsmidh for malignant neoplasm of breastMammogramNOSC Healthcare Start: 01-29-2025 End: 42-12-2474Uwkorqz encounter zgmkobakv41/20/2025 1:00 PM EST Office Visit [facility] [address] [place] [phone] Vesna Geiger, DIRK [address] [place] [address] NOMS CWM FMStart: 11-18-2025Medicare Annual Wellness (AWV) Medicare Annual Wellness (AWV)[facility] HealthcareStart: 81-74-8068Zufoibjjg for malignant neoplasm of colonNOMS HealthcareStart: 92-45-8231HWRAM-19 Vaccine ( season)COVID-19 Vaccine ( season)[facility] HealthcareStart: 76-91-0812Ifabcookw vaccinationNOMS HealthcareStart: 10-21-2024 End: 84-82-6007Yrgbtwg encounter yrudtckib14/12/2025 1:20 PM EDT Office Visit [facility] [address] [place] [address] Vesna Geiger NP [address] [place] [address] NOMS CW FMStart: 09-02-2024 End: 55-55-6440Davuqld encounter procedureNOMS [facility] FMComment on above: Postprandial RUQ pain (Primary Dx); Small bowel lesion; Spondylolisthesis of lumbar regionStart: 08-07-2024 End: 47-10-9748CU Gallbladder Views W cholecystokinin and W radionuclide IVNM hepatobiliary w cholecystokinin Imaging Routine Postprandial RUQ pain Expected: 08/07/2024 (Approximate), Expires: 08/07/2025[facility] Work Phone: Comment on above:Expected: 08/07/2024 (Approximate), Expires: 08/07/2025Start: 07-28-2024 End: 56-99-6076VN Small bowel Views W contrast POFL small bowel series Imaging Routine Small bowel lesion Expected: 07/28/2024, Expires: 07/28/2025[facility] HealthcareComment on above:Expected: 07/28/2024, Expires: 07/28/2025Start: 07-28-2024 End: 81-77-4904IT GallbladderUS gallbladder Imaging Routine Postprandial RUQ pain Expected: 07/28/2024, Expires: 07/28/2025[facility] HealthcareComment on above: Expected: 07/28/2024, Expires: 07/28/2025Start: 07-28-2024 End: 82-23-8584YV Lumbar spine Views W flexion and W extensionXR lumbar spine 4+ views w flexion extension Imaging Routine Spinal stenosis of lumbar region without neurogenic claudication Spondylolisthesis of lumbar region Expected: 07/28/2024 (Approximate), Expires: 07/28/2025[facility] Work Phone: Comment on above:Expected: 07/28/2024 (Approximate), Expires: 07/28/2025Start: 07-28-2024 End: 67-06-7315Tsdsxqt encounter qdwezyfaz39/19/2025 1:00 PM EDT Office Visit [facility] [address] [place] [phone] Vesna Geiger, DIRK [address] [place] [address] NOM[facility] CWM FMStart: 07-08-2024 End: 28-16-6045Cgeyxdw encounter rwedpfncd42/29/2025 3:35 PM EDT Office Visit [facility] [address] [place] [phone] Derek Mendoza, PRINT DECORATOR-LABEL PINKER [address] [place] [address] Neoplasm, uncertain whether benign or malignantNOMS SWS DERMComment on above:Neoplasm, uncertain whether benign or malignantStart: 06-24-2024 End: 30-22-4244Zsyvytr encounter yjnaoscjt75/15/2025 10:30 AM EDT Office Visit [facility] [address] [place] [address] Vesna Geiger, SPORTS INFORMATION DIRECTOR [address] [place] [phone] [facility] FMComment on above:ArrivedStart: 03-24-2024 Influenza vaccinationInfluenza Vaccine (#1)[facility] HealthcareComment on above: Postponed from 11/11/2023 (Patient Refused)Start: 02-28-2024 End: 14-87-6551Niyjahl encounter cgwvuowjt92/19/2024 4:15 PM EST Office Visit [facility] [address] [place] [phone] Coby Garcia, DPM [address] [place] [address] [facility]: 02-19-2024 End: 09-28-1560Iieglre encounter puznjdbwt24/10/2024 10:45 AM EST Office Visit [facility] [address] [place] [phone] Coby Garcia, DPM [address] [place] [address] [facility]: 01-28-2024 End: 75-25-0037CDV W Auto Differential panel - BloodCBC and differential Lab Routine Irritable bowel syndrome with diarrhea Expected: 01/28/2024 (Approx imate), Expires: 01/27/2025N[facility] HealthcareComment on above:Expected: 01/28/2024 (Approximate), Expires: 01/27/2025Start: 01-28-2024 End: 15-11-3552Fpmzjtkysdicy metabolic 2000 panel - Serum or PlasmaComprehensive metabolic panel Lab Routine Irritable bowel syndrome with diarrhea Expected: 01/28/2024 (Approximate), Expires: 01/27/2025[facility] HealthcareComment on above: Expected: 01/28/2024 (Approximate), Expires: 01/27/2025Start: 01-28-2024 End: 66-03-3295TOF Skeletal system Views for bone densityDEXA bone density Imaging Routine Menopause Expected: 01/28/2024 (Approximate), Expires: 01/27/2025[facility] HealthcareComment on above:Expected: 01/28/2024 (Approximate), Expires: 01/27/2025Start: 01-28-2024 End: 22-51-8914UE Breast - bilateral ScreeningBilateral screening mammogram Imaging Routine Encounter for screening mammogram for malignant neoplasm of breast Expected: 01/28/2024 (Approximate), Expires: 03/29/2025[facility] Work Phone: Comment on above:Expected: 01/28/2024 (Approximate), Expires: 03/29/2025Start: 01-28-2024 End: 20-42-0218Buimimbnfv complete panel - UrineUrinalysis with reflex microscopic (clean catch) Lab Routine Irritable bowel syndrome with diarrhea Expected: 01/28/2024 (Approximate), Expires: 01/27/2025[facility] HealthcareComment on above:Expected: 01/28/2024 (Approximate), Expires: 01/27/2025Start: 01-28-2024 End: 36-79-4533Drwzotf encounter bakbpgiht68/18/2024 10:30 AM EST Procedure Visit [facility] [address] [place] [address] Vesna Geiger, SPORTS INFORMATION DIRECTOR [address] [place] [address] [facility] FMStart: 77-36-6878Lieabsgaz for malignant neoplasm of breastMammogramNOSC HealthcareStart: 01-08-2024 End: 72-39-8422Ifsigpt encounter jeojflnrx44/29/2024 11:00 AM EDT Office Visit [facility] [address] [place] [phone] Coby Garcia, DPM [address] [place] [id number] [facility] PODIATRYStart: 12-14-2023 End: 46-22-2949Uhfzmqg encounter qplxkogds97/04/2024 9:00 AM EDT Office Visit [facility] [address] [place] [phone] Coby Garcia, DPM [address] [place] [address] ArrivedNORAY [facility] PODIATRYComment on above:ArrivedStart: 14-49-7736Bmirextpd vaccinationInfluenza Vaccine (#1)[facility] HealthcareStart: 12-33-5224Krohphqpp for malignant neoplasm of breastBreast cancer screenKettering Health [facility]: 50-62-8579JIgC/Tdap/Td Vaccines (2 - Td or Tdap)DTaP/Tdap/Td Vaccines (2 - Td or Tdap)[facility] HealthcareStart: 47-37-6894Xrvgdpehr vaccinationFlu vaccine (#1)[facility]: 55-25-4030Dcciis Wellness Visit (AWV)Annual Wellness Visit (AWV)[facility]: 71-07-6371Hwicwineylka 65+ years Vaccine (1 of 1 - PPSV23)Pneumococcal 65+ years Vaccine (1 of 1 - PPSV23)[place], [place] Start: 95-75-0727Bfokyqyng for malignant neoplasm of colonColon cancer screen colonoscopyK[facility]tering Health [facility]: 06-25-0485Leidowfi Vaccine (1 of 2) Shingles Vaccine (1 of 2)[facility]: 22-90-6900Tfxeb panelLipid [facility]: 23-71-5926SIjO/Tdap/Td vaccine (1 - Tdap) DTaP/Tdap/Td vaccine (1 - Tdap)[facility]: 50-00-9191Kumlglxxj C screeningHepatitis C [facility]: 03-24-1951Medicare Annual Wellness (AWV)Medicare Annual Wellness (AWV)[facility]: 1950 Screening for malignant neoplasm of colonNOMS HealthcareComprehensive metabolic 2000 panel - Serum or PlasmaBaptist Medical Center [facility] Immunizations Immunization DateImmunizationNotesCare YqwqdenoEmwbsocq46-61-5923vivbpjd toxoid, reduced diphtheria toxoid, and acellular pertussis vaccine, adsorbedLisa Aichholz SPORTS INFORMATION DIRECTOR Work Phone: NOChildren's Mercy HospitalHcuauojyyr78-14-2181phbknc vaccine recombinant Vesna Aichholz SPORTS INFORMATION DIRECTOR Work Phone: NODU Cvccefpgxu15-05-6285cylktdsfk, injectable, quadrivalent, preservative freeLisa Aichholz SPORTS INFORMATION DIRECTOR Work Phone: NOYT Onulyciotz76-58-7794jmbirf vaccine recombinant Vesna Aichholz SPORTS INFORMATION DIRECTOR Work Phone: noMS Ahqdcuqmac29-57-0924iengkajtx virus vaccine, unspecified formulationCoby Garcia DPM Work Phone: noms [facility] Payers DatePayer CategoryPayerPoly [id number]-pay2017MedicaidCIGNA MEDICARE ADVANTAGE [id number] 2017MedicareMEDICARE MEDICARE PART A AND B xxxxxxxxxxx 2016-Present [phone] [address] [address] [place], [id number]. [id number]2-2990Gupoxey Health Insurance1.2.840.877261.1.13.693.2.7.3.322359.87180-00-7031JgrnuytVGOKUVXM LONGTERM LIFE CIGNA MEDICARE SUPP xxxxxxxxxx 2016-Present [phone] [address] [address] [place], [place] [address]cmxjrfsjvt [id number] [id number] [id number] [id number] [id number] 2.16.840.1.186394.3.57[id number] 2.840.1.084736.3.57[id number] 2.16.840.1.879084.3.57[id number] 2.16.840.1.421162.3.57[id number] 2.16.840.1.078210.3.57[id number] 2.16.840.1.259919.3.57[id number] 2.16.840.1.488822.3.57[id number] 2.16.840.1.820804.3.57[id number] 2.16.840.1.571358.3.57[id number] 2.16840.1.904920.3.57[id number] 2..0.1.313018.3.57[id number] 2.16.840.1.034583.3.57[id number] 2.16.840.1.769682.3.57[id number] 2.16.840.1.8[id number] 2.16.840.1.965441.3.579.2.531 Social History DateTypeDetailFacilityTobacco smoking status NHISUnknown if ever smokedMooreland, [place]Start: 91-14-1488Uur Assigned At BirthNot on fileMooreland, KYExposure to SARS-CoV-2 (event)Unable to assessMooreland, KYStart: 91-83-4062Okekfik smoking status NHISNever smoked tobaccoNOMS HealthcareStart: 20-21-3182Gnbnkuw use and exposureSmokeless tobacco non-userNOMS Healthcare Start: 12-14-2023 End: 99-55-5585Jzwxhluax beverage intakeCurrent drinker of alcohol (finding)[facility] HealthcareStart: 12-14-2023 End: 40-46-7767Ebltqpk of Social functionNOMS HealthcareStart: 12-14-2023 End: 12-12-9437Jnebnqz use panelNOMS HealthcareStart: 21-26-3561Yuxuars Comment rareNOMS HealthcareTobacco smoking status NHISTobacco smoking consumption unknownNOMS HealthcareStart: 10-89-4551QjbIgzbaq (finding)[facility] Hospitaltart: 94-58-2585Ifh Assigned At BirthMetroHealth Main Campus Medical Centertart: 66-45-2559WvdOxwgyoPJSM Healthcare Clinical Notes 10-04-2024 to 09-02-2024 Note Date & AfrnZmunQdstwilm41-45-8321 History of Present illness Narrative* Vesna Geiger NP - 09/02/2024 3:31 PM EDTAssociated Problem(s): KI (generalized anxiety disorder) Will start fluoxetine * Vesna Geiger NP - 09/02/2024 3:31 PM EDTAssociated Problem(s): Current mild episode of major depressive [...] Please contact the office if these occur. * Vesna Geiger NP - 09/02/2024 1:40 PM EDT Images from the original note were not included. Olinda Singh is a 74 y.o. female presents with chief complaint of Follow-up HPI: Here to review lumbar xray as well as GBUS/HIDA Would also like to talk about depression : no SI/HI/hallucinations[place] [facility]. Feels lonely, lack of interest [...] No stones on US HIDA EF 16% (6) Offered Gen Surgeon evaluation, pt declined at [...] Relevant Medications FLUoxetine (PROzac) 10 MG capsule * Vesna Geiger NP - 09/02/2024 6:51 AM EDTAssociated Problem(s): Spondylolisthesis of lumbar region Noted on plain film xray 09/03 Reviewed plain films Will likely need neurosurgeon Wants to wait until fall Advised of red flag sxs to monitor for * Vesna Geiger NP - 09/02/2024 6:50 AM EDTAssociated Problem(s): Small bowel lesion See CT report from 07/13/24 Fu xray WNL * Vesna Geiger NP - 09/02/2024 6:49 AM EDTAssociated Problem(s): Elevated blood pressure reading Home reads reviewed, average 130/80's Read today in office w home device accurate At this point I will hold on any meds May have some degree of elevation in office setting only Continue checking home reads * Vesna Geiger NP - 09/02/2024 6:49 AM EDTAssociated Problem(s): Postprandial RUQ pain No stones on US HIDA EF 16% (6/) Offered Gen Surgeon evaluation, pt declined at this time Will re visit in fall Recommend freq small meals, avoid spicy/fatty/greasy foods documented in this [facility]06-24-2025 Instructions* Patient Instructions* Vesna Geiger NP - 09/02/2024 1:40 PM [...] office if these occur. documented in this [facility]05-29-2025 Radiology Diagnostic study [facility] [address] [place] [address] Ultrasound Report Signed Patient: Olinda Singh MR#: [id number] 05 : 1950 Acct:[id number] Age/Sex: 74 / F ADM Date: 5 Loc: Room: Type: [facility] Attending Dr: Vesna Geiger Ordering Provider: DK [...] Soni M.D. 08/07/2024 9:00 AM Dictation Location: [place] [address] Tech: Tawana Murillo Transcribed By: [facility] 08/07/24 0900 Dictated By: Chava Soni DO 08/07/24 0859 Signed By: 08/07/24 0900 [facility]05-19-2025 History of Present illness Narrative * Vesna Geiger NP - 07/28/2024 4:45 PM EDTAssociated Problem(s): Small bowel lesion See CT report from 07/13/24 * Vesna Geiger NP - 07/28/2024 4:17 PM EDTAssociated Problem(s): Spondylolisthesis of lumbar region Check xray flex/ext * Vesna Geiger NP - 07/28/2024 4:16 PM EDTAssociated Problem(s): Spinal stenosis of lumbar region without neurogenic claudication Consider MRI lumbar spine Check lumbar spine xray * Vesna Geiger NP - 07/28/2024 4:15 PM EDTAssociated Problem(s): Postprandial RUQ pain Will check US * Vesna Geiger NP - 07/28/2024 4:15 PM EDTAssociated Problem(s): Elevated blood pressure reading Home reads reviewed, average 130/80's Read today in office w home device accurate At this point I will hold on any meds May have some degree of elevation in office setting only Continue checking home reads * AHSAN MELÉNDEZ - 07/28/2024 1:00 PM EDT Pt brought in BP cuff device: Left arm 154/96 70 * Vesna Geiger NP - 07/28/2024 1:00 PM EDT Images from the original note were not included. Olinda Singh is a 74 y.o. female presents with chief complaint of No chief complaint on file. HPI: Here for ER fu: seen at [facility] er on 07/13/24 for right flank [...] no dysruia Blood pressure reads: see list domxdbv463/80's SUBJECTIVE: MEDICATIONS: Current Outpatient Medications Medication Instructions [...] pain. Negative for blood in stool, constipation, diarrhea,nausea and vomiting. Genitourinary: Negative for difficulty urinating, [...] [place] small bowel series documented in this encounterSaint [facility] [id number] Instructions* Patient Instructions* Vesna Geiger NP - 07/28/2024 1:00 PM [...] avoid high fat meals documented in this encounterSaint [facility]Barry [id number] History of Present illness Narrative* Derek Mendoza, ELIE-KASHIF - 07/08/2024 3:35 PM EDT Skin Check Location: Patient requests a full [...] - Anterior, Right Lower Leg - Anterior Rock patches in areas of edema The patient was informed that stasis dermatitis is a chronic rash on the lower legs due to swellingoften caused by poor circulation. The patient was instructed to keep the legs elevated when seated,avoid standing for long periods of time, and [...] informed that treatment with an anti-viral medication takenat the first sign of an outbreak can shorten the outbreak and relieve symptoms. If occurrences are frequent, an anti-viral medication taken daily may be beneficial. Patient declines oral treatment today Next Visit: 1 year documented in this encounterSaint Luke's [facility] Hospital[facility]Barry RoadOwzanpoigr04-88-3936 History of Present illness Narrative* Vesna Geiger NP - 06/24/2024 10:42 AM EDTAssociated Problem(s): Overweight (BMI 25.0-29.9) Has gained 15 pounds in the last 6 months Was working out, now not, and is eating salty foods * Vesna Geiger NP - 06/24/2024 10:41 AM EDTAssociated Problem(s): Neoplasm, uncertain whether benign or malignant Will refer to dermatology for evaluation * Vesna Geiger NP - 06/24/2024 10:41 AM EDTAssociated Problem(s): Elevated blood pressure reading Please check blood pressure daily and record DASH diet Limit caffeine, NSAIDS and decongestants Fu in 4-6 weeks with log of BP and bring machine Has gained 15 pounds in last 6 months * Vesna Geiger NP - 06/24/2024 10:30 AM EDT Images from the original note were not [...] is eating salty foods documented in this encounterSaint Luke's [facility] Hospital[facility]Barry [id number] Instructions* Patient Instructions* Vesna Geiger NP - 06/24/2024 10:30 AM EDT Check blood pressures once a day and record DASH diet documented in this [facility]11-18-2024 History of Present illness Narrative* Vesna Geiger NP - 01/28/2024 11:16 AM ESTAssociated Problem(s): Migraine with aura and without status migrainosus, not intractable ([facility]) Cont triptan prn * Vesna Geiger NP - 01/28/2024 11:16 AM ESTAssociated Problem(s): Menopause Check dexa * Vesna Geiger NP - 01/28/2024 11:15 AM ESTAssociated Problem(s): KI (generalized anxiety disorder) ([facility]) Feels she is doing better since [place] now [place] [facility] [place] for [place] Dementia * Vesna Geiger NP - 01/28/2024 11:15 AM ESTAssociated Problem(s): Encounter for screening mammogram for malignant neoplasm of breast Check mammogram wants [facility] * Vesna Geiger NP - 01/28/2024 11:13 AM ESTAssociated Problem(s): Irritable bowel syndrome with diarrhea Hoping with less stressors she will have improvement in her symptoms Does require a refill for hydrocortisone cream for when she has rectal irritation when she has flare ups of diarrhea * Vesna Geiger NP - 01/28/2024 10:30 AM EST Images from the original note were not [...] [place], dentist: dr Floyd, and sees a mental health social worker, Ortho Dr Trujillo if Kj HCPOA/Living Will: [...] Negative for abdominal pain, blood in stool, constipation,nausea and vomiting. Genitourinary: Negative for difficulty urinating, [...] without status migrainosus, not intractable ([facility]) Cont triptan prn Encounter for subsequent annual wellness visit (AWV) in Medicare patient - Primary Reviewed Ht/Wt/BMI Recommend eye exam yearly Recommend dental exams twice a year Balance work/leisure activities Exercises is recommended most days of the week (appropriate as chronic conditions allow) Follow up yearly and prn Encounter for screening mammogram for malignant neoplasm of breast Check mammogram wants [facility] Relevant Orders Bilateral screening mammogram KI (generalized anxiety disorder) ([facility]) Feels she is doing better since is now [place] [facility] [place] for [place] Dementia Menopause Check dexa [...] differential Urinalysis with reflex microscopic (clean catch) * Vesna Geiger NP - 01/28/2024 6:54 AM ESTAssociated Problem(s): Encounter for subsequent annual wellness visit (AWV) in Medicare patient Reviewed Ht/Wt/BMI Recommend eye exam yearly Recommend dental exams twice a year Balance work/leisure activities Exercises is recommended most days of the week (appropriate as chronic conditions allow) Follow up yearly and prn documented in this encounterSaint Luke's North Hospital–Barry [id number] History of Present illness Narrative* Coby Garcia DPM - 01/08/2024 11:00 AM EDT Images from the original note were not included. Subjective Patient ID: Olinda Singh is a 73 y.o. female who presents for Follow-up (Pt returns today for FUV Plantar fasciitis Rt foot, she states still very sore by the end of the day. She is stretching and itdoes help a little, she purchased new shoes at [employer] /SS: 9.5W ). HPI Patient presents for follow up of right plantar fasciitis. She states since her last visit she has been wearing supportive shoe gear, power step inserts, stretching multiple times a day, icing in theevenings, continues to take Advil. She states she [...] extended and improves with knee flexed. STJ ROMWNL. MUSCLE STRENGTH: 5/5 for all quadrants without [...] understanding. Coby Garcia DPM documented in this encounterSaint Luke's North Hospital–Barry [id number] History of Present illness Narrative* oCby Garcia DPM - 12/14/2023 9:00 AM EDT Images from the original note were not included. Subjective Patient ID: Olinda Singh is a 73 y.o. female who presents for Heel Pain (Pt prsentd today with Rt heel pain, has been painful for about 1mo, NKI. Feels like a nail stabbing. Most painful for her whenshe is up on her feet. Most bothersome [...] tried Advil and changing shoes. She typically wearstennis shoes she has from [employer]s running Review of Systems Medications Current Outpatient [...] extended and improves with knee flexed. STJ ROMWNL. MUSCLE STRENGTH: 5/5 for all quadrants without [...] pain cycle of plantar fasciitis. Stress the importanceof good supportive tie shoes. Advise no flip flops, slippers nor bare feet. Explain the anatomy of the plantar fascia, equinus, and heel spurs. Demonstrate stretching exercises and give handout for the same. Also advise icing therapy. Patient tried Powerstep orthotics and will take them; they felt comfortable. Reviewed break in period. Offered Rx of NSAID versus oral steroid taper. Patient statesshe would like to start with OTC Advil [...] understanding. Coby Garcia DPM documented in this encounterJ[facility] HealthcareEvaluation note* Diagnosis Plantar fasciitis- Primary Plantar fascial fibromatosis Gastrocnemius equinus of right lower extremity Pain of right heel [facility]Evaluation [facility]* Diagnosis Migraine with aura and without status migrainosus, not intractable ([facility]) documented in this encounter [facility] HealthcareEvaluation note* Diagnosis Encounter for subsequent annual wellness visit (AWV) in Medicare patient- Primary Migraine with aura and without status migrainosus, not intractable ([facility]) Encounter for screening mammogram for malignant neoplasm of breast KI (generalized anxiety disorder) ([facility]) Generalized anxiety disorder Menopause Symptomatic menopausal or female climacteric states Irritable bowel syndrome with diarrhea Irritable bowel syndrome documented in this encounter [facility] HealthcareEvaluation note* Diagnosis Encounter for subsequent annual wellness visit (AWV) in Medicare patient- Primary Migraine with aura and without status migrainosus, not intractable ([facility]) Encounter for screening mammogram for malignant neoplasm of breast KI (generalized anxiety disorder) ([facility]) Generalized anxiety disorder Menopause Symptomatic menopausal or female climacteric states Irritable bowel syndrome with diarrhea Irritable bowel syndrome Neoplasm, uncertain whether benign or malignant- Primary Elevated blood pressure reading Elevated blood pressure reading without diagnosis of hypertension Overweight (BMI 25.0-29.9) Overweight documented in this encounter [facility] HealthcareEvaluation note* Diagnosis Encounter for subsequent annual wellness visit (AWV) in Medicare patient- Primary Migraine with aura and without status migrainosus, not intractable ([facility]) Encounter for screening mammogram for malignant neoplasm of breast KI (generalized anxiety disorder) ([facility]) Generalized anxiety disorder Menopause Symptomatic menopausal or [...] dermatitis Dermatitis herpetiformis documented in this encounter [facility] HealthcareEvaluation note* Diagnosis Encounter for subsequent annual wellness visit (AWV) in Medicare patient- Primary Migraine with aura and without status migrainosus, not intractable ([facility]) Encounter for screening mammogram for malignant neoplasm of breast KI (generalized anxiety disorder) ([facility]) Generalized anxiety disorder Menopause Symptomatic menopausal or [...] Small bowel lesion documented in this encounter [facility] HealthcareEvaluation note* Diagnosis Encounter for subsequent annual wellness visit (AWV) in Medicare patient- Primary Migraine with aura and without status migrainosus, not intractable ([facility]) Encounter for screening mammogram for malignant neoplasm of breast KI (generalized anxiety disorder) ([facility]) Generalized anxiety disorder Menopause Symptomatic menopausal or [...] RUQ pain- Primary documented in this encounter [facility] HealthcareEvaluation noteNo assessment information availableAvita Health System [facility] Work Phone: Evaluation note* Diagnosis Encounter [...] Resolution Status Admit Date Colon cancer screening acuteSept2024 1:02pmCurrent mild episode of major depressive disorder acuteSept2024 1:02pmGAD (generalized anxiety disorder)acuteSept2024 1:02pmMigraine with aura and without status migrainosus, not intractableacuteSept2024 1:02pm [facility] Work Phone: Reason for referral (narrative)No reason for referral information availableBrown Memorial Hospital Work Phone: Reason for Referral StatusReasonSpecialtyDiagnoses / ProceduresReferred By ContactReferred To ContactOpenRadiology Diagnoses Menopausal state Procedures DEXA BONE DENSITY AXIAL SKELETON Vesna Geiger [address] [place] [address] StatusReasonSpecialtyDiagnoses / ProceduresReferred By ContactReferred To ContactPending ReviewRadiology Diagnoses Breast cancer screening by mammogram Procedures LENO DIGITAL SCREEN W OR WO CAD BILATERAL Vesna Geiger [address] [place] [address] Assessments Diagnosis Menopausal state Symptomatic menopausal or female climacteric states Diagnosis Breast cancer screening by mammogram Advance Directives TypeDate RecordedPatient RepresentativeExplanationAdvance Directives and Living WillPower of Medical Office Representative Advance Directive Response Recorded Date/ Time Advance [...] 2024 1:02pm KI (generalized anxiety disorder) Tamiko portilloobed 2024 1:02pm Migraine with aura and witho ut status migrainosus, not intractable November 18, 2024 1:02pm Additional Source Comments Reason for Visit (unrecogniz ed section and content) StatusReasonSpecialtyDiagnoses / ProceduresReferred By ContactReferred To ContactOpenRadiology Diagnoses Asymptomatic menopausal state Procedures HC DEXA AXIAL SKELETON Vesna Geiger [address] [place] [address] [address] StatusReasonSpecialtyDiagnoses / ProceduresReferred By ContactReferred To ContactOpenRadiology Diagnoses Encounter for screening mammogram for malignant neoplasm of breast Procedures HC MAMMOGRAM DIGITAL SCREEN BILAT Vesna Geiger [address] [facility] [place] [address] [address] ReasonCommentsHeel PainPt prsentd today with Rt heel pain, has been painful for about 1mo, NKI. Feels like a nail stabbing. Most painful for her when she is up on her feet. Most bothersome first thing in the morning. SS: 9.5WideReasonOnset DateCommentsMed Lndwan034ReasonCommentsFollow-upPt returns today for FUV Plantar fasciitis Rt foot, she states still very sore by the end of the day. She is stretching and it does help a little, she purchased new shoes at [employer] SS: 9.5WReasonCommentsMedicare Annual Wellness Visit InitialReasonCommentsSkin Check Suspicious Skin LesionSpecialtyDiagnoses / ProceduresReferred By ContactReferred To ContactDermatology Diagnoses Neoplasm, uncertain whether benign or malignant Procedures AL OFFICE/OUTPATIENT NEW HIGH MDM 60 MINUTES Vesna Geiger NP [address] [place] [address] Phone: tel: fax: Derek Mendoza, PRINT DECORATOR-LABEL PINKER [address] [place] [address] Phone: tel: fax: Referral IDStatusReasonStart DateExpiration DateVisits RequestedVisits [id number] Required [id number]-nr INFORMATION SOURCE (unrecogn ized section and content) DATE CREATED AUTHOR 10/02/2019 [facility] DATE CREATED AUTHOR AUTHOR'S ORGANIZ ATION 04/24/2021 [facility] DATE CREATED AUTHOR AUTHOR'S ORGANIZ ATION 01/23/2022 [facility] DATE CREATED AUTHOR AUTHOR'S ORGANIZ ATION 09/03/2024 [facility] DATE CREATED AUTHOR AUTHOR'S ORGANIZ ATION 09/22/2024 [facility] Care Teams (unrecognized sec tion and content) Team MemberRelationshipSpecialtyStart DateEnd Date Nick Lane MD [address] [place] [address] PCP - GeneralFamily Lfstwchm15/4/24 Vesna Geiger NP [address] [place] [address] Referring PhysicianNurse Practitioner10/06/22Team MemberRelationshipSpecialty Start DateEnd Date Nick Lane MD [address] [place] [address] PCP - GeneralFamily Cvjpmref57/4/24 Vesna Geiger NP [address] [place] [address] Referring PhysicianNurse Practitioner10/06/22am MemberRelationshipSpecialty Start DateEnd Date Nick Lane MD [address] [place] [address] PCP - GeneralFamily Oevrnxam27/4/24 Vesna Geiger NP [address] [place] [address] Referring PhysicianNurse Practitioner10/06/22 MemberRelationshipSpecialty Start DateEnd Date Nick Lane MD [address] [place] [address] [facility] - [facility] Yzvlxtsq44/4/24 Vesna Geiger, DIKR [address] [place] [address] Referring PhysicianNurse Practitioner10/06/22 MemberRelationshipSpecialty Start DateEnd Date Nick Lane MD [address] [place] [address] PCP - GeneralFamily Pyzsxvvb43/4/24 Vesna Geiger NP [address] [place] [address] Referring PhysicianNurse Practitioner10/06/22am MemberRelationshipSpecialty Start DateEnd Date Nick Lane MD [address] [place] [address] PCP - GeneralFamily Ibdbbals02/4/24 Vesna Geiger NP [address] [place] [address] PCP - [facility] Reach04/18/24 Vesna Geiger NP [address] [place] [address] Referring PhysicianNurse Practitioner10/06/22Team MemberRelationshipSpecialty Start DateEnd Date Nick Lane MD [address] [place] [address] PCP - Generalmily Cjvnkqim63/4/24 Vesna Geiger NP [address] [place] [address] PCP - [facility] Reach04/18/24 Vesna Geiger NP [address] [place] [address] Referring PhysicianNurse Practitioner10/06/22Team MemberRelationshipSpecialty Start DateEnd Date Nick Lane MD [address] [place] [address] PCP - GeneralFami Ljzgkwiu69/4/24 Vesna Geiger NP [address] [place] [address] PCP - [facility] Reach04/18/24 Vesna Geiger NP [address] [place] [address] Referring PhysicianNurse Practitioner10/06/22Team MemberRelationshipSpecialty Start DateEnd Date Nick Lane MD [address] [place] [address] [facility] - [facility] Sqjkbumg42/4/24 Vesna Geiger NP [address] [place] [address] PCP - [facility] Reach04/18/24 Vesna Geiger NP [address] [place] [address] Referring PhysicianNurse Practitioner10/06/22Team MemberRelationshipSpecialty Start DateEnd Date Nick Lane MD [address] [place] [address] [facility] - [facility] Pghjtzuv84/4/24 Vesna Geiger NP [address] [place] [address] PCP - [facility] Reach04/18/24 Vesna Geiger NP [address] [place] [address] Referring PhysicianNurse Practitioner10/06/22Team MemberRelationshipSpecialty Start DateEnd Date Nick Lane MD [address] [place] [address] PCP - [facility] Zfvruthn01/4/24 Vesna Geiger NP [address] [place] [address] PCP - [facility] Reach04/18/24 Vesna Geiger NP [address] [place] [address] Referring PhysicianNurse Practitioner10/06/22Team MemberRelationshipSpecialty Start DateEnd Date Nick Lane MD [address] [place] [address] PCP - [facility]12/14/23 Vesna Geiger NP [address] [place] [address] [facility]04/18/24 Vesna Geiger NP [address] [place] [address] Referring PhysicianNurse Practitioner10/06/22 Team Status: Active Member Role Status Dates Vesna Geiger Primary Care Provider Active Team Status: Inactive Member Role Status Dates Vesna Geiger Primary Care Provide r, Attending Provider Active Start: August 07, 2024 End: August 07, 2024Team MemberRelationshipSpecialtyStart DateEnd Date Nick Lane MD [address] [place] [address] [facility] - [facility] Zdosdiak15/4/24 Vesna Geiger NP [address] [place] [address] PCP - [facility] Reach04/18/24 Vesna Geiger NP [address] [place] [address] Referring PhysicianNurse Practitioner10/06/22Team MemberRelationshipSpecialty Start DateEnd Date Nick Lane MD [address] [place] [address] PCP - [facility] Nhtqasls53/4/24 Vesna Geiger NP [address] [place] [address] PCP - [facility] Re[facility]04/18/24 Vesna Geiger NP [address] [place] [address] Referring PhysicianNurse Practitioner10/06/22 Team Status: Inactive Member Role Status Dates Vesna Geiger Primary Care Provider Active Sta rt: August 25, 2024 End: August 25, 2024Vesna Gonzalez ProviderActiveStart: August 25, 2024 End: August 25, 2024 Team Status: Inactive Member Role Status Dates Vesna Geiger Primary Care Provider Active Sta rt: November 18, 2024 End: November 18, 2024Vesna Gonzalez ProviderActiveStart: November 18, 2024 End: November 18, 2024Team MemberRelationshipSpecialtyStart DateEnd Date Nick Lane MD PCP - GeneralFamily Cafphttm97/4/24 Vesna Geiger NP [address] [place] [address] PCP - [facility] Reach Vesna Geiger NP Referring PhysicianNurse Practitioner10/06/22 Goals (unrecognized section and content) Goals may [...] BE BASED ON THE PRIMARY CLINICAL RECORDS. [employer] provides no warranty or guarantee of the accuracy or completeness of information in this document.
--- NOTE | 2025-02-19 13:39 | MM_ITS ---
Patient Name: OLINDA SINGH MR#: [id number] : 1950 Exam Date: 02/19/2025 Ordering Doctor: KASHIF ISAACS CNP RADIOLOGY REPORT PROCEDURE: MM TOMOSYNTHESIS SCREENING BI COMPARISON: MM TOMOSYNTHESIS SCREENING BI, 02/05/2024. MM TOMOSYNTHESIS SCREENING BI, 01/25/2023. MG MAMM SCREEN 3D ESTEPHANIE CAD, 01/20/2022. MG MAMM SCREEN ESTEPHANIE W CAD, 07/11/2018. INDICATIONS: Screening Calculator Name NCI Breast Cancer Risk Assessment Tool 5 Year Breast Cancer Risk 2.20% Lifetime Breast Cancer Risk 5.40% Personal Breast Cancer No Personal Ovarian Cancer No Treatments None Family Cancers None LOCATION: [facility] BREAST COMPOSITION: The breasts are heterogeneously dense, which may obscure small masses. FINDINGS: RIGHT BREAST: No significant suspicious finding. LEFT BREAST: Focal asymmetry in the central portion of the left breast. DIAGNOSTIC CATEGORY 0--INCOMPLETE: NEED ADDITIONAL IMAGING EVALUATION. RECOMMENDATIONS: ADDITIONAL MAMMOGRAPHIC VIEWS REQUIRED: LEFT BREAST -spot compression imaging ULTRASOUND: LEFT BREAST Dictated by: Chava Soni DO on 02/19/2025 at 15:06 Approved by: Chava Soni DO on 02/19/2025 at 15:13
[2025-02-19 13:46] LABS: Hematocrit 37.3 % (36.0-48.0); Hemoglobin 12.2 g/dL (12.0-16.0); Immature Granulocytes Abs Auto 0.02 10^3/uL (0.00-0.03); Immature Granulocytes Pct Auto 0.3 % (0.0-0.5); Lymphocytes Absolute Auto 2.1 10^3/uL (1.2-3.8); Mean Corpuscular HGB Conc 32.7 g/dL (29.9-35.2); Mean Corpuscular Hemoglobin 29.3 pg (26.7-34.0); Mean Corpuscular Volume 89.7 fL (81.0-99.0); Platelet Count 295 10^3/uL (150-450); Red Blood Count 4.16 10^6/uL (4.20-5.40); White Blood Count 7.1 10^3/uL (4.0-11.0)
[2025-02-19 14:13] LABS: Glucose Urine UA NEGATIVE (NEGATIVE)
[2025-02-19 14:29] LABS: Cast Seen? NONE SEEN #/LPF (NONE SEEN); Crystals Seen? None Seen #/HPF (None Seen); Urine Culture Indicated NO
[2025-02-19 15:32] LABS: Alanine Aminotransferase 32 U/L (14-59); Albumin Globulin Ratio 1.0; Albumin Level 3.9 g/dL (3.4-5.0); Alkaline Phosphatase 78 U/L (46-116); Anion Gap 9.3; Aspartate Amino Transferase 24 U/L (15-37); Blood Urea Nitrogen 16.0 mg/dL (7.0-18.0); Calcium 9.3 mg/dL (8.5-10.1); Carbon Dioxide 31.3 mmol/L (21.0-32.0); Chloride 102 mmol/L (98-107); Estimated GFR (African America >60 (>=60 mL/min/1.73m^2); Estimated GFR (Non-African Ame >60 (>=60 mL/min/1.73m^2); Globulin 3.9 g/dL; Glucose 99 mg/dL (74-106); Potassium 3.6 mmol/L (3.5-5.1); Sodium 139 mmol/L (136-145); Thyroid Stimulating Hormone 2.189 uIU/mL (0.358-3.740); Total Protein 7.8 g/dL (6.4-8.2)
[2025-02-19 15:45] LABS: Iron 64.0 ug/dL (50.0-170.0); Percent Iron Saturation 16.8 %; Total Iron Binding Capacity 380.0 ug/dL (250.0-450.0)
[2025-02-19 15:57] LABS: Ferritin 46.0 ng/mL (8.0-252.0)
[2025-02-20 04:07] LABS: Vitamin B12 544 pg/mL (232-1245)
[2025-02-20 08:09] LABS: Transferrin 306 mg/dL (192-364)
== END 2025-02-19 13:22 | disposition home or self-care (01) ==
LOC: MAMMO 13:22
PROVIDERS: PCP Nurse Practitioner; Visit Provider Nurse Practitioner
DX: Z12.31 Encounter for screening mammogram for malignant neoplasm of breast (principal); Z78.0 Asymptomatic menopausal state; D50.9 Iron deficiency anemia, unspecified; K58.0 Irritable bowel syndrome with diarrhea; F41.1 Generalized anxiety disorder; F32.0 Major depressive disorder, single episode, mild; R92.8 Other abnormal and inconclusive findings on diagnostic imaging of breast
CPT/HCPCS: 36415; 77063; 77067; 77080; 80053; 81001; 82607; 82728; 83540; 83550; 84443; 84466; 85025

== ENCOUNTER 2025-03-10 13:12 | Outpatient (OUT) | payer MEDICARE, OTHER, SELFPAY ==
--- OUTSIDE RECORDS SUMMARY | 2025-03-10 13:15 | XMS_ITS | Clinical Summary ---
Author Organization [facility] Address [id number] [address] [place] [address] Care Team Providers Care Aerobics Teacher Name Role Phone Lisa, Jania Primary Care Provider Unavailabl e Allergies Active AllergyReactionsCriticalityNoted FpwnZvudyedgHyvgmoohkgq98/29/2021ulfa (Sulfonamide Antibiotics)04/09/2020 Medications MedicationSigDispense QuantityRefillsLast FilledStart DateEnd DateStatus rizatriptan (MAXALT) 5 mg tablet Take 5 mg by mouth once as needed for migraine. May repeat in 2 hours if unresolved. Do not exceed 30 mg in 24 hours.Active Immunizations ImmunizationAdministration DatesNext KxhNpok5204/09/2020 Social History Tobacco UseTypesPacks/DayYears UsedDateSmoking Tobacco: NeverSmokeless Tobacco: NeverAlcohol UseStandard Drinks/WeekCommentsYes0 (1 standard drink = 0.6 oz pure alcohol)ChildcareAnswerDate CruwangjIjjjzerotKkiugeh22/29/2021EmploymentAnswer Date PeljdctdTznwcylxlbXauhsdi79/29/2021Purpose - LifeAnswerDate RecordedPurpose and direction in jdhcLvdbtft09/29/2021CommentsUnknownSex and Gender InformationValueDate RecordedSex Assigned at BirthNot on fileLegal SexFemale 10/15/2014 11:26 AM EDTGender IdentityNot on fileSexual OrientationNot on file Last Filed Vital Signs Vital SignReadingTime TakenCommentsBlood Zxnajyim718/9204/09/2020 9:58 AM EST Pgqpa751104/09/2020 9:58 AM POAXgibjjrihzc67.9 ??C (98.5 ??F)04/09/2020 9:58 AM ESTRespiratory Vasp017604/09/2020 9:58 AM ESTOxygen Rhuaiewuaq22%04/09/2020 9:58 AM ESTInhaled Oxygen Concentration--Hduacj03.3 kg (155 lb)04/09/2020 9:58 AM EST Kwwwoj575.6 cm (5' 6 )04/09/2020 9:58 AM ESTBody Mass Index25.02004/09/2020 9:58 AM EST Plan of Treatment Health MaintenanceDue DateLast DoneCommentsDepression Uroccbnpg51/24/1964Tobacco Unphzscsw18/24/1964Adult BMI Ywkehlgbc69/24/1970Fall Risk Sapfdrdsq95/24/2017 Influenza Tbpikij31RSV ( or age 60+ yrs) (1 - 1-dose 75+ series)06/02/2026DTaP,Tdap and Td Vaccines (2 - Td or Tdap)04/09/2030 04/09/2020Zoster (Shingles) ItvwyxsTxwpgimeo48/28/2020, 12/29/2019 Medical Devices Not on file Insurance [place] [id number] Care Teams Team MemberRelationshipSpecialtyStart DateEnd Date Jania Gonzalez PCP - GeneralPhysical Therapy04/09/20
--- OUTSIDE RECORDS SUMMARY | 2025-03-10 13:15 | XMS_ITS | Clinical Summary ---
Author Organization [facility] Address [address] [place] [address] Care Team Providers Care Office Mover Name Role Phone Vesna Geiger NP Unavailable [phone] Nick Davison MD Primary Care Provider [phone] Allergies Active AllergyReactionsCriticalityNoted DateCommentsPenicillin SEhpou9405/01/2023 Sulfamethoxazole-FjpxbqvlfkzeMupih57/20/2024 Medications MedicationSigDispense QuantityRefillsLast FilledStart DateEnd DateStatus rizatriptan (Maxalt) 10 MG tablet Indications:Migraine with aura and without status migrainosus, not intractable May take 1 at onset of a migraine SZYMANSKI, repeat in 2 hours if needed. No more than 2 pills in 24 hours, no more than twice a week 9 tablet 4Active Additional Information Patient taking differently: 5 mg Once as needed, migraine, May take 1 at onset of a migraine SZYMANSKI, repeat in 2 hours if needed. No more than 2 pills in 24 hours, no more than twice a week, Reported on 01/28/2024 FLUoxetine (PROzac) 10 MG capsule Indications:KI (generalized anxiety disorder),Current mild episode of major depressive disorder without prior episodeTake 1 capsule (10 mg) by mouth Daily 30 capsule 5Active Active Problems ProblemNoted DateDiagnosed DateCurrent mild episode of major depressive disorder without prior sdihymo0109/02/2024 Assessment & Plan (09/02/2024 3:31 PM EDT): [...] the office if these occur. Postprandial RUQ pain07/28/2024 Assessment & Plan (09/02/2024 3:30 PM EDT): No stones on US HIDA EF 16% (6/25) Offered Gen Surgeon evaluation, pt declined at this time Will re visit in fall Recommend freq small meals, avoid spicy/fatty/greasy foods Assessment & Plan (07/28/2024 4:15 PM EDT): Will check US Spinal stenosis of lumbar region without neurogenic gjpogyhssoxv49/19/2025 Assessment & Plan (07/28/2024 4:16 PM EDT): Consider MRI lumbar spine Check lumbar spine xray Spondylolisthesis of lumbar khjbdg4107/28/2024 Assessment & Plan (09/02/2024 3:31 PM EDT): Noted on plain film xray 09/03 Reviewed plain films Will likely need neurosurgeon Wants to wait until fall Advised of red flag sxs to monitor for Assessment & Plan (07/28/2024 4:17 PM EDT): Check xray flex/ext Small bowel abuqjw3907/28/2024 Assessment & Plan (09/02/2024 6:50 AM EDT): See CT report from 07/13/24 Fu xray WNL Assessment & Plan (07/28/2024 4:45 PM EDT): See CT report from 07/13/24 Elevated blood pressure wzwokee6706/24/2024 Assessment & Plan (09/02/2024 6:49 AM EDT): [...] 6 months Neoplasm, uncertain whether benign or dlqgjlggi80/15/2025 Assessment & Plan (06/24/2024 10:41 AM EDT): Will refer to dermatology for evaluation Overweight (BMI 25.0-29.9)06/24/2024 Assessment & Plan (06/24/2024 10:42 AM EDT): Has gained 15 pounds in the last 6 months Was working out, now not, and is eating salty foods Encounter for subsequent annual wellness visit (AWV) in Medicare patient 01/28/2024 Assessment & Plan (01/28/2024 6:54 AM EST): Reviewed Ht/Wt/BMI Recommend eye exam yearly Recommend dental exams twice a year Balance work/leisure activities Exercises is recommended most days of the week (appropriate as chronic conditions allow) Follow up yearly and prn Encounter for screening mammogram for malignant neoplasm of kqezkp9501/28/2024 Assessment & Plan (01/28/2024 11:15 AM EST): Check mammogram wants TB[facility] KI (generalized anxiety disorder)01/28/2024 Assessment & Plan (09/02/2024 3:31 PM EDT): Will start fluoxetine Assessment & Plan (01/28/2024 11:15 AM EST): Feels she is doing better since is now placed in residential for Lewey Body Dementia Jhrlkwwix97/18/2024 Assessment & Plan (01/28/2024 11:16 AM EST): Check dexa Irritable bowel syndrome with imywvleh86/18/2024 Assessment & Plan (01/28/2024 11:15 AM EST): Hoping with less stressors she will have improvement in her symptoms Does require a refill for hydrocortisone cream for when she has rectal irritation when she has flare ups of diarrhea Deep dyspareunia in bzcmng9001/28/2024Vaginal polyp01/28/2024Migraine with aura and without status migrainosus, not dpissesmfth26/20/2024 Assessment & Plan (01/28/2024 11:16 AM EST): Cont triptan prn Park's neuroma of second interspace of left foot05/01/2023eripheral neuritis of left foot05/01/2023 Resolved Problems ProblemNoted DateDiagnosed DateResolved DateIrritable bowel syndrome with both constipation and jaqatdcg05 Immunizations ImmunizationAdministration DatesNext DueInfluenza, injectable, quadrivalent, preservative free12/29/2019Tdap04/09/2020Zoster, Cubrledkavn31/28/2020, 12/29/2019 Family History Medical HistoryRelationNameCommentsHypertensionMotherRelationNameStatusComments Mother Social History Tobacco UseTypesPacks/DayYears UsedDateSmoking Tobacco: NeverSmokeless Tobacco: Never Tobacco Cessation:Counseling Given: Not Answered Alcohol UseStandard Drinks/WeekCommentsYes0 (1 standard drink = 0.6 oz pure alcohol)rarePHQ-2AnswerDate RecordedPatient Health Questionnaire-2 Score1 4CommentsUnknownSex and Gender InformationValueDate RecordedSex Assigned at BirthNot on fileLegal YmxPhutrn10/15/2023 8:00 PM EDTGender Identity Not on fileSexual OrientationNot on file Last Filed Vital Signs Vital SignReadingTime TakenCommentsBlood Melwmcxy562/8806/ 1:42 PM EDT Dzckl009809/02/2024 1:42 PM JGUMutpozarjyq98.7 ??C (98.1 ??F)09/02/2024 1:42 PM EDTRespiratory Qzho561609/02/2024 1:42 PM EDTOxygen Hztrwjyrlp09%09/02/2024 1:42 PM EDTInhaled Oxygen Concentration--Lqdlca77.4 kg (172 lb 12.8 oz)09/02/2024 1:42 PM SGUZpunwm287.6 cm (5' 6 )06/24/2024 10:19 AM EDTBody Mass Index27.89 06/24/2024 10:19 AM EDT Plan of Treatment DateTypeDepartmentCare Team (Latest Contact Info)Nthfdyodvqq14/05/2026 1:40 PM ESTOffice Visit [facility] [address] [place] [address] Nanci Mendoza STAY CUTTER-SPINDLE FRAME CARVER [address] [place] [address] 07/09/2025 2:05 PM EDTOffice Visit [facility] [address] [place] [address] Nanci Mendoza, STAY CUTTER[employer]SPINDLE FRAME CARVER [address] [place] [address] Health MaintenanceDue DateLast DoneCommentsCT Schyidcyyzzm00/24/1951Colonoscopy 1950FIT1950FOBT1950 6449Bbqgfbuyzexlb33/24/1951Influenza Vaccine (#1)51Colorectal Cancer Exhdjgvkx54/10/2025FIT-DNA12/19/2024 12/19/2021, 12/19/2021, 02/25/2018, Additional history lajfuaVsszaikfx30/27/2025 02/06/2024, 02/05/2024, 01/26/2023, Additional history existsPneumococcal Vaccine: 65+ OqmuyQwlzlhzce14/01/2017 Procedures Procedure NamePriorityDate/TimeAssociated DiagnosisCommentsBI MAMMOGRAM SCREENING TOMOSYNTHESIS MYXEYJOSWXusdoxk08/27/2024 7:43 AM ESTLAB COLOGUARD?? COLON CANCER VXIEMNPaopqly57/17/2018 from Last 3 Months or Most Recently Relevant to Health Maintenance Results * Bilateral screening mammogram with tomosynthesis (02/06/2024 7:43 AM EST) Anatomical RegionLateralityModalityBreastBilateralMammography Narrative Authorizing ProviderResult TypeResult StatusLisa Aicnew [facility] NPIMG BI PROCEDURES Final Result * Cologuard?? colon cancer screening (02/25/2018)ComponentValueRef RangeTest MethodAnalysis TimePerformed AtPathologist SignatureCOLOGUARD RESULT REPORTABLENegativeNot ApplicableNOMS LEGACY EXTERNAL LABComment: A negative result indicates a low likelihood [...] (Sharon Barclay al, N Engl J Med 2014;370(14):0000-7584) ?? COLOGUARD RE-SCREENING RECOMMENDATION: Periodic routine colorectal cancer screening is an important part of preventive healthcare for asymptomatic persons at average risk for colorectal cancer. ??Following a negative Cologuard result, the [place] Cancer Society and U.S. Multi-Society Task Force screening guidelines recommend a Cologuard re-screening interval of 3 years. ??References: [place] [employer] Society (ACS). Colorectal cancer prevention and early detection. [place], [place]: [place] [employer] Society; [updated 2015Jul 03]. https://www.cancer.org/cancer/co bsl-ofjelp-yujghg/ybmudimiu-uzcngjycb-kuphsbb/acs-recommendations.html. Accessed November 09, 2017; Ck DK, Elle CR, Christina CumminsK, Colorectal Cancer Screening: Recommendations for Physicians and Patients from the U.S. Multi-Society Task Force on Colorectal Cancer Screening, Am J Gastroenterology 2017; 112:0518-2767. Test Type: Composite algorithmic analysis of stool DNA-biomarkers with hemoglobin immunoassay. ?? Quantitative values of individual biomarkers are not [...] can be accessed at the following location: www.[facility]/results. ??Additional description of the Cologuard test process, warnings and precautions can be found at www.cologuardtest.com. Rx Only. Specimen (Source)Anatomical Location / LateralityCollection Method / Volume Collection TimeReceived Time02/25/2018 Narrative Authorizing ProviderResult TypeResult StatusHeather Joseph [facility] ORDERABLESFinal ResultPerforming OrganizationAddressCity/State/ZIP CodePhone Number [facility] from Last 3 Months or Most Recently Relevant to Health Maintenance Insurance Care Teams Team MemberRelationshipSpecialtyStart DateEnd Nick Davison MD PCP - GeneralFamily Bzkzrwmp30/4/24 Vesna Geiger NP Referring PhysicianNurse Practitioner10/06/22
--- OUTSIDE RECORDS SUMMARY | 2025-03-10 13:15 | XMS_ITS | Clinical Summary ---
Author Organization [facility] Address [address], [address] [place] [address] Care Team Providers Care Stone Cleaner Name Role Phone Unavailable Primary Care Provider Unavailabl e Social History Tobacco UseTypesPacks/DayYears UsedDateSmoking Tobacco: Never Assessed CommentsUnknownSex and Gender InformationValueDate RecordedSex Assigned at Not on fileLegal MmbShzguu09/10/2017 10:39 AM EDTGender IdentityNot on file Sexual OrientationNot on file Plan of Treatment Not on file Insurance [address] [place] [address]
--- NOTE | 2025-03-10 13:16 | MM_ITS ---
Patient Name: OLINDA SINGH MR#: [id number] : 1950 Exam Date: 03/10/2025 Ordering Doctor: KASHIF ISAACS CNP RADIOLOGY REPORT PROCEDURE: MM TOMOSYNTHESIS DIAGNOSTIC LT, 03/10/2025, 13:25 US BREAST LT LIMITED, 03/10/2025, 14:30 COMPARISON: MM TOMOSYNTHESIS SCREENING BI, 02/19/2025. MM TOMOSYNTHESIS SCREENING BI, 02/05/2024. MM TOMOSYNTHESIS SCREENING BI, 01/25/2023. MG MAMM SCREEN 3D ESTEPHANIE CAD, 01/20/2022. INDICATIONS: Abnormality Of Left Breast Mammogram Calculator Name NCI Breast Cancer Risk Assessment Tool 5 Year Breast Cancer Risk 2.20% Lifetime Breast Cancer Risk 5.40% Personal Breast Cancer No Personal Ovarian Cancer No Treatments None Family Cancers None LOCATION: [facility] BREAST COMPOSITION: The breasts are heterogeneously dense, which may obscure small masses. FINDINGS: Spot compression imaging demonstrates residual density without discrete nodule. Ultrasound of the left breast obtained in the retro areolar region. No nodule identified. Numerous dilated ducts identified. No ductal nodule identified. The debris present. DIAGNOSTIC CATEGORY 3--PROBABLY BENIGN FINDING. THE FOLLOWING FINDING(S) HAS A HIGH PROBABILITY OF A BENIGN ETIOLOGY: RECOMMENDATIONS: SHORT TERM FOLLOW-UP DIAGNOSTIC MAMMOGRAM LEFT BREAST IN 6 MONTHS. SHORT TERM FOLLOW-UP ULTRASOUND LEFT BREAST IN 6 MONTHS. Dictated by: Chava Soni DO on 03/10/2025 at 15:31 Approved by: Chava Soni DO on 03/10/2025 at 15:39
--- OUTSIDE RECORDS SUMMARY | 2025-03-10 13:26 | XMS_ITS | CCD ---
Author Organization [facility] [place] [facility] Care Team Providers Care Child Care Attendant School Name Role Phone Unavailable Primary Care Provider Unavailabl e JUANJO VESNA J. Referring Unavailable AICHHOLZ, VESNA J. Referring Unavailable AICHHOLZ, PRINTING SIGN MACHINE OPERATOR VESNA Primary Care Unavailable NYDIA BOX Admitting Unavailable NYDIA BOX Attending Unavailable ELIAS, DR DAVEY Consulting Unavailable AICHHOLZ, PRINTING SIGN MACHINE OPERATOR VESNA Admitting Unavailable AICHHOLZ, PRINTING SIGN MACHINE OPERATOR VESNA Attending Unavailable AICHHOLZ, PRINTING SIGN MACHINE OPERATOR VESNA Primary Care Unavailable DR LOUISE GALLAGHER V Consulting Unavailable AICHHOLZ, PRINTING SIGN MACHINE OPERATOR VESNA Consulting Unavailable AICHHOLZ, PRINTING SIGN MACHINE OPERATOR VESNA Primary Care Unavailable FRANCISCO JAVIER LANIER Consulting Unavailable DR LUCAS HOLDEN Admitting Unavailable NAVIN, DR LUCAS Palmer Attending Unavailable PETAR CUMMINGS Consulting Unavailable Aichholz ALUMINUM CAN COLLECTOR, Vesna Unavailable Nick Lane MD Primary Care Provider Aichkathleen ALUMINUM CAN COLLECTOR, Vesna Unavailable Juanjo Vesna Maria G Primary Care Provider [phone] Vesna Geiger Attending Provider [phone] JUANJO VESNA Attending Unavailable DEREK MENDOZA Attending Unavailable AICHHOLZ, VESNA Referring Unavailable COBY GARCIA Attending Unavailable NICK LANE Referring Unavailable COBY GARCIA Referring Unavailable AICHHOLZ, VESNA Attending Unavailable GLORIAZ, VESNA Attending Unavailable COBY GARCIA Attending Unavailable ALEXHHOLZ, VESNA Attending Unavailable Aichholz, Vesna J Attending Unavailable Aichholz, Vesna J Admitting Unavailable Aichholz, Vesna J Primary Care Unavailable Aicjesus, Vesna J Attending Unavailable Alexhadalbertoz, Vesna J Admitting Unavailable Aichholz, Vesna J Primary Care Unavailable Aichholz, Vesna J Primary Care Provider Vesna Geiger Attending Provider [phone] Juanjo CAVAZOS, Vesna Unavailable Nick Lane MD Primary Care Provider [phone] Juanjo CAVAZOS, Vesna Unavailable Allergies Allergy ClassificationReported Allergen(s)Allergy TypeDate of OnsetReaction(s) Facility (1 source)GlutenDrug allergy (disorder)[facility] Repository (1 source)PenicillinDrug AllergyThe [facility]ository (1 source)Sulfamethoxazole / TrimethoprimDrug AllergyThe [facility] (1 source)Sulfonamides (Antibiotic)Drug allergy (disorder)[facility] Repository (20 sources)Penicillin GDrug Jalnjhq95-60-0163WeqfqLFNB Healthcare Work Phone: (20 sources)Sulfamethoxazole / TrimethoprimDrug Vxfqxnh40-80-4287XvpuwZKYH Healthcare (1 source)PenicillinDrug Ymntaqz03-83-0579ScdsgiqpjBarberton Citizens Hospital Repository (2 sources)SulfamethoxazoleDrug Vmdivoj81-09-1282OefulDldbnsykcSt. Charles Hospital Repository (2 sources)TrimethoprimDrug Nddhiim76-84-1442KpcrwPpueiondnSt. Charles Hospital Repository Medications Current Medications MedicationDrug Class(es)DatesSig (Normalized)Sig (Original)FLUoxetine 10 mg oral capsule (3 sources)Serotonin Reuptake InhibitorStart: 42-65-3401flav 1 capsule by mouth once dailyFluoxetine 10 mg capsule Active 10 MG PO Daily November 18, 2024 12:00am Complies with drug therapyStart: 09-02-2024 End: 62-77-5299dibw 1 capsule by mouth once dailyFLUoxetine (PROzac) 10 MG capsule Indications: KI (generalized anxiety disorder) , Current mild episode of major depressive disorder without prior episode Take 1 capsule (10 mg) by mouth Daily 30 capsule 1 09/02/2024 10/02/2024 Activehydrocortisone 25 mg/ml topical cream (5 sources)CorticosteroidStart: 01-28-2024 End: 36-77-5230vqfjsxdpwsqtrt 2.5 % cream Indications: Irritable bowel syndrome with diarrhea Apply 1 application topically 2 (two) times a day as needed for irritation for up to 14 days 30 g 01/28/2024 02/11/2024 Activerizatriptan 10 mg oral tablet (20 sources)Serotonin-1b and Serotonin-1d Receptor AgonistStart: 05-01-2023 End: 53-90-0828Sivzgaifklb 10 mg tablet Active 10 MG PO Every 2 hours as needed November 18, 2024 12:00am take 1at onset of migraine SZYMANSKI, may repeat in 2 hours if needed. no more than 2 pills in 24 hours, no morethan twice a week Complies with drug therapy Problems Active Problems Problem ClassificationProblemDateDocumented DateEpisodic/ChronicAnxiety disorders (20 sources)Generalized anxiety disorder; Translations: [Generalized anxiety disorder]Onset: 488865-22-7152YiifwegSfzyuqws; including migraine (20 sources)Migraine with aura; Translations: [Migraine with aura, not intractable, without status migrainosus]Onset: 093903-42-1193Useysxa Menopausal disorders (1 source)Menopausal syndrome; Translations: [Menopausal state]ChronicMood disorders (7 sources)Mild major depression, single episode; Translations: [Major depressive disorder, single episode, mild]Onset: hronic Other and unspecified benign neoplasm (2 sources)Melanocytic nevus of trunk; Translations: [Melanocytic nevi of trunk] 07-40-9793DzezyhsjZmloo connective tissue disease (4 sources)Plantar fasciitis; Translations: [Plantar fascial fibromatosis] 77-01-6448RhbcekhoVnjcm connective tissue disease (4 sources)Deformity of lower limb; Translations: [Contracture of muscle, right lower leg]14-92-1239CaezlcouNxpdt connective tissue disease (4 sources)Pain in right heel; Translations: [Pain in right foot]12-14-2023 EpisodicOther diseases of veins and lymphatics (2 sources)Disorder of vein of lower extremity; Translations: [Venous insufficiency (chronic) (peripheral)]09-17-5966FbbkgliwTltcn female genital disorders (17 sources)Female deep pain on intercourse; Translations: [Deep dyspareunia] Onset: 993559-09-2871UjwvilySaglz female genital disorders (1 source)Pain in female genitalia on intercourse; Translations: [Unspecified dyspareunia]90-84-9661TwzeptePhbsq gastrointestinal disorders (20 sources)Irritable bowel syndrome with diarrhea; Translations: [Irritable bowel syndrome with diarrhea]Onset: 994961-51-2591KyxyytnPuqmw nervous system disorders (20 sources)Mortons neuroma of left foot; Translations: [Lesion of plantar nerve, left lower limb]Onset: 292428-39-3276FyjxrwfIxdzf nervous system disorders (20 sources)Left foot neuritis; Translations: [Unspecified mononeuropathy of left lower limb]Onset: 582498-49-1803GiormhqOazwb skin disorders (2 sources)Seborrheic keratosis; Translations: [Other seborrheic keratosis] 53-07-8425ZdujtdwoMmpzkhdqddbt (1 source)Patient encounter status; Translations: [Breast cancer screening by mammogram]Viral infection (2 sources)Herpesviral vesicular dermatitis; Translations: [Herpesviral vesicular dermatitis]22-47-7644Xokwzhtf Past or Other Problems Problem ClassificationProblemDateDocumented DateEpisodic/ChronicAbdominal pain (15 sources)Right upper quadrant pain; Translations: [Right upper quadrant pain] Onset: 192466-11-6983KoirvlveLcputrtk injury or internal injury (1 source)Crushing injury of left thumb, initial encounter; Translations: [CRUSHING INJURY OF LT THUMB INITIAL]Onset: 16-41-8038TbeyyaxrJ Codes: Cut/pierceb (1 source)Contact with other sharp object(s), not elsewhere classified, initial encounter; Translations: [[facility] OT SHRP OB NOT ELSW CLASS INI]Onset: 08-16-2021 EpisodicE Codes: Struck by; against (1 source)Striking against or struck by other objects, initial encounter; Translations: [STRIKING AGNST/STRUCK OT OBJ INIT]Onset: 96-80-0113JuuzxbkkCcmf disorders (17 sources)Mood disordersOnset: 055411-89-0126Sxojnqres of unspecified nature or uncertain behavior (17 sources)Neoplastic disease of uncertain behavior; Translations: [Neoplasm of uncertain behavior, unspecified]Onset: 747132-44-5330JfmowhdpCbcu wounds of extremities (4 sources)Laceration without foreign body, right lower leg, initial encounter; Translations: [LACERATION W/O FB RT LOW LEG INIT]Onset: 25-50-7892VlvobpioPgnxl acquired deformities (12 sources)Lumbar spondylolisthesis; Translations: [Spondylolisthesis, lumbar region]Onset: 626998-78-4931CkeaeqxkMfnlx circulatory disease (17 sources)Elevated blood pressure; Translations: [Elevated blood-pressure reading, without diagnosis of hypertension]Onset: 151894-33-9129Xsbredxo Other connective tissue disease (3 sources)Pain in left finger(s); Translations: [PAIN IN LEFT FINGERS]Onset: 08-61-2952XkpnkpwhEtitu female genital disorders (18 sources)Polyp of vagina; Translations: [Polyp of vagina]Onset: 01-28-2024 99-26-4574VrqithnoDoofn gastrointestinal disorders (17 sources)Irritable bowel syndrome; Translations: [Mixed irritable bowel syndrome]Onset: 01-28-2024 Resolved: 105389-11-0286LvrnvytXddia gastrointestinal disorders (12 sources)Disorder of small intestine; Translations: [Disease of intestine, unspecified]Onset: 563892-61-8245GxxgqthxKpnci nutritional; endocrine; and metabolic disorders (17 sources)Body mass index 25-29 - overweight; Translations: [Overweight]Onset: 641362-43-6076BfuyxxsdGvsjr screening for suspected conditions (not mental disorders or infectious disease) (20 sources)Encounter for screening mammogram for malignant neoplasm of breast; Translations: [Patient encounter status]Onset: 73-80-5448CapdeyzsWxztsloe codes; unclassified (20 sources)Menopause present; Translations: [Asymptomatic menopausal state] Onset: 358753-85-0851QyohljcrIspbwmltjmm; intervertebral disc disorders; other back problems (10 sources)Spinal stenosis of lumbar region; Translations: [Spinal stenosis, lumbar region without neurogenic claudication]Onset: EpisodicSprains and strains (1 source)Unspecified sprain of left thumb, initial encounter; Translations: [UNSPECIFIED SPRAIN LT THUMB INITIAL]Onset: 95-84-8744Qzozhqxy Results Test NameValueInterpretationReference RangeFacilityKY hepatobiliary w pharmon 94-38-9337YJ hepatobiliary w pharmPREMIER HE[facility] [place] [place] [address] Nuclear Medicine Report Signed Patient: Olinda Singh MR#: [id number] : 1950 Acct:[id number] Age/Sex: 74 / F ADM Date: 08/25/24 Loc: [place] Room: Type: [facility] Attending Dr: Vesna Geiger Copies to: Brian Ibarra Jr, DO Lisa J Aichholz, NP-C Ordering Provider: DK Stafford Date of Service: 08/25/24 [place] hepatobiliary w pharm: RUQ PAIN HIDA SCAN [...] is 16%. Normal is greater than 40%. [place] hepatobiliary w pharm IMPRESSION: ABNORMAL GALLBLADDER EJECTION FRACTION SUSPICIOUS FOR BILIARY DYSKINESIA. Impression dictated by: Brian Ibarra Jr., D.O. 08/25/2024 10:29 AM Dictation Location: [place] [address] Transcribed By: [facility] 08/25/24 1029 Dictated By: Brian Ibarra Jr, DO 08/25/24 1028 Signed By: 08/25/24 1029[facility] Physician [facility] CenterFL small bowel follow throughon 18-87-1653LR small bowel follow throughPREMIER HEALTH MI[facility] Main [place] [address] [place] [address] Fluoroscopy Report Signed Patient: Olinda Singh MR#: [id number] : 1950 Acct:[id number] Age/Sex: 74 / F ADM Date: 08/07/24 Loc: Room: Type: [facility] Attending Dr: Vesna Geiger Copies to: DK Stafford Ordering Provider: DK Stafford Date of Service: 08/07/24 [place] small bowel follow through: K63.9 [place] small bowel follow through 08/07/2024 7:47 AM SIGNS AND SYMPTOMS: Epigastric pain, possible internal hernia on recent abdomen pelvis CT. PROTOCOL: Master Carpenter radiographs of the abdomen and pelvis were [...] Moon M.D. 08/07/2024 10:38 AM Dictation Location: [place] [address] Transcribed By: [facility] 08/07/24 1038 Dictated By: Lucas Moon II, MD 08/07/24 1035 Signed By: 08/07/24 1038[facility] Physician GroupFluoroscopy reportOrdered By: Lucas Moon on 05-82-7051TF Unspecified body region [facility] Main [address] [address] Fluoroscopy Report Signed Patient: Olinda Singh MR#: [id number] 05 : 1950 Acct:[id number] Age/Sex: 74 / F ADM Date: Loc: Room: Type: [facility] Attending Dr: Vesna Geiger Copies to: DK Stafford~ Ordering Provider: DK Stafford Date of Service: 08/07/24 [place] small bowel follow through: K63.9 [place] small bowel follow through 08/07/2024 7:47 AM SIGNS AND SYMPTOMS: Epigastric pain, possible internal hernia on recent abdomen pelvis CT. PROTOCOL: Master Carpenter radiographs of the abdomen and pelvis were [...] Moon M.D. 08/07/2024 10:38 AM Dictation Location: [place] [address] Transcribed By: [facility] 08/07/24 1038 Dictated By: Lucas Moon II, MD 08/07/24 1035 Signed By: 08/07/24 1038 [facility] Work Phone: us gall bladderon 30-62-8037DT gall bladderPREMIER HEALTH [facility]I [facility] Main [address] [address] Ultrasound Report Signed Patient: Olinda Singh MR#: [id number] : 1950 Acct:[id number] Age/Sex: 74 / F ADM Date: 08/07/24 Loc: [place] Room: Type: [facility] CLI Attending Dr: Vesna Geiger Ordering Provider: [...] Soni M.D. 08/07/2024 9:00 AM Dictation Location: [place] [address] Tech: Tawana Murillo Transcribed By: PREMA 08/07/24 0900 Dictated By: Chava Soni DO 08/07/24 0859 Signed By: 08/07/24 0900[facility] Physician GroupX-ray reportOrdered By: Loraine Rawls on 37-83-9728Bnohc reportPREMIER HEALTH MIAMI VALLEY [facility] Main [place] [address] [place] [address] XRay Report Signed Patient: Olinda Singh MR#: [id number] 05 : 1950 Acct:[id number] Age/Sex: 74 / F ADM Date: 5 Loc: Room: Type: [facility] CLI Attending Dr: Vesna Geiger Copies [...] Rawls M.D. 08/07/2024 10:26 AM Dictation Location: [place] [address] Transcribed By: [facility] 08/07/24 1026 Dictated By: Loraine Rawls MD 08/07/24 1003 Signed By: 08/07/24 [facility]6 [facility] Work Phone: XR lumbar spine AP/LAT/FLX/EXTon 46-49-4949RL lumbar spine AP/LAT/FLX/EXTPREMIER HEALTH [place]I [place] [address] XRay Report Signed Patient: Olinda Singh MR#: [id number] : 1950 Acct:[id number] Age/Sex: 74 / F ADM Date: 08/07/24 Loc: Room: Type: [facility] Attending Dr: Vesna Geiger Copies to: [...] Rawls M.D. 08/07/2024 10:26 AM Dictation Location: [place] [address] Transcribed By: [facility] 08/07/24 1026 Dictated By: Loraine Rawls MD 08/07/24 1003 Signed By: 08/07/24 [facility] Physician Group TOMOSYNTHESIS SCREENING [facility] 33-[place], [place] [address] Mammography Report Signed Patient: OLINDA SINGH MR#: [id number] : 1950 Acct:[id number] Age/Sex: 73 / F ADM Date: 02/05/24 Loc: MAMMO Attending Dr: Vesna Geiger NP Ordering Physician: Vesna Geiger NP Results: Date of Service: 02/05/24 Follow Up: Procedure(s): MM tomosynthesis screening BI Accession Number(s): [id number] cc: Vesna Geiger NP Patient Name: OLINDA SINGH MR#: [id number] : 1950 Exam Date: 02/05/2024 Ordering Doctor: [...] Treatments None Family Cancers None LOCATION: [facility] BREAST COMPOSITION: The breasts are heterogeneously [...] Signed By: 02/05/24 1538 DD/ 1537 TD/TT: Sap Consultant:TBHRadiology, Radiologist, MD - 02/05/2024 [place] [address] Mammography Report Signed Patient: OLINDA SINGH MR#: [id number] : 1950 Acct:[id number] Age/Sex: 73 / F ADM Date: 02/05/24 Loc: MAMMO Attending Dr: Vesna Geiger NP Ordering Physician: Vesna Geiger NP Results: Date of Service: 02/05/24 Follow Up: Procedure(s): MM tomosynthesis screening BI Accession Number(s): [id number] cc: Vesna Geiger NP Patient Name: OLINDA SINGH MR#: [id number] : 1950 Exam Date: 02/05/2024 Ordering Doctor: [...] Treatments None Family Cancers None LOCATION: [facility] BREAST COMPOSITION: The breasts are heterogeneously [...] Signed By: 02/05/24 1538 DD/ 1537 TD/TT: Sap Consultant: [facility] CenterRadiology Study observation (narrative)[facility] TOMOSYNTHESIS SCREENING BIOrdered By: Radiologist Radiology on 93-97-2567HWOWSSM Saint Mary's Health Center Work Phone: aLL CBC WITH AUTO DIFFon 90-10-6876CBASQGQJF ABSOLUTE AUTO0.1NOMS HealthcareBasophils/100 WBC (Bld)0.9 %0.2 - 2.0 %[facility] Eosinophils/100 WBC (Bld)3.3 %0.9 - 7.0 %[facility] CenterErythrocyte distribution width (RBC) [Ratio]13.2 %11.0 - 15.0 %[facility] CenterHematocrit (Bld) [Volume fraction]37 %36.0 - 48.0 %[facility] CenterHemoglobin (Bld) [Mass/Vol]12.1 g/dL 12.0 - 16.0 g/dLSSM Saint Mary's Health CenterIMMATURE GRANULOCYTES ABS AUTO0.01NOChildren[facility] Immature granulocytes/100 WBC (Bld)0.2 %0.0 - 0.5 %[facility] CenterInterpretation and review of laboratory resultsAbnormalNOChildren's Mercy HospitalLYMPHOCYTES ABSOLUTE AUTO2.2NOMS HealthcareLymphocytes/100 WBC (Bld)37.7 %20.5 - 60.0 %[facility] NetworkH (RBC) [Entitic mass]29.2 pg26.7 - 34.0 pgNOChildren's Mercy HospitalMCHC (RBC) [Mass/Vol]32.7 g/dL29.9 - 35.2 g/dLNOChildren's Mercy HospitalMCV (RBC) [Entitic vol]89.4 fL 81.0 - 99.0 fLNOChildren's Mercy HospitalMONOCYTES ABSOLUTE AUTO0.4NOChildren[facility] Monocytes/100 WBC (Bld)7.4 %1.7 - 12.0 %NOMAudrain Medical CenterNEUTROPHILS ABSOLUTE AUTO 3NOMS Memorial Health SystemNeutrophils/100 WBC (Bld)50.5 %43.0 - 75.0 %[facility] Platelet mean volume (Bld) [Entitic vol]9.8 fL9.5 - 13.5 fLSSM Saint Mary's Health CenterTB EO #0.2NOMS Memorial Health SystemTB BQO575BSLDChildren's Mercy HospitalTB RBC4.14LowNOChildren's Mercy HospitalTB WBC 5.8NOChildren's Mercy HospitalCLINISYNCNMissouri Southern HealthcareCCF CMP (CMP) (FOR REMOTE [facility] USE)on 22-69-2765Fbulnhv [Mass/Vol]3.8 g/dL3.4 - 5.0 g/dLSSM Saint Mary's Health CenterALBUMIN GLOBULIN RATIO1.1NOMS HealthcareALP [Catalytic activity/Vol]78 U/L46 - 116 U/L [facility] HealthcareALT [Catalytic activity/Vol]29 U/L14 - 59 U/LNOMS HealthcareAnion gap [Moles/Vol]10.8 mmol/LNOMS HealthcareAST [Catalytic activity/Vol]25 U/L15 - 37 U/LNOMS HealthcareBilirubin [Mass/Vol]1 mg/dL0.2 - 1.0 mg/dLNOChildren's [facility] Hospital Calcium [Mass/Vol]9.1 mg/dL8.5 - 10.1 mg/dLNOMA HealthcareChloride [Moles/Vol] 105 mmol/L98 - 107 mmol/LNOMS HealthcareCO2 [Moles/Vol]29.9 mmol/L21.0 - 32.0 mmol/LNOMS HealthcareCreatinine [Mass/Vol]0.82 mg/dL0.55 - 1.02 mg/dLNOMS HealthcareGFR/1.73 sq M.predicted CKD-EPI (S/P/Bld) [Vol rate/Area]>60>=60 mL/min/1.73m 2NOMS HealthcareGlobulin (S) [Mass/Vol]3.5 g/dLNOMS Healthcare Glucose [Mass/Vol]86 mg/dL74 - 106 mg/dLNOMS HealthcarePotassium [Moles/Vol]3.7 mmol/L3.5 - 5.1 mmol/LNOMS HealthcareProtein [Mass/Vol]7.3 g/dL6.4 - 8.2 g/dL NOMS HealthcareSodium [Moles/Vol]142 mmol/L136 - 145 mmol/LNOMS HealthcareTBH EGFR-NON AF MACANESE>60>=60 mL/min/1.73m 2NOMS HealthcareUrea nitrogen [Mass/Vol]15 mg/dL7.0 - 18.0 mg/dLNOMA HealthcareUrea nitrogen/Creatinine [Mass ratio]18.3 mg/mgNOMA HealthcareCLINISYNRoper St. Francis Berkeley HospitalTB UA (CLEAN/CATCH) CARRIAGE DOGGER/MICRO IF IND.on 36-34-0448SMQUKDMKC URINENegativeNEGATIVENOChildren's [facility]cy Hospital BLOOD URINENegativeNEGATIVENOMA HealthcareClarity (U)CLEARCLEARNOMS Healthcare Color (U)LT. YELLOWYELLOWNOMA HealthcareGLUCOSE URINE UANegativeNEGATIVE mg/dL [facility] HealthcareKetones Ql (U)NegativeNEGATIVE mg/dLNOMA HealthcareLeukocyte esterase Test strip Ql (U)NegativeNEGATIVENOMA HealthcareNITRITE URINENegative NEGATIVENOMA HealthcarepH (U)7.0 [pH]5.0 - 9.0NOMA HealthcarePROTEIN URINE NegativeNEG/TRACE mg/dLNOMA HealthcareSPECIFIC GRAVITY URINE1.0101.005 - 1.025 [facility] HealthcareURINE MICROSCOPIC INDICATEDNONOMS HealthcareUROBILINOGEN URINE0.2 EU/dL0.2 - 1.0 EU/dLNOMA HealthcareCLINISYNCNMissouri Southern HealthcareXR Calcaneus - right 2 Viewson 24-32-7410Jyetzao Result: Lateral and calcaneal axial views taken of right heel and show no fractures or dislocations. No lytic lesion with os calcis. Small plantar heel spurring present. Mild pes planus foot type, with decrease calcaneal pitch, and increase in talar declination angle. Mild joint space narrowing noted at 1st MTPJ with dorsal hypertrophy of bone at 1st met head.Critical access hospitalRadiology Study observation (narrative)[facility] MG MAMM SCREEN 3D ERICK CADon 34-97-7220KS MAMM SCREEN 3D ERICK CADPatient: OLINDA SINGH Exam Date: 01/20/2022 : 1950 Gender:F Ordering : KASHIF VESNA GEIGER [facility] Admission #: [id number] Family : Order #: [id number] CLICK HERE TO VIEW EXAM RADIOLOGY REPORT [...] Treatments None Family Cancers None LOCATION: [facility] BREAST COMPOSITION: Heterogeneously dense,which may obscure [...] by: Louise Gallagher MD on 01/20/2022 at 11:12[facility] HospitalXR HAND LT MIN 3Von 55-24-0319QR HAND LT MIN 3VEXAM: XR HAND LT MIN 3V COMPARISON: None HISTORY: Pain FINDINGS: No acute or aggressive bony abnormality. Alignment appears normal. Joint spaces are maintained. Mild osteophytic degenerative changes in the first carpometacarpal joint. There is osseous demineralization. Peripheral soft tissues are unremarkable. IMPRESSION: No acute findings. Mild degenerative changes and generalized osseous demineralization.. Electronically authenticated by: PETAR CUMMINGS Date: 2021-06-08 20:17[facility] HospitalAmbulatory Clinical Summaryon 48-64-8404Vjeidfoijq Clinical Summary{2b-yi-78-4l-71-7a-56-3g-8o-5y-5v-r7-37-80-60-2d}CD:[id number] [facility] Educationon 82-44-7093Mpjzpyc EducationObstetrics and Gynecology Urinary Tract Infection, Adult [...] this condition includes: ? Antibiotic medicine. ? Uwsl-str-ohnytxu medicines to treat discomfort. ? Drinking enough [...] these instructions at home: Medicines ? Take mhee-pmj-nvhqczu and prescription medicines only as told by [...] is important. This in (more content not included)...[facility] CenterUrology Office/Clinic Noteon 00-81-0418Qmefstd Office/Clinic NoteChief Complaint OV HPI Staff Pt [...] Ede Palmer, URL [address] [place] [address]- [phone] Additional Instructions: prn Patient Education Urinary Tract [...] History Alcoholism: Father. Hypertension: Mother. Liver disease: Father.[facility] Medical CenterComment on above:Result Comment: Electronically Signed By: Ede NUNEZ MD R\.br\Date and Time Signed: 01/31/21 14:34 EST\.br\Electronically Co-Signed By: Rose Mary Huerta MA\.br\Date and Time Co-Signed: 01/31/2114:33 ESTDEXA BONE DENSITY AXIAL SKELETON on 41-24-8437FJGH BONE DENSITY AXIAL SKELETONEXAMINATION: OT left hip [...] 90 years. DEXA scan for this exam: Inverted Edge RECOMMENDATIONS: If not already instituted, suggest therapy to increase bone mass. Follow-up study in 2 years may be considered on a [employer] system. by WHO criteria. Interpreted by: Tiana Adair MD Signed by: Tiana Adair MD 09/10/19 Final resultNoFayette County Memorial Hospital1. The T-score in the lumbar spine is [...] 90 years. DEXA scan for this exam: [employer] RECOMMENDATIONS: If not already instituted, suggest therapy to increasebone mass. Follow-up study in 2 years may be considered on a [employer] system. by WHO criteria.[facility], KYEXAMINATION: OT left hip left wrist [...] consistent with T-score of -1.1 and representing osteopenia.[facility]- [place], iAden, Krisatn Incoming Radiant Results From [employer]/milog - 09/10/2019 4:01 PM EDT EXAMINATION: OT [...] 89 years. DEXA scan for this exam: Inverted Edge RECOMMENDATIONS: If not already instituted, suggest therapy to increase bone mass. Follow-up study in 2 years may be considered on a [employer] system. by WHO criteria. [facility], [facility] DIGITAL SCREEN W OR WO CAD BILATERALon 69-59-8008CBA DIGITAL SCREEN W OR WO CAD BILATERALEXAMINATION: [...] to the patient regarding the results. The [employer] recommends annual mammograms for women 40 years and older. Interpreted by: Arnaldo Wadsworth MD Signed by: Arnaldo Wadsworth MD 09/10/19 Final resultNormalMercy [facility] mammographic evidence of malignancy. BI-RADS 1 BIRADS: BIRADS - CATEGORY 1 Negative, no evidenceof malignancy. Normal interval follow-up is recommended in 12 months. OVERALL ASSESSMENT - NEGATIVEA letter of notification will be sent to the patient regarding the results. The [employer] [place] [employer] recommends annual mammograms for women 40 years and older.Do[facility] HospitalVINIEXAMINATION: SCREENING DIGITAL BILATERAL MAMMOGRAM WITH TOMOSYNTHESIS, [...] mass, suspicious microcalcification, or area of architectural distortion.Doctors HospitalAiden Mhpn Incoming Radiant Results From [employer]/milog - 09/10/2019 12:38 PM EDT EXAMINATION: SCREENING [...] to the patient regarding the results. The [employer] [place] [employer] recommends annual mammograms for women 40 years and older. [facility] VINI Vital Signs Date TimeVital SignValuePerforming QlzmcmvwsXgzysfvg31-34-9072 13:12-0400Body xyrpgv430.64 Jemal Johnsonemariverview health institutehelene Work Phone: [facility]09-09-2025 13:12-0400 Body mass index (BMI) [Ratio]28.1 kg/m2Vesna Johnsonkathleen Work Phone: [facility]09-09-2025 13:12-0400 Body cqvgthahjne99.1 [degF]Vesna Aichholz Work Phone: [phone] [place], [place] 3029009-09-2025 13:12-0400 Body lpemuu04.03 kgLisa Aichholz Work Phone: [phone] [place], [place] 3029009-09-2025 13:12-0400 Diastolic blood vggarzui31 mm[Hg]Vesna Aichholz Work Phone: 1(353)817-[address] [place], [place] 3029009-09-2025 13:12-0400 Heart rate70 /minLisa Aichholz Work Phone: [phone]09-09-2025 13:12-0400 Respiratory rate18 /minLisa Aichholz Work Phone: [phone])[address]09-09-2025 13:12-0400 SaO2% (BldA) [Mass fraction]97 %Vesna Aichholz Work Phone: [phone] [address]09-09-2025 13:12-0400 Systolic blood evntxjcw073 mm[Hg]Vesna Aichholz Work Phone: [phone])05543 [address]06-24-2025 13:42-0400 Body mass index (BMI) [Ratio]27.89 kg/m2Lisa Aichholz ALUMINUM CAN COLLECTOR Work Phone: [facility] CenterTqzcmtxior45-20-1794 13:42-0400Body temperature 98.1 [degF]Vesna Aichholz ALUMINUM CAN COLLECTOR Work Phone: [facility] CenterScgyweaygp77-68-6732 13:42-0400Body sapnbu40.38 kgLisa Aichholz ALUMINUM CAN COLLECTOR Work Phone: [facility] CenterTehicesgpt71-88-9444 13:42-0400Diastolic blood todbjjiu51 mm[Hg]Vesna Aichholz ALUMINUM CAN COLLECTOR Work Phone: [facility] CenterVfqvhowrah25-77-5527 13:42-0400Heart rate71 /min Vesna Aichholz ALUMINUM CAN COLLECTOR Work Phone: [facility] CenterDyqmfghqij31-18-3425 13:42-0400Respiratory rate18 /minVesna Geiger ALUMINUM CAN COLLECTOR Work Phone: [facility] CenterJmvdjkqgtu52-61-9152 13:42-0076QqO0% (BldA) [Mass fraction]98 %Vesna Geiger ALUMINUM CAN COLLECTOR Work Phone: [facility] CenterQybmbjwsab57-14-8990 13:42-0400Systolic blood fnmuspvv176 mm[Hg]Vesna Geiger ALUMINUM CAN COLLECTOR Work Phone: [phone] [place], [place] [address]Esmomniysd29-33-9545 07:53-0400Body bqeiuw997.64 Jemal Villedaz Work Phone: [phone])[address]06-16-2025 07:53-0400 Body jmolar91.83 kgDomoniquesa Gloriaz Work Phone: 1(960)[address]05-19-2025 13:03-0400 Body mass index (BMI) [Ratio]28.54 kg/m2Vesna Geiger ALUMINUM CAN COLLECTOR Work Phone: 1(090)290-[address] [place], [place] [address]Fpakmoybwz16-63-5149 13:03-0400Body temperature 97.81 [degF]Vesna Geiger ALUMINUM CAN COLLECTOR Work Phone: [facility] CenterFopsnyhfnp68-99-5830 13:03-0400Body .2 kg Vesna Geiger ALUMINUM CAN COLLECTOR Work Phone: [phone] [place], [place] [address]Stxkicsgan46-29-1012 13:03-0400Diastolic blood sdwcolyc93 mm[Hg]Vesna Villedahelene ALUMINUM CAN COLLECTOR Work Phone: [phone] [place], [place] [address]Crsyporzhe81-88-3725 13:03-0400Heart rate70 /min Vesnacaleb Villedahelene ALUMINUM CAN COLLECTOR Work Phone: [facility] CenterJlxlyqiuob71-67-1502 13:03-0400Respiratory rate20 /minLisa Villedahelene ALUMINUM CAN COLLECTOR Work Phone: [facility] CenterZholhswyia12-50-3768 13:03-1499UuT3% (BldA) [Mass fraction]96 %Vesna Kimberlyholz ALUMINUM CAN COLLECTOR Work Phone: [facility] CenterAvrslhbtgb34-79-4043 13:03-0400Systolic blood mm[Hg]Vesna Alexhholz ALUMINUM CAN COLLECTOR Work Phone: [facility] CenterExsmbhufqi32-83-8298 10:19-0400Body qsdiii553.6 Priscillaisa Kimberlyholz ALUMINUM CAN COLLECTOR Work Phone: [facility] CenterOptjltvixr62-47-2607 10:19-0400Body mass index (BMI) [Ratio]29.86 kg/m2Lisa Kimberlyholz ALUMINUM CAN COLLECTOR Work Phone: [place] [address]Jdlsyexuam80-36-6639 10:190400Body temperature 97.81 [degF]Vesna Kimberlyholz ALUMINUM CAN COLLECTOR Work Phone: [facility] CenterOwdcqjqruc65-83-0198 10:040Body .92 kgLisa Kimberlyholz ALUMINUM CAN COLLECTOR Work Phone: [facility] CenterCuwyquutvl79-51-8830 10:19-0400Diastolic blood pmtvmcry17 mm[Hg]Vesna Kimberlyholz ALUMINUM CAN COLLECTOR Work Phone: 1([phone] [place], [place] [address]Pxoxqlbats59-69-7079 10:19-0400Heart rate72 /min Vesna Kimberlyholz ALUMINUM CAN COLLECTOR Work Phone: [facility] CenterSfczsqvqcz20-68-1755 10:0400Respiratory rate16 /minLisa Kimberlyholz ALUMINUM CAN COLLECTOR Work Phone: [facility] CenterPmlsxlipmj84-19-1657 10:19-4117TeZ3% (BldA) [Mass fraction]96 %Vesna Alexhholz ALUMINUM CAN COLLECTOR Work Phone: [place] [address]Ljrjwslqls79-98-9083 10:19-0400Systolic blood osklxbjx938 mm[Hg]Vesna Alexhholz ALUMINUM CAN COLLECTOR Work Phone: [facility] CenterEofjlniskz44-09-9298 10:31-0500Body tzpuvc673.6 Priscillaisa Alexhholz ALUMINUM CAN COLLECTOR Work Phone: 1([phone] [place], [place] [address]Fvwshdopgr08-63-3669 10:31-0500Body mass index (BMI) [Ratio]29.28 kg/m2Vesna Geiger ALUMINUM CAN COLLECTOR Work Phone: 1(911)801-[address] [place], [place] [address]Reewqflxik51-75-9463 10:31-0500Body temperature 97.81 [degF]Vesna Geiger ALUMINUM CAN COLLECTOR Work Phone: 1(416)202-[address] [place], [place] [address]Wvwojyswhc23-44-8717 10:31-0500Body .28 kgVesna Geiger ALUMINUM CAN COLLECTOR Work Phone: 1([phone] [place], [place] [address]Jhviatfvai48-44-7379 10:31-0500Diastolic blood ujbrktrv59 mm[Hg]Vesna Villedaz ALUMINUM CAN COLLECTOR Work Phone: 1(232)034-[address] [place], [place] [address]Qyvrgfjogl08-28-4446 10:31-0500Heart rate67 /min Vesna Geiger ALUMINUM CAN COLLECTOR Work Phone: 1(592)329-[address] [place], [place] [address]Lqmmhggley81-91-5201 10:31-0500Respiratory rate19 /minLisa Geiger ALUMINUM CAN COLLECTOR Work Phone: [phone] [place], [place] [address]Qbcrdznazk06-38-8695 10:31-5782KrE5% (BldA) [Mass fraction]99 %Vesna Geiger ALUMINUM CAN COLLECTOR Work Phone: [place] [address]Inuufklogs72-99-6755 10:31-0500Systolic blood kxdeknbq406 mm[Hg]Vesna Geiger ALUMINUM CAN COLLECTOR Work Phone: [place] [address]Xqdxridmux96-82-6174 11:04-0400Body hvwuci250.6 cmCoby Garcia DPM Work Phone: [place] [address]Edapyjxhtp32-57-1609 11:04-0400Body mass index (BMI) [Ratio]29.7 kg/e5BtupfvnoCby Garcia DPM Work Phone: [place] [address]Zyvewmmscl34-76-3331 11:04-0400Body eipnup63.46 kgCoby Grimese DPM Work Phone: [place] [address]Jzxssikdqm30-37-8743 08:47-0400Body wiqjdn850.6 cmCoby Garcia DPM Work Phone: [facility] HospitalVcetgvngsx48-49-3602 08:47-0400Body mass index (BMI) [Ratio]27.44 kg/f1YyqzcazCoby Garcia DPM Work Phone: NOChildren[facility] HospitalLwemknvaci88-58-9673 08:47-0400Body ruuevr60.11 kgCoby Garcia DPM Work Phone: noMS Healthcare Encounters Encounter DateEncounter TypeCare ProviderFacilityStart: 11-18-2024 End: 42-18-2840fuermqwenuItsr J Aichholz Work Phone: [facility] Work Phone: Start: 11-18-2024 End: 91-17-7293Jomkanh encounter procedureVesna Geiger ALUMINUM CAN COLLECTOR-C-FPG [facility] Work Phone: Start: 39-53-9708Veumoch encounter procedureLisa Geiger Work Phone: [facility]: 09-02-2024 End: 20-24-7090Yeatlo flowsheetVesna Villedaz ALUMINUM CAN COLLECTOR Work Phone: noms CWM FMStart: 09-02-2024 End: 01-24-1137Klhfye flowsheetLisa Geiger ALUMINUM CAN COLLECTOR Work Phone: noms CWM FMStart: 09-02-2024 End: 80-63-6997Atdmfi outpatient visit 25 minutesLisa Juanjo ALUMINUM CAN COLLECTOR Work Phone: noms CWM FMComment on above:Current mild episode of major depressive disorder without prior episode (Primary Dx); Postprandial RUQ pain; Small bowel lesion; Spondylolisthesis of lumbar region; KI (generalized anxiety disorder)Start: 09-02-2024 End: 54-02-1547tbtcahjgskMYLO AICHHOLZNot AvailableStart: 08-25-2024 End: 58-04-8522Ewgdhfj encounter procedureVesna Geiger ALUMINUM CAN COLLECTOR-C-Nuc Med [facility] [place] Work Phone: Start: 08-25-2024 End: 68-13-0588ybypvxhbvpRslc J AichholzFacility:[facility]: 08-07-2024 End: 30-91-9696Mrgbgiq encounter procedureVesna Harriskathleen Work Phone: [facility] [place] Work Phone: Start: 08-07-2024 End: 47-32-2363Tenqic OnlyVesna Geiger ALUMINUM CAN COLLECTOR Work Phone: noms CWM FMComment on above:Postprandial RUQ pain (Primary Dx)Start: 07-28-2024 End: 15-82-0096Tngvmf flowsLoulou Harriskathleen ALUMINUM CAN COLLECTOR Work Phone: noms CWM FMStart: 07-28-2024 End: 48-89-1540Tkdemc flowsLoulou Villedahelene ALUMINUM CAN COLLECTOR Work Phone: noms CWM FMStart: 07-28-2024 End: 33-17-8649talerwibpxEVOQ ALEXEmaLARISAot AvailableStart: 07-28-2024 End: 69-06-7680Wazgwd outpatient visit 25 minutesVesna Harriskathleen ALUMINUM CAN COLLECTOR Work Phone: noms CWM FMComment on above:Postprandial RUQ pain (Primary Dx); Elevated blood pressure reading; Overweight (BMI 25.0-29.9); Spinal stenosis of lumbar region without neurogenic claudication; Spondylolisthesis of lumbar region; Small bowel lesionStart: 07-08-2024 End: 40-83-9860Vyyynj outpatient new 30 minutesNatalie A Felter INSPECTOR FABRIC-PRINTING SIGN MACHINE OPERATOR Work Phone: NOMX SWS DERMComment on above:Seborrheic keratosis; Melanocytic nevus of trunk; Stasis dermatitis of both legs; Herpesviral vesicular dermatitisStart: 07-08-2024 End: 73-02-2988vdmjianbolMKZQMZH A FELTERNot AvailableStart: 07-08-2024 End: 64-91-4363Dbrtea flowsheetNatalie A Felter INSPECTOR FABRIC-PRINTING SIGN MACHINE OPERATOR Work Phone: noms SWS DERMStart: 07-08-2024 End: 98-06-1149Qzxrqe flowsheetNatalie A Felter INSPECTOR FABRIC-PRINTING SIGN MACHINE OPERATOR Work Phone: noms SWS DERMStart: 06-24-2024 End: 75-20-9284Oqmufw flowsheetLisa Aichholz ALUMINUM CAN COLLECTOR Work Phone: NOPB CWM FMStart: 06-24-2024 End: 56-51-4494Djqaam flowsheetLisa Aichholz ALUMINUM CAN COLLECTOR Work Phone: NORG CWM FMStart: 06-24-2024 End: 19-10-9990Ekblaw outpatient visit 25 minutesLisa Aichholz ALUMINUM CAN COLLECTOR Work Phone: noms CWM FMComment on above:Neoplasm, uncertain whether benign or malignant (Primary Dx); Elevated blood pressure reading; Overweight (BMI 25.0-29.9)Start: 06-24-2024 End: 88-61-5146jueokonxdlVMEJ AICHHOLZNot AvailableStart: 02-05-2024 End: 47-93-9543Yjjhcpopb Result EncounterLisa Aichholz ALUMINUM CAN COLLECTOR Work Phone: noms External Department UnsolicitedStart: 02-05-2024 End: 35-50-2067Eiofkepdt Result EncounterLisa Aichholz ALUMINUM CAN COLLECTOR Work Phone: noms External Department UnsolicitedStart: 01-28-2024 End: 46-93-9558Cmirfuutd Result EncounterLisa Aichholz ALUMINUM CAN COLLECTOR Work Phone: noms External Department UnsolicitedStart: 01-28-2024 End: 74-01-8940Lmnrchwhv Result EncounterLisa Aichholz ALUMINUM CAN COLLECTOR Work Phone: noms External Department UnsolicitedStart: 01-28-2024 End: 19-53-1036Yoqzach encounter procedureLisa Aichholz ALUMINUM CAN COLLECTOR Work Phone: NOMS CWM FMComment on above:Encounter for subsequent annual wellness visit (AWV) in Medicare patient (Primary Dx); Migraine with aura and without status migrainosus, not intractable ([facility]); Encounter for screening mammogram for malignant neoplasm of breast; KI (generalized anxiety disorder) ([facility]); Menopause; Irritable bowel syndrome with diarrheaStart: 01-28-2024 End: 29-76-4205qnehtcxrhuYTPT FRIENDS HOSPITALAMANDAot AvailableStart: 01-08-2024 End: 04-19-9498Cfkphh flowsVenu Garcia DPM Work Phone: NORC PODIATRYStart: 01-08-2024 End: 38-97-7499Xlvpdv flowsheetCoby Garcia DPM Work Phone: NOOQ PODIATRYStart: 01-08-2024 End: 10-28-3616gcctdzqqbvLESBKZF W CLARKENot AvailableStart: 01-08-2024 End: 71-29-7634Zqxxvu outpatient visit 15 minutesCoby Garcia DPM Work Phone: noms PODIATRYComment on above:Plantar fasciitis (Primary Dx); Gastrocnemius equinus of right lower extremity; Pain of right heelStart: 01-07-2024 End: 69-00-6095SqjgjjPlvb Alexkathleen ALUMINUM CAN COLLECTOR Work Phone: NOOZ CWM FMComment on above:Migraine with aura and without status migrainosus, not intractable ([facility])Start: 12-14-2023 End: 99-76-8674Wktfes flowsVenu Garcia DPM Work Phone: NOCQ PODIATRYStart: 12-14-2023 End: 32-38-6876Cfthvg flowsheetJessvipul Garcia DPM Work Phone: NOMS PODIATRYStart: 12-14-2023 End: 39-92-2259Mtrqpc outpatient new 30 minutesSherifssvipul Garcia DPM Work Phone: NOMS PODIATRYComment on above:Plantar fasciitis (Primary Dx); Gastrocnemius equinus of right lower extremity; Pain of right heelStart: 12-14-2023 End: 25-54-1917rmfmikuyfyAPONWFD Nik Jang AvailableStart: 01-20-2022 End: 70-19-7867kyuhcswbfvHAK VESNA GEIGERFacility:Q4Wqail: 08-14-2021 End: 44-82-1192ffsnidqkviLCZ VESNA JUANJOFacility:I2Qcfed: 06-08-2021 End: 74-65-5198apamkritcwRPT VESNA JUANJOFacility:A2Acjvg: 09-10-2019 End: 48-63-6318Akhylza [facility] Start: 09-10-2019 End: 66-19-5434Plcvcuqkck hospital visit by physicianAk[facility] MammographyComment on above:Menopausal stateBreast cancer screening by mammogram Procedures DateProcedureProcedure DetailPerforming ClinicianStart: 07-69-7870Bbchedwrxaoq study of abdomenLisa Geiger Work Phone: Start: 61-70-7676TM scan of gallbladderLisa Juanjo Work Phone: Start: 31-68-3880J-ray of lumbar spine, four viewsVesna Geiger Work Phone: Start: 67-87-0649IdkoazprqrfBkod Juanjo ALUMINUM CAN COLLECTOR Work Phone: Start: 52-08-6624RD TOMOSYNTHESIS SCREENING BILisa Juanjo ALUMINUM CAN COLLECTOR Work Phone: Start: 86-20-5796TON CBC WITH AUTO DIFFLisa Juanjo ALUMINUM CAN COLLECTOR Work Phone: Start: 31-01-5480IGC CMP (CMP) (FOR REMOTE [facility] USE) Vesna Geiger ALUMINUM CAN COLLECTOR Work Phone: Start: 21-72-9491VXJ UA (CLEAN/CATCH) CARRIAGE DOGGER/MICRO IF IND.Vesna Geiger NP Work Phone: Start: 47-36-9065Aklsg calcaneus minimum 2 views Coby Garcia DPM Work Phone: Start: 29-71-4251FbyedeucnsdKqjpglz Clarke DPM Work Phone: Start: 53-97-8057Vljaduwhj mammography bi 2-view breast inc cadLISA PAN AMERICAN HOSPITALKATHLEENStart: 17-95-2388Hhw bone density study 1/> sites axial skelLISA PAN AMERICAN HOSPITALKATHLEENStart: 10-16-1146Camoevjzg digital breast tomosynthesis Erickxavi CumminsMinesh Geiger Work Phone: Start: 68-77-2581Rgv bone density study 1/> sites axial Josie Nunez Juanjo Work Phone: Plan of Treatment DateCare ActivityDetailAuthorStart: 07-09-2025 End: 47-31-7212Lkysmxb encounter procedureNOMS SWS DERMStart: 03-16-2025 End: 43-25-6456Conoeur encounter hljfqlqzy97/05/2026 1:40 PM EST [facility] [address] [place] [phone] Derek Mendoza, ELIE-PRINTING SIGN MACHINE OPERATOR [address] [place] [address] [facility]ermatologyStart: 92-89-6815Kwpyheeaa for malignant neoplasm of breastMammogramNOMA Healthcare Start: 01-29-2025 End: 75-24-7256Wajllbf encounter uuypmssdg82/20/2025 1:00 PM EST Office Visit [facility] [address] [place] [address] Vesna Geiger, DIRK [address] [place] [address] NOMS CWM FMStart: 11-18-2025Medicare Annual Wellness (AWV) Medicare Annual Wellness (AWV)[facility] HealthcareStart: 49-91-2812Eohyjawfn for malignant neoplasm of colonNOMS HealthcareStart: 31-12-9306HYAGR-19 Vaccine ( season)COVID-19 Vaccine ( season)[facility] HealthcareStart: 88-26-0743Sefcfjhxj vaccinationNOMS HealthcareStart: 10-21-2024 End: 93-75-6195Punulci encounter ckzpxkwda87/12/2025 1:20 PM EDT Office Visit [facility] [address] [place] [address] Vesna Geiger NP [address] [place] [address] NOMS CW FMStart: 09-02-2024 End: 74-67-5581Kteavkm encounter procedureNOMS [facility] FMComment on above: Postprandial RUQ pain (Primary Dx); Small bowel lesion; Spondylolisthesis of lumbar regionStart: 08-07-2024 End: 68-80-5875CU Gallbladder Views W cholecystokinin and W radionuclide IVNM hepatobiliary w cholecystokinin Imaging Routine Postprandial RUQ pain Expected: 08/07/2024 (Approximate), Expires: 08/07/2025[facility] Work Phone: Comment on above:Expected: 08/07/2024 (Approximate), Expires: 08/07/2025Start: 07-28-2024 End: 35-10-2647AD Small bowel Views W contrast POFL small bowel series Imaging Routine Small bowel lesion Expected: 07/28/2024, Expires: 07/28/2025[facility] HealthcareComment on above:Expected: 07/28/2024, Expires: 07/28/2025Start: 07-28-2024 End: 75-48-2876EQ GallbladderUS gallbladder Imaging Routine Postprandial RUQ pain Expected: 07/28/2024, Expires: 07/28/2025[facility] HealthcareComment on above: Expected: 07/28/2024, Expires: 07/28/2025Start: 07-28-2024 End: 56-22-1261CT Lumbar spine Views W flexion and W extensionXR lumbar spine 4+ views w flexion extension Imaging Routine Spinal stenosis of lumbar region without neurogenic claudication Spondylolisthesis of lumbar region Expected: 07/28/2024 (Approximate), Expires: 07/28/2025[facility] Work Phone: Comment on above:Expected: 07/28/2024 (Approximate), Expires: 07/28/2025Start: 07-28-2024 End: 90-71-6241Jjmtyeo encounter pubbrszaj53/19/2025 1:00 PM EDT Office Visit [facility] [address] [place] [address] Vesna Geiger, DIRK [address] [place] [address] N[facility] CWM FMStart: 07-08-2024 End: 89-04-1378Psvifmq encounter sotrqpadg59/29/2025 3:35 PM EDT Office Visit [facility] [address] [place] [address] Derek Mendoza, INSPECTOR FABRIC-PRINTING SIGN MACHINE OPERATOR [address] [place] [address] Neoplasm, uncertain whether benign or malignantNOMS SWS DERMComment on above:Neoplasm, uncertain whether benign or malignantStart: 06-24-2024 End: 79-95-6129Qnxubpa encounter khipwfupb13/15/2025 10:30 AM EDT Office Visit [facility] [address] [place] [address] Vesna Geiger, ALUMINUM CAN COLLECTOR [address] [place] [address] ArrivedNOMS [facility] FMComment on above:ArrivedStart: 03-24-2024 Influenza vaccinationInfluenza Vaccine (#1)NOMS HealthcareComment on above: Postponed from 11/11/2023 (Patient Refused)Start: 02-28-2024 End: 62-32-9082Tuyafpx encounter tbtosihyx25/19/2024 4:15 PM EST Office Visit [facility] [address] [place] [address] Coby Garcia, DPM [address] [place] [address] [facility] PODIATRYStart: 02-19-2024 End: 02-41-5155Cinzose encounter mswilcpus67/10/2024 10:45 AM EST Office Visit [facility] [address] [place] [address] Coby Garcia, DPM [address] [place] [address] [facility] PODIATRYStart: 01-28-2024 End: 54-08-2680EJZ W Auto Differential panel - BloodCBC and differential Lab Routine Irritable bowel syndrome with diarrhea Expected: 01/28/2024 (Approx imate), Expires: 01/27/2025NOMS HealthcareComment on above:Expected: 01/28/2024 (Approximate), Expires: 01/27/2025Start: 01-28-2024 End: 84-59-8259Ywrgtyergsadc metabolic 2000 panel - Serum or PlasmaComprehensive metabolic panel Lab Routine Irritable bowel syndrome with diarrhea Expected: 01/28/2024 (Approximate), Expires: 01/27/2025NOMS HealthcareComment on above: Expected: 01/28/2024 (Approximate), Expires: 01/27/2025Start: 01-28-2024 End: 74-16-1606QPP Skeletal system Views for bone densityDEXA bone density Imaging Routine Menopause Expected: 01/28/2024 (Approximate), Expires: 01/27/2025NOMS HealthcareComment on above:Expected: 01/28/2024 (Approximate), Expires: 01/27/2025Start: 01-28-2024 End: 54-29-8315MT Breast - bilateral ScreeningBilateral screening mammogram Imaging Routine Encounter for screening mammogram for malignant neoplasm of breast Expected: 01/28/2024 (Approximate), Expires: 03/29/2025[facility] Work Phone: Comment on above:Expected: 01/28/2024 (Approximate), Expires: 03/29/2025Start: 01-28-2024 End: 17-52-3355Fhzopkqvip complete panel - UrineUrinalysis with reflex microscopic (clean catch) Lab Routine Irritable bowel syndrome with diarrhea Expected: 01/28/2024 (Approximate), Expires: 01/27/2025[facility] HealthcareComment on above:Expected: 01/28/2024 (Approximate), Expires: 01/27/2025Start: 01-28-2024 End: 81-17-0511Szqjjjc encounter fzvhpkcai26/18/2024 10:30 AM EST Procedure Visit [facility] [address] [place] [address] Vesna Geiger, ALUMINUM CAN COLLECTOR [address] [place] [address] [facility] FMStart: 80-46-4825Lmjgeudsr for malignant neoplasm of breastMammogramNOMA HealthcareStart: 01-08-2024 End: 37-48-7098Chzgevr encounter uvoigcenx40/29/2024 11:00 AM EDT Office Visit [facility] [address] [place] [address] Coby Garcia, DPM [address] [place] [phone] NOMS PODIATRYStart: 12-14-2023 End: 64-22-8766Qgrhxiz encounter fiehwbboc88/04/2024 9:00 AM EDT Office Visit [facility] [address] [place] [address] Coby Garcia, DPM [address] [place] [address] ArrivedNOSAINT [facility] PODIATRYComment on above:ArrivedStart: 55-53-9291Cpjynzwkr vaccinationInfluenza Vaccine (#1)[facility] HealthcareStart: 63-12-7848Owurodowu for malignant neoplasm of breastBreast cancer screenTriHealth: 83-89-5456RHgL/Tdap/Td Vaccines (2 - Td or Tdap)DTaP/Tdap/Td Vaccines (2 - Td or Tdap)[facility] HealthcareStart: 08-09-4884Cdjdlnjle vaccinationFlu vaccine (#1)[facility]: 29-12-7026Yehwza Wellness Visit (AWV)Annual Wellness Visit (AWV)[facility]: 97-78-2042Aksoggplgcrf 65+ years Vaccine (1 of 1 - PPSV23)Pneumococcal 65+ years Vaccine (1 of 1 - PPSV23)[place] Start: 33-88-7262Rwrlykcjc for malignant neoplasm of colonColon cancer screen colonoscopyTriHealth: 21-49-0287Ycqzgrkt Vaccine (1 of 2) Shingles Vaccine (1 of 2)[facility]: 63-73-0417Xnxgj panelLipid [facility]: 20-05-2965ZTjN/Tdap/Td vaccine (1 - Tdap) DTaP/Tdap/Td vaccine (1 - Tdap)[facility]: 83-50-2249Ficwbwtnb C screeningHepatitis C [facility]: 03-24-1952Medicare Annual Wellness (AWV)Medicare Annual Wellness (AWV)[facility] 1950 Screening for malignant neoplasm of colonNOMS HealthcareComprehensive metabolic 2000 panel - Serum or PlasmaMayo Clinic [facility] Immunizations Immunization DateImmunizationNotesCare FadhmhmbBhlzxwpb90-82-9770rxrpegr toxoid, reduced diphtheria toxoid, and acellular pertussis vaccine, adsorbedLisa Aichholz [employer] Work Phone: NOChildren's Mercy HospitalGdgoyizqme36-95-3254mpqlcf vaccine recombinant Vesna Aichholz [employer] Work Phone: NOYI Cacnooyuwa56-36-8025aslqjdlnn, injectable, quadrivalent, preservative freeLisa Aichholz [employer] Work Phone: NOQS [id number] vaccine recombinant Vesna Aichholz [employer] Work Phone: noMS Bdtepawlel09-10-8081xfbugxhcm virus vaccine, unspecified formulationCoby Garcia DPM Work Phone: noms [facility] Payers DatePayer CategoryPayerPoly [id number]-pay2017MedicaidCIGNA MEDICARE ADVANTAGE [id number] 2017MedicareMEDICARE MEDICARE PART A AND B xxxxxxxxxxx 2016-Present [phone] [address] [address] [place], [id number] 1.2.840.156751.1.13.239.2.7.3.877784. Medicare1.2.840.774752.1.13.693.2.7.3.192511.76840-26-3878Xujskvh Health Insurance1.2.840.205412.1.13.693.2.7.3.035954.51906-05-6168UutxyukXLGIYWDB JAIL LIFE CIGNA MEDICARE SUPP xxxxxxxxxx 2016-Present [phone] [address] [address] [place], [place] [address]bwhmvzehju 1.2.840.226633.1.13.239.2.7.3.516520.315 [id number] [id number] [id number] [id number] 2.16.840.1.135750.3.57[id number] 2.840.1.394282.3.57[id number] 2.16.840.1.957228.3.57[id number] 2.16.840.1.712709.3.57[id number] 2.16.840.1.067862.3.57[id number] 2.16.840.1.836267.3.57[id number] 2.16.840.1.075976.3.57[id number] 2.16.840.1.887798.3.57[id number] 2.16.840.1.571178.3.57[id number] 2.16840.1.373502.3.57[id number] 2..0.1.905378.3.57[id number] 2.16.840.1.392497.3.57[id number] 2.16.840.1.818902.3.57[id number] 2.16.840.1.292[id number] 2.16.840.1.029299.3.579.2.531 Social History DateTypeDetailFacilityTobacco smoking status NHISUnknown if ever smokedDes Moines, KYStart: 95-60-5940Sap Assigned At BirthNot on fileDes Moines, KYExposure to SARS-CoV-2 (event)Unable to assessDes Moines, KYStart: 14-03-9565Pihzjjr smoking status NHISNever smoked tobaccoNOMS HealthcareStart: 31-20-2053Mcknjhf use and exposureSmokeless tobacco non-userNOMS Healthcare Start: 12-14-2023 End: 10-11-0133Vuhvxpiii beverage intakeCurrent drinker of alcohol (finding)NOMS HealthcareStart: 12-14-2023 End: 35-78-2389Phxvzuz of Social functionNOMS HealthcareStart: 12-14-2023 End: 94-90-7843Alaxxnz use panelNOMS HealthcareStart: 40-62-8462Kxfuukr Comment rareNOMS HealthcareTobacco smoking status NHISTobacco smoking consumption unknownNOMS HealthcareStart: 21-50-7119LadBfcjhl (finding)[facility]tart: 99-57-3890Mea Assigned At BirthCrystal Clinic Orthopedic Centertart: 14-21-7838YhsWbanmsRPSN Healthcare Clinical Notes 10-04-2024 to 09-02-2024 Note Date & FgbpTfumUjznuzog08-08-4374 History of Present illness Narrative* Vesna Geiger [...] talk about depression : no SI/HI/hallucinations. in half-way with dementia. Feels lonely, lack of interest [...] meals, avoid spicy/fatty/greasy foods documented in this [facility]06-24-2025 Instructions* Patient Instructions* Vesna Geiger NP - [...] office if these occur. documented in this [facility]05-29-2025 Radiology Diagnostic study [facility] [place] [address] [place] [address] Ultrasound Report Signed Patient: Olinda Singh MR#: [id number] 05 : 1950 Acct:[id number] Age/Sex: 74 / F ADM Date: 5 Loc: Room: Type: [facility] Attending Dr: Vesna Geiger Ordering Provider: [...] Soni M.D. 08/07/2024 9:00 AM Dictation Location: [place] [address] Tech: Tawana Murillo Transcribed By: [facility] 08/07/24 0900 Dictated By: Chava Soni DO 08/07/24 0859 Signed By: 08/07/24 0900 [facility]05-19-2025 History of Present illness Narrative * [...] HPI: Here for ER fu: [facility] 07/13/24 for right flank pain [...] no dysruia Blood pressure reads: see list dwplivu828/80's SUBJECTIVE: MEDICATIONS: Current Outpatient Medications Medication Instructions [...] [place] small bowel series documented in this encounterSSM Saint [facility] CenterDdoqmjwvvt77-16-1832 Instructions* Patient Instructions* Vesna Geiger NP - [...] avoid high fat meals documented in this encounterSSM Saint Mary's Health CenterHdczaprlom77-76-8553 History of Present illness Narrative* Derek Mendoza, [...] - Anterior, Right Lower Leg - Anterior [address] patches in areas of edema The patient [...] Next Visit: 1 year documented in this encounterSSM Saint Mary's Health CenterNcvqstrlry42-51-6368 History of Present illness Narrative* Vesna Geiger [...] is eating salty foods documented in this encounterSSM Saint Mary's Health CenterJtrivpjvde70-46-7846 Instructions* Patient Instructions* Vesna Geiger NP - 06/24/2024 10:30 AM EDT Check blood pressures once a day and record DASH diet documented in this [facility]11-18-2024 History of Present illness Narrative* Vesna Geiger NP - 01/28/2024 11:16 AM ESTAssociated Problem(s): Migraine with aura and without status migrainosus, not intractable ([facility]/HCC) Cont triptan prn * Vesna Geiger NP - 01/28/2024 11:16 AM ESTAssociated Problem(s): Menopause Check dexa * Vesna Geiger NP - 01/28/2024 11:15 AM ESTAssociated Problem(s): KI (generalized anxiety disorder) ([facility]) Feels she is doing better since is now placed in half-way for Lewey Body Dementia * Vesna Geiger [...] [place], dentist: dr Floyd, and sees a gut dropper, Ortho Dr Trujillo if Kj HCPOA/Living Will: [...] aura and without status migrainosus, not intractable ([facility]) Cont triptan prn Encounter for subsequent annual wellness visit (AWV) in Medicare patient - Primary Reviewed Ht/Wt/BMI Recommend eye exam yearly Recommend dental exams twice a year Balance work/leisure activities Exercises is recommended most days of the week (appropriate as chronic conditions allow) Follow up yearly and prn Encounter for screening mammogram for malignant neoplasm of breast Check mammogram wants [facility] Relevant Orders Bilateral screening mammogram KI (generalized anxiety disorder) ([facility]) Feels she is doing better since is now placed in half-way for Lewey Body Dementia Menopause Check dexa [...] up yearly and prn documented in this encounterSSM Saint Mary's Health CenterRwyohkbnqe98-02-2358 History of Present illness Narrative* Coby Garcia [...] understanding. Coby Garcia DPM documented in this encounterSSM Saint Mary's Health CenterAxtrvbovpk39-54-7057 History of Present illness Narrative* Coby Garcia DPM - 12/14/2023 9:00 AM EDT [...] She typically wearstennis shoes she has from [employer]'s running Review of Systems Medications Current Outpatient [...] understanding. Coby Garcia DPM [facility]* Diagnosis Plantar fasciitis- Primary Plantar fascial fibromatosis Gastrocnemius equinus of right lower extremity Pain of right heel [facility]* Diagnosis Migraine with aura and without status migrainosus, not intractable ([facility]) documented in this encounter [facility] Healthcare[facility]* Diagnosis Encounter for subsequent annual wellness visit (AWV) in Medicare patient- Primary Migraine with aura and without status migrainosus, not intractable ([facility]) Encounter for screening mammogram for malignant neoplasm of breast KI (generalized anxiety disorder) ([facility]) Generalized anxiety disorder Menopause Symptomatic menopausal or female climacteric states Irritable bowel syndrome with diarrhea Irritable bowel syndrome documented in this encounter [facility] HealthcareEvaluation note* Diagnosis Encounter for subsequent annual wellness visit (AWV) in Medicare patient- Primary Migraine with aura and without status migrainosus, not intractable ([facility]) Encounter for screening mammogram for malignant neoplasm of breast KI (generalized anxiety disorder) ([facility]) Generalized anxiety disorder Menopause Symptomatic menopausal or female climacteric states Irritable bowel syndrome with diarrhea Irritable bowel syndrome Neoplasm, uncertain whether benign or malignant- Primary Elevated blood pressure reading Elevated blood pressure reading without diagnosis of hypertension Overweight (BMI 25.0-29.9) Overweight documented in this encounter [facility] Healthcare[facility]* Diagnosis Encounter for subsequent annual wellness visit (AWV) in Medicare patient- Primary Migraine with aura and without status migrainosus, not intractable ([facility]) Encounter for screening mammogram for malignant neoplasm of breast KI (generalized anxiety disorder) ([facility]) Generalized anxiety disorder Menopause Symptomatic menopausal or [...] dermatitis Dermatitis herpetiformis documented in this encounter [facility] HealthcareEvaluation note* Diagnosis Encounter for subsequent annual wellness visit (AWV) in Medicare patient- Primary Migraine with aura and without status migrainosus, not intractable ([facility]) Encounter for screening mammogram for malignant neoplasm of breast KI (generalized anxiety disorder) ([facility]) Generalized anxiety disorder Menopause Symptomatic menopausal or [...] Small bowel lesion documented in this encounter [facility] HealthcareEvaluation note* Diagnosis Encounter for subsequent annual wellness visit (AWV) in Medicare patient- Primary Migraine with aura and without status migrainosus, not intractable ([facility]) Encounter for screening mammogram for malignant neoplasm of breast KI (generalized anxiety disorder) ([facility]) Generalized anxiety disorder Menopause Symptomatic menopausal or [...] RUQ pain- Primary documented in this encounter [facility] HealthcareEvaluation noteNo assessment information availableWilson Memorial [facility] Work Phone: Evaluation note* Diagnosis [...] and without status migrainosus, not intractableacuteSept2024 1:02pm [facility] Work Phone: Reason for referral (narrative)No reason for referral information availableAultman Hospital Work Phone: Reason for Referral StatusReasonSpecialtyDiagnoses / ProceduresReferred By ContactReferred To ContactOpenRadiology Diagnoses Menopausal state Procedures DEXA BONE DENSITY AXIAL SKELETON Vesna Geiger [address] [place] [address] StatusReasonSpecialtyDiagnoses / ProceduresReferred By ContactReferred To ContactPending ReviewRadiology Diagnoses Breast cancer screening by mammogram Procedures LENO DIGITAL SCREEN W OR WO CAD BILATERAL Vesna Geiger [address] [place] [address] Assessments Diagnosis Menopausal state Symptomatic menopausal or female climacteric states Diagnosis Breast cancer screening by mammogram Advance Directives TypeDate RecordedPatient RepresentativeExplanationAdvance Directives and Living WillPower of Tower Observer Advance Directive Response Recorded Date/ Time Advance [...] HC DEXA AXIAL SKELETON Vesna Geiger [address] [place] [address] [address] StatusReasonSpecialtyDiagnoses / ProceduresReferred By ContactReferred To ContactOpenRadiology Diagnoses Encounter for screening mammogram for malignant neoplasm of breast Procedures HC MAMMOGRAM DIGITAL SCREEN BILAT Vesna Geiger [address] [facility] [place] [address] [address] ReasonCommentsHeel PainPt prsentd today with Rt heel pain, has been painful for about 1mo, NKI. Feels like a nail stabbing. Most painful for her when she is up on her feet. Most bothersome first thing in the morning. SS: 9.5WideReasonOnset DateCommentsMed Erobrb074ReasonCommentsFollow-upPt returns today for FUV Plantar fasciitis Rt foot, she states still very sore by the end of the day. She is stretching and it does help a little, she purchased new shoes at [employer] SS: 9.5WReasonCommentsMedicare Annual Wellness Visit InitialReasonCommentsSkin Check Suspicious Skin LesionSpecialtyDiagnoses / ProceduresReferred By ContactReferred To ContactDermatology Diagnoses Neoplasm, uncertain whether benign or malignant Procedures ID OFFICE/OUTPATIENT NEW HIGH MDM 60 MINUTES Vesna Geiger NP [address] [place] [address] Phone: tel: fax: Derek Mendoza, INSPECTOR FABRIC-PRINTING SIGN MACHINE OPERATOR [address] [place] [address] Phone: tel: fax: Referral IDStatusReasonStart DateExpiration DateVisits RequestedVisits [id number] Specialty Services Required [id number] INFORMATION SOURCE (unrecogn ized section and content) DATE CREATED AUTHOR 10/02/2019 [facility] DATE CREATED AUTHOR AUTHOR'S ORGANIZ ATION 04/24/2021 [facility] DATE CREATED AUTHOR AUTHOR'S ORGANIZ ATION 01/23/2022 [facility] DATE CREATED AUTHOR AUTHOR'S ORGANIZ ATION 09/03/2024 [facility] DATE CREATED AUTHOR AUTHOR'S ORGANIZ ATION 09/22/2024 [facility] Care Teams (unrecognized sec tion and content) Team MemberRelationshipSpecialtyStart DateEnd Date Nick Lane MD [address] [place] [address] PCP - GeneralFamily Aqyqzrko44/4/24 Vesna Geiger NP [address] [place] [address] Referring PhysicianNurse Practitioner10/06/22Team MemberRelationshipSpecialty Start DateEnd Date Nick Lane MD [address] [place] [address] PCP - GeneralFamily Qnguvvga50/4/24 Vesna Geiger NP [address] [place] [address] Referring PhysicianNurse Practitioner10/06/22am MemberRelationshipSpecialty Start DateEnd Date Nick Lane MD [address] [place] [address] PCP - GeneralFamily Amtrngmx18/4/24 Vesna Geiger NP [address] [place] [address] Referring PhysicianNurse Practitioner10/06/22 MemberRelationshipSpecialty Start DateEnd Date Nick Lane MD [address] [place] [address] [facility] - [facility] Tdiygday48/4/24 Vesna Geiger, DIRK [address] [place] [address] Referring PhysicianNurse Practitioner10/06/22 MemberRelationshipSpecialty Start DateEnd Date Nick Lane MD [address] [place] [address] PCP - GeneralFamily Ouslspdb75/4/24 Vesna Geiger NP [address] [place] [address] Referring PhysicianNurse Practitioner10/06/22am MemberRelationshipSpecialty Start DateEnd Date Nick Lane MD [address] [place] [address] PCP - GeneralFamily Ivvxnffn92/4/24 Vesna Geiger NP [address] [place] [address] PCP - [facility]04/18/24 Vesna Geiger NP [address] [place] [address] Referring PhysicianNurse Practitioner10/06/22Team MemberRelationshipSpecialty Start DateEnd Date Nick Lane MD [address] [place] [address] PCP - Generalmily Noivgadg43/4/24 Vesna Geiger NP [address] [place] [address] PCP - [facility]04/18/24 Vesna Geiger NP [address] [place] [address] Referring PhysicianNurse Practitioner10/06/22Team MemberRelationshipSpecialty Start DateEnd Date Nick Lane MD [address] [place] [address] PCP - GeneralFami Itxhbndj53/4/24 Vesna Geiger NP [address] [place] [address] PCP - [facility]04/18/24 Vesna Geiger NP [address] [place] [address] Referring PhysicianNurse Practitioner10/06/22Team MemberRelationshipSpecialty Start DateEnd Date Nick Lane MD [address] [place] [address] [facility] - [facility] Htnpqhzz89/4/24 Vesna Geiger NP [address] [place] [address] PCP - [facility]04/18/24 Vesna Geiger NP [address] [place] [address] Referring PhysicianNurse Practitioner10/06/22Team MemberRelationshipSpecialty Start DateEnd Date Nick Lane MD [address] [place] [address] [facility] - [facility] Hqtgtbal11/4/24 Vesna Geiger NP [address] [place] [address] PCP - [facility] Reach04/18/24 Vesna Geiger NP [address] [place] [address] Referring PhysicianNurse Practitioner10/06/22Team MemberRelationshipSpecialty Start DateEnd Date Nick Lane MD [address] [place] [address] PCP - [facility] Pnyrgtqs70/4/24 Vesna Geiger NP [address] [place] [address] PCP - [facility]04/18/24 Vesna Geiger NP [address] [place] [address] Referring PhysicianNurse Practitioner10/06/22Team MemberRelationshipSpecialty Start DateEnd Date Nick Lane MD [address] [place] [address] PCP - [facility]12/14/23 Vesna Geiger NP [address] [place] [address] [facility]04/18/24 Vesna Geiger NP [address] [place] [address] Referring PhysicianNurse Practitioner10/06/22 Team Status: Active Member Role Status Dates Vesna Geiger Primary Care Provider Active Team Status: Inactive Member Role Status Dates Vesna Geiger Primary Care Provide r, Attending Provider Active Start: August 07, 2024 End: August 07, 2024Team MemberRelationshipSpecialtyStart DateEnd Date Nick Lane MD [address] [place] [address] [facility] - [facility] Rvbwdjlh51/4/24 Vesna Geiger NP [address] [place] [address] PCP - [facility]04/18/24 Vesna Geiger NP [address] [place] [address] Referring PhysicianNurse Practitioner10/06/22Team MemberRelationshipSpecialty Start DateEnd Date Nick Lane MD [address] [place] [address] PCP - [facility] Uigizdfw66/4/24 Vesna Geiger NP [address] [place] [address] PCP - [facility]04/18/24 Vesna Geiger NP [address] [place] [address] Referring PhysicianNurse Practitioner10/06/22 Team Status: Inactive Member [...] Date Nick Lane MD PCP - GeneralFamily Xutuqcut49/4/24 Vesna Geiger NP [address] [place] [address] PCP - [facility] Vesna Geiger NP [...] BE BASED ON THE PRIMARY CLINICAL RECORDS. [employer] provides no warranty or guarantee of the accuracy or completeness of information in this document.
== END 2025-03-10 13:13 | disposition home or self-care (01) ==
LOC: MAMMO 13:13
PROVIDERS: PCP Nurse Practitioner; Visit Provider Nurse Practitioner
DX: R92.8 Other abnormal and inconclusive findings on diagnostic imaging of breast (principal)
CPT/HCPCS: 76642; 77065; G0279